=== PATIENT | male | born 1960 | race Caucasian/White ===

== ENCOUNTER 2016-07-20 17:20 | Emergency (ER) | payer MEDICAID, OTHER ==
[~2016-07-20] VITALS: Ht 175.3 cm; Wt 109.0 kg
[~2016-07-20 17:20] MED LIST: ALBUAER3 INH; ALLO100T PO; DIAZ10TA PO; FLOV220A INH; HYDR-3516 PO; METO25 PO; SERT100 PO; TRAZ50TA4 PO; WHEEMIS3; Z.0.WALKERFRONT
[2016-07-20 17:27] VITALS: BP 126/85; PULSE 100; RESP 18; TEMP 99
--- NOTE | 2016-07-20 17:36 | PD ---
HPI Chief Complaint: Fall Time Seen by Provider: 17:34 Travel History International Travel<30 days: No Contact w/Intl Traveler<30days: No Traveled to known affect area: No History of Present Illness HPI 55-year-old male presents to the emergency department for evaluation after a trip and fall that occurred just prior to arrival. Patient states that he tripped over his dog hitting his forehead against the tile floor. He reports positive loss of consciousness. EMS was called and brought him to the emergency department. He complains of headache and neck pain. According to EMS , he is able ambulatory to the stretcher without difficulty. He denies any back pain. No chest pain. No abdominal pain. No vomiting. He has chronic ankle pain which he receives cortisone injections for. He states that he drank 4 beers today and had Valium as well as his pain medication this morning. Patient denies any visual changes. He denies any hip or pelvic pain. He does not take anticoagulants and has no bleeding disorders. PFSH Past Medical History Asthma: Yes Anxiety: Yes Depression: Yes Dementia: Yes Hypertension: Yes Past Surgical History Abdominal Surgery: Yes (UMBILICAL HERNIA REPAIR) Social History Alcohol Use: Yes (2 XS MONTHLY 4 BEERS) Tobacco Use: Yes (CHEWING TOB) Substance Use: Yes (MARIJUANA OCCASIONALY) Allergies-Medications (Allergen,Severity, Reaction): Coded Allergies: Aleve (Verified Allergy, Intermediate, Rash, 07/20/16) Reported Meds & Prescriptions Reported Meds & Active Scripts Active Hydrocodone-Acetaminophen 5-325 mg Tab 1 Tab PO Q6H PRN Proair Hfa 8.5 GM Inh (Albuterol Sulfate) 90 Mcg/Act Aer 2 Puff INH Q4-6H PRN 108 mcg/actuation Reported Trazodone (Trazodone HCl) 100 Mg Tab 100 Mg PO HS Sertraline (Sertraline HCl) 100 Mg Tab 150 Mg PO DAILY Metoprolol Tartrate 25 Mg Tab 25 Mg PO BID Flovent Hfa 12 GM Inh (Fluticasone Propionate) 220 Mcg/Act Inh 1 Puff INH BID Use daily at the same time. Diazepam 5 Mg Tab 5 Mg PO TID PRN Allopurinol 100 Mg Tab 100 Mg PO BID Review of Systems Except as stated in HPI: all other systems reviewed are Neg Physical Exam Narrative GENERAL: Well-nourished, well-developed male patient, Afebrile. SKIN: Focused skin assessment warm/dry. Patient has swelling and hematoma to the left upper eye orbit. HEAD: Normocephalic. EYES: No scleral icterus. No injection or drainage. NECK: Supple, trachea midline. No JVD or lymphadenopathy. CARDIOVASCULAR: Regular rate and rhythm without murmurs, gallops, or rubs. RESPIRATORY: Breath sounds equal bilaterally. No accessory muscle use. Lungs sounds are clear to auscultation. GASTROINTESTINAL: Abdomen soft, non-tender, nondistended. MUSCULOSKELETAL: No cyanosis, or edema. BACK: No obvious deformity. No CVA tenderness. Patient is wearing a c-collar. His tenderness over midline cervical spine. No tenderness over midline thoracic or lumbar spine. Data Data Last Documented VS Vital Signs Date Time Temp Pulse Resp B/P Pulse Ox O2 Delivery O2 Flow Rate FiO2 07/20/16 18:54 97 07/20/16 18:25 89 18 130/71 07/20/16 17:[address] Brain W/O Iv Contrast(Rout) (07/20/16 ) Ct Cerv Spine W/O Contrast (07/20/16 ) Ct Facial Bones W/O Iv Cont (07/20/16 ) MDM Medical Decision Making Medical Screen Exam Complete: Yes Emergency Medical Condition: Yes Medical Record Reviewed: Yes Interpretation(s) Last Impressions Maxillofacial CT 07/20/16 0000 Signed Impressions: Service Date/Time: Wednesday, July 20, 2016 17:58 - CONCLUSION: 1. Left frontal scalp hematoma. 2. Mildly comminuted, minimally displaced fracturing of the nose. 3. Other facial bones, including the orbits, are intact. 4. Chronic-appearing maxillary sinusitis, right worse than left. Momo Stewart MD Head CT 07/20/16 0000 Signed Impressions: Service Date/Time: Wednesday, July 20, 2016 17:58 - CONCLUSION: No bleed or other acute intracranial abnormality demonstrated. Momo Stewart MD Cervical Spine CT 07/20/16 0000 Signed Impressions: Service Date/Time: Wednesday, July 20, 2016 18:00 - CONCLUSION: Intact cervical spine. Mild degenerative changes at C5/C6. Momo Stewart MD Differential Diagnosis Closed head injury versus intracranial abnormality versus cervical strain versus fracture versus facial contusion versus facial fracture Narrative Course 55-year-old male presents to the emergency department for evaluation after a trip and fall. CT of the brain, cervical spine, facial bones are ordered and pending. CT of the brain shows no bleed or other acute intracranial abnormality. CT of the cervical spine shows an intact cervical spine. CT of the facial bones shows a left frontal scalp hematoma, mildly, UA, mainly displaced fracture of the nose, no other facial bone fractures, chronic appearing maxillary sinusitis. Patient has no septal hematoma on exam. He verbalizes agreement. He will follow-up with an ear nose and throat physician. Patient states he would like to go home. The patient was discharged in stable condition with instructions, including return instructions and follow up instructions. Diagnosis Primary Impression: Nasal bone fx-closed Qualified Code: S02.2XXA - Closed fracture of nasal bone, initial encounter Additional Impressions: Facial contusion Qualified Code: S00.83XA - Facial contusion, initial encounter Closed head injury Qualified Code: S09.90XA - Closed head injury, initial encounter Referrals: Ear / Nose / Throat Specialist call for appointment Patient Instructions: General Instructions, Head Injury (ED), Nasal Fracture ( ED) Additional Instructions: Follow-up with ear nose and throat physician regarding nasal bone fracture. Ice for 20 minutes 4-5 times daily. Return to the emergency department for any acute worsening of symptoms. Disposition: 01 DISCHARGE HOME Condition: Stable PedroSymone July 20, 2016 17:36
[2016-07-20 18:25] VITALS: BP 130/71; PULSE 89; RESP 18; O2SAT 96
--- NOTE | 2016-07-20 18:38 | RADRPT ---
EXAM DATE/TIME: 07/20/2016 17:58 [facility] COMPARISON: No previous studies available for comparison. INDICATIONS : Trauma; fall. ETOH RADIATION DOSE: 56.35 CTDIvol (mGy) MEDICAL HISTORY : Non-responsive. SURGICAL HISTORY : Non-responsive. ENCOUNTER: Initial ACUITY: 1 day PAIN SCALE: Non-responsive LOCATION: cranial TECHNIQUE: Multiple contiguous axial images were obtained of the head. Using automated exposure control and adj ustment of the mA and/or kV according to patient size, radiation dose was kept as low as reasonably a chievable to obtain optimal diagnostic quality images. FINDINGS: CEREBRUM: The ventricles are normal for age. No evidence of midline shift, mass lesion, hemorrhage or acute in farction. No extra-axial fluid collections are seen. POSTERIOR FOSSA: The cerebellum and brainstem are intact. The 4th ventricle is midline. The cerebellopontine angle i s unremarkable. EXTRACRANIAL: The visualized portion of the orbits is intact. SKULL: The calvaria is intact. No evidence of skull fracture. CONCLUSION: No bleed or other acute intracranial abnormality demonstrated. Momo Stewart MD on July 20, 2016 at 18:36 Board Certified Radiologist. This report was verified electronically.
--- NOTE | 2016-07-20 18:40 | RADRPT ---
EXAM DATE/TIME: 07/20/2016 17:58 [facility] COMPARISON: No previous studies available for comparison. INDICATIONS : Trauma; fall. RADIATION DOSE: 21.96 CTDIvol (mGy) MEDICAL HISTORY : Non-responsive. SURGICAL HISTORY : Non-responsive. ENCOUNTER: Initial ACUITY: 1 day PAIN SCORE: Non-responsive LOCATION: facial TECHNIQUE: Volumetric scanning of the facial bones was performed. Using automated exposure control and adjustme nt of the mA and/or kV according to patient size, radiation dose was kept as low as reasonably achiev able to obtain optimal diagnostic quality images. FINDINGS: ORBITS: The orbital and infraorbital osseous structures are intact. The retroconal structures have a normal configuration. No radiopaque foreign bodies are seen. NASAL BONE: The mildly comminuted, minimally displaced fracturing seen of the tip of the nasion and both sides of the nasal arch. ZYGOMATIC ARCHES: Symmetric without evidence of fracture. SINUSES: Mucoperiosteal thickening is seen of the maxillary air cells, especially the right. NASAL CAVITY: The nasal septum is intact and midline. The lacrimal ducts are intact. SOFT TISSUES: There is a left supraorbital scalp contusion. INTRACRANIAL: No intracranial air seen. CRIBIFORM PLATE: Grossly intact. CONCLUSION: 1. Left frontal scalp hematoma. 2. Mildly comminuted, minimally displaced fracturing of the nose. 3. Other facial bones, including the orbits, are intact. 4. Chronic-appearing maxillary sinusitis, right worse than left. Momo Stewart MD on July 20, 2016 at 18:37 Board Certified Radiologist. This report was verified electronically.
[2016-07-20] MEDS ORDERED: SERT-129 PO (18:47)
[2016-07-20] MEDS ORDERED: METO25TA3 PO (18:47)
[2016-07-20] MEDS ORDERED: DIAZ5TAB PO (18:47)
[2016-07-20] MEDS ORDERED: TRAZ100T4 PO (18:47)
[2016-07-20] MEDS ORDERED: ALLO100T PO (18:47)
[2016-07-20] MEDS ORDERED: FLUTI220I INH (18:47)
--- NOTE | 2016-07-20 19:15 | RADRPT ---
EXAM DATE/TIME: 07/20/2016 18:00 [facility] COMPARISON: No previous studies available for comparison. INDICATIONS : Trauma; fall. RADIATION DOSE: 28.51 CTDIvol (mGy) MEDICAL HISTORY : Non-responsive. SURGICAL HISTORY : Non-responsive. ENCOUNTER: Initial ACUITY: 1 day PAIN SCALE: Non-responsive LOCATION: neck TECHNIQUE: Volumetric scanning of the cervical spine was performed. Multiplanar reconstructions in the sagittal, coronal and oblique axial planes were performed. Using automated exposure control and adjustment o f the mA and/or kV according to patient size, radiation dose was kept as low as reasonably achievable to obtain optimal diagnostic quality images. FINDINGS: VERTEBRAE: Normal vertebral body height. ALIGNMENT: No evidence of subluxation. C2-C3: The bony spinal canal is normal in size. No evidence of disc bulge or herniation. The neural forami na are bilaterally patent. C3-C4: The bony spinal canal is normal in size. No evidence of disc bulge or herniation. The neural forami na are bilaterally patent. C4-C5: The bony spinal canal is normal in size. No evidence of disc bulge or herniation. The neural forami na are bilaterally patent. C5-C6: Mild disc space narrowing and mild uncovertebral and facet osteoarthritis seen at C5/C6. No significa nt foraminal or spinal stenosis. C6-C7: The bony spinal canal is normal in size. No evidence of disc bulge or herniation. The neural forami na are bilaterally patent. C7-T1: The bony spinal canal is normal in size. No evidence of disc bulge or herniation. The neural forami na are bilaterally patent. CONCLUSION: Intact cervical spine. Mild degenerative changes at C5/C6. Momo Stewart MD on July 20, 2016 at 19:12 Board Certified Radiologist. This report was verified electronically.
[2016-07-27] MEDS ORDERED: HYDR-3516 PO (14:10)
[2016-08-30] MEDS ORDERED: HYDR-3516 PO (15:32)
[2016-09-06] MEDS ORDERED: HYDR-3580 PO (10:58)
[2016-09-06] MEDS ORDERED: POTA-163 PO (11:14)
[2016-09-06] MEDS ORDERED: FURO40TA PO (11:14)
[2016-09-06] MEDS ORDERED: CLAR10CA3 PO (11:14)
== END 2016-07-20 19:58 | disposition home or self-care (01) ==
LOC: NEPC 17:20
DX: S02.2XXA Fracture of nasal bones, initial encounter for closed fracture (principal); S00.03XA Contusion of scalp, initial encounter; J32.0 Chronic maxillary sinusitis; W01.0XXA Fall on same level from slipping, tripping and stumbling without subsequent striking against object, initial encounter
CPT/HCPCS: 70450; 70486; 72125

== ENCOUNTER 2017-09-20 12:39 | Inpatient (IN) ==
--- NOTE | 2017-09-20 14:46 | ED ---
HPI General Chief complaint: Back Pain/Injury Stated complaint: evac/medical Time Seen by Provider: 09/20/17 14:29 Source: patient Mode of arrival: EMS Limitations: other (poor historian) History of Present Illness HPI narrative: 56-year-old male presents to the emergency department via EMS for evaluation of left ankle and left hip pain. Patient states he had surgery on July 25, 2017 by a physician in [facility]. Patient states they took a bone from his left hip and put it in his ankle. Patient is a poor historian. Patient states that on Saturday, he slipped using his crutches and water and fell, causing worsening pain to his left hip and left ankle. Patient also states that he has been out of his pain medication for 3 days. He rates the pain 10/ 10 to the left hip and left ankle without radiation. He also reports bilateral lower extremity swelling over the past 2 weeks. He states that he had an ultrasound done approximately 2 weeks ago by a physician at [facility] which was negative for DVT, but states the symptoms have worsened. He denies any history of CHF. Patient also reports increasing shortness of breath over the past 2 weeks. No fevers. No chest pain. He denies any abdominal pain. No nausea, vomiting, diarrhea. He reports history of asthma and hypertension. He denies any history of UT or CHF. Patient's oxygen saturation upon arrival was 88% on room air. He was placed on 2 L O2 nasal cannula. Moderate severity. Onset (ago): week(s) Location: left and lower extremity Radiation: non-radiation Severity: moderate Severity scale (1-10): 10 Quality: aching Pain Consistency: constant Relieving factors: none Exacerbating factors: movement Associated symptoms: shortness of breath and other (Edema) Treatments prior to arrival: none Related Data Home Medications Medication Instructions Recorded Confirmed albuterol sulfate [ProAir HFA] 2 puff INHALATION Q4H PRN 09/20/17 09/20/17 allopurinol 100 mg PO DAILY 09/20/17 09/20/17 cyclobenzaprine 5 mg PO TID PRN 09/20/17 09/20/17 diazepam [Valium] 5 mg PO TID PRN 09/20/17 09/20/17 gabapentin [Neurontin] 100 mg PO TID 09/20/17 09/20/17 hydrocodone-acetaminophen [[place]] 1 tab PO Q6H PRN 09/20/17 09/20/17 ketoconazole 1 applic TOPICAL BID 09/20/17 09/20/17 loratadine [Claritin] 10 mg PO DAILY 09/20/17 09/20/17 metoprolol tartrate 25 mg PO BID 09/20/17 09/20/17 sertraline [Zoloft] 150 mg PO DAILY 09/20/17 09/20/17 trazodone 100 mg PO HS 09/20/17 09/20/17 Allergies Allergy/AdvReac Type Severity Reaction Status Date / Time naproxen Allergy Intermediate Rash Verified 09/20/17 16:24 Review of Systems ROS Unobtainable All other systems reviewed negative except as stated in [facility] Medical History Medical History Borderline diabetes (Acute) Depressed (Acute) Gout (Acute) Hypertension (Acute) Neuropathy (Acute) Seasonal allergies (Acute) Social History Social History Substance History: Past History Second Hand Smoke Exposure: Yes Smoking Status: Current every day smoker Tobacco Type: Cigarettes How Often Do You Have a Drink Containing Alcohol: Monthly or less Recent Out of Country Travel within the Last 8 Weeks: No Immunization History Tetanus Immunization: Unsure Hx Influenza Vaccine This Season: No Exam Narrative Exam Narrative: GENERAL: Well-nourished, well-developed obese male patient, afebrile SKIN: Focused skin assessment warm/dry. Patient has incision site to the left posterior ankle with slight dehiscence and erythema. Patient has incision site to the left posterior hip that appears to be healing well HEAD: Normocephalic. Atraumatic EYES: No scleral icterus. No injection or drainage. NECK: Supple, trachea midline. No JVD or lymphadenopathy. CARDIOVASCULAR: Regular rate and rhythm without murmurs, gallops, or rubs. RESPIRATORY: Breath sounds equal bilaterally. No accessory muscle use. GASTROINTESTINAL: Abdomen soft, non-tender, nondistended. MUSCULOSKELETAL: No cyanosis. Patient has 3+ pitting edema to the lower extremities BACK: Nontender without obvious deformity. No CVA tenderness. Course Initial Documented Vital Signs Temperature 98.4 F 09/20/17 12:45 Pulse Rate 100 H 09/20/17 12:45 Respiratory Rate 20 09/20/17 12:45 Blood Pressure 119/59 L 09/20/17 12:45 Pulse Oximetry 89 L 09/20/17 12:45 Last Documented Vital Signs Temperature 98.5 F 09/20/17 14:00 Pulse Rate 98 H 09/20/17 14:00 Respiratory Rate 20 09/20/17 14:00 Blood Pressure 119/59 L 09/20/17 12:45 Pulse Oximetry 93 L 09/20/17 14:05 Medical Decision Making MDM Narrative Medical decision making narrative: 56-year-old male presents to the emergency department for lower extremity edema, shortness of breath, ankle and hip pain. EKG, CBC, ESR, CRP, CMP, magnesium, lactic acid, CK, troponin, BNP, PTT, PT/INR , chest x-ray, ultrasound of the bilateral lower extremities are ordered and pending. EKG shows sinus rhythm, heart rate 97, no acute ST changes. CBC shows no acute abnormality. ESR is pending. CMP shows elevated AST of 89, alkaline phosphatase 234. CRP is 7.40. Magnesium is 2.3. Lactic acid is 1.5. BNP is still pending. CK is 97. Troponin is less than 0.02. Coags are unremarkable. Chest x-ray shows cardiomegaly with mild positive fluid balance. US is negative for DVT. X-ray of the left ankle shows no acute fracture or joint dislocation, status post internal fixation of the ankle. X-ray of the left hip with pelvis shows no acute fracture or joint dislocation. Blood cultures 2 were ordered and pending. Patient is given vancomycin 1 g IV for cellulitis to the left ankle. Patient is given Lasix 40 mg IV. Patient sees the residents. He will be admitted for new onset CHF, cellulitis. Dr. Mcneil, resident, accepted admission. Differential Diagnosis Differential Diagnosis: cellulitis vs. osteomyelitis vs. new onset CHF vs. DVT vs. PE vs. ACS vs. electrolyte abnormality vs. chronic pain Medical Records Medical records reviewed: Yes I reviewed the patient's medical records. Lab Data Result diagrams: 09/20/17 14:40 09/20/17 14:40 Lab Results 09/20/17 09/20/17 09/20/17 Range/Units 14:40 14:40 14:40 WBC 6.4 (4.0-11.0) th/mm3 RBC 3.43 L (4.50-5.90) mil/mm3 Hgb 11.4 L (13.0-17.0) gm/dL Hct 35.8 L (39.0-51.0) % MCV 104.3 H (80.0-100.0) fL MCH 33.4 (27.0-34.0) pg MCHC 32.0 (32.0-36.0) % RDW 20.6 H (11.6-17.2) % Plt Count 219 (150-450) th/mm3 MPV 7.4 (7.0-11.0) fL Neut % (Auto) 69.0 (16.0-70.0) % Lymph % (Auto) 14.0 (9.0-44.0) % Frio % (Auto) 14.7 H (0.0-8.0) % Eos % (Auto) 1.9 (0.0-4.0) % Baso % (Auto) 0.4 (0.0-2.0) % Neut # (Auto) 4.4 (1.8-7.7) th/mm3 Lymph # (Auto) 0.9 L (1.0-4.8) th/mm3 Frio # (Auto) 0.9 (0.0-0.9) th/mm3 Eos # (Auto) 0.1 (0.0-0.4) th/mm3 Baso # (Auto) 0.0 (0.0-0.2) th/mm3 WBC Differential . Differential Comment Auto diff final ESR (0-20) mm/hr PT 10.6 (9.8-11.6) sec INR 1.0 Ratio APTT 26.6 (24.3-30.1) sec Sodium 134 L (136-145) meq/L Potassium 4.3 (3.5-5.1) meq/L Chloride 96 L (98-107) meq/L Carbon Dioxide 23.6 (21.0-32.0) meq/L Anion Gap 14 (5-15) meq/L BUN 3 L (7-18) mg/dL Creatinine 0.59 L (0.60-1.30) mg/dL Estimated GFR Greater than 89 (>89) mL/min Random Glucose 91 (74-106) mg/dL Lactic Acid (0.4-2.0) mmol/L Calcium 8.3 L (8.5-10.1) mg/dL Magnesium 2.3 (1.5-2.5) mg/dL Total Bilirubin 0.7 (0.2-1.0) mg/dL AST 89 H (15-37) U/L ALT 50 (12-78) U/L Alkaline Phosphatase 234 H (45-117) U/L Total Creatine Kinase 97 (39-308) U/L Troponin I Less than 0.02 L (0.02-0.05) ng/mL C-Reactive Protein 7.40 H (0.00-0.30) mg/dL B-Natriuretic Peptide (0-100) pg/mL Total Protein 6.6 (6.4-8.2) g/dL Albumin 2.8 L (3.4-5.0) g/dL Urine Color (Yellw/Straw) Urine Clarity (Clear) Urine pH (5.0-8.5) Ur Specific [place] (1.002-1.035) Urine Protein (Neg-Trace) mg/dL Urine Glucose (UA) (Negative) mg/dL Urine Ketones (Negative) mg/dL Urine Occult Blood (Negative) Urine Nitrate (Negative) Urine Bilirubin (Negative) Urine Urobilinogen (Less than 2) mg/dL Ur Leukocyte Esterase (Negative) Urine RBC (0-3) /hpf Micro UA Comment Urine Culture Comments 09/20/17 09/20/17 09/20/17 Range/Units 14:40 14:40 14:45 WBC (4.0-11.0) th/mm3 RBC (4.50-5.90) mil/mm3 Hgb (13.0-17.0) gm/dL Hct (39.0-51.0) % MCV (80.0-100.0) fL MCH (27.0-34.0) pg MCHC (32.0-36.0) % RDW (11.6-17.2) % Plt Count (150-450) th/mm3 MPV (7.0-11.0) fL Neut % (Auto) (16.0-70.0) % Lymph % (Auto) (9.0-44.0) % Frio % (Auto) (0.0-8.0) % Eos % (Auto) (0.0-4.0) % Baso % (Auto) (0.0-2.0) % Neut # (Auto) (1.8-7.7) th/mm3 Lymph # (Auto) (1.0-4.8) th/mm3 Frio # (Auto) (0.0-0.9) th/mm3 Eos # (Auto) (0.0-0.4) th/mm3 Baso # (Auto) (0.0-0.2) th/mm3 WBC Differential Differential Comment ESR 14 (0-20) mm/hr PT (9.8-11.6) sec INR Ratio APTT (24.3-30.1) sec Sodium (136-145) meq/L Potassium (3.5-5.1) meq/L Chloride (98-107) meq/L Carbon Dioxide (21.0-32.0) meq/L Anion Gap (5-15) meq/L BUN (7-18) mg/dL Creatinine (0.60-1.30) mg/dL Estimated GFR (>89) mL/min Random Glucose (74-106) mg/dL Lactic Acid 1.5 (0.4-2.0) mmol/L Calcium (8.5-10.1) mg/dL Magnesium (1.5-2.5) mg/dL Total Bilirubin (0.2-1.0) mg/dL AST (15-37) U/L ALT (12-78) U/L Alkaline Phosphatase (45-117) U/L Total Creatine Kinase (39-308) U/L Troponin I (0.02-0.05) ng/mL C-Reactive Protein (0.00-0.30) mg/dL B-Natriuretic Peptide 203 H (0-100) pg/mL Total Protein (6.4-8.2) g/dL Albumin (3.4-5.0) g/dL Urine Color (Yellw/Straw) Urine Clarity (Clear) Urine pH (5.0-8.5) Ur Specific [place] (1.002-1.035) Urine Protein (Neg-Trace) mg/dL Urine Glucose (UA) (Negative) mg/dL Urine Ketones (Negative) mg/dL Urine Occult Blood (Negative) Urine Nitrate (Negative) Urine Bilirubin (Negative) Urine Urobilinogen (Less than 2) mg/dL Ur Leukocyte Esterase (Negative) Urine RBC (0-3) /hpf Micro UA Comment Urine Culture Comments 09/20/17 Range/Units 14:50 WBC (4.0-11.0) th/mm3 RBC (4.50-5.90) mil/mm3 Hgb (13.0-17.0) gm/dL Hct (39.0-51.0) % MCV (80.0-100.0) fL MCH (27.0-34.0) pg MCHC (32.0-36.0) % RDW (11.6-17.2) % Plt Count (150-450) th/mm3 MPV (7.0-11.0) fL Neut % (Auto) (16.0-70.0) % Lymph % (Auto) (9.0-44.0) % Frio % (Auto) (0.0-8.0) % Eos % (Auto) (0.0-4.0) % Baso % (Auto) (0.0-2.0) % Neut # (Auto) (1.8-7.7) th/mm3 Lymph # (Auto) (1.0-4.8) th/mm3 Frio # (Auto) (0.0-0.9) th/mm3 Eos # (Auto) (0.0-0.4) th/mm3 Baso # (Auto) (0.0-0.2) th/mm3 WBC Differential Differential Comment ESR (0-20) mm/hr PT (9.8-11.6) sec INR Ratio APTT (24.3-30.1) sec Sodium (136-145) meq/L Potassium (3.5-5.1) meq/L Chloride (98-107) meq/L Carbon Dioxide (21.0-32.0) meq/L Anion Gap (5-15) meq/L BUN (7-18) mg/dL Creatinine (0.60-1.30) mg/dL Estimated GFR (>89) mL/min Random Glucose (74-106) mg/dL Lactic Acid (0.4-2.0) mmol/L Calcium (8.5-10.1) mg/dL Magnesium (1.5-2.5) mg/dL Total Bilirubin (0.2-1.0) mg/dL AST (15-37) U/L ALT (12-78) U/L Alkaline Phosphatase (45-117) U/L Total Creatine Kinase (39-308) U/L Troponin I (0.02-0.05) ng/mL C-Reactive Protein (0.00-0.30) mg/dL B-Natriuretic Peptide (0-100) pg/mL Total Protein (6.4-8.2) g/dL Albumin (3.4-5.0) g/dL Urine Color Yellow (Yellw/Straw) Urine Clarity Clear (Clear) Urine pH 6.0 (5.0-8.5) Ur Specific [place] 1.004 (1.002-1.035) Urine Protein Negative (Neg-Trace) mg/dL Urine Glucose (UA) Negative (Negative) mg/dL Urine Ketones Negative (Negative) mg/dL Urine Occult Blood Negative (Negative) Urine Nitrate Negative (Negative) Urine Bilirubin Negative (Negative) Urine Urobilinogen Less than 2 (Less than 2) mg/dL Ur Leukocyte Esterase Negative (Negative) Urine RBC Less than 1 (0-3) /hpf Micro UA Comment Culture not ind Urine Culture Comments Culture not ind Imaging Data Radiologist's impression: ITS Impressions Ankle X-Ray 09/20/17 14:40 CONCLUSION: No acute fracture or joint dislocation. Chest X-Ray 09/20/17 14:40 CONCLUSION: 1. Cardiomegaly with mild positive fluid balance. Hip X-Ray 09/20/17 14:40 CONCLUSION: No acute fracture or joint dislocation. Venous Doppler Study 09/20/17 14:42 CONCLUSION: 1. No evidence of DVT. Discharge Plan Discharge Disposition Patient Disposition: 30 Still Patient Discharge Details Discharge Problem: New onset of congestive heart failure, Cellulitis Physicians Team ED Provider: Romeo Cintron ED Midlevel Provider: Symone Vasquez Primary Care Provider: Young Mahmood Rxs /Orders / Referrals /Forms Prescriptions: No Action allopurinol 100 mg Tablet 100 mg PO DAILY RF: 0 hydrocodone-acetaminophen [[place]] 10-325 mg Tablet 1 tab PO Q6H PRN (Reason: Pain) RF: 0 trazodone 100 mg Tablet 100 mg PO HS RF: 0 gabapentin [Neurontin] 100 mg Capsule 100 mg PO TID RF: 0 albuterol sulfate [ProAir HFA] 90 mcg/actuation Hfa Aerosol Inhaler 2 puff INHALATION Q4H PRN (Reason: Shortness Of Breath) RF: 0 ketoconazole 2 % Cream 1 applic TOPICAL BID RF: 0 sertraline [Zoloft] 50 mg Tablet 150 mg PO DAILY RF: 0 loratadine [Claritin] 10 mg Tablet 10 mg PO DAILY RF: 0 diazepam [Valium] 5 mg Tablet 5 mg PO TID PRN (Reason: Anxiety) RF: 0 cyclobenzaprine 5 mg Tablet 5 mg PO TID PRN (Reason: Muscle Spasm) RF: 0 metoprolol tartrate 25 mg Tablet 25 mg PO BID RF: 0 Status ED Status: With Doctor
[2017-09-20 15:13] LABS: Bilirubin,Urine Negative (Negative); Clarity,Urine Clear (Clear); Color,Urine Yellow (Yellw/Straw); Glucose,Urine (UA) Negative (Negative); Leukocyte Esterase,Urine Negative (Negative); Nitrite,Urine Negative (Negative); Specific Gravity,Urine 1.004 (1.002-1.035)
[2017-09-20 15:14] LABS: Baso % (Auto) 0.4 % (0.0-2.0); Eos # (Auto) 0.1 th/mm3 (0.0-0.4); Eos % (Auto) 1.9 % (0.0-4.0); Hematocrit 35.8 % (39.0-51.0); Hemoglobin 11.4 gm/dL (13.0-17.0); Lymph # (Auto) 0.9 th/mm3 (1.0-4.8); Mean Corpuscular Hemoglobin 33.4 pg (27.0-34.0); Mean Corpuscular Volume 104.3 fL (80.0-100.0); Mean Platelet Volume 7.4 fL (7.0-11.0); Mono # (Auto) 0.9 th/mm3 (0.0-0.9); Mono % (Auto) 14.7 % (0.0-8.0); Neut # (Auto) 4.4 th/mm3 (1.8-7.7); Platelet Count 219 th/mm3 (150-450); Red Blood Count 3.43 mil/mm3 (4.50-5.90); Red Cell Distribution Width 20.6 % (11.6-17.2); White Blood Count 6.4 th/mm3 (4.0-11.0)
[2017-09-20 15:19] LABS: Activated Partial Thrombo Time 26.6 sec (24.3-30.1); Prothrombin Time 10.6 sec (9.8-11.6)
[2017-09-20 15:34] LABS: Alanine Aminotransferase 50 U/L (12-78); Albumin 2.8 g/dL (3.4-5.0); Alkaline Phosphatase 234 U/L (45-117); Anion Gap 14 meq/L (5-15); Aspartate Aminotransferase 89 U/L (15-37); Blood Urea Nitrogen 3 mg/dL (7-18); Calcium 8.3 mg/dL (8.5-10.1); Carbon Dioxide 23.6 meq/L (21.0-32.0); Chloride 96 meq/L (98-107); Glomerular Filtration Rate Greater Than 89 mL/min (>89); Glucose,Random 91 mg/dL (74-106); Magnesium 2.3 mg/dL (1.5-2.5); Potassium 4.3 meq/L (3.5-5.1); Sodium 134 meq/L (136-145); Total Protein 6.6 g/dL (6.4-8.2)
[2017-09-20 15:37] LABS: Creatine Kinase 97 U/L (39-308)
--- NOTE | 2017-09-20 15:53 | XR ---
EXAM DATE: 09/20/2017 3:40 PM EDT AGE/SEX: 56 years / Male INDICATIONS: Shortness of breath. CLINICAL DATA: This is the patient's initial encounter. Patient reports that signs and symptoms have been present for 1 day and indicates a pain score of 8/10. MEDICAL/SURGICAL HISTORY: . Previous left ankle fracture . ORIF of the left ankle with left hi p bone marrow COMPARISON: No prior exams available for comparison. FINDINGS: Mild diffuse interstitial prominence. Cardiac silhouette is enlarged. Central pulmonary vascularity i s slightly indistinct. Healed left clavicle fracture. Bony thorax is otherwise intact. CONCLUSION: 1. Cardiomegaly with mild positive fluid balance. Electronically signed by: Luis Manuel Vidal MD 09/20/2017 3:52 PM EDT
--- NOTE | 2017-09-20 15:55 | XR ---
EXAM DATE: 09/20/2017 3:39 PM EDT AGE/SEX: 56 years / Male INDICATIONS: Left ankle pain with swelling post fall. CLINICAL DATA: This is the patient's initial encounter. Patient reports that signs and symptoms have been present for 1 day and indicates a pain score of 8/10. MEDICAL/SURGICAL HISTORY: . Previous left ankle fracture . ORIF of the left ankle with left hi p bone marrow COMPARISON: POI, XR ANKLE (MIN 3 VIEWS), LEFT, 10/09/2016. . FINDINGS: Patient is status post internal fixation at the ankle. The hardware is grossly intact. There is diffu se soft tissue swelling around the ankle. No acute fracture or joint dislocation is seen. CONCLUSION: No acute fracture or joint dislocation. Electronically signed by: Leo Norris MD 09/20/2017 3:54 PM EDT
--- NOTE | 2017-09-20 15:56 | XR ---
EXAM DATE: 09/20/2017 3:37 PM EDT AGE/SEX: 56 years / Male INDICATIONS: Left hip pain post fall. CLINICAL DATA: This is the patient's initial encounter. Patient reports that signs and symptoms have been present for 1 day and indicates a pain score of 8/10. MEDICAL/SURGICAL HISTORY: . Previous left ankle fracture . ORIF of the left ankle with left h ip bone marrow COMPARISON: No prior exams available for comparison. FINDINGS: Bony structures are intact and in normal alignment. Joints are intact without dislocation or signifi cant arthropathy. Osseous density is normal. Soft tissues are unremarkable. No radiopaque foreign bodies seen. CONCLUSION: No acute fracture or joint dislocation. Electronically signed by: Leo Norris MD 09/20/2017 3:55 PM EDT
--- NOTE | 2017-09-20 16:17 | US ---
EXAM DATE: 09/20/2017 4:09 PM EDT AGE/SEX: 56 years / Male INDICATIONS: Bilateral lower extremity swelling. CLINICAL DATA: This is the patient's initial encounter. Patient reports that signs and symptoms have been present for 2 weeks and indicates a pain score of 10/10. MEDICAL/SURGICAL HISTORY: Hypertension. Gout. Neuropathy. . Orthopedic surgery on the left an kle and left hip. COMPARISON: No prior exams available for comparison. TECHNIQUE: Venous ultrasound of both lower extremities was performed from the inguinal ligament to t he proximal calf. Real-time, color Doppler and spectral tracing, compression and augmentation techni ques were used. FINDINGS: Right Leg: Normal compression of the deep venous system from the inguinal region to the proximal jose enrique f. No echogenic clot is seen. Normal response of the venous system to augmentation and respiration. Left Leg: Normal compression of the deep venous system from the inguinal region to the proximal calf . No echogenic clot is seen. Normal response of the venous system to augmentation and respiration. Other: There is edema in the soft tissues bilaterally. CONCLUSION: 1. No evidence of DVT. Electronically signed by: Leo Norris MD 09/20/2017 4:16 PM EDT
[2017-09-20] MEDS ORDERED: Vancomycin Inj 1 GM/200 ML PIGGYBACK IV.SIG ONE (16:31)
[2017-09-20] MEDS ORDERED: Vancomycin Inj 1,000 MG in Sodium Chlor 0.9% Inj 250 ML IV.SIG ONE (17:00)
--- NOTE | 2017-09-20 17:24 | P.HPFP ---
History of Present Illness Primary Care Physician: Young Mahmood MD, R2 Chief Complaint: Swelling and redness in legs History of Present Illness: 56 yo M with a PMH of HTN, Depression/Anxiety presenting to ED with bilateral leg swelling and redness. First started a couple of weeks ago and has been gradually getting worse. Swelling started in his ankles but now feels it is as high as his upper thighs and abdomen. He has been experiencing worsening SOB over last several weeks as well. Endorses needing more pillows/sitting upright at night to help him breath. Denies any history of DE, CAD, CHF. Of note, he recently had surgery on July 25 on his L hip and L ankle. Pain in his ankle/hip have been improving. He was prescribed Camino 10 after the surgery but he ran out several days ago. Denies fever/chills, pain specific to the joint. He does state there has been some yellowing drainage from the surgical site on his L ankle. - Diagnosis (1) New onset of congestive heart failure (2) Cellulitis (3) Hypertension (4) History of asthma (5) Depression with anxiety (6) Gout (7) Nutrition, metabolism, and development symptoms Inpatient Certification: I certify that the inpatient services were ordered in accordance with Medicare regulations governing the order. This includes certification that hospital inpatient services are reasonable and necessary and in the case of services not specified as inpatient-only under 42 CFR 419.22(n), that they are appropriately provided as inpatient services in accordance to with the 2-midnight benchmark under 43 CFR 412.3(e) Review of Systems Constitutional: Denies chills, Denies fever(s), Denies headache(s), Denies night sweats Eyes: Denies blurry vision, Denies pain Ears, Nose, Mouth, and Throat: Denies pain with swallowing, Denies post nasal drip, Denies sore throat Cardiovascular: Reports generalized swelling, Reports leg swelling, Reports shortness of breath, Reports shortness of breath when lying down, Denies chest pain, Denies chest pain with activity Respiratory: Reports wheezing (more than baseline), Denies cough Gastrointestinal: Reports loose stools, Denies abdominal pain, Denies black, tarry stools, Denies bright, red blood in stools Genitourinary: Denies blood in urine, Denies painful urination Musculoskeletal: Reports muscle weakness, Denies joint pain Neurologic: Denies dizziness, Denies headache(s), Denies loss of vision Hematologic/Lymphatic: Denies easy bleeding, Denies easy bruising PMFSH - History History Provided By: Patient - Medical History Medical History: Medical History (Last Updated 09/20/17 @ 18:53 by Johnson Mcneil MD, R1) Anxiety Asthma Borderline diabetes Depressed Gout Hypertension Left wrist fracture Neuropathy Seasonal allergies - Surgical History Surgical History: Surgical History (Last Updated 09/20/17 @ 17:40 by Johnson Mcneil MD, R1) H/O umbilical hernia repair - Family History Family History: Family History (Last Updated 09/20/17 @ 17:40 by Johnson Mcneil MD, R1) Other Family history of acute myocardial infarction Family history of diabetes mellitus Family history of lung cancer Family history of renal disease - Tobacco History Second Hand Smoke Exposure: Yes Tobacco Use In Past 30 Days: Yes Smoking Status: Current every day smoker (1/2 ppd for 20 years off and on) Tobacco Type: Cigarettes - Alcohol History How Often Do You Have a Drink Containing Alcohol: Monthly or less - Substance Use History Substance History: Past History - Travel History Recent Travel Out of the Country Within the Last 8 Weeks: No - Immunization History Tetanus Immunization: Unsure Hx Influenza Vaccine This Season: No Medications and Allergies Active Medications: Active Medications Vancomycin HCl 1,000 mg/ (Sodium Chloride) 250 mls @ 250 mls/hr IV.SIG ONCE ONE Stop: 09/20/17 17:59 Allergies Allergy/AdvReac Type Severity Reaction Status Date / Time naproxen Allergy Intermediate Rash Verified 09/20/17 16:24 Home Medications Medication Instructions Recorded Confirmed Type albuterol sulfate [ProAir HFA] 2 puff INHALATION Q4H PRN 09/20/17 09/20/17 History allopurinol 100 mg PO DAILY 09/20/17 09/20/17 History diazepam [Valium] 5 mg PO TID PRN 09/20/17 09/20/17 History hydrocodone-acetaminophen [Camino] 1 tab PO Q6H PRN 09/20/17 09/20/17 History ketoconazole 1 applic TOPICAL BID 09/20/17 09/20/17 History loratadine [Claritin] 10 mg PO DAILY 09/20/17 09/20/17 History metoprolol tartrate 25 mg PO BID 09/20/17 09/20/17 History sertraline [Zoloft] 150 mg PO DAILY 09/20/17 09/20/17 History trazodone 100 mg PO HS 09/20/17 09/20/17 History Exam Vital signs: Vital Signs 09/20/17 12:45 09/20/17 14:00 09/20/17 14:05 Temperature 98.4 F 98.5 F Pulse Rate 100 H 98 H Respiratory Rate 20 20 Blood Pressure 119/59 L Pulse Oximetry 89 L 88 L 93 L Intake & Output 09/19/17 09/20/17 09/20/17 18:59 06:59 18:59 Output Total 225 / 225 Balance -225 / -225 Weight 127.006 kg Output: Urine 225 / 225 Other: # Voids 1 Narrative: GENERAL: Obese male sitting upright in bed with nasal cannula in place. Speaking in full sentences and answering questions appropriately. SKIN: Erythema in the bilateral lower extremities appreciated up to the level of the knee. Roughly 6 inch incision site on the posterior aspect of the left ankle with some dehiscence and possible purulent drainage. Large incision site overlying the lateral and posterior left hip is intact and dry with no signs of drainage. EYES: No scleral icterus. No injection or drainage. PERRLA. EOMI. HENT: Normocephalic. Atraumatic. MMM. NECK: No visible JVD or lymphadenopathy. CARDIOVASCULAR: Regular rate and rhythm with no murmurs appreciated RESPIRATORY: Moving air well bilaterally. Faint crackles appreciated in the bibasilar lung lemus. Occasional expiratory wheezes auscultated. GASTROINTESTINAL: Abdomen is nondistended but there is pitting edema overlying the abdomen. Nontender no rebound tenderness MUSCULOSKELETAL: Strength grossly WNL. 2+ pitting edema to the level of the abdomen. BACK: Without obvious deformity. NEURO/PSYCH: Afocal. Awake, alert, and oriented x3. Results - Labs Result diagrams: 09/20/17 14:40 09/20/17 14:40 Abnormal lab results 09/20/17 09/20/17 09/20/17 Range/Units 14:40 14:40 14:40 RBC 3.43 L (4.50-5.90) mil/mm3 Hgb 11.4 L (13.0-17.0) gm/dL Hct 35.8 L (39.0-51.0) % MCV 104.3 H (80.0-100.0) fL RDW 20.6 H (11.6-17.2) % [place] % (Auto) 14.7 H (0.0-8.0) % Lymph # (Auto) 0.9 L (1.0-4.8) th/mm3 Sodium 134 L (136-145) meq/L Chloride 96 L (98-107) meq/L BUN 3 L (7-18) mg/dL Creatinine 0.59 L (0.60-1.30) mg/dL Calcium 8.3 L (8.5-10.1) mg/dL AST 89 H (15-37) U/L Alkaline Phosphatase 234 H (45-117) U/L Troponin I Less than 0.02 L (0.02-0.05) ng/mL C-Reactive Protein 7.40 H (0.00-0.30) mg/dL B-Natriuretic Peptide 203 H (0-100) pg/mL Albumin 2.8 L (3.4-5.0) g/dL Short CBC 09/20/17 Range/Units 14:40 WBC 6.4 (4.0-11.0) th/mm3 Hgb 11.4 L (13.0-17.0) gm/dL Hct 35.8 L (39.0-51.0) % Plt Count 219 (150-450) th/mm3 BMP 09/20/17 14:40 Sodium 134 L Potassium 4.3 Chloride 96 L Carbon Dioxide 23.6 BUN 3 L Creatinine 0.59 L Calcium 8.3 L Cardiac Enzymes 09/20/17 Range/Units 14:40 Total Creatine Kinase 97 (39-308) U/L Troponin I Less than 0.02 L (0.02-0.05) ng/mL Liver Function 09/20/17 Range/Units 14:40 Total Bilirubin 0.7 (0.2-1.0) mg/dL AST 89 H (15-37) U/L ALT 50 (12-78) U/L Alkaline Phosphatase 234 H (45-117) U/L Albumin 2.8 L (3.4-5.0) g/dL Urine 09/20/17 Range/Units 14:50 Urine Color Yellow (Yellw/Straw) Urine Clarity Clear (Clear) Urine pH 6.0 (5.0-8.5) Ur Specific [place] 1.004 (1.002-1.035) Urine Protein Negative (Neg-Trace) mg/dL Urine Glucose (UA) Negative (Negative) mg/dL - Imaging Impressions Ankle X-Ray 09/20/17 14:40 CONCLUSION: No acute fracture or joint dislocation. Chest X-Ray 09/20/17 14:40 CONCLUSION: 1. Cardiomegaly with mild positive fluid balance. Hip X-Ray 09/20/17 14:40 CONCLUSION: No acute fracture or joint dislocation. Venous Doppler Study 09/20/17 14:42 CONCLUSION: 1. No evidence of DVT. Caprini VTE Risk Assessment Caprini VTE Risk Assessment: Moderate/High Risk (score >= 2) Caprini Risk Assessment Model: Point Value = 1 Point Value = 2 Point Value = 3 Point Value = 5 Age 41-60 Minor surgery BMI > 25 kg/m2 Swollen legs Varicose veins or History of unexplained or recurrent spontaneous Oral contraceptives or hormone replacement Sepsis (< 1 month) Serious lung disease, including pneumonia (< 1 month) Abnormal pulmonary function Acute myocardial infarction Congestive heart failure (< 1 month) History of inflammatory bowel disease Medical patient at bed rest Age 61-74 Arthroscopic surgery Major open surgery (> 45 min) Laparoscopic surgery (> 45 min) Malignancy Confined to bed (> 72 hours) Immobilizing plaster cast Central venous access Age >= 75 History of VTE Family history of VTE Factor V Leiden Prothrombin [id number] Lupus anticoagulant Anticardiolipin antibodies Elevated serum homocysteine Heparin-induced thrombocytopenia Other congenital or acquired thrombophilia Stroke (< 1 month) Elective arthroplasty Hip, pelvis, or leg fracture Acute spinal cord injury (< 1 month) Prophylaxis Regimen: Total Risk Factor Score Risk Level Prophylaxis Regimen 0-1 Low Early ambulation 2 Moderate Order ONE of the following: *Sequential Compression Device (SCD) *Heparin 5000 units SQ BID 3-4 Higher Order ONE of the following medications: *Heparin 5000 units SQ TID *Enoxaparin/Lovenox 40 mg SQ daily (WT < 150 kg, CrCl > 30 mL/min) *Enoxaparin/Lovenox 30 mg SQ daily (WT < 150 kg, CrCl > 10-29 mL/min) *Enoxaparin/Lovenox 30 mg SQ BID (WT < 150 kg, CrCl > 30 mL/min) AND/OR *Sequential Compression Device (SCD) 5 or more Highest Order ONE of the following medications: *Heparin 5000 units SQ TID (Preferred with Epidurals) *Enoxaparin/Lovenox 40 mg SQ daily (WT < 150 kg, CrCl > 30 mL/min) *Enoxaparin/Lovenox 30 mg SQ daily (WT < 150 kg, CrCl > 10-29 mL/min) *Enoxaparin/Lovenox 30 mg SQ BID (WT < 150 kg, CrCl > 30 mL/min) AND *Sequential Compression Device (SCD) Assessment and Plan - Assessment (1) New onset of congestive heart failure Code(s): I50.9 - Heart failure, unspecified Status: Acute Plan: Chest x-ray with cardiomegaly and mild positive fluid balance Physical exam with 2+ pitting edema to the level of the abdomen BNP elevated at 203 Initial ACS rule out negative O2 sat 89% on room air on admission, 95% on 2 L nasal cannula Doppler of the bilateral lower extremities negative for DVT Received Lasix 40 mg IV x1 in the ED Consulting cardiology for suspected new onset CHF Echocardiogram pending Trend EKGs, troponins Lasix 40 mg IV twice daily Supplement with 20 mEq potassium twice daily Repeat BNP on 09/21 (2) Cellulitis Code(s): L03.90 - Cellulitis, unspecified Status: Acute Plan: Patient with erythema of the bilateral lower extremities Incision site overlying the posterior left ankle with some dehiscence and possible purulent drainage Patient had surgical repair of the left ankle in July 2017 Received vancomycin x1 in the ED Blood cultures pending X-ray of the hip, ankle are negative ESR 14, low suspicion for osteomyelitis. CRP 7.40 WBC 6.4, afebrile, borderline tachycardia Lactic acid 1.5 on admission Ordering wound culture, Gram stain Ordering vancomycin consult Adding Rocephin 2 g IV daily (3) Hypertension Code(s): I10 - Essential (primary) hypertension Status: Chronic Plan: Patient with a known history of hypertension Normotensive on admission Continue home metoprolol (4) History of asthma Code(s): Z87.09 - Personal history of other diseases of the respiratory system Status: Chronic Plan: Patient with a known history of asthma Per history has been wheezing more often and has occasional wheezes on exam Scheduling duo nebs every 6 hours, albuterol nebs as needed every 4 hours (5) Depression with anxiety Code(s): F41.8 - Other specified anxiety disorders Status: Chronic Plan: Patient with a known history of depression anxiety Continue home Zoloft, trazodone Holding Valium for now (6) Gout Code(s): M10.9 - Gout, unspecified Status: Chronic Plan: Patient with a known history of gout Continuing home allopurinol (7) Nutrition, metabolism, and development symptoms Code(s): R63.8 - Other symptoms and signs concerning food and fluid intake Status: Acute Plan: FEN: - No IV fluids at this time - Monitor replace electrolytes as needed - Heart healthy diet PPX: - Lovenox 40mg daily for DVT ppx - Assessment and Plan Patient is a 56-year-old male with a history of asthma, depression and anxiety, gout, hypertension and recent surgical repair of the left ankle and left hip who presented to the ED with progressive shortness of breath and lower extremity edema. Chest x-ray showing cardiomegaly with mild positive fluid balance. Initial ACS workup is negative. Patient also noted to have likely cellulitis in the bilateral lower extremities. Received vancomycin x1 in the ED. Admitting to inpatient for suspected new onset CHF, cellulitis treatment. (2) Cellulitis Qualifiers: Site of cellulitis: extremity Site of cellulitis of extremity: lower extremity Laterality: unspecified laterality Qualified Code(s): L03.119 - Cellulitis of unspecified part of limb (3) Hypertension Qualifiers: Hypertension type: essential hypertension Qualified Code(s): I10 - Essential (primary) hypertension
[2017-09-20] MEDS ORDERED: Vancomycin Consult Pharmacy 1 EACH OTHER SCH (18:33)
[2017-09-20] MEDS ORDERED: Naloxone Inj 0.4 MG/ML Vial IV.PUSH PRN (18:58)
[2017-09-20] MEDS ORDERED: Acetaminophen 325 MG Tablet PO PRN (18:58)
[2017-09-20] MEDS: Enoxaparin Inj 40 MG/0.4 ML Syringe SQ SCH (19:36)
[2017-09-20] MEDS: Metoprolol Tartrate 25 MG Tablet PO SCH (21:40)
[2017-09-20] MEDS: Vancomycin Inj 2,250 MG in Sodium Chlor 0.9% Inj 500 ML IV.SIG SCH (23:25)
[2017-09-20] MEDS: traZODone 100 MG Tablet PO SCH (23:25)
[2017-09-21 07:27] LABS: Baso % (Auto) 0.2 % (0.0-2.0); Eos # (Auto) 0.1 th/mm3 (0.0-0.4); Hemoglobin 11.6 gm/dL (13.0-17.0); Lymph # (Auto) 0.5 th/mm3 (1.0-4.8); Lymph % (Auto) 6.5 % (9.0-44.0); Mean Corpuscular HGB Conc 32.1 % (32.0-36.0); Mean Corpuscular Hemoglobin 33.6 pg (27.0-34.0); Mean Corpuscular Volume 104.6 fL (80.0-100.0); Mean Platelet Volume 7.4 fL (7.0-11.0); Mono # (Auto) 1.1 th/mm3 (0.0-0.9); Mono % (Auto) 15.2 % (0.0-8.0); Neut # (Auto) 5.6 th/mm3 (1.8-7.7); Neut % (Auto) 77.1 % (16.0-70.0); Platelet Count 222 th/mm3 (150-450); Red Blood Count 3.44 mil/mm3 (4.50-5.90); Red Cell Distribution Width 20.9 % (11.6-17.2); White Blood Count 7.2 th/mm3 (4.0-11.0)
[2017-09-21 07:46] LABS: Albumin 2.7 g/dL (3.4-5.0); Anion Gap 9 meq/L (5-15); Aspartate Aminotransferase 63 U/L (15-37); Blood Urea Nitrogen 5 mg/dL (7-18); Calcium 8.2 mg/dL (8.5-10.1); Carbon Dioxide 29.7 meq/L (21.0-32.0); Chloride 95 meq/L (98-107); Glomerular Filtration Rate Greater Than 89 mL/min (>89); Glucose,Random 150 mg/dL (74-106); Potassium 3.9 meq/L (3.5-5.1); Sodium 134 meq/L (136-145)
[2017-09-21 07:48] LABS: Alanine Aminotransferase 49 U/L (12-78)
[2017-09-21 07:50] LABS: Alkaline Phosphatase 212 U/L (45-117); Total Protein 6.5 g/dL (6.4-8.2)
[2017-09-21] MEDS: Sertraline 50 MG Tablet PO SCH (08:23)
[2017-09-21] MEDS: Allopurinol 100 MG Tablet PO SCH (08:23)
[2017-09-21] MEDS: Metoprolol Tartrate 25 MG Tablet PO SCH ×2 (08:24→23:05)
--- NOTE | 2017-09-21 08:41 | P.HPFP ---
History of Present Illness Primary Care Physician: Young Mahmood MD, R2 Chief Complaint: Swelling and redness in legs History of Present Illness: No acute events overnight, patient continues to feel somewhat short of breath but states that it has improved since admission. He states he has been urinating significantly and his urine is yellow to clear. He did endorse feeling chills overnight, but denies fevers. He denies any chest pain or palpitations. He continues to have pain in his bilateral lower legs because they "feel tight". In summary, this is a 56-year-old male with past medical history of hypertension and recent reconstructive surgery/fusion of his left ankle using a bone graft from his left hip. He presented to the emergency department with bilateral lower extremity swelling as well as increasing shortness of breath began approximately 2 weeks ago. Swelling began in his ankles and progressively worsened until he had swelling up to his lower abdomen. Associated with this, he had worsening shortness of breath and nonproductive cough. He had surgery to reconstruct his left ankle in July/2017 at [facility]. They used a bone graft from his left hip 2 views of the left ankle and he was discharged to home where he was supposed to have home nursing. He was unable to obtain home nursing due to insurance reasons and he states that he has had continued pain in the left ankle and recently has noticed some purulent drainage from the incision site. - Diagnosis (1) New onset of congestive heart failure (2) Cellulitis (3) Abnormal liver enzymes (4) Hypertension (5) History of asthma (6) Depression with anxiety (7) Gout (8) Nutrition, metabolism, and development symptoms Inpatient Certification: I certify that the inpatient services were ordered in accordance with Medicare regulations governing the order. This includes certification that hospital inpatient services are reasonable and necessary and in the case of services not specified as inpatient-only under 42 CFR 419.22(n), that they are appropriately provided as inpatient services in accordance to with the 2-midnight benchmark under 43 CFR 412.3(e) Estimated Total Length of Stay (Days): 3 Plans for Post Hospital Care: Not yet determined Review of Systems All other systems reviewed negative except as stated in HPI Constitutional: Reports body ache(s), Reports chills Cardiovascular: Reports generalized swelling, Reports leg swelling, Reports shortness of breath, Reports shortness of breath when lying down Respiratory: Reports cough, Reports shortness of breath PMFSH - History History Provided By: Patient - Medical History Medical History: Medical History (Last Updated 09/20/17 @ 18:53 by Johnson Mcenil MD, R1) Anxiety Asthma Borderline diabetes Depressed Gout Hypertension Left wrist fracture Neuropathy Seasonal allergies - Surgical History Surgical History: Surgical History (Last Updated 09/20/17 @ 17:40 by Johnson Mcneil MD, R1) H/O umbilical hernia repair - Family History Family History: Family History (Last Updated 09/20/17 @ 17:40 by Johnson Mcneil MD, R1) Other Family history of acute myocardial infarction Family history of diabetes mellitus Family history of lung cancer Family history of renal disease - Tobacco History Second Hand Smoke Exposure: No Tobacco Use In Past 30 Days: Yes Smoking Status: Current every day smoker Tobacco Type: Cigarettes - Alcohol History How Often Do You Have a Drink Containing Alcohol: 2 to 4 times a month - Substance Use History Substance History: Past History - Substance Use Type Marijuana Status: Active Route Used: By Mouth Reason for Use: Calm Down - Travel History Recent Travel Out of the Country Within the Last 8 Weeks: No - Immunization History Tetanus Immunization: <5 Years Hx Influenza Vaccine This Season: Yes Medications and Allergies Active Medications: Active Medications Acetaminophen (Tylenol) 650 mg PO Q6HR PRN PRN Reason: PAIN SCALE 1 TO 2 Hydrocodone Bitart/Acetaminophen (Maurice 10/325) 1 tab PO Q4H PRN PRN Reason: PAIN SCALE 6 TO 10 Last Admin: 09/21/17 05:48 Dose: 1 tab Hydrocodone Bitart/Acetaminophen (Maurice 5/325) 1 tab PO Q4H PRN PRN Reason: PAIN SCALE 3 TO 5 Albuterol (Duoneb Neb ([facility])) 1 ampul NEB Q4HR NEB [facility] Last Admin: 09/21/17 02:31 Dose: 1 ampul Albuterol (Albuterol Neb (Prn)) 2.5 mg NEB Q2HR NEB PRN PRN Reason: SHORTNESS OF BREATH Allopurinol (Zyloprim) 100 mg PO DAILY [facility] Enoxaparin Sodium (Lovenox Inj) 40 mg SQ Q24H [facility] Last Admin: 09/20/17 19:36 Dose: 40 mg Furosemide (Lasix Inj) 40 mg IV.PUSH BID@0900,1800 [facility] Pharmacy Profile Note (Vancomycin Consult Pharmacy) 0 mls @ 0 mls/hr OTHER UNSCH [facility] Ceftriaxone Sodium 2,000 mg/ (Sodium Chloride) 100 mls @ 200 mls/hr IV.SIG Q24H [facility] Last Infusion: 09/21/17 05:18 Dose: Infused Vancomycin HCl 2,250 mg/ (Sodium Chloride) 522.5 mls @ 250 mls/hr IV.SIG Q12H [facility] Last Admin: 09/20/17 23:25 Dose: 250 mls/hr Metoprolol Tartrate (Lopressor) 25 mg PO BID [facility] Last Admin: 09/20/17 21:40 Dose: 25 mg Miscellaneous Information ([facility] Ordered Lab Info) 1 each OTHER ONCE ONE Stop: 09/22/17 09:46 Naloxone HCl (Narcan Inj) 0.4 mg IV.PUSH UNSCH PRN PRN Reason: SEE LABEL COMMENTS Potassium Chloride (K-Dur) 20 meq PO BID [facility] Last Admin: 09/20/17 21:40 Dose: 20 meq Sertraline HCl (Zoloft) 150 mg PO DAILY [facility] Sodium Chloride (Ns Flush) 2 ml IV.FLUSH BID [facility] Last Admin: 09/20/17 20:30 Dose: 2 ml Sodium Chloride (Ns Flush) 2 ml IV.FLUSH UNSCH PRN PRN Reason: FLUSH AFTER USING IV ACCESS Trazodone HCl (Desyrel) 100 mg PO HS [facility] Last Admin: 09/20/17 23:25 Dose: 100 mg Allergies Allergy/AdvReac Type Severity Reaction Status Date / Time naproxen Allergy Intermediate Rash Verified 09/20/17 16:24 Home Medications Medication Instructions Recorded Confirmed Type albuterol sulfate [ProAir HFA] 2 puff INHALATION Q4H PRN 09/20/17 09/20/17 History allopurinol 100 mg PO DAILY 09/20/17 09/20/17 History diazepam [Valium] 5 mg PO TID PRN 09/20/17 09/20/17 History hydrocodone-acetaminophen [Maurice] 1 tab PO Q6H PRN 09/20/17 09/20/17 History ketoconazole 1 applic TOPICAL BID 09/20/17 09/20/17 History loratadine [Claritin] 10 mg PO DAILY 09/20/17 09/20/17 History metoprolol tartrate 25 mg PO BID 09/20/17 09/20/17 History sertraline [Zoloft] 150 mg PO DAILY 09/20/17 09/20/17 History trazodone 100 mg PO HS 09/20/17 09/20/17 History Exam Vital signs: Vital Signs 09/20/17 12:45 09/20/17 14:00 09/20/17 14:05 Temperature 98.4 F 98.5 F Pulse Rate 100 H 98 H Respiratory Rate 20 20 Blood Pressure 119/59 L Pulse Oximetry 89 L 88 L 93 L 09/20/17 17:46 09/20/17 19:33 09/20/17 19:34 Temperature Pulse Rate 90 98 H 98 H Respiratory Rate 16 18 18 Blood Pressure 129/60 136/62 136/62 Pulse Oximetry 95 96 96 09/20/17 20:00 09/20/17 21:40 09/20/17 21:54 Temperature 98 F 98.1 F Pulse Rate 98 H 78 Respiratory Rate 18 17 18 Blood Pressure 138/61 126/56 L Pulse Oximetry 94 L 96 09/21/17 00:00 09/21/17 02:31 09/21/17 04:00 Temperature 97.1 F L 98.1 F Pulse Rate 92 H 87 89 Respiratory Rate 18 18 18 Blood Pressure 111/62 106/51 L Pulse Oximetry 94 L 94 L 96 09/21/17 04:21 09/21/17 05:17 09/21/17 05:48 Temperature Pulse Rate 92 H Respiratory Rate 18 16 Blood Pressure Pulse Oximetry Intake & Output 09/20/17 09/21/17 09/21/17 18:59 06:59 18:59 Intake Total 340 / 340 Output Total 225 / 225 270 / 270 Balance -225 / -225 70 / 70 Weight 127.006 kg 149.3 kg Intake: IV 100 / 100 Rocephin Inj 2,000 MG In NS Inj 100 / 100 100 ML @ 200 mls/hr IV.SIG Q24H [facility] Rx#:[id number] Oral 240 / 240 Output: Urine 225 / 225 270 / 270 Other: # Voids 1 # Bowel Movements 0 Weight On Admission 148.9 kg - Additional findings Additional findings: CONSTITUTIONAL/GEN: Morbidly obese male, somewhat somnolent and sleepy during exam. EYES: conjunctiva normal, PERRLA, EOMI. ENT: Poor dentition and patient has oral tobacco/DIP in this morning. LUNGS: Distant breath sounds, however sounds mostly clear with very faint bibasilar crackles. CARDIOVASCULAR: RR without murmur or gallop. Extremities: Bilateral lower extremities with tense edema up to mid thigh, 2+ and pitting GI/ABD: Obese but soft, mildly tender in left upper quadrant. Diffusely anasarcous SKIN: Bilateral lower extremities erythematous up to mid tibia and mildly warm. Seeping a clear, serous fluid. Left foot with a posterior vertical incision that appears mildly erythematous with superficial dehiscence. Granulation tissue visible with a small amount of purulence overlying it. No expression of purulent fluid with palpation. Left posterior hip covered with a bandage, 3 cm incision site from bone grafting harvest appears to be clean/dry/intact without surrounding erythema or drainage. PSYCH/MENTAL STATUS: Alert and oriented x 3. Results - Labs Result diagrams: 09/21/17 06:55 09/21/17 06:55 Abnormal lab results 09/20/17 09/20/17 09/20/17 Range/Units 14:40 14:40 14:40 RBC 3.43 L (4.50-5.90) mil/mm3 Hgb 11.4 L (13.0-17.0) gm/dL Hct 35.8 L (39.0-51.0) % MCV 104.3 H (80.0-100.0) fL RDW 20.6 H (11.6-17.2) % Neut % (Auto) (16.0-70.0) % Lymph % (Auto) (9.0-44.0) % [place] % (Auto) 14.7 H (0.0-8.0) % Lymph # (Auto) 0.9 L (1.0-4.8) th/mm3 [place] # (Auto) (0.0-0.9) th/mm3 Sodium 134 L (136-145) meq/L Chloride 96 L (98-107) meq/L BUN 3 L (7-18) mg/dL Creatinine 0.59 L (0.60-1.30) mg/dL Random Glucose (74-106) mg/dL Calcium 8.3 L (8.5-10.1) mg/dL AST 89 H (15-37) U/L Alkaline Phosphatase 234 H (45-117) U/L Troponin I Less than 0.02 L (0.02-0.05) ng/mL C-Reactive Protein 7.40 H (0.00-0.30) mg/dL B-Natriuretic Peptide 203 H (0-100) pg/mL Albumin 2.8 L (3.4-5.0) g/dL 09/20/17 09/21/17 09/21/17 Range/Units 19:39 00:34 06:55 RBC 3.44 L (4.50-5.90) mil/mm3 Hgb 11.6 L (13.0-17.0) gm/dL Hct 36.0 L (39.0-51.0) % MCV 104.6 H (80.0-100.0) fL RDW 20.9 H (11.6-17.2) % Neut % (Auto) 77.1 H (16.0-70.0) % Lymph % (Auto) 6.5 L (9.0-44.0) % [place] % (Auto) 15.2 H (0.0-8.0) % Lymph # (Auto) 0.5 L (1.0-4.8) th/mm3 [place] # (Auto) 1.1 H (0.0-0.9) th/mm3 Sodium (136-145) meq/L Chloride (98-107) meq/L BUN (7-18) mg/dL Creatinine (0.60-1.30) mg/dL Random Glucose (74-106) mg/dL Calcium (8.5-10.1) mg/dL AST (15-37) U/L Alkaline Phosphatase (45-117) U/L Troponin I Less than 0.02 L Less than 0.02 L (0.02-0.05) ng/mL C-Reactive Protein (0.00-0.30) mg/dL B-Natriuretic Peptide (0-100) pg/mL Albumin (3.4-5.0) g/dL 09/21/17 09/21/17 Range/Units 06:55 06:55 RBC (4.50-5.90) mil/mm3 Hgb (13.0-17.0) gm/dL Hct (39.0-51.0) % MCV (80.0-100.0) fL RDW (11.6-17.2) % Neut % (Auto) (16.0-70.0) % Lymph % (Auto) (9.0-44.0) % [place] % (Auto) (0.0-8.0) % Lymph # (Auto) (1.0-4.8) th/mm3 [place] # (Auto) (0.0-0.9) th/mm3 Sodium 134 L (136-145) meq/L Chloride 95 L (98-107) meq/L BUN 5 L (7-18) mg/dL Creatinine (0.60-1.30) mg/dL Random Glucose 150 H (74-106) mg/dL Calcium 8.2 L (8.5-10.1) mg/dL AST 63 H (15-37) U/L Alkaline Phosphatase 212 H (45-117) U/L Troponin I (0.02-0.05) ng/mL C-Reactive Protein (0.00-0.30) mg/dL B-Natriuretic Peptide 191 H (0-100) pg/mL Albumin 2.7 L (3.4-5.0) g/dL Short CBC 09/20/17 09/21/17 Range/Units 14:40 06:55 WBC 6.4 7.2 (4.0-11.0) th/mm3 Hgb 11.4 L 11.6 L (13.0-17.0) gm/dL Hct 35.8 L 36.0 L (39.0-51.0) % Plt Count 219 222 (150-450) th/mm3 BMP 09/20/17 09/21/17 14:40 06:55 Sodium 134 L 134 L Potassium 4.3 3.9 Chloride 96 L 95 L Carbon Dioxide 23.6 29.7 BUN 3 L 5 L Creatinine 0.59 L 0.80 Calcium 8.3 L 8.2 L Cardiac Enzymes 09/20/17 09/20/17 09/21/17 Range/Units 14:40 19:39 00:34 Total Creatine Kinase 97 (39-308) U/L Troponin I Less than 0.02 L Less than 0.02 L Less than 0.02 L (0.02-0.05) ng/mL Liver Function 09/20/17 09/21/17 Range/Units 14:40 06:55 Total Bilirubin 0.7 0.6 (0.2-1.0) mg/dL AST 89 H 63 H (15-37) U/L ALT 50 49 (12-78) U/L Alkaline Phosphatase 234 H 212 H (45-117) U/L Albumin 2.8 L 2.7 L (3.4-5.0) g/dL Urine 09/20/17 Range/Units 14:50 Urine Color Yellow (Yellw/Straw) Urine Clarity Clear (Clear) Urine pH 6.0 (5.0-8.5) Ur Specific [place] 1.004 (1.002-1.035) Urine Protein Negative (Neg-Trace) mg/dL Urine Glucose (UA) Negative (Negative) mg/dL - Imaging Impressions Ankle X-Ray 09/20/17 14:40 CONCLUSION: No acute fracture or joint dislocation. Chest X-Ray 09/20/17 14:40 CONCLUSION: 1. Cardiomegaly with mild positive fluid balance. Hip X-Ray 09/20/17 14:40 CONCLUSION: No acute fracture or joint dislocation. Venous Doppler Study 09/20/17 14:42 CONCLUSION: 1. No evidence of DVT. Caprini VTE Risk Assessment Caprini VTE Risk Assessment: Moderate/High Risk (score >= 2) Caprini Risk Assessment Model: Point Value = 1 Point Value = 2 Point Value = 3 Point Value = 5 Age 41-60 Minor surgery BMI > 25 kg/m2 Swollen legs Varicose veins or History of unexplained or recurrent spontaneous Oral contraceptives or hormone replacement Sepsis (< 1 month) Serious lung disease, including pneumonia (< 1 month) Abnormal pulmonary function Acute myocardial infarction Congestive heart failure (< 1 month) History of inflammatory bowel disease Medical patient at bed rest Age 61-74 Arthroscopic surgery Major open surgery (> 45 min) Laparoscopic surgery (> 45 min) Malignancy Confined to bed (> 72 hours) Immobilizing plaster cast Central venous access Age >= 75 History of VTE Family history of VTE Factor V Leiden Prothrombin [id number] Lupus anticoagulant Anticardiolipin antibodies Elevated serum homocysteine Heparin-induced thrombocytopenia Other congenital or acquired thrombophilia Stroke (< 1 month) Elective arthroplasty Hip, pelvis, or leg fracture Acute spinal cord injury (< 1 month) Prophylaxis Regimen: Total Risk Factor Score Risk Level Prophylaxis Regimen 0-1 Low Early ambulation 2 Moderate Order ONE of the following: *Sequential Compression Device (SCD) *Heparin 5000 units SQ BID 3-4 Higher Order ONE of the following medications: *Heparin 5000 units SQ TID *Enoxaparin/Lovenox 40 mg SQ daily (WT < 150 kg, CrCl > 30 mL/min) *Enoxaparin/Lovenox 30 mg SQ daily (WT < 150 kg, CrCl > 10-29 mL/min) *Enoxaparin/Lovenox 30 mg SQ BID (WT < 150 kg, CrCl > 30 mL/min) AND/OR *Sequential Compression Device (SCD) 5 or more Highest Order ONE of the following medications: *Heparin 5000 units SQ TID (Preferred with Epidurals) *Enoxaparin/Lovenox 40 mg SQ daily (WT < 150 kg, CrCl > 30 mL/min) *Enoxaparin/Lovenox 30 mg SQ daily (WT < 150 kg, CrCl > 10-29 mL/min) *Enoxaparin/Lovenox 30 mg SQ BID (WT < 150 kg, CrCl > 30 mL/min) AND *Sequential Compression Device (SCD) Assessment and Plan - Assessment (1) New onset of congestive heart failure Code(s): I50.9 - Heart failure, unspecified Status: Acute Plan: Patient appears grossly fluid overloaded with elevated BNP of 203 Patient has history of obstructive sleep apnea and significant alcohol history 2D echocardiogram pending Cardiology consult pending -Monitor daily weights -Fluid restriction to 1.5 L and low-salt diet -Troponins negative 3 -Monitor on telemetry -Supplemental oxygen as needed -Patient is normotensive Diuresis: Furosemide 40 mg IV twice daily -Received 40 mg IV 1 in the emergency department Bilateral lower extremity Dopplers negative for DVT Chest x-ray with cardiomegaly and indicative of a positive fluid balance (2) Cellulitis Code(s): L03.90 - Cellulitis, unspecified Status: Acute Plan: Bilateral lower extremity edema with erythema overlying surgical site Antibiotics: Vancomycin ordered with pharmacy consult to help with dosing Rocephin 2 g IV daily Blood cultures 2 pending Wound culture ordered and pending Wound care consult placed PT/OT consult ordered ESR 14, low suspicion for osteomyelitis Lactic acid 1.5 on admission Patient afebrile without leukocytosis (3) Abnormal liver enzymes Code(s): R74.8 - Abnormal levels of other serum enzymes Status: Acute Plan: Elevated AST and alkaline phosphatase on arrival Patient has a history of heavy alcohol use -Previously drank up to 12 beers daily for several years, reduced approximately 1 year ago -Currently endorses 4 beers per occasion, 3-4 occasions per week Obtain liver ultrasound and hepatitis panel (4) Hypertension Code(s): I10 - Essential (primary) hypertension Status: Chronic Plan: Patient with a known history of hypertension Normotensive on admission Continue home metoprolol Consider adding LINDY inhibitor given new onset congestive heart failure pending echo results (5) History of asthma Code(s): Z87.09 - Personal history of other diseases of the respiratory system Status: Chronic Plan: Patient with a known history of asthma Per history has been wheezing more often and has occasional wheezes on exam Scheduling duo nebs every 6 hours, albuterol nebs as needed every 4 hours (6) Depression with anxiety Code(s): F41.8 - Other specified anxiety disorders Status: Chronic Plan: Patient with a known history of depression anxiety Continue home Zoloft, trazodone Holding Valium for now (7) Gout Code(s): M10.9 - Gout, unspecified Status: Chronic Plan: Patient with a known history of gout Continuing home allopurinol (8) Nutrition, metabolism, and development symptoms Code(s): R63.8 - Other symptoms and signs concerning food and fluid intake Status: Acute Plan: FEN: - No IV fluids at this time - Monitor replace electrolytes as needed - Low-salt, heart healthy diet and fluid restriction to 1.5 L PPX: - Lovenox 40mg daily for DVT ppx - Assessment and Plan Patient is a 56-year-old male with a history of asthma, depression and anxiety, gout, hypertension and recent surgical repair of the left ankle and left hip who presented to the ED with progressive shortness of breath and lower extremity edema. Chest x-ray showing cardiomegaly with mild positive fluid balance. Initial ACS workup is negative. Patient also noted to have likely cellulitis in the bilateral lower extremities. Received vancomycin x1 in the ED. Admitting to inpatient for suspected new onset CHF, cellulitis treatment. H&P: Quality - VTE Deep Vein Thrombosis/Pulmonary Embolism Present on Admission: No (2) Cellulitis Qualifiers: Site of cellulitis: extremity Site of cellulitis of extremity: lower extremity Laterality: unspecified laterality Qualified Code(s): L03.119 - Cellulitis of unspecified part of limb (4) Hypertension Qualifiers: Hypertension type: essential hypertension Qualified Code(s): I10 - Essential (primary) hypertension
[2017-09-21] MEDS: Vancomycin Inj 2,250 MG in Sodium Chlor 0.9% Inj 500 ML IV.SIG SCH ×2 (10:03→23:06)
--- NOTE | 2017-09-21 10:22 | ECG ---
Date Performed: 09/21/2017 Time Performed: 00:29:40 PTAGE: 56 years EKG: Sinus rhythm . Possible anterior infarct - age undetermined Low QRS voltages in precordial leads Nonspecific anter ior T wave abnormality Abnormal ECG NO PREVIOUS TRACING DOCTOR: Can Copeland Interpretating Date/Time 09/21/2017 10:20:41
--- NOTE | 2017-09-21 10:31 | ECG ---
Date Performed: 09/20/2017 Time Performed: 19:25:08 PTAGE: 56 years EKG: SINUS TACHYCARDIA ABNORMAL RHYTHM ECG PREVIOUS TRACING : 09/20/2017 16.21 No significant change from previous tracing noted. DOCTOR: Can Copeland Interpretating Date/Time 09/21/2017 10:29:21
--- NOTE | 2017-09-21 10:35 | ECG ---
Date Performed: 09/20/2017 Time Performed: 16:21:51 PTAGE: 56 years EKG: Sinus rhythm NORMAL ECG NO PREVIOUS TRACING DOCTOR: Can Copeland Interpretating Date/Time 09/21/2017 10:34:18
--- NOTE | 2017-09-21 12:11 | P.CONCA ---
History of Present Illness Service: cardiology Primary Care Provider: Young Mahmood MD, R2 Chief Complaint: Swelling and redness in legs History of Present Illness: Is a 56-year-old male with history of hypertension, depression who presents emergency department bilateral lower extremity swelling and redness. Patient states that over the course of the past few weeks he has noticed progressive edema. He has also had some work progressive shortness of breath. Denies any prior history of known heart disease, coronary disease, congestive heart failure. He recently had surgery back on July 25 for his left hip and left ankle and feels like he has been clinically improving since then. Chest x-ray showed cardiomegaly increased interstitial edema. Patient was noted to have bilateral lower extremity edema. Patient was initiated on intravenous diuretics and cardiology was consulted for further recommendation. Review of Systems Constitutional: Denies anorexia, Denies body ache(s), Denies chills, Denies daytime sleepiness, Denies excessive sweating, Denies fatigue, Denies fever(s), Denies headache(s), Denies increased appetite, Denies lack of energy, Denies malaise, Denies night sweats, Denies weakness, Denies weight gain, Denies weight loss, Denies other Eyes: Denies blind spots, Denies blurry vision, Denies bulging eyes, Denies change in vision, Denies double vision, Denies discharge, Denies dry eyes, Denies floaters, Denies irritation, Denies itchy eyes, Denies loss of vision, Denies pain, Denies requires corrective lenses, Denies sensitivity to light, Denies other Ears, Nose, Mouth, and Throat: Denies abnormal hearing, Denies bleeding gums, Denies bad breath, Denies change in voice, Denies dental pain, Denies difficulty swallowing, Denies dizziness, Denies dry mouth, Denies ear discharge , Denies ear pain, Denies facial pain, Denies headache(s), Denies hearing loss, Denies hoarseness, Denies lip swelling, Denies nosebleed, Denies mouth lesions, Denies mouth pain, Denies nasal congestion, Denies nasal discharge, Denies nasal obstruction, Denies nasal trauma, Denies neck lump, Denies neck pain, Denies nose pain, Denies pain with swallowing, Denies poor balance, Denies post nasal drip, Denies ringing in the ears, Denies sinus pain, Denies sinus pressure , Denies sore throat, Denies throat swelling, Denies tongue swelling, Denies other Cardiovascular: Reports leg swelling, Denies chest pain, Denies chest pain at rest, Denies chest pain with activity, Denies excessive sweating, Denies fainting, Denies fast heart rate, Denies foot swelling, Denies generalized swelling, Denies irregular heart rhythm, Denies leg pain with activity, Denies leg sores, Denies lightheadedness, Denies radiating jaw, neck or arm pain, Denies rapid, pounding, or irregular heartbeat, Denies shortness of breath, Denies shortness of breath with activity, Denies shortness of breath when lying down, Denies shortness of breath causing sudden awakening, Denies slow heart rate, Denies other Respiratory: Reports shortness of breath, Denies change in phlegm color, Denies chest congestion, Denies cough, Denies coughing up blood, Denies excessive phlegm production, Denies pain on inspiration, Denies pain with cough, Denies shortness of breath with activity, Denies snoring, Denies stridor, Denies wheezing, Denies other Gastrointestinal: Denies abdominal pain, Denies belching, Denies black, tarry stools, Denies bloating, Denies bright, red blood in stools, Denies change in bowel habits, Denies constant urge to pass stool, Denies change in stools, Denies coffee ground vomit, Denies constipation, Denies cramping, Denies difficulty swallowing, Denies excessive passing of gas, Denies feeling full early, Denies heartburn, Denies incontinent of stools, Denies loose stools, Denies nausea, Denies pain with swallowing, Denies vomiting, Denies vomiting blood, Denies other Genitourinary: Denies blood in semen, Denies blood in urine, Denies decreased urination, Denies difficulty urinating, Denies difficulty with ejaculations, Denies erectile dysfunction, Denies genital lesions, Denies genital pain, Denies painful urination, Denies side pain, Denies frequent nighttime urination , Denies painful ejaculations, Denies penile discharge, Denies scrotal swelling , Denies testicle lump, Denies testicle pain, Denies urinary frequency, Denies urinary hesitancy, Denies urinary incontinence, Denies urinary urgency, Denies other Musculoskeletal: Denies abnormal walking, Denies back pain, Denies body aches, Denies decreased muscle mass, Denies deformity, Denies joint pain, Denies joint swelling, Denies limited joint movement, Denies loss of height, Denies muscle cramps, Denies muscle weakness, Denies neck pain, Denies numbness, Denies radiating pain into limb, Denies stiffness, Denies tingling, Denies other Skin/Breast: Denies acne, Denies bleeding lesions, Denies boil, Denies breast swelling, Denies breast skin changes, Denies breast pain, Denies breast lump, Denies change in breast shape, Denies change in hair, Denies change in skin color, Denies changing lesions, Denies dry skin, Denies excessive hair growth, Denies hair loss, Denies itching, Denies lesions, Denies nail changes, Denies new lesions, Denies nipple discharge, Denies non-healing lesions, Denies redness , Denies sensitivity to light, Denies rash, Denies skin pain, Denies skin ulcer , Denies sores, Denies stretch wilson, Denies unusual bruising, Denies wounds, Denies yellowing of the skin, Denies other PMFSH - History History Provided By: Patient - Medical History Medical History: Medical History (Last Reviewed 09/21/17 @ 12:07 by Himanshu Rider MD) Anxiety Asthma Borderline diabetes Depressed Gout Hypertension Left wrist fracture Neuropathy Seasonal allergies - Surgical History Surgical History: Surgical History (Last Reviewed 09/21/17 @ 12:07 by Himanshu Rider MD) H/O umbilical hernia repair - Family History Family History: Family History (Last Reviewed 09/21/17 @ 12:07 by Himanshu Rider MD) Other Family history of acute myocardial infarction Family history of diabetes mellitus Family history of lung cancer Family history of renal disease - Tobacco History Second Hand Smoke Exposure: No Tobacco Use In Past 30 Days: Yes Smoking Status: Current every day smoker Tobacco Type: Cigarettes - Alcohol History How Often Do You Have a Drink Containing Alcohol: 2 to 4 times a month - Substance Use History Substance History: Past History - Substance Use Type Marijuana Status: Active Route Used: By Mouth Reason for Use: Calm Down - Travel History Recent Travel Out of the Country Within the Last 8 Weeks: No - Immunization History Tetanus Immunization: <5 Years Hx Influenza Vaccine This Season: Yes Medications and Allergies Active Medications: Active Medications Acetaminophen (Tylenol) 650 mg PO Q6HR PRN PRN Reason: PAIN SCALE 1 TO 2 Hydrocodone Bitart/Acetaminophen ([place] 10/325) 1 tab PO Q4H PRN PRN Reason: PAIN SCALE 6 TO 10 Last Admin: 09/21/17 10:02 Dose: 1 tab Hydrocodone Bitart/Acetaminophen ([place] 5/325) 1 tab PO Q4H PRN PRN Reason: PAIN SCALE 3 TO 5 Albuterol (Duoneb Neb (Andrew)) 1 ampul NEB Q4HR NEB REPLACED BY [facility] Last Admin: 09/21/17 11:50 Dose: 1 ampul Albuterol (Albuterol Neb (Prn)) 2.5 mg NEB Q2HR NEB PRN PRN Reason: SHORTNESS OF BREATH Allopurinol (Zyloprim) 100 mg PO DAILY REPLACED BY [facility] Last Admin: 09/21/17 08:23 Dose: 100 mg Enoxaparin Sodium (Lovenox Inj) 40 mg SQ Q24H REPLACED BY [facility] Last Admin: 09/20/17 19:36 Dose: 40 mg Furosemide (Lasix Inj) 40 mg IV.PUSH BID@0900,1800 REPLACED BY [facility] Last Admin: 09/21/17 08:23 Dose: 40 mg Pharmacy Profile Note (Vancomycin Consult Pharmacy) 0 mls @ 0 mls/hr OTHER UNSCH REPLACED BY [facility] Ceftriaxone Sodium 2,000 mg/ (Sodium Chloride) 100 mls @ 200 mls/hr IV.SIG Q24H REPLACED BY [facility] Last Infusion: 09/21/17 05:18 Dose: Infused Vancomycin HCl 2,250 mg/ (Sodium Chloride) 522.5 mls @ 250 mls/hr IV.SIG Q12H REPLACED BY [facility] Last Admin: 09/21/17 10:03 Dose: 250 mls/hr Metoprolol Tartrate (Lopressor) 25 mg PO BID REPLACED BY [facility] Last Admin: 09/21/17 08:24 Dose: 25 mg Miscellaneous Information ([facility] Ordered Lab Info) 1 each OTHER ONCE ONE Stop: 09/22/17 09:46 Naloxone HCl (Narcan Inj) 0.4 mg IV.PUSH UNSCH PRN PRN Reason: SEE LABEL COMMENTS Potassium Chloride (K-Dur) 20 meq PO BID REPLACED BY [facility] Last Admin: 09/21/17 08:23 Dose: 20 meq Sertraline HCl (Zoloft) 150 mg PO DAILY REPLACED BY [facility] Last Admin: 09/21/17 08:23 Dose: 150 mg Sodium Chloride (Ns Flush) 2 ml IV.FLUSH BID REPLACED BY [facility] Last Admin: 09/21/17 08:24 Dose: 2 ml Sodium Chloride (Ns Flush) 2 ml IV.FLUSH UNSCH PRN PRN Reason: FLUSH AFTER USING IV ACCESS Trazodone HCl (Desyrel) 100 mg PO [facility] Last Admin: 09/20/17 23:25 Dose: 100 mg Allergies Allergy/AdvReac Type Severity Reaction Status Date / Time naproxen Allergy Intermediate Rash Verified 09/20/17 16:24 Home Medications Medication Instructions Recorded Confirmed Type albuterol sulfate [ProAir HFA] 2 puff INHALATION Q4H PRN 09/20/17 09/20/17 History allopurinol 100 mg PO DAILY 09/20/17 09/20/17 History diazepam [Valium] 5 mg PO TID PRN 09/20/17 09/20/17 History hydrocodone-acetaminophen [[place]] 1 tab PO Q6H PRN 09/20/17 09/20/17 History ketoconazole 1 applic TOPICAL BID 09/20/17 09/20/17 History loratadine [Claritin] 10 mg PO DAILY 09/20/17 09/20/17 History metoprolol tartrate 25 mg PO BID 09/20/17 09/20/17 History sertraline [Zoloft] 150 mg PO DAILY 09/20/17 09/20/17 History trazodone 100 mg PO HS 09/20/17 09/20/17 History Exam Vital signs: Vital Signs 09/20/17 12:45 09/20/17 14:00 09/20/17 14:05 Temperature 98.4 F 98.5 F Pulse Rate 100 H 98 H Respiratory Rate 20 20 Blood Pressure 119/59 L Pulse Oximetry 89 L 88 L 93 L 09/20/17 17:46 09/20/17 19:33 09/20/17 19:34 Temperature Pulse Rate 90 98 H 98 H Respiratory Rate 16 18 18 Blood Pressure 129/60 136/62 136/62 Pulse Oximetry 95 96 96 09/20/17 20:00 09/20/17 21:40 09/20/17 21:54 Temperature 98 F 98.1 F Pulse Rate 98 H 78 Respiratory Rate 18 17 18 Blood Pressure 138/61 126/56 L Pulse Oximetry 94 L 96 09/21/17 00:00 09/21/17 02:31 09/21/17 04:00 Temperature 97.1 F L 98.1 F Pulse Rate 92 H 87 89 Respiratory Rate 18 18 18 Blood Pressure 111/62 106/51 L Pulse Oximetry 94 L 94 L 96 09/21/17 04:21 09/21/17 05:17 09/21/17 05:48 Temperature Pulse Rate 92 H Respiratory Rate 18 16 Blood Pressure Pulse Oximetry 09/21/17 08:00 09/21/17 09:02 09/21/17 11:54 Temperature 97.3 F L Pulse Rate 86 89 88 Respiratory Rate 18 16 20 Blood Pressure 124/59 L Pulse Oximetry 96 94 L Intake & Output 09/20/17 09/21/17 09/21/17 18:59 06:59 18:59 Intake Total 862.5 / 862.5 Output Total 225 / 225 270 / 270 Balance -225 / -225 592.5 / 592.5 Weight 127.006 kg 149.3 kg Intake: IV 622.5 / 622.5 Vancomycin Inj 2,250 MG In NS 522.5 / 522.5 Inj 500 ML @ 250 mls/hr IV.SIG Q12H [facility] Rx#:[id number] Rocephin Inj 2,000 MG In NS Inj 100 / 100 100 ML @ 200 mls/hr IV.SIG Q24H [facility] Rx#:[id number] Oral 240 / 240 Output: Urine 225 / 225 270 / 270 Other: # Voids 1 # Bowel Movements 0 Weight On Admission 148.9 kg - Constitutional no acute distress - Routine HEENT Exam Head: Present: normocephalic Eye: Present: EOMI, PERRL ENT: Present: mucous membranes moist - Routine Neck Exam Present: JVD - Routine Respiratory Exam Present: CTA bilaterally - Routine Cardiovascular Exam Present: RRR, S1, S2 - Routine Abdominal Exam Present: soft, normoactive bowel sounds - Routine Extremities Exam Present: edema. Absent: cyanosis Results 09/21/17 06:55 09/21/17 06:55 Cardiac Enzymes 09/20/17 09/20/17 09/20/17 Range/Units 14:40 14:40 19:39 AST 89 H (15-37) U/L Troponin I Less than 0.02 L Less than 0.02 L (0.02-0.05) ng/mL B-Natriuretic Peptide 203 H (0-100) pg/mL 18 09/21/17 09/21/17 Range/Units 00:34 06:55 06:55 AST 63 H (15-37) U/L Troponin I Less than 0.02 L (0.02-0.05) ng/mL B-Natriuretic Peptide 191 H (0-100) pg/mL Coagulation 09/20/17 09/20/17 09/21/17 Range/Units 14:40 14:40 06:55 PT 10.6 (9.8-11.6) sec APTT 26.6 (24.3-30.1) sec B-Natriuretic Peptide 203 H 191 H (0-100) pg/mL CBC 09/20/17 09/21/17 Range/Units 14:40 06:55 WBC 6.4 7.2 (4.0-11.0) th/mm3 RBC 3.43 L 3.44 L (4.50-5.90) mil/mm3 Hgb 11.4 L 11.6 L (13.0-17.0) gm/dL Hct 35.8 L 36.0 L (39.0-51.0) % Plt Count 219 222 (150-450) th/mm3 Neut # (Auto) 4.4 5.6 (1.8-7.7) th/mm3 Lymph # (Auto) 0.9 L 0.5 L (1.0-4.8) th/mm3 [place] # (Auto) 0.9 1.1 H (0.0-0.9) th/mm3 Eos # (Auto) 0.1 0.1 (0.0-0.4) th/mm3 Baso # (Auto) 0.0 0.0 (0.0-0.2) th/mm3 Comprehensive Metabolic Panel 09/20/17 09/21/17 Range/Units 14:40 06:55 Sodium 134 L 134 L (136-145) meq/L Potassium 4.3 3.9 (3.5-5.1) meq/L Chloride 96 L 95 L (98-107) meq/L Carbon Dioxide 23.6 29.7 (21.0-32.0) meq/L BUN 3 L 5 L (7-18) mg/dL Creatinine 0.59 L 0.80 (0.60-1.30) mg/dL Calcium 8.3 L 8.2 L (8.5-10.1) mg/dL AST 89 H 63 H (15-37) U/L ALT 50 49 (12-78) U/L Alkaline Phosphatase 234 H 212 H (45-117) U/L Total Protein 6.6 6.5 (6.4-8.2) g/dL Albumin 2.8 L 2.7 L (3.4-5.0) g/dL Intake and Output 09/20/17 09/21/17 09/21/17 22:59 06:59 14:59 Intake Total 862.5 / 862.5 Output Total 345 / 345 150 / 150 Balance -345 / -345 712.5 / 712.5 Intake: IV 622.5 / 622.5 Vancomycin Inj 2,250 MG In NS 522.5 / 522.5 Inj 500 ML @ 250 mls/hr IV.SIG Q12H [facility] Rx#:[id number] Rocephin Inj 2,000 MG In NS Inj 100 / 100 100 ML @ 200 mls/hr IV.SIG Q24H [facility] Rx#:[id number] Oral 240 / 240 Output: Urine 345 / 345 150 / 150 Other: # Voids 1 # Bowel Movements 0 Weight 148.9 kg 149.3 kg Weight On Admission 148.9 kg EKG interpretations - EKG EKG results cardiology: sinus rhythm - Blocks, axis, hypertrophy, ST abn Repolarization changes or abnormalities: nonspecific abnormality, ST segment, and/or T wave Assessment and Plan - Assessment (1) New onset of congestive heart failure Code(s): I50.9 - Heart failure, unspecified Status: Acute Plan: Patient has no prior history of congestive heart failure. B type natruretic peptide was mildly elevated. Bilateral lower extremity edema was present. Patient does have shortness of breath with bibasilar crackles. Chest x-ray showed cardiomegaly with increased interstitial edema. Patient is on intravenous diuretic therapy with good urine output. 2D echocardiogram is pending. Will await for the echocardiogram results to further determine any workup necessary. If cardiomyopathy is present, he will need an ischemic workup. If ejection fraction is preserved and this is likely secondary to diastolic dysfunction or venous insufficiency, diuretic therapy along with guideline directed medical therapy would be clinically indicated.
[2017-09-21 13:55] LABS: Hemoglobin A1c 5.2 % (4.3-6.0)
--- NOTE | 2017-09-21 22:54 | US ---
EXAM DATE: 09/21/2017 10:41 PM EDT AGE/SEX: 56 years / Male INDICATIONS: Abnormal lab work. CLINICAL DATA: This is the patient's initial encounter. Patient reports that signs and symptoms have been present for 2 days and indicates a pain score of 1/10. MEDICAL/SURGICAL HISTORY: Diabetes. Hypertension. Umbilical hernia repair. COMPARISON: No prior exams available for comparison. MEASUREMENTS: Liver:__ 23.4 cm. Common Bile Duct:__ 5mm. Right Kidney:__ cm. FINDINGS: Liver: Increased echotexture without focal lesion or ductal dilation. Portal Vein: Hepatopedal flow seen in portal vein. Common Duct: No intraluminal mass or stone visualized. Gallbladder: Contracted with mildly thickened wall. Pancreas: Increased echogenicity Right Kidney: Normal echotexture and cortical thickness. No mass or hydronephrosis. Other: None. CONCLUSION: 1. Enlarged fatty liver measuring 23.4 cm in length. Contracted gallbladder. No biliary ductal dilat ation. Electronically signed by: Dmitriy Hollis MD 09/21/2017 10:53 PM EDT
[2017-09-21] MEDS: Enoxaparin Inj 40 MG/0.4 ML Syringe SQ SCH (23:05)
[2017-09-21] MEDS: traZODone 100 MG Tablet PO SCH (23:05)
[2017-09-21 23:21] LABS: Hepatitis A IgM Antibody Nonreactive (Nonreactive); Hepatitits B Surface Antigen Nonreactive (Nonreactive)
--- NOTE | 2017-09-22 07:49 | P.PNCA ---
<Susie Bergman A - Last Filed: 09/22/17 07:46> Subjective Interval history: slept well overnight. no chest pain or sob. echo pending Physical Exam Vital signs: Vital Signs 09/21/17 08:00 09/21/17 09:02 09/21/17 11:54 Temperature 97.3 F L Pulse Rate 86 89 88 Respiratory Rate 18 16 20 Blood Pressure 124/59 L Pulse Oximetry 96 94 L 09/21/17 12:00 09/21/17 15:26 09/21/17 15:27 Temperature 97.5 F L Pulse Rate 88 90 Respiratory Rate 18 18 Blood Pressure 105/59 L Pulse Oximetry 96 98 09/21/17 16:00 09/21/17 19:16 09/21/17 20:00 Temperature 97.6 F 97.6 F Pulse Rate 89 89 101 H Respiratory Rate 18 20 18 Blood Pressure 124/61 134/69 Pulse Oximetry 98 94 L 09/21/17 23:51 09/22/17 00:00 09/22/17 00:03 Temperature Pulse Rate 92 H 92 H Respiratory Rate 20 20 Blood Pressure Pulse Oximetry 97 09/22/17 00:54 09/22/17 02:45 09/22/17 04:00 Temperature 97.4 F L 98.3 F Pulse Rate 92 H 89 82 Respiratory Rate 20 20 20 Blood Pressure 115/65 109/56 L Pulse Oximetry 97 96 Intake & Output 09/21/17 09/22/17 09/22/17 18:59 06:59 18:59 Intake Total 1482.5 / 1482.5 1102.5 / 1102.5 Output Total 600 / 600 100 / 100 Balance 882.5 / 882.5 1002.5 / 1002.5 Weight 150.1 kg Intake: IV 522.5 / 522.5 622.5 / 622.5 Vancomycin Inj 2,250 MG In NS 522.5 / 522.5 522.5 / 522.5 Inj 500 ML @ 250 mls/hr IV.SIG Q12H [facility] Rx#:[id number] Rocephin Inj 2,000 MG In NS Inj 100 / 100 100 ML @ 200 mls/hr IV.SIG Q24H [facility] Rx#:[id number] Oral 960 / 960 480 / 480 Output: Urine 600 / 600 100 / 100 Narrative: GENERAL: obese male SKIN: Warm and dry. HEAD: Normocephalic. EYES: No scleral icterus. No injection or drainage. NECK: Supple, trachea midline. No JVD or lymphadenopathy. CARDIOVASCULAR: Regular rate and rhythm without murmurs, gallops, or rubs. RESPIRATORY: Breath sounds equal bilaterally. No accessory muscle use. GASTROINTESTINAL: Abdomen soft, non-tender, nondistended. MUSCULOSKELETAL: Bilateral 2+ lower extremity edema with mild erythema and warmth Assessment and Plan - Assessment (1) New onset of congestive heart failure Code(s): I50.9 - Heart failure, unspecified Status: Acute Plan: Patient has no prior history of congestive heart failure. B type natruretic peptide was mildly elevated. Bilateral lower extremity edema was present. Patient does have shortness of breath with bibasilar crackles. Chest x-ray showed cardiomegaly with increased interstitial edema. Patient is on intravenous diuretic therapy with good urine output. 2D echocardiogram is pending. Will await for the echocardiogram results to further determine any workup necessary. If cardiomyopathy is present, he will need an ischemic workup. If ejection fraction is preserved and this is likely secondary to diastolic dysfunction or venous insufficiency, diuretic therapy along with guideline directed medical therapy would be clinically indicated. <Tereso,Himanshu - Last Filed: 09/22/17 09:52> Physical Exam Vital signs: Vital Signs 09/21/17 11:54 09/21/17 12:00 09/21/17 15:26 Temperature 97.5 F L Pulse Rate 88 88 Respiratory Rate 20 18 Blood Pressure 105/59 L Pulse Oximetry 96 98 09/21/17 15:27 09/21/17 16:00 09/21/17 19:16 Temperature 97.6 F Pulse Rate 90 89 89 Respiratory Rate 18 18 20 Blood Pressure 124/61 Pulse Oximetry 98 09/21/17 20:00 09/21/17 23:51 09/22/17 00:00 Temperature 97.6 F Pulse Rate 101 H 92 H 92 H Respiratory Rate 18 20 Blood Pressure 134/69 Pulse Oximetry 94 L 97 09/22/17 00:03 09/22/17 00:54 09/22/17 02:45 Temperature 97.4 F L Pulse Rate 92 H 89 Respiratory Rate 20 20 20 Blood Pressure 115/65 Pulse Oximetry 97 09/22/17 04:00 09/22/17 08:00 09/22/17 08:17 Temperature 98.3 F 97.6 F Pulse Rate 83 78 Respiratory Rate 20 18 Blood Pressure 109/56 L 118/66 Pulse Oximetry 96 96 95 09/22/17 09:18 Temperature Pulse Rate 83 Respiratory Rate 22 Blood Pressure Pulse Oximetry Intake & Output 09/21/17 09/22/17 09/22/17 18:59 06:59 18:59 Intake Total 1482.5 / 1482.5 1102.5 / 1102.5 Output Total 600 / 600 100 / 100 Balance 882.5 / 882.5 1002.5 / 1002.5 Weight 150.1 kg Intake: IV 522.5 / 522.5 622.5 / 622.5 Vancomycin Inj 2,250 MG In NS 522.5 / 522.5 522.5 / 522.5 Inj 500 ML @ 250 mls/hr IV.SIG Q12H [facility] Rx#:[id number] Rocephin Inj 2,000 MG In NS Inj 100 / 100 100 ML @ 200 mls/hr IV.SIG Q24H [facility] Rx#:[id number] Oral 960 / 960 480 / 480 Output: Urine 600 / 600 100 / 100 Assessment and Plan - Assessment (1) New onset of congestive heart failure Code(s): I50.9 - Heart failure, unspecified Status: Acute - Attending Attestation I/O still positive add zaroxyln 2.5 mg po bid monitor K and Cr await echo suspect more venous insufficiency component leg elevation limit salt await 2d echo
--- NOTE | 2017-09-22 08:39 | P.PNFP ---
Subjective Interval history: Patient was seen and examined this morning. Breathing is much improved. He feels his legs and abdomen are still swollen. He has ambulated about the room without difficulty. He notes his back and bilateral ankles are hurting and requests [place]. He is eating and drinking without difficulty. Ultrasound and hepatitis panel results reviewed with patient, notable for fatty liver and no evidence of viral hepatitis. <Meaghan Galloway Latanya - 09/22/17 11:45> Results - Labs Result diagrams: 09/21/17 06:55 09/21/17 06:55 <Leo Slade - 09/22/17 22:55> Abnormal lab results 09/22/17 Range/Units 11:00 Vancomycin Trough 43.9 H (5.0-10.0) mcg/mL <Leo Slade - 09/22/17 22:55> - Imaging Impressions Liver Ultrasound 09/21/17 00:00 CONCLUSION: 1. Enlarged fatty liver measuring 23.4 cm in length. Contracted gallbladder. No biliary ductal dilatation. <Leo Slade - 09/22/17 22:55> Impressions Liver Ultrasound 09/21/17 00:00 CONCLUSION: 1. Enlarged fatty liver measuring 23.4 cm in length. Contracted gallbladder. No biliary ductal dilatation. <Meaghan Galloway Latanya - 09/22/17 11:45> Physical Exam Vital signs: Vital Signs 09/21/17 23:51 09/22/17 00:00 09/22/17 00:03 Temperature Pulse Rate 92 H 92 H Respiratory Rate 20 20 Blood Pressure Pulse Oximetry 97 09/22/17 00:54 09/22/17 02:45 09/22/17 04:00 Temperature 97.4 F L 98.3 F Pulse Rate 92 H 89 83 Respiratory Rate 20 20 20 Blood Pressure 115/65 109/56 L Pulse Oximetry 97 96 09/22/17 08:00 09/22/17 08:17 09/22/17 09:18 Temperature 97.6 F Pulse Rate 78 83 Respiratory Rate 18 22 Blood Pressure 118/66 Pulse Oximetry 96 95 09/22/17 12:00 09/22/17 15:57 09/22/17 16:00 Temperature 97.7 F 98.1 F Pulse Rate 80 76 77 Respiratory Rate 18 20 18 Blood Pressure 142/60 H 110/62 Pulse Oximetry 95 96 09/22/17 20:00 09/22/17 20:47 Temperature 98.8 F Pulse Rate 75 68 Respiratory Rate 19 16 Blood Pressure 108/55 L Pulse Oximetry 94 L 97 Intake & Output 09/22/17 09/22/17 09/23/17 06:59 18:59 06:59 Intake Total 1102.5 / 1102.5 840 / 840 Output Total 100 / 100 400 / 400 Balance 1002.5 / 1002.5 440 / 440 Weight 150.1 kg Intake: IV 622.5 / 622.5 Vancomycin Inj 2,250 MG In NS 522.5 / 522.5 Inj 500 ML @ 250 mls/hr IV.SIG Q12H [facility] Rx#:[id number] Rocephin Inj 2,000 MG In NS Inj 100 / 100 100 ML @ 200 mls/hr IV.SIG Q24H [facility] Rx#:[id number] Oral 480 / 480 840 / 840 Output: Urine 100 / 100 400 / 400 <BerlinLeo - 09/22/17 22:55> Vital Signs 09/21/17 09:02 09/21/17 11:54 09/21/17 12:00 Temperature 97.5 F L Pulse Rate 89 88 88 Respiratory Rate 16 20 18 Blood Pressure 105/59 L Pulse Oximetry 94 L 96 09/21/17 15:26 09/21/17 15:27 09/21/17 16:00 Temperature 97.6 F Pulse Rate 90 89 Respiratory Rate 18 18 Blood Pressure 124/61 Pulse Oximetry 98 98 09/21/17 19:16 09/21/17 20:00 09/21/17 23:51 Temperature 97.6 F Pulse Rate 89 101 H 92 H Respiratory Rate 20 18 20 Blood Pressure 134/69 Pulse Oximetry 94 L 97 09/22/17 00:00 09/22/17 00:03 09/22/17 00:54 Temperature 97.4 F L Pulse Rate 92 H 92 H Respiratory Rate 20 20 Blood Pressure 115/65 Pulse Oximetry 97 09/22/17 02:45 09/22/17 04:00 09/22/17 08:17 Temperature 98.3 F Pulse Rate 89 83 Respiratory Rate 20 20 Blood Pressure 109/56 L Pulse Oximetry 96 95 Intake & Output 09/21/17 09/22/17 09/22/17 18:59 06:59 18:59 Intake Total 1482.5 / 1482.5 1102.5 / 1102.5 Output Total 600 / 600 100 / 100 Balance 882.5 / 882.5 1002.5 / 1002.5 Weight 150.1 kg Intake: IV 522.5 / 522.5 622.5 / 622.5 Vancomycin Inj 2,250 MG In NS 522.5 / 522.5 522.5 / 522.5 Inj 500 ML @ 250 mls/hr IV.SIG Q12H [facility] Rx#:[id number] Rocephin Inj 2,000 MG In NS Inj 100 / 100 100 ML @ 200 mls/hr IV.SIG Q24H [facility] Rx#:[id number] Oral 960 / 960 480 / 480 Output: Urine 600 / 600 100 / 100 <Meaghan Galloway L - 09/22/17 08:39> Narrative: CONSTITUTIONAL/GEN: Morbidly obese male, somewhat somnolent and sleepy during exam but easily aroused EYES: conjunctiva normal, PERRL, EOMI. ENT: Poor dentition. No tobacco noted at patient bedside or in the mouth today. LUNGS: Distant breath sounds, however sounds mostly clear with very faint bibasilar crackles. CARDIOVASCULAR: RR without murmur or gallop. Extremities: Bilateral lower extremities with tense edema up to mid thigh, 2+ and pitting GI/ABD: Obese but soft, mildly tender in left upper quadrant. Anasarca persists , stable from yesterday's exam SKIN: Bilateral lower extremities erythematous up to mid tibia and mildly warm. Seeping a clear, serous fluid. Left foot with a posterior vertical incision that appears mildly erythematous with superficial dehiscence. Granulation tissue visible with a small amount of purulence overlying it. No expression of purulent fluid with palpation. Left posterior hip covered with a bandage, 3 cm incision site from bone grafting harvest appears to be clean/dry/intact without surrounding erythema or drainage. PSYCH/MENTAL STATUS: Alert and oriented x 3. <Meaghan Galloway L - 09/22/17 11:45> Assessment and Plan - Assessment (1) New onset of congestive heart failure Code(s): I50.9 - Heart failure, unspecified Status: Acute (2) Cellulitis Code(s): L03.90 - Cellulitis, unspecified Status: Acute (3) Abnormal liver enzymes Code(s): R74.8 - Abnormal levels of other serum enzymes Status: Acute (4) Hypertension Code(s): I10 - Essential (primary) hypertension Status: Chronic (5) History of asthma Code(s): Z87.09 - Personal history of other diseases of the respiratory system Status: Chronic (6) Depression with anxiety Code(s): F41.8 - Other specified anxiety disorders Status: Chronic (7) Gout Code(s): M10.9 - Gout, unspecified Status: Chronic (8) Nutrition, metabolism, and development symptoms Code(s): R63.8 - Other symptoms and signs concerning food and fluid intake Status: Acute <Leo Slade - 09/22/17 22:55> (1) New onset of congestive heart failure Code(s): I50.9 - Heart failure, unspecified Status: Acute Plan: Patient appears grossly fluid overloaded with elevated BNP of 203 on admission. Patient has history of obstructive sleep apnea and significant alcohol history 2D echocardiogram pending Cardiology consulted, appreciate recommendations, they are awaiting echo result before further recommendation -Monitor daily weights -Fluid restriction to 1.5 L and low-salt diet, add protein shakes -Troponins negative 3 -Discontinue telemetry today, unremarkable -Supplemental oxygen as needed -Patient is normotensive Diuresis: Furosemide 40 mg IV twice daily 24 hours, will transition to p.o. 40 mg PO twice daily with potassium 20 mEq daily -Received 40 mg IV 1 in the emergency department Bilateral lower extremity Dopplers negative for DVT Chest x-ray with cardiomegaly and indicative of a positive fluid balance (2) Cellulitis Code(s): L03.90 - Cellulitis, unspecified Status: Acute Plan: Bilateral lower extremity edema with erythema overlying surgical site Antibiotics: Vancomycin ordered with pharmacy consult to help with dosing Rocephin 2 g IV daily Follow cultures, transition to p.o. antibiotics if negative Blood cultures 2 no growth 2 days Wound culture ordered and pending Wound care consult placed PT/OT consult ordered - PT currently recommending home with no therapy ESR 14, low suspicion for osteomyelitis Lactic acid 1.5 on admission Patient afebrile without leukocytosis (3) Abnormal liver enzymes Code(s): R74.8 - Abnormal levels of other serum enzymes Status: Acute Plan: Elevated AST and alkaline phosphatase on arrival, stable Patient has a history of heavy alcohol use -Previously drank up to 12 beers daily for several years, reduced approximately 1 year ago -Currently endorses 4 beers per occasion, 3-4 occasions per week Liver ultrasound showing markedly large fatty liver. Hepatitis panel negative, discussed with patient (4) Hypertension Code(s): I10 - Essential (primary) hypertension Status: Chronic Plan: Patient with a known history of hypertension Normotensive on admission Continue home metoprolol Consider adding LINDY inhibitor given new onset congestive heart failure pending echo results (5) History of asthma Code(s): Z87.09 - Personal history of other diseases of the respiratory system Status: Chronic Plan: Patient with a known history of asthma Per history has been wheezing more often and has occasional wheezes on exam Scheduling duo nebs every 6 hours, albuterol nebs as needed every 4 hours (6) Depression with anxiety Code(s): F41.8 - Other specified anxiety disorders Status: Chronic Plan: Patient with a known history of depression anxiety Continue home Zoloft, trazodone Holding Valium for now (7) Gout Code(s): M10.9 - Gout, unspecified Status: Chronic Plan: Patient with a known history of gout Continuing home allopurinol (8) Nutrition, metabolism, and development symptoms Code(s): R63.8 - Other symptoms and signs concerning food and fluid intake Status: Acute Plan: FEN: - No IV fluids at this time - Monitor replace electrolytes as needed - Low-salt, heart healthy diet and fluid restriction to 1.5 L, and protein shakes PPX: - Lovenox 40mg daily for DVT ppx <Meaghan Galloway - 09/22/17 11:36> - Assessment and Plan Patient is a 56-year-old male with a history of asthma, depression and anxiety, gout, hypertension and recent surgical repair of the left ankle and left hip who presented to the ED with progressive shortness of breath and lower extremity edema. Chest x-ray showing cardiomegaly with mild positive fluid balance. Initial ACS workup is negative. Patient also noted to have likely cellulitis in the bilateral lower extremities. Received vancomycin x1 in the ED. Admitting to inpatient for suspected new onset CHF, fluid overload management, cellulitis treatment. <Meaghan Galloway - 09/22/17 11:45> Discussed Condition With: Dr. Slade <Meaghan Galloway - 09/22/17 11:45> Discharge Planning: Anticipate discharge in 2-3 days to home pending fluid management, cellulitis treatment and outpatient antibiotic plan <Meaghan Galloway - 09/22/17 11:45> - Attending Attestation Pt. examined and case discussed with resident physicians. I have read the above note and agree with the assessment and plan as discussed with me. I was involved in all medical decision making for this patient. Leo Slade MD <Leo Slade - 09/22/17 22:55> <Meaghan Galloway L - Last Filed: 09/22/17 11:36> (2) Cellulitis Qualifiers: Site of cellulitis: extremity Site of cellulitis of extremity: lower extremity Laterality: unspecified laterality Qualified Code(s): L03.119 - Cellulitis of unspecified part of limb (4) Hypertension Qualifiers: Hypertension type: essential hypertension Qualified Code(s): I10 - Essential (primary) hypertension <Leo Slade - Last Filed: 09/22/17 22:55> (2) Cellulitis Qualifiers: Site of cellulitis: extremity Site of cellulitis of extremity: lower extremity Laterality: unspecified laterality Qualified Code(s): L03.119 - Cellulitis of unspecified part of limb (4) Hypertension Qualifiers: Hypertension type: essential hypertension Qualified Code(s): I10 - Essential (primary) hypertension <Meaghan Galloway - Last Filed: 09/22/17 11:36> (2) Cellulitis Qualifiers: Site of cellulitis: extremity Site of cellulitis of extremity: lower extremity Laterality: unspecified laterality Qualified Code(s): L03.119 - Cellulitis of unspecified part of limb (4) Hypertension Qualifiers: Hypertension type: essential hypertension Qualified Code(s): I10 - Essential (primary) hypertension <Leo Slade - Last Filed: 09/22/17 22:55> (2) Cellulitis Qualifiers: Site of cellulitis: extremity Site of cellulitis of extremity: lower extremity Laterality: unspecified laterality Qualified Code(s): L03.119 - Cellulitis of unspecified part of limb (4) Hypertension Qualifiers: Hypertension type: essential hypertension Qualified Code(s): I10 - Essential (primary) hypertension
[2017-09-22] MEDS: Sertraline 50 MG Tablet PO SCH (09:36)
[2017-09-22] MEDS: Metoprolol Tartrate 25 MG Tablet PO SCH ×2 (09:36→21:42)
[2017-09-22] MEDS: Allopurinol 100 MG Tablet PO SCH (09:37)
[2017-09-22] MEDS ORDERED: Pharmacy Ordered Lab Info OTHER ONE (09:45)
[2017-09-22] MEDS: Furosemide 40 MG Tablet PO SCH (18:30)
[2017-09-22] MEDS: Enoxaparin Inj 40 MG/0.4 ML Syringe SQ SCH (21:39)
[2017-09-22] MEDS: traZODone 100 MG Tablet PO SCH (21:41)
--- NOTE | 2017-09-23 07:42 | P.PNCA ---
<PachecoSusie Maciel - Last Filed: 09/23/17 07:37> Subjective Interval history: reports poor urine output. weight log reflects 2 kg weight gain since admission. no chest pain, breathing improved. echo still pending. Physical Exam Vital signs: Vital Signs 09/22/17 08:00 09/22/17 08:17 09/22/17 09:18 Temperature 97.6 F Pulse Rate 78 83 Respiratory Rate 18 22 Blood Pressure 118/66 Pulse Oximetry 96 95 09/22/17 12:00 09/22/17 15:57 09/22/17 16:00 Temperature 97.7 F 98.1 F Pulse Rate 80 76 77 Respiratory Rate 18 20 18 Blood Pressure 142/60 H 110/62 Pulse Oximetry 95 96 09/22/17 20:00 09/22/17 20:47 09/22/17 21:35 Temperature 98.8 F Pulse Rate 75 68 73 Respiratory Rate 19 16 Blood Pressure 108/55 L Pulse Oximetry 94 L 97 09/23/17 00:00 09/23/17 00:48 09/23/17 03:53 Temperature 97.3 F L Pulse Rate 67 69 70 Respiratory Rate 19 18 18 Blood Pressure 113/65 Pulse Oximetry 91 L 09/23/17 04:00 09/23/17 07:20 Temperature 98.5 F Pulse Rate 70 71 Respiratory Rate 18 16 Blood Pressure 106/55 L Pulse Oximetry 97 94 L Intake & Output 09/22/17 09/23/17 09/23/17 18:59 06:59 18:59 Intake Total 840 / 840 100 / 100 Output Total 400 / 400 Balance 440 / 440 100 / 100 Intake: IV 100 / 100 Rocephin Inj 2,000 MG In NS Inj 100 / 100 100 ML @ 200 mls/hr IV.SIG Q24H [facility] Rx#:[id number] Oral 840 / 840 Output: Urine 400 / 400 Narrative: CONSTITUTIONAL/GEN: Morbidly obese male, somewhat somnolent and sleepy during exam but easily aroused LUNGS: Distant breath sounds, however sounds mostly clear with very faint bibasilar crackles. CARDIOVASCULAR: RRR without murmur or gallop. Extremities: Bilateral lower extremities with tense edema up to mid thigh, 2+ and pitting GI/ABD: Obese but soft, mildly tender in left upper quadrant. Anasarca persists , stable from yesterday's exam PSYCH/MENTAL STATUS: Alert and oriented x 3. Assessment and Plan - Assessment (1) New onset of congestive heart failure Code(s): I50.9 - Heart failure, unspecified Status: Acute Plan: CHF-no prior history of CHF. Echo ordered to assess LVEF. If cardiomyopathy is present, he will need an ischemic workup. If ejection fraction is preserved and this is likely secondary to diastolic dysfunction or venous insufficiency, diuretic therapy along with guideline directed medical therapy would be clinically indicated. no chest pain. cont metolazone 2.5mg BID and furosemide 40mg BID. Monitor I's/O's. Creatinine and K+ remain stable. LE cellulitis- currently on antibiotic <TeresoHimanshu - Last Filed: 09/23/17 13:08> Physical Exam Vital signs: Vital Signs 09/22/17 15:57 09/22/17 16:00 09/22/17 20:00 Temperature 98.1 F 98.8 F Pulse Rate 76 77 75 Respiratory Rate 20 18 19 Blood Pressure 110/62 108/55 L Pulse Oximetry 96 94 L 09/22/17 20:47 09/22/17 21:35 09/23/17 00:00 Temperature 97.3 F L Pulse Rate 68 73 67 Respiratory Rate 16 19 Blood Pressure 113/65 Pulse Oximetry 97 91 L 09/23/17 00:48 09/23/17 03:53 09/23/17 04:00 Temperature 98.5 F Pulse Rate 69 70 70 Respiratory Rate 18 18 18 Blood Pressure 106/55 L Pulse Oximetry 97 09/23/17 07:20 09/23/17 08:00 09/23/17 11:04 Temperature Pulse Rate 71 58 L 70 Respiratory Rate 16 16 Blood Pressure Pulse Oximetry 94 L Intake & Output 09/22/17 09/23/17 09/23/17 18:59 06:59 18:59 Intake Total 840 / 840 100 / 100 250 / 250 Output Total 400 / 400 Balance 440 / 440 100 / 100 250 / 250 Intake: IV 100 / 100 250 / 250 Rocephin Inj 2,000 MG In NS Inj 100 / 100 100 ML @ 200 mls/hr IV.SIG Q24H [facility] Rx#:[id number] Oral 840 / 840 Output: Urine 400 / 400 Assessment and Plan - Assessment (1) New onset of congestive heart failure Code(s): I50.9 - Heart failure, unspecified Status: Acute - Attending Attestation Possible CHF vs venous insufficiency. BNP mildly elevated. +BLE edema Now ARF due to prerenal azotemia induced by diuretic therapy. Lasix/Zaroxolyn held. awaiting 2d echo gentle hydration. avoid salt
--- NOTE | 2017-09-23 08:25 | P.PNFP ---
Subjective Interval history: Patient was seen and examined this morning. He reports that his breathing is back to baseline but he still remains on 3 L nasal cannula O2 rate. He is ambulatory about the room. He states that he is not urinating much. He reports that he continues to have a low back and ankle pain. Wound care nursing consult pending. Echo pending. MRSA growing in wound culture, patient notified of this. <Meaghan Galloway - 09/23/17 08:25> Results - Labs Result diagrams: 09/24/17 06:00 09/24/17 06:00 <TomasUte M - 09/24/17 16:15> Abnormal lab results 09/23/17 09/24/17 09/24/17 Range/Units 16:25 06:00 06:00 RBC 3.36 L (4.50-5.90) mil/mm3 Hgb 11.3 L (13.0-17.0) gm/dL Hct 36.0 L (39.0-51.0) % MCV 107.1 H (80.0-100.0) fL MCHC 31.4 L (32.0-36.0) % RDW 20.3 H (11.6-17.2) % [place] % (Auto) 23.5 H (0.0-8.0) % Lymph # (Auto) 0.8 L (1.0-4.8) th/mm3 [place] # (Auto) 1.5 H (0.0-0.9) th/mm3 Sodium 133 L 134 L (136-145) meq/L Potassium 5.4 H (3.5-5.1) meq/L Chloride 96 L 97 L (98-107) meq/L Creatinine 3.06 H 3.52 H (0.60-1.30) mg/dL Estimated GFR 21 L 18 L (>89) mL/min Random Glucose 121 H (74-106) mg/dL Calcium 8.4 L 8.1 L (8.5-10.1) mg/dL AST 41 H (15-37) U/L Alkaline Phosphatase 176 H (45-117) U/L Albumin 2.9 L (3.4-5.0) g/dL TSH (0.358-3.740) uIU/mL 09/24/17 Range/Units 06:00 RBC (4.50-5.90) mil/mm3 Hgb (13.0-17.0) gm/dL Hct (39.0-51.0) % MCV (80.0-100.0) fL MCHC (32.0-36.0) % RDW (11.6-17.2) % [place] % (Auto) (0.0-8.0) % Lymph # (Auto) (1.0-4.8) th/mm3 [place] # (Auto) (0.0-0.9) th/mm3 Sodium (136-145) meq/L Potassium (3.5-5.1) meq/L Chloride (98-107) meq/L Creatinine (0.60-1.30) mg/dL Estimated GFR (>89) mL/min Random Glucose (74-106) mg/dL Calcium (8.5-10.1) mg/dL AST (15-37) U/L Alkaline Phosphatase (45-117) U/L Albumin (3.4-5.0) g/dL TSH 7.830 H (0.358-3.740) uIU/mL Short CBC 09/24/17 Range/Units 06:00 WBC 6.3 (4.0-11.0) th/mm3 Hgb 11.3 L (13.0-17.0) gm/dL Hct 36.0 L (39.0-51.0) % Plt Count 225 (150-450) th/mm3 BMP 09/23/17 09/24/17 16:25 06:00 Sodium 133 L 134 L Potassium 5.1 5.4 H Chloride 96 L 97 L Carbon Dioxide 27.4 29.8 BUN 14 17 Creatinine 3.06 H 3.52 H Calcium 8.4 L 8.1 L Liver Function 09/24/17 Range/Units 06:00 Total Bilirubin 0.3 (0.2-1.0) mg/dL AST 41 H (15-37) U/L ALT 44 (12-78) U/L Alkaline Phosphatase 176 H (45-117) U/L Albumin 2.9 L (3.4-5.0) g/dL <Ute Marin - 09/24/17 16:15> Abnormal lab results 09/22/17 Range/Units 11:00 Vancomycin Trough 43.9 H (5.0-10.0) mcg/mL <Meaghan Galloway L - 09/23/17 08:25> - Imaging Impressions Abdomen/Bladder Ultrasound 09/23/17 00:00 CONCLUSION: Unremarkable ultrasound examination of the kidneys. <Ute Marin - 09/24/17 16:15> Physical Exam Vital signs: Vital Signs 09/23/17 20:00 09/23/17 20:42 09/23/17 21:38 Temperature 97.4 F L Pulse Rate 71 73 Respiratory Rate 20 Blood Pressure 120/60 Pulse Oximetry 95 95 09/24/17 00:00 09/24/17 01:16 09/24/17 04:00 Temperature 97.6 F 98.0 F Pulse Rate 62 71 63 Respiratory Rate 20 20 Blood Pressure 108/55 L 104/52 L Pulse Oximetry 96 96 09/24/17 08:00 09/24/17 09:00 09/24/17 12:00 Temperature 98.1 F 97.5 F L Pulse Rate 67 68 64 Respiratory Rate 19 18 Blood Pressure 107/57 L 134/65 Pulse Oximetry 96 96 Intake & Output 09/23/17 09/24/17 09/24/17 18:59 06:59 18:59 Intake Total 1441 / 1441 120 / 120 250 / 250 Balance 1441 / 1441 120 / 120 250 / 250 Weight 150.1 kg 151.5 kg Intake: IV 500 / 500 250 / 250 NS Inj 250 ML @ Wide Open IV. 250 / 250 250 / 250 SIG BOLUS ONE Rx#:[id number] Oral 941 / 941 120 / 120 Other: # Voids 1 3 Date of Last Bowel Movement 09/23/17 # Bowel Movements 0 0 <Ute Marin M - 09/24/17 16:15> Vital Signs 09/22/17 09:18 09/22/17 12:00 09/22/17 15:57 Temperature 97.7 F Pulse Rate 83 80 76 Respiratory Rate 22 18 20 Blood Pressure 142/60 H Pulse Oximetry 95 09/22/17 16:00 09/22/17 20:00 09/22/17 20:47 Temperature 98.1 F 98.8 F Pulse Rate 77 75 68 Respiratory Rate 18 19 16 Blood Pressure 110/62 108/55 L Pulse Oximetry 96 94 L 97 09/22/17 21:35 09/23/17 00:00 09/23/17 00:48 Temperature 97.3 F L Pulse Rate 73 67 69 Respiratory Rate 19 18 Blood Pressure 113/65 Pulse Oximetry 91 L 09/23/17 03:53 09/23/17 04:00 09/23/17 07:20 Temperature 98.5 F Pulse Rate 70 70 71 Respiratory Rate 18 18 16 Blood Pressure 106/55 L Pulse Oximetry 97 94 L Intake & Output 09/22/17 09/23/17 09/23/17 18:59 06:59 18:59 Intake Total 840 / 840 100 / 100 Output Total 400 / 400 Balance 440 / 440 100 / 100 Intake: IV 100 / 100 Rocephin Inj 2,000 MG In NS Inj 100 / 100 100 ML @ 200 mls/hr IV.SIG Q24H ELBA Rx#:[id number] Oral 840 / 840 Output: Urine 400 / 400 <Meaghan Galloway - 09/23/17 08:25> Narrative: CONSTITUTIONAL/GEN: Morbidly obese male, less sleepy today. EYES: conjunctiva normal, PERRL, EOMI. ENT: Poor dentition. No tobacco noted at patient bedside or in the mouth today. LUNGS: Distant breath sounds, however sounds mostly clear with very faint bibasilar crackles. CARDIOVASCULAR: RR without murmur or gallop. Extremities: Bilateral lower extremities with tense edema up to mid thigh, 2+ and pitting, possibly reduced from last exam but minimal reduction GI/ABD: Obese but soft, mildly tender in left upper quadrant. Anasarca persists , stable from yesterday's exam. Mild bruising at site of Lovenox injections on the left lower abdomen SKIN: Bilateral lower extremities erythematous up to mid tibia and mildly warm. No longer seeping clear serous fluid. Left foot with a posterior vertical incision that appears mildly erythematous with superficial dehiscence. No significant purulence across granulation tissue of the wound. Left posterior hip covered with a bandage, 3 cm incision site from bone grafting harvest appears to be clean/dry/intact without surrounding erythema or drainage. PSYCH/MENTAL STATUS: Alert and oriented x 3. <Meaghan Galloway - 09/23/17 08:25> Assessment and Plan - Assessment (1) ESTELLA (acute kidney injury) Code(s): N17.9 - Acute kidney failure, unspecified Status: Acute (2) New onset of congestive heart failure Code(s): I50.9 - Heart failure, unspecified Status: Acute (3) Cellulitis Code(s): L03.90 - Cellulitis, unspecified Status: Acute (4) Abnormal liver enzymes Code(s): R74.8 - Abnormal levels of other serum enzymes Status: Acute (5) Hypertension Code(s): I10 - Essential (primary) hypertension Status: Chronic (6) History of asthma Code(s): Z87.09 - Personal history of other diseases of the respiratory system Status: Chronic (7) Depression with anxiety Code(s): F41.8 - Other specified anxiety disorders Status: Chronic (8) Gout Code(s): M10.9 - Gout, unspecified Status: Chronic (9) Nutrition, metabolism, and development symptoms Code(s): R63.8 - Other symptoms and signs concerning food and fluid intake Status: Acute <Ute Marin - 09/24/17 16:15> (1) ESTELLA (acute kidney injury) Code(s): N17.9 - Acute kidney failure, unspecified Status: Acute Plan: New finding on 09/23 labs. Creatinine 0.89 on admission, 2.78 today. Suspect related to diuresis and poor urine output is of concern. Will give to 250 cc normal saline at 50 cc/hour and reassess a BMP this afternoon. Will assess medication list and adjust for any nephrotoxic agents, will alert pharmacy regarding renal dosing of medications especiallly Vancomycin (2) New onset of congestive heart failure Code(s): I50.9 - Heart failure, unspecified Status: Acute Plan: Patient appears grossly fluid overloaded with elevated BNP of 203 on admission. BNP is stable 191. UOP not impressive, however breathing has improved to baseline. Patient has history of obstructive sleep apnea and significant alcohol history; needs CPAP evaluation as outpatient 2D echocardiogram pending, recommendations regarding mgmt will be based on these results Cardiology consulted, appreciate recommendations, they are awaiting echo result before further recommendation. Metolazone initiated -Monitor daily weights, stable at this time -Fluid restriction to 1.5 L and low-salt diet, add protein shakes -Troponins negative 3 -Discontinue telemetry today, unremarkable -Supplemental oxygen as needed -Patient is normotensive Diuresis: Furosemide 40 mg IV twice daily 24 hours, transitioned to 40 mg PO twice daily with potassium 20 mEq daily on 09/22 -Received 40 mg IV 1 in the emergency department Bilateral lower extremity Dopplers negative for DVT Chest x-ray with cardiomegaly and indicative of a positive fluid balance (3) Cellulitis Code(s): L03.90 - Cellulitis, unspecified Status: Acute Plan: Bilateral lower extremity edema with erythema overlying surgical site Antibiotics: Vancomycin ordered with pharmacy consult to help with dosing Rocephin 2 g IV daily Follow cultures, transition to p.o. antibiotics if negative Blood cultures 2 no growth 3 days Wound culture ordered and notable for MRSA, susceptibilities pending. Likely can transition to PO regimen pending sensitivities Wound care consult placed PT/OT consult ordered - PT currently recommending home with no therapy ESR 14, low suspicion for osteomyelitis Lactic acid 1.5 on admission Patient afebrile without leukocytosis (4) Abnormal liver enzymes Code(s): R74.8 - Abnormal levels of other serum enzymes Status: Acute Plan: Elevated AST and alkaline phosphatase on arrival, stable Patient has a history of heavy alcohol use -Previously drank up to 12 beers daily for several years, reduced approximately 1 year ago -Currently endorses 4 beers per occasion, 3-4 occasions per week -No CIWA needs Liver ultrasound showing markedly large fatty liver. Hepatitis panel negative, discussed with patient (5) Hypertension Code(s): I10 - Essential (primary) hypertension Status: Chronic Plan: Patient with a known history of hypertension Normotensive so far this hospitalization Continue home metoprolol Consider adding LINDY inhibitor given new onset congestive heart failure pending echo results (6) History of asthma Code(s): Z87.09 - Personal history of other diseases of the respiratory system Status: Chronic Plan: Patient with a known history of asthma Per history has been wheezing more often and has occasional wheezes on exam Scheduling duo nebs every 6 hours as needed, albuterol nebs as needed every 4 hours (7) Depression with anxiety Code(s): F41.8 - Other specified anxiety disorders Status: Chronic Plan: Patient with a known history of depression anxiety Continue home Zoloft, trazodone Holding Valium for now (8) Gout Code(s): M10.9 - Gout, unspecified Status: Chronic Plan: Patient with a known history of gout Continuing home allopurinol (9) Nutrition, metabolism, and development symptoms Code(s): R63.8 - Other symptoms and signs concerning food and fluid intake Status: Acute Plan: FEN: - No IV fluids at this time - Monitor replace electrolytes as needed - Low-salt, heart healthy diet and fluid restriction to 1.5 L, and protein shakes PPX: - Lovenox 40mg daily for DVT ppx <Meaghan Galloway - 09/23/17 10:37> - Assessment and Plan Patient is a 56-year-old male with a history of asthma, depression and anxiety, gout, hypertension and recent surgical repair of the left ankle and left hip who presented to the ED with progressive shortness of breath and lower extremity edema. Chest x-ray showing cardiomegaly with mild positive fluid balance. Initial ACS workup is negative. Patient also noted to have likely cellulitis in the bilateral lower extremities. Received vancomycin x1 in the ED. Admitted to inpatient for suspected new onset CHF, fluid overload management, cellulitis treatment. <Meaghan Galloway - 09/23/17 08:37> Discharge Planning: Anticipate discharge in 1-2 days to home pending fluid management, cellulitis treatment and outpatient antibiotic plan <Meaghan Galloway - 09/23/17 08:37> - Attending Attestation The exam, history, and the medical decision-making described in the above note were completed with the assistance of the resident physician. I reviewed and agree with the findings presented. I attest that I had a [id number] encounter with the patient on the same day, and personally performed and documented my assessment and findings in the medical record. fortunately his wound does not look infected right now. because of his renal failure, will stop vancomycin. his wound cultures are likely not reliable as he did not have surgery and a culture of the skin does not prove infection <Ute Marin - 09/24/17 16:15> <Meaghan Galloway L - Last Filed: 09/23/17 10:37> (3) Cellulitis Qualifiers: Site of cellulitis: extremity Site of cellulitis of extremity: lower extremity Laterality: unspecified laterality Qualified Code(s): L03.119 - Cellulitis of unspecified part of limb (5) Hypertension Qualifiers: Hypertension type: essential hypertension Qualified Code(s): I10 - Essential (primary) hypertension <Ute Marin M - Last Filed: 09/24/17 16:15> (3) Cellulitis Qualifiers: Site of cellulitis: extremity Site of cellulitis of extremity: lower extremity Laterality: unspecified laterality Qualified Code(s): L03.119 - Cellulitis of unspecified part of limb (5) Hypertension Qualifiers: Hypertension type: essential hypertension Qualified Code(s): I10 - Essential (primary) hypertension <Meaghan Galloway L - Last Filed: 09/23/17 10:37> (3) Cellulitis Qualifiers: Site of cellulitis: extremity Site of cellulitis of extremity: lower extremity Laterality: unspecified laterality Qualified Code(s): L03.119 - Cellulitis of unspecified part of limb (5) Hypertension Qualifiers: Hypertension type: essential hypertension Qualified Code(s): I10 - Essential (primary) hypertension <Ute Marin M - Last Filed: 09/24/17 16:15> (3) Cellulitis Qualifiers: Site of cellulitis: extremity Site of cellulitis of extremity: lower extremity Laterality: unspecified laterality Qualified Code(s): L03.119 - Cellulitis of unspecified part of limb (5) Hypertension Qualifiers: Hypertension type: essential hypertension Qualified Code(s): I10 - Essential (primary) hypertension
[2017-09-23] MEDS: Vancomycin Inj 2,250 MG in Sodium Chlor 0.9% Inj 500 ML IV.SIG SCH (09:22)
[2017-09-23 09:31] LABS: Hemoglobin 10.7 gm/dL (13.0-17.0); Mean Corpuscular Hemoglobin 33.1 pg (27.0-34.0); Mean Platelet Volume 7.5 fL (7.0-11.0); Platelet Count 209 th/mm3 (150-450); Red Blood Count 3.24 mil/mm3 (4.50-5.90); Red Cell Distribution Width 20.2 % (11.6-17.2); White Blood Count 6.2 th/mm3 (4.0-11.0)
[2017-09-23 09:33] LABS: Mean Corpuscular HGB Conc 30.6 % (32.0-36.0)
[2017-09-23 09:50] LABS: Alanine Aminotransferase 46 U/L (12-78); Albumin 2.8 g/dL (3.4-5.0); Alkaline Phosphatase 179 U/L (45-117); Anion Gap 8 meq/L (5-15); Aspartate Aminotransferase 53 U/L (15-37); Blood Urea Nitrogen 12 mg/dL (7-18); Calcium 8.6 mg/dL (8.5-10.1); Carbon Dioxide 28.8 meq/L (21.0-32.0); Chloride 96 meq/L (98-107); Glomerular Filtration Rate 24 mL/min (>89); Glucose,Random 114 mg/dL (74-106); Potassium 4.8 meq/L (3.5-5.1); Sodium 133 meq/L (136-145); Total Protein 6.8 g/dL (6.4-8.2)
[2017-09-23] MEDS ORDERED: Sodium Chlor 0.9% Inj 250 ML IV.SIG SCH (09:55)
[2017-09-23] MEDS: Allopurinol 100 MG Tablet PO SCH (10:05)
[2017-09-23] MEDS: Metoprolol Tartrate 25 MG Tablet PO SCH ×2 (10:05→22:18)
[2017-09-23] MEDS: Furosemide 40 MG Tablet PO SCH (10:05)
[2017-09-23] MEDS: Sertraline 50 MG Tablet PO SCH (10:06)
[2017-09-23 10:23] LABS: Eosinophils 1 % (0-4); Lymphocytes 13 % (9-44); Monocytes 22 % (0-8); Myelocytes 1 % (0-0)
[2017-09-23 10:24] LABS: Platelet Estimate Normal (Normal); Platelet Morphology Clumped (Normal); Tear Drop Cells 1+
--- NOTE | 2017-09-23 13:26 | ECHRPT ---
Indication: HEART FAILURE CONCLUSIONS Normal left ventricular size. Wall thickness is normal. The left ventricular systolic function is normal with an estimated ejection fraction in the range of 55-60%. There is flattening of the ventricular septum which indicates that the pulmonary pressures are highe r. Abnormal septal motion.The right ventricle is mildly dilated. The right ventricular systoilc function is mildly decreased. The right ventricle was not well visualized. The left atrial size is mildly dilated. The right atrial size is moderately dilated. The interatrial septum not well visualized. There is trace tricuspid valve regurgitation. The estimated pulmonary arterial pressure is 40.4 mmHg. The inferior vena cava was not well visualized. A prominent epicardial fat pad is present Trace posterior pericardial effusion. BP: / HR: Rhythm: Sinus MEASUREMENTS (Male / Female) Normal Values Technical Quality:Fair 2D ECHO LV Diastolic Diameter PLAX 5.7 cm 4.2 - 5.9 / 3.9 - 5.3 cm LV Systolic Diameter PLAX 4.3 cm IVS Diastolic Thickness 0.9 cm 0.6 - 1.0 / 0.6 - 0.9 cm LVPW Diastolic Thickness 0.9 cm 0.6 - 1.0 / 0.6 - 0.9 cm LV Relative Wall Thickness 0.3 RV Internal Dim ED PLAX 3.4 cm LVOT Diameter 2.0 cm Aortic Root Diameter 3.1 cm LA Systolic Diameter LX 4.4 cm 3.0 - 4.0 / 2.7 - 3.8 cm M-MODE AV Cusp Separation MM 2.2 cm DOPPLER AV Peak Velocity 132.0 cm/s AV Peak Gradient 7.0 mmHg AV Mean Gradient 4.0 mmHg AV Velocity Time Integral 23.1 cm LVOT Peak Velocity 87.2 cm/s LVOT Peak Gradient 3.0 mmHg LVOT Velocity Time Integral 16.9 cm AV Area Cont Eq vti 2.3 cm AV Area Cont Eq pk 2.1 cm Mitral E Point Velocity 89.8 cm/s Mitral A Point Velocity 69.6 cm/s Mitral E to A Ratio 1.3 TR Peak Velocity 252.0 cm/s TR Peak Gradient 25.4 mmHg Right Atrial Pressure 15.0 mmHg Pulmonary Artery Systolic Pressu 40.4 mmHg Right Ventricular Systolic Press 40.4 mmHg PV Peak Velocity 52.6 cm/s PV Peak Gradient 1.1 mmHg FINDINGS LEFT VENTRICLE Normal left ventricular size. Wall thickness is normal. The left ventricular systolic function is normal with an estimated ejection fraction in the range of 55-60%. There is flattening of the ventricular septum which indicates that the pulmonary pressures are highe r. Abnormal septal motion. RIGHT VENTRICLE The right ventricle is mildly dilated. The right ventricular systoilc function is mildly decreased. The right ventricle was not well visualized. LEFT ATRIUM The left atrial size is mildly dilated. RIGHT ATRIUM The right atrial size is moderately dilated. ATRIAL SEPTUM The interatrial septum not well visualized. AORTA The aortic root and proximal ascending aorta are normal in size on limited imaging. MITRAL VALVE Structurally normal mitral valve. No mitral valve stenosis or regurgitation. AORTIC VALVE No aortic valve stenosis or regurgitation. TRICUSPID VALVE There is trace tricuspid valve regurgitation. The estimated pulmonary arterial pressure is 40.4 mmHg. PULMONARY VALVE No pulmonary valve regurgitation or stenosis. VESSELS The inferior vena cava was not well visualized. PERICARDIUM A prominent epicardial fat pad is present Trace posterior pericardial effusion. Himanshu Rider MD, FACC (Electronically Signed) Final Date:23 September 2017 13:25
--- NOTE | 2017-09-23 16:14 | US ---
EXAM DATE: 09/23/2017 4:11 PM EDT AGE/SEX: 56 years / Male INDICATIONS: Increased lab values. CLINICAL DATA: This is the patient's initial encounter. Patient reports that signs and symptoms have been present for 1 day and indicates a pain score of 10/10. MEDICAL/SURGICAL HISTORY: Hypertension. Gout. Asthma. Diabetes. Neuropathy. Depression. Anxiety . . Umbilical hernia repair. Ankle surgery. COMPARISON: [facility] – [place], [place] [facility], 09/21/2017. . MEASUREMENTS: Right Kidney:__12.3 x 6.1 x 5.9 cm Left Kidney:__11.9 x 4.0 x 6.1 cm FINDINGS: Right Kidney: Normal echotexture and cortical thickness. No mass or hydronephrosis. Left Kidney: Normal echotexture and cortical thickness. No mass or hydronephrosis. Bladder: Decompressed. Not well evaluated. Other: None. CONCLUSION: Unremarkable ultrasound examination of the kidneys. Electronically signed by: Gregory Flores MD 09/23/2017 4:13 PM EDT
--- NOTE | 2017-09-23 16:23 | P.PNWCN ---
Wound Care Nurse Consult Description: Wound consult ordered by for wound management. Communicated with: Charlee QUINONEZ, Recommendation: 1. Cleanse left posterior full thickness wound with normal saline only pat dry. 2. Apply Santyl 2mm thick to wound base and cover with saline moistened gauze secure with dry dressing. 3. Change dressing daily or as needed for dislodgement/exudate.Sign and date all dressings. 4. Follow up with out patient wound center. Additional information: Patient was seen today by program writer and [facility] assistant director of nursing. Patient alert and oriented x4 sitting up in recliner with lower extremities elevated.Dressing removed from left lower extremity without difficulty.Foundation Relations Manager was able to visualize dehisced full thickness surgical line on posterior ankle / Achilles area.2 areas of dehisced full thickness wounds noted with both wound bases being 100% yellow slough.Scant serosanguineous exudate noted without odor.Wound edges are well defined circular in shape.Periwound blanchable with minimal erythema noted.Moistened gauze applied to wound bases and covered with dry dressing.Dressing signed and dated .Santyl ordered. Wound/Pressure Injury - Patient Status Premedicated for Pain Prior to Dressing Change: No - Wound Left Posterior Heel Wound Assessment: Ongoing Wound Type: Traumatic Wound Is This a Chronic Wound: No Requested from Provider a Wound Care Consult: No (Jey QUINONEZ,[facility] seen 09/23) Wound Bed Appearance: Necrotic, Yellow Surrounding Tissue Appearance: [place] Surrounding Tissue Temperature: Warm Drainage Description: Serosanguinous Drainage Amount: Scant Drainage Odor: Slight Odor Dressing Status: Dry & Intact Cleansing Solution: Saline Topical: Enzymatic Debridement Ointment Primary Dressing: Gauze Pad Cover Dressing: Adhesive Dressing Wound Dressing Change Date: 09/23/17 Posterior Back Wound Assessment: Ongoing Wound Type: Laceration Is This a Chronic Wound: No Dressing Status: Dry & Intact Cover Dressing: Gauze Pads Tape Type: Foam Incision - Patient Status Premedicated for Pain Prior to Dressing Change: No - Incision Left Posterior Heel Incision Type: Incision Lower Posterior Back Incision Type: Incision
[2017-09-23 17:47] LABS: Calcium 8.4 mg/dL (8.5-10.1); Carbon Dioxide 27.4 meq/L (21.0-32.0); Potassium 5.1 meq/L (3.5-5.1)
[2017-09-23] MEDS: traZODone 100 MG Tablet PO SCH (22:18)
[2017-09-23] MEDS: Enoxaparin Inj 40 MG/0.4 ML Syringe SQ SCH (22:19)
[2017-09-23] MEDS: Collagenase Oint 30 GM Tube TOPICAL SCH (22:19)
[2017-09-24 06:57] LABS: Baso % (Auto) 0.5 % (0.0-2.0); Eos # (Auto) 0.2 th/mm3 (0.0-0.4); Eos % (Auto) 2.9 % (0.0-4.0); Hemoglobin 11.3 gm/dL (13.0-17.0); Lymph # (Auto) 0.8 th/mm3 (1.0-4.8); Lymph % (Auto) 12.2 % (9.0-44.0); Mean Corpuscular HGB Conc 31.4 % (32.0-36.0); Mean Corpuscular Hemoglobin 33.7 pg (27.0-34.0); Mean Corpuscular Volume 107.1 fL (80.0-100.0); Mean Platelet Volume 8.1 fL (7.0-11.0); Mono # (Auto) 1.5 th/mm3 (0.0-0.9); Mono % (Auto) 23.5 % (0.0-8.0); Neut # (Auto) 3.8 th/mm3 (1.8-7.7); Neut % (Auto) 60.9 % (16.0-70.0); Platelet Count 225 th/mm3 (150-450); Red Blood Count 3.36 mil/mm3 (4.50-5.90); Red Cell Distribution Width 20.3 % (11.6-17.2); White Blood Count 6.3 th/mm3 (4.0-11.0)
[2017-09-24 06:58] LABS: Prothrombin Time 10.4 sec (9.8-11.6)
[2017-09-24 07:13] LABS: Alanine Aminotransferase 44 U/L (12-78); Albumin 2.9 g/dL (3.4-5.0); Anion Gap 7 meq/L (5-15); Aspartate Aminotransferase 41 U/L (15-37); Blood Urea Nitrogen 17 mg/dL (7-18); Calcium 8.1 mg/dL (8.5-10.1); Carbon Dioxide 29.8 meq/L (21.0-32.0); Chloride 97 meq/L (98-107); Glomerular Filtration Rate 18 mL/min (>89); Glucose,Random 91 mg/dL (74-106); Potassium 5.4 meq/L (3.5-5.1); Sodium 134 meq/L (136-145)
[2017-09-24 07:25] LABS: Alkaline Phosphatase 176 U/L (45-117); Immunoglobulin A 380 mg/dL (93-514); Immunoglobulin G 1180 mg/dL (660-1640); Immunoglobulin M 145 mg/dL (40-247); Kappa Lambda Ratio 1.63 (1.57-3.93); Lambda Light Chain 202 mg/dL (90-210); Total Protein 6.5 g/dL (6.4-8.2)
[2017-09-24] MEDS ORDERED: Sodium Chlor 0.9% Inj 250 ML IV.SIG ONE (07:27)
--- NOTE | 2017-09-24 08:20 | P.PNCA ---
Subjective Interval history: rested comfortably overnight. remains on 2L O2. LE cellulitis resolving, edema shows slight improvement. no chest pain Physical Exam Vital signs: Vital Signs 09/23/17 11:04 09/23/17 12:00 09/23/17 16:00 Temperature 97.1 F L 97.3 F L Pulse Rate 70 73 71 Respiratory Rate 16 20 20 Blood Pressure 106/54 L 106/57 L Pulse Oximetry 96 97 09/23/17 20:00 09/23/17 20:42 09/23/17 21:38 Temperature 97.4 F L Pulse Rate 71 73 Respiratory Rate 20 Blood Pressure 120/60 Pulse Oximetry 95 95 09/24/17 00:00 09/24/17 01:16 09/24/17 04:00 Temperature 97.6 F 98.0 F Pulse Rate 62 71 63 Respiratory Rate 20 20 Blood Pressure 108/55 L 104/52 L Pulse Oximetry 96 96 Intake & Output 09/23/17 09/24/17 09/24/17 18:59 06:59 18:59 Intake Total 1441 / 1441 120 / 120 Balance 1441 / 1441 120 / 120 Weight 150.1 kg 151.5 kg Intake: IV 500 / 500 NS Inj 250 ML @ 50 mls/hr IV. 250 / 250 SIG ONCE ELBA Rx#:[id number] Oral 941 / 941 120 / 120 Other: # Voids 1 3 Date of Last Bowel Movement 09/23/17 # Bowel Movements 0 0 Narrative: CONSTITUTIONAL/GEN: Morbidly obese male LUNGS: Distant breath sounds, however sounds mostly clear with very faint bibasilar crackles. CARDIOVASCULAR: RR without murmur or gallop. Extremities: Bilateral lower extremities with tense edema up to mid thigh, 2+ and pitting, possibly reduced from last exam but minimal reduction SKIN: Bilateral lower extremities erythematous up to mid tibia and mildly warm. No longer seeping clear serous fluid. PSYCH/MENTAL STATUS: Alert and oriented x 3. Assessment and Plan - Assessment (1) New onset of congestive heart failure Code(s): I50.9 - Heart failure, unspecified Status: Acute Plan: CHF-no prior history of CHF. Echo shows preserved ejection fraction EF 55-60% with moderate dilation of right atrium and PAP 40mmHg; symptoms likely secondary to venous insufficiency. no chest pain. furosemide and zaroxolyn on hold due to prerenal azotemia. continue to monitor creatinine/K+ and I's/O's LE cellulitis- improving, currently on antibiotic
--- NOTE | 2017-09-24 09:04 | P.PNFP ---
Subjective Interval history: Patient was seen and examined this morning. He refused Gonzalez yesterday. He states he makes a little bit of urine. He notes some shortness of breath overnight. No chest pain. LE pain is stable. Normal bowel movements reported. <Meaghan Galloway Latanya - 09/24/17 09:03> Results - Labs Result diagrams: 09/24/17 06:00 09/24/17 06:00 <Ute Marin - 09/24/17 16:20> Abnormal lab results 09/23/17 09/24/17 09/24/17 Range/Units 16:25 06:00 06:00 RBC 3.36 L (4.50-5.90) mil/mm3 Hgb 11.3 L (13.0-17.0) gm/dL Hct 36.0 L (39.0-51.0) % MCV 107.1 H (80.0-100.0) fL MCHC 31.4 L (32.0-36.0) % RDW 20.3 H (11.6-17.2) % [place] % (Auto) 23.5 H (0.0-8.0) % Lymph # (Auto) 0.8 L (1.0-4.8) th/mm3 [place] # (Auto) 1.5 H (0.0-0.9) th/mm3 Sodium 133 L 134 L (136-145) meq/L Potassium 5.4 H (3.5-5.1) meq/L Chloride 96 L 97 L (98-107) meq/L Creatinine 3.06 H 3.52 H (0.60-1.30) mg/dL Estimated GFR 21 L 18 L (>89) mL/min Random Glucose 121 H (74-106) mg/dL Calcium 8.4 L 8.1 L (8.5-10.1) mg/dL AST 41 H (15-37) U/L Alkaline Phosphatase 176 H (45-117) U/L Albumin 2.9 L (3.4-5.0) g/dL TSH (0.358-3.740) uIU/mL 09/24/17 Range/Units 06:00 RBC (4.50-5.90) mil/mm3 Hgb (13.0-17.0) gm/dL Hct (39.0-51.0) % MCV (80.0-100.0) fL MCHC (32.0-36.0) % RDW (11.6-17.2) % [place] % (Auto) (0.0-8.0) % Lymph # (Auto) (1.0-4.8) th/mm3 [place] # (Auto) (0.0-0.9) th/mm3 Sodium (136-145) meq/L Potassium (3.5-5.1) meq/L Chloride (98-107) meq/L Creatinine (0.60-1.30) mg/dL Estimated GFR (>89) mL/min Random Glucose (74-106) mg/dL Calcium (8.5-10.1) mg/dL AST (15-37) U/L Alkaline Phosphatase (45-117) U/L Albumin (3.4-5.0) g/dL TSH 7.830 H (0.358-3.740) uIU/mL Short CBC 09/24/17 Range/Units 06:00 WBC 6.3 (4.0-11.0) th/mm3 Hgb 11.3 L (13.0-17.0) gm/dL Hct 36.0 L (39.0-51.0) % Plt Count 225 (150-450) th/mm3 BMP 09/23/17 09/24/17 16:25 06:00 Sodium 133 L 134 L Potassium 5.1 5.4 H Chloride 96 L 97 L Carbon Dioxide 27.4 29.8 BUN 14 17 Creatinine 3.06 H 3.52 H Calcium 8.4 L 8.1 L Liver Function 09/24/17 Range/Units 06:00 Total Bilirubin 0.3 (0.2-1.0) mg/dL AST 41 H (15-37) U/L ALT 44 (12-78) U/L Alkaline Phosphatase 176 H (45-117) U/L Albumin 2.9 L (3.4-5.0) g/dL <Ute Marin - 09/24/17 16:20> Abnormal lab results 09/23/17 09/23/17 09/23/17 Range/Units 09:05 09:05 16:25 RBC 3.24 L (4.50-5.90) mil/mm3 Hgb 10.7 L (13.0-17.0) gm/dL Hct 35.0 L (39.0-51.0) % MCV 108.0 H (80.0-100.0) fL MCHC 30.6 L (32.0-36.0) % RDW 20.2 H (11.6-17.2) % [place] % (Auto) (0.0-8.0) % Lymph # (Auto) (1.0-4.8) th/mm3 [place] # (Auto) (0.0-0.9) th/mm3 Monocytes % (Manual) 22 H (0-8) % Myelocytes % (Man) 1 H (0-0) % Platelet Morphology Clumped H (Normal) Tear Drop Cells 1+ H (None) Sodium 133 L 133 L (136-145) meq/L Potassium (3.5-5.1) meq/L Chloride 96 L 96 L (98-107) meq/L Creatinine 2.74 H 3.06 H (0.60-1.30) mg/dL Estimated GFR 24 L 21 L (>89) mL/min Random Glucose 114 H 121 H (74-106) mg/dL Calcium 8.4 L (8.5-10.1) mg/dL AST 53 H (15-37) U/L Alkaline Phosphatase 179 H (45-117) U/L Albumin 2.8 L (3.4-5.0) g/dL 09/24/17 09/24/17 Range/Units 06:00 06:00 RBC 3.36 L (4.50-5.90) mil/mm3 Hgb 11.3 L (13.0-17.0) gm/dL Hct 36.0 L (39.0-51.0) % MCV 107.1 H (80.0-100.0) fL MCHC 31.4 L (32.0-36.0) % RDW 20.3 H (11.6-17.2) % [place] % (Auto) 23.5 H (0.0-8.0) % Lymph # (Auto) 0.8 L (1.0-4.8) th/mm3 [place] # (Auto) 1.5 H (0.0-0.9) th/mm3 Monocytes % (Manual) (0-8) % Myelocytes % (Man) (0-0) % Platelet Morphology (Normal) Tear Drop Cells (None) Sodium 134 L (136-145) meq/L Potassium 5.4 H (3.5-5.1) meq/L Chloride 97 L (98-107) meq/L Creatinine 3.52 H (0.60-1.30) mg/dL Estimated GFR 18 L (>89) mL/min Random Glucose (74-106) mg/dL Calcium 8.1 L (8.5-10.1) mg/dL AST 41 H (15-37) U/L Alkaline Phosphatase 176 H (45-117) U/L Albumin 2.9 L (3.4-5.0) g/dL Short CBC 09/23/17 09/24/17 Range/Units 09:05 06:00 WBC 6.2 6.3 (4.0-11.0) th/mm3 Hgb 10.7 L 11.3 L (13.0-17.0) gm/dL Hct 35.0 L 36.0 L (39.0-51.0) % Plt Count 209 225 (150-450) th/mm3 BMP 09/23/17 09/23/17 09/24/17 09:05 16:25 06:00 Sodium 133 L 133 L 134 L Potassium 4.8 5.1 5.4 H Chloride 96 L 96 L 97 L Carbon Dioxide 28.8 27.4 29.8 BUN 12 14 17 Creatinine 2.74 H 3.06 H 3.52 H Calcium 8.6 8.4 L 8.1 L Liver Function 09/23/17 09/24/17 Range/Units 09:05 06:00 Total Bilirubin 0.4 0.3 (0.2-1.0) mg/dL AST 53 H 41 H (15-37) U/L ALT 46 44 (12-78) U/L Alkaline Phosphatase 179 H 176 H (45-117) U/L Albumin 2.8 L 2.9 L (3.4-5.0) g/dL <Meaghan Galloway - 09/24/17 09:03> - Imaging Impressions Abdomen/Bladder Ultrasound 09/23/17 00:00 CONCLUSION: Unremarkable ultrasound examination of the kidneys. <Meaghan Galloway - 09/24/17 09:03> Physical Exam Vital signs: Vital Signs 09/23/17 20:00 09/23/17 20:42 09/23/17 21:38 Temperature 97.4 F L Pulse Rate 71 73 Respiratory Rate 20 Blood Pressure 120/60 Pulse Oximetry 95 95 09/24/17 00:00 09/24/17 01:16 09/24/17 04:00 Temperature 97.6 F 98.0 F Pulse Rate 62 71 63 Respiratory Rate 20 20 Blood Pressure 108/55 L 104/52 L Pulse Oximetry 96 96 09/24/17 08:00 09/24/17 09:00 09/24/17 12:00 Temperature 98.1 F 97.5 F L Pulse Rate 67 68 64 Respiratory Rate 19 18 Blood Pressure 107/57 L 134/65 Pulse Oximetry 96 96 Intake & Output 09/23/17 09/24/17 09/24/17 18:59 06:59 18:59 Intake Total 1441 / 1441 120 / 120 250 / 250 Balance 1441 / 1441 120 / 120 250 / 250 Weight 150.1 kg 151.5 kg Intake: IV 500 / 500 250 / 250 NS Inj 250 ML @ Wide Open IV. 250 / 250 250 / 250 SIG BOLUS ONE Rx#:[id number] Oral 941 / 941 120 / 120 Other: # Voids 1 3 Date of Last Bowel Movement 09/23/17 # Bowel Movements 0 0 <Ute Marin M - 09/24/17 16:20> Vital Signs 09/23/17 11:04 09/23/17 12:00 09/23/17 16:00 Temperature 97.1 F L 97.3 F L Pulse Rate 70 73 71 Respiratory Rate 16 20 20 Blood Pressure 106/54 L 106/57 L Pulse Oximetry 96 97 09/23/17 20:00 09/23/17 20:42 09/23/17 21:38 Temperature 97.4 F L Pulse Rate 71 73 Respiratory Rate 20 Blood Pressure 120/60 Pulse Oximetry 95 95 09/24/17 00:00 09/24/17 01:16 09/24/17 04:00 Temperature 97.6 F 98.0 F Pulse Rate 62 71 63 Respiratory Rate 20 20 Blood Pressure 108/55 L 104/52 L Pulse Oximetry 96 96 Intake & Output 09/23/17 09/24/17 09/24/17 18:59 06:59 18:59 Intake Total 1441 / 1441 120 / 120 Balance 1441 / 1441 120 / 120 Weight 150.1 kg 151.5 kg Intake: IV 500 / 500 NS Inj 250 ML @ 50 mls/hr IV. 250 / 250 SIG ONCE ELBA Rx#:[id number] Oral 941 / 941 120 / 120 Other: # Voids 1 3 Date of Last Bowel Movement 09/23/17 # Bowel Movements 0 0 <Meaghan Galloway L - 09/24/17 09:03> Narrative: CONSTITUTIONAL/GEN: Morbidly obese male, less sleepy today. EYES: conjunctiva normal, PERRL, EOMI. ENT: Poor dentition. No tobacco noted at patient bedside or in the mouth today. LUNGS: Distant breath sounds, clear today CARDIOVASCULAR: RR without murmur or gallop. Extremities: Bilateral lower extremities with tense edema up to mid thigh, 2+ and pitting, possibly reduced from last exam but minimal reduction GI/ABD: Obese but soft, mildly tender in left upper quadrant. Anasarca persists , stable from yesterday's exam. Mild bruising at site of Lovenox injections on the left lower abdomen SKIN: Bilateral lower extremities erythematous but this has improved. Clean dressing noted on LLE. Tense skin with pitting edema stable from last exam, not seeping fluid. PSYCH/MENTAL STATUS: Alert and oriented x 3. <Meaghan Galloway L - 09/24/17 09:03> Assessment and Plan - Assessment (1) ESTELLA (acute kidney injury) Code(s): N17.9 - Acute kidney failure, unspecified Status: Acute (2) New onset of congestive heart failure Code(s): I50.9 - Heart failure, unspecified Status: Acute (3) Cellulitis Code(s): L03.90 - Cellulitis, unspecified Status: Acute (4) Abnormal liver enzymes Code(s): R74.8 - Abnormal levels of other serum enzymes Status: Acute (5) Hypertension Code(s): I10 - Essential (primary) hypertension Status: Chronic (6) History of asthma Code(s): Z87.09 - Personal history of other diseases of the respiratory system Status: Chronic (7) Depression with anxiety Code(s): F41.8 - Other specified anxiety disorders Status: Chronic (8) Gout Code(s): M10.9 - Gout, unspecified Status: Chronic (9) Nutrition, metabolism, and development symptoms Code(s): R63.8 - Other symptoms and signs concerning food and fluid intake Status: Acute <Ute Marin - 09/24/17 16:20> (1) ESTELLA (acute kidney injury) Code(s): N17.9 - Acute kidney failure, unspecified Status: Acute Plan: Plan: s/p 250cc NS bolus yesterday, ESTELLA continues this morning. Will given 250cc bolus this morning and increase PO fluid allowance. Recheck BMP at 11am. Nephrology consulted. Impression/Course: New finding on 09/23 labs. Creatinine 0.89 on admission, 2.78 today. Suspect related to diuresis and poor urine output is of concern. Will give to 250 cc normal saline at 50 cc/hour and reassess a BMP this afternoon. Will assess medication list and adjust for any nephrotoxic agents, will alert pharmacy regarding renal dosing of medications especially Vancomycin (2) New onset of congestive heart failure Code(s): I50.9 - Heart failure, unspecified Status: Acute Plan: Plan: monitor I/Os carefully, currently with ESTELLA warranting gentle fluids Impression/Course: Patient appears grossly fluid overloaded with elevated BNP of 203 on admission. BNP is stable 191. UOP not impressive, however breathing has improved to baseline. Patient has history of obstructive sleep apnea and significant alcohol history; needs CPAP evaluation as outpatient 2D echocardiogram showing EF 55-60% Cardiology consulted, appreciate recommendations, they are awaiting echo result before further recommendation. Metolazone initiated this hospitalization but d/ c'd 09/23 given ESTELLA -Monitor daily weights, stable at this time -Fluid restriction to 1.5 L and low-salt diet, add protein shakes -Troponins negative 3 -Discontinue telemetry today, unremarkable -Supplemental oxygen as needed -Patient is normotensive Diuresis: Furosemide 40 mg IV twice daily 24 hours, transitioned to 40 mg PO twice daily with potassium 20 mEq daily on 09/22 -Received 40 mg IV 1 in the emergency department -Furosemide held 09/23 given ESTELLA Bilateral lower extremity Dopplers negative for DVT Chest x-ray with cardiomegaly and indicative of a positive fluid balance (3) Cellulitis Code(s): L03.90 - Cellulitis, unspecified Status: Acute Plan: Plan: Vancomycin renally dose, wound culture showing MRSA, will adjust antibiotics based on susceptibilities Impression/Course: Patient presented with bilateral lower extremity edema with erythema overlying surgical site on LLE Suspect pressure ulcer Wound care nurse consulted: dehisced surgical site noted with slough amenable to Santyl, which was ordered 09/23 (appreciate recs) Antibiotics: Vancomycin ordered with pharmacy consult to help with dosing Rocephin 2 g IV daily (09/21 - 09/23) Follow cultures, transition to p.o. antibiotics as appropriate Blood cultures 2 no growth 3 days Wound culture ordered and notable for MRSA, susceptibilities pending. Likely can transition to PO regimen pending sensitivities PT/OT consult ordered - PT currently recommending home with no therapy ESR 14, low suspicion for osteomyelitis Lactic acid 1.5 on admission Patient afebrile without leukocytosis (4) Abnormal liver enzymes Code(s): R74.8 - Abnormal levels of other serum enzymes Status: Acute Plan: Elevated AST and alkaline phosphatase on arrival, stable Patient has a history of heavy alcohol use -Previously drank up to 12 beers daily for several years, reduced approximately 1 year ago -Currently endorses 4 beers per occasion, 3-4 occasions per week -No CIWA needs Liver ultrasound showing markedly large fatty liver. Hepatitis panel negative, discussed with patient (5) Hypertension Code(s): I10 - Essential (primary) hypertension Status: Chronic Plan: Patient with a known history of hypertension Normotensive so far this hospitalization Continue home metoprolol Metalozone initiated in hospital but d/c'd given ESTELLA ACEI considered but echo showing no evidence of heart failure however some evidence of elevated pulmonary pressures (c/w history of SARA) (6) History of asthma Code(s): Z87.09 - Personal history of other diseases of the respiratory system Status: Chronic Plan: Patient with a known history of asthma Per history has been wheezing more often and has occasional wheezes on exam Scheduling duo nebs every 6 hours as needed, albuterol nebs as needed every 4 hours (7) Depression with anxiety Code(s): F41.8 - Other specified anxiety disorders Status: Chronic Plan: Patient with a known history of depression anxiety Continue home Zoloft, trazodone Holding Valium for now (8) Gout Code(s): M10.9 - Gout, unspecified Status: Chronic Plan: Patient with a known history of gout Continuing home allopurinol (9) Nutrition, metabolism, and development symptoms Code(s): R63.8 - Other symptoms and signs concerning food and fluid intake Status: Acute Plan: FEN: - Gentle IVF and PO hydration given ESTELLA - Monitor replace electrolytes as needed - Low-salt, heart healthy diet and fluid restriction to 1.5 L, and protein shakes PPX: - Lovenox 40mg daily for DVT ppx <Meaghan Galloway - 09/24/17 08:50> - Assessment and Plan Patient is a 56-year-old male with a history of asthma, depression and anxiety, gout, hypertension and recent surgical repair of the left ankle and left hip who presented to the ED with progressive shortness of breath and lower extremity edema. Chest x-ray showing cardiomegaly with mild positive fluid balance. Initial ACS workup is negative. Patient also noted to have likely cellulitis in the bilateral lower extremities. Received vancomycin x1 in the ED. Admitted to inpatient for suspected new onset CHF, fluid overload management, cellulitis treatment. New ESTELLA 09/23 to follow and managed. <Meaghan Galloway - 09/24/17 09:03> Discharge Planning: Anticipate discharge in 2-3 days to home pending fluid management, cellulitis treatment, ESTELLA resolution, and outpatient antibiotic plan <Meaghan Galloway - 09/24/17 09:03> - Attending Attestation The exam, history, and the medical decision-making described in the above note were completed with the assistance of the resident physician. I reviewed and agree with the findings presented. I attest that I had a [id number] encounter with the patient on the same day, and personally performed and documented my assessment and findings in the medical record. appreciate help of Nephrology. agree that his condition is a little puzzling as he is fluid overloaded. he does not seem to be having an inflammatory response or medicine reaction. he refused his gonzalez catheter but is urinating more today. Nephrology is continuing to diurese him. agree with checking a thyroid. ordered CPAP yesterday as that can give edema but he did not have it yesterday so have reordered to be given every night. with his body habitus can consider obesity hypoventilation <Ute Marin - 09/24/17 16:20> <Meaghan Galloway L - Last Filed: 09/24/17 08:50> (3) Cellulitis Qualifiers: Site of cellulitis: extremity Site of cellulitis of extremity: lower extremity Laterality: unspecified laterality Qualified Code(s): L03.119 - Cellulitis of unspecified part of limb (5) Hypertension Qualifiers: Hypertension type: essential hypertension Qualified Code(s): I10 - Essential (primary) hypertension <Ute Marin M - Last Filed: 09/24/17 16:20> (3) Cellulitis Qualifiers: Site of cellulitis: extremity Site of cellulitis of extremity: lower extremity Laterality: unspecified laterality Qualified Code(s): L03.119 - Cellulitis of unspecified part of limb (5) Hypertension Qualifiers: Hypertension type: essential hypertension Qualified Code(s): I10 - Essential (primary) hypertension <Meaghan Galloway L - Last Filed: 09/24/17 08:50> (3) Cellulitis Qualifiers: Site of cellulitis: extremity Site of cellulitis of extremity: lower extremity Laterality: unspecified laterality Qualified Code(s): L03.119 - Cellulitis of unspecified part of limb (5) Hypertension Qualifiers: Hypertension type: essential hypertension Qualified Code(s): I10 - Essential (primary) hypertension <Ute Marin - Last Filed: 09/24/17 16:20> (3) Cellulitis Qualifiers: Site of cellulitis: extremity Site of cellulitis of extremity: lower extremity Laterality: unspecified laterality Qualified Code(s): L03.119 - Cellulitis of unspecified part of limb (5) Hypertension Qualifiers: Hypertension type: essential hypertension Qualified Code(s): I10 - Essential (primary) hypertension
[2017-09-24] MEDS: Metoprolol Tartrate 25 MG Tablet PO SCH ×2 (09:26→21:32)
[2017-09-24] MEDS: Allopurinol 100 MG Tablet PO SCH (09:26)
[2017-09-24] MEDS: Sertraline 50 MG Tablet PO SCH (09:26)
[2017-09-24] MEDS: Collagenase Oint 30 GM Tube TOPICAL SCH (09:27)
[2017-09-24] MEDS ORDERED: Sodium Chlor 0.9% Inj 500 ML IV.SIG ONE (12:00)
--- NOTE | 2017-09-24 12:12 | P.CONNP ---
History of Present Illness Consult date: 09/24/17 Reason for Consult: Acute renal insufficiency. Primary Care Provider: Young Mahmood MD, R2 Chief Complaint: Swelling and redness in legs History of Present Illness: This patient is a 56-year-old male with a history of hypertension, gout as well as asthma and I suspect sleep apnea. Patient denies any previous knowledge of renal insufficiency. On presentation to the hospital he was complaining of increasing edema and shortness of breath. Chest x-ray apparently did show some signs of interstitial edema. Echocardiogram showed slightly reduced EF of 55-60%. Creatinine on presentation 0.8 on the seventh of this month subsequently deteriorating progressively 3.52. Patient was on vancomycin as well as furosemide both of which have since apparently been discontinued. Patient denies using NSAIDs at home. No history of alecia diabetes mellitus, collagen vascular disease or viral hepatitis. Potassium level also elevated at 5.5 today. [facility] - History History Provided By: Patient - Medical History Medical History: Medical History (Last Updated 09/24/17 @ 12:05 by Liz Perry MD) Anxiety Asthma Borderline diabetes Depressed Gout Hypertension Left wrist fracture Neuropathy Seasonal allergies Sleep apnea - Surgical History Surgical History: Surgical History (Last Reviewed 09/21/17 @ 12:07 by Himanshu Rider MD) H/O umbilical hernia repair - Family History Family History: Family History (Last Reviewed 09/21/17 @ 12:07 by Himanshu Rider MD) Other Family history of acute myocardial infarction Family history of diabetes mellitus Family history of lung cancer Family history of renal disease - Tobacco History Second Hand Smoke Exposure: No Tobacco Use In Past 30 Days: Yes Smoking Status: Current every day smoker Tobacco Type: Cigarettes - Alcohol History How Often Do You Have a Drink Containing Alcohol: 2 to 4 times a month - Substance Use History Substance History: Past History - Substance Use Type Marijuana Status: Active Route Used: By Mouth Reason for Use: Calm Down - Travel History Recent Travel Out of the Country Within the Last 8 Weeks: No - Immunization History Tetanus Immunization: <5 Years Hx Influenza Vaccine This Season: Yes Medications and Allergies Active Medications: Active Medications Acetaminophen (Tylenol) 650 mg PO Q6HR PRN PRN Reason: PAIN SCALE 1 TO 2 Hydrocodone Bitart/Acetaminophen (Palmetto 10/325) 1 tab PO Q4H PRN PRN Reason: PAIN SCALE 6 TO 10 Last Admin: 09/24/17 09:36 Dose: 1 tab Hydrocodone Bitart/Acetaminophen (Palmetto 5/325) 1 tab PO Q4H PRN PRN Reason: PAIN SCALE 3 TO 5 Albuterol (Albuterol Neb (Prn)) 2.5 mg NEB Q2HR NEB PRN PRN Reason: SHORTNESS OF BREATH Albuterol (Duoneb Neb (Prn)) 1 ampul NEB Q4HR NEB PRN PRN Reason: SHORTNESS OF BREATH/WHEEZING Last Admin: 09/23/17 11:03 Dose: 1 ampul Allopurinol (Zyloprim) 100 mg PO DAILY [facility] Last Admin: 09/24/17 09:26 Dose: 100 mg Chlorothiazide Sodium (Diuril Inj) 500 mg IV.PUSH ONCE ONE Stop: 09/24/17 18:01 Collagenase (Santyl Oint) 1 applicatio TOPICAL DAILY [facility] Last Admin: 09/24/17 09:27 Dose: 1 applicatio Enoxaparin Sodium (Lovenox Inj) 40 mg SQ Q24H [facility] Last Admin: 09/23/17 22:19 Dose: 40 mg Furosemide (Lasix Inj) 60 mg IV.PUSH BID@0900,1800 [facility] Sodium Chloride (Ns Inj) 1,000 mls @ 125 mls/hr IV.CONT .Q8H [facility] Metoprolol Tartrate (Lopressor) 25 mg PO BID [facility] Last Admin: 09/24/17 09:26 Dose: 25 mg Naloxone HCl (Narcan Inj) 0.4 mg IV.PUSH UNSCH PRN PRN Reason: SEE LABEL COMMENTS Potassium Chloride (K-Dur) 20 meq PO BID [facility] Last Admin: 09/24/17 09:26 Dose: 20 meq Sertraline HCl (Zoloft) 150 mg PO DAILY [facility] Last Admin: 09/24/17 09:26 Dose: 150 mg Sodium Chloride (Ns Flush) 2 ml IV.FLUSH BID [facility] Last Admin: 09/24/17 09:26 Dose: 2 ml Sodium Chloride (Ns Flush) 2 ml IV.FLUSH UNSCH PRN PRN Reason: FLUSH AFTER USING IV ACCESS Trazodone HCl (Desyrel) 100 mg PO HS [facility] Last Admin: 09/23/17 22:18 Dose: 100 mg Allergies Allergy/AdvReac Type Severity Reaction Status Date / Time naproxen Allergy Intermediate Rash Verified 09/20/17 16:24 Home Medications Medication Instructions Recorded Confirmed Type albuterol sulfate [ProAir HFA] 2 puff INHALATION Q4H PRN 09/20/17 09/20/17 History allopurinol 100 mg PO DAILY 09/20/17 09/20/17 History diazepam [Valium] 5 mg PO TID PRN 09/20/17 09/20/17 History hydrocodone-acetaminophen [Palmetto] 1 tab PO Q6H PRN 09/20/17 09/20/17 History ketoconazole 1 applic TOPICAL BID 09/20/17 09/20/17 History loratadine [Claritin] 10 mg PO DAILY 09/20/17 09/20/17 History metoprolol tartrate 25 mg PO BID 09/20/17 09/20/17 History sertraline [Zoloft] 150 mg PO DAILY 09/20/17 09/20/17 History trazodone 100 mg PO HS 09/20/17 09/20/17 History Exam Vital signs: Vital Signs 09/23/17 16:00 09/23/17 20:00 09/23/17 20:42 Temperature 97.3 F L Pulse Rate 71 71 Respiratory Rate 20 Blood Pressure 106/57 L Pulse Oximetry 97 95 09/23/17 21:38 09/24/17 00:00 09/24/17 01:16 Temperature 97.4 F L 97.6 F Pulse Rate 73 62 71 Respiratory Rate 20 20 Blood Pressure 120/60 108/55 L Pulse Oximetry 95 96 09/24/17 04:00 09/24/17 08:00 09/24/17 09:00 Temperature 98.0 F 98.1 F Pulse Rate 63 67 68 Respiratory Rate 20 19 Blood Pressure 104/52 L 107/57 L Pulse Oximetry 96 96 Intake & Output 09/23/17 09/24/17 09/24/17 18:59 06:59 18:59 Intake Total 1441 / 1441 120 / 120 250 / 250 Balance 1441 / 1441 120 / 120 250 / 250 Weight 150.1 kg 151.5 kg Intake: IV 500 / 500 250 / 250 NS Inj 250 ML @ Wide Open IV. 250 / 250 250 / 250 SIG BOLUS ONE Rx#:[id number] Oral 941 / 941 120 / 120 Other: # Voids 1 3 Date of Last Bowel Movement 09/23/17 # Bowel Movements 0 0 - Constitutional mild distress - Routine HEENT Exam Head: Present: normocephalic ENT: Present: mucous membranes moist - Routine Neck Exam Comments: Obese. - Routine Respiratory Exam Present: CTA bilaterally, diminished air movement (In the bases.) - Routine Cardiovascular Exam Present: RRR - Routine Abdominal Exam Present: soft (Patient has 1-2+ pitting edema of the lateral abdominal wall extending lateral medially.) - Routine Extremities Exam Present: edema (2-3+ edema extending from the feet all the way into the thighs as well as the hips and the lateral abdominal wall.) Results - Lab Results 09/24/17 06:00 09/24/17 06:00 Most recent lab results Calcium 8.1 mg/dL (8.5-10.1) L 09/24/17 06:00 Magnesium 2.3 mg/dL (1.5-2.5) 09/20/17 14:40 - Image Kidney/bladder ultrasound: image reviewed (No evidence of hydronephrosis.) Assessment and Plan - Assessment (1) Acute renal insufficiency Code(s): N28.9 - Disorder of kidney and ureter, unspecified Status: Acute Plan: Etiology presently unclear. May be related to vancomycin nephrotoxicity which has since been discontinued. I do not believe the patient was excessively diuresed as he still has marked fluid retention extending all the way up into his torso. Patient was advised of the severity of his renal dysfunction and the possibility that we may have to consider renal replacement therapy if his azotemia continues to worsen. Serological screening still pending however urinalysis is relatively bland so an active glomerulonephritis is not a primary consideration presently. Medications should be adjusted for the patient's estimated GFR if clinically indicated. Avoid agents with significant potential for nephrotoxicity possible including NSAIDs for analgesia, iodine contrast agents. Gadolinium is contraindicated if the GFR is below 30. (2) Edema Code(s): R60.9 - Edema, unspecified Status: Acute Plan: The patient's edema is not confined to his lower extremities so I do not believe that this is primarily related to venous insufficiency. Diuresis is still required despite severity of azotemia to improve his volume status. I have ordered furosemide 60 mg IV every 12 with 1 dose of Diuril today. Continue to monitor volume status as well as renal indices. (3) Congestive heart failure (CHF) Code(s): I50.9 - Heart failure, unspecified Status: Acute (2) Edema Qualifiers: Edema type: generalized Qualified Code(s): R60.1 - Generalized edema (3) Congestive heart failure (CHF) Qualifiers: Heart failure type: combined systolic and diastolic
[2017-09-24] MEDS: Sod Chloride 0.9% Inj 1,000 ML IV.CONT SCH ×2 (16:46→21:35)
[2017-09-24] MEDS ORDERED: Chlorothiazide Inj 500 MG Vial IV.PUSH ONE (18:00)
[2017-09-24 18:24] LABS: Albumin 2.6 g/dL (3.4-5.0); Calcium 8.5 mg/dL (8.5-10.1); Carbon Dioxide 25.4 meq/L (21.0-32.0); Potassium 5.6 meq/L (3.5-5.1)
[2017-09-24 18:25] LABS: % Iron Saturation 9.9 % (20-50); Phosphorus 5.9 mg/dL (2.5-4.9)
[2017-09-24] MEDS: traZODone 100 MG Tablet PO SCH (21:31)
[2017-09-24] MEDS: Enoxaparin Inj 40 MG/0.4 ML Syringe SQ SCH (21:32)
[2017-09-25 06:05] LABS: Calcium 8.5 mg/dL (8.5-10.1); Carbon Dioxide 23.1 meq/L (21.0-32.0); Potassium 5.4 meq/L (3.5-5.1)
--- NOTE | 2017-09-25 07:48 | P.PNCA ---
<Susie Bergman A - Last Filed: 09/25/17 07:45> Subjective Interval history: resting comfortably. no chest pain, breathing improved. small urine output overnight. Physical Exam Vital signs: Vital Signs 09/24/17 08:00 09/24/17 09:00 09/24/17 12:00 Temperature 98.1 F 97.5 F L Pulse Rate 67 68 64 Respiratory Rate 19 18 Blood Pressure 107/57 L 134/65 Pulse Oximetry 96 96 09/24/17 16:00 09/24/17 20:00 09/25/17 00:00 Temperature 97.4 F L 98.1 F 98.0 F Pulse Rate 64 66 61 Respiratory Rate 18 20 20 Blood Pressure 130/60 110/58 L 115/69 Pulse Oximetry 97 96 97 09/25/17 04:00 Temperature 98.0 F Pulse Rate 61 Respiratory Rate 19 Blood Pressure 114/62 Pulse Oximetry 97 Intake & Output 09/24/17 09/25/17 09/25/17 18:59 06:59 18:59 Intake Total 1170 / 1170 1222 / 1222 Output Total 1000 / 1000 Balance 170 / 170 1222 / 1222 Weight 153.4 kg Intake: IV 750 / 750 1000 / 1000 NS Inj 1,000 ML @ 125 mls/hr IV 1000 / 1000 .CONT .Q8H [facility] Rx#:[id number] NS Inj 250 ML @ Wide Open IV. 250 / 250 SIG BOLUS ONE Rx#:[id number] NS Inj 500 ML @ Wide Open IV. 500 / 500 SIG BOLUS ONE Rx#:[id number] Oral 420 / 420 222 / 222 Output: Urine 1000 / 1000 Other: # Voids 3 # Bowel Movements 1 0 Narrative: CONSTITUTIONAL/GEN: Morbidly obese male, less sleepy today. EYES: conjunctiva normal, PERRL, EOMI. LUNGS: Distant breath sounds, clear today CARDIOVASCULAR: RR without murmur or gallop. Extremities: Bilateral lower extremities with tense edema up to mid thigh, 2+ and pitting, possibly reduced from last exam but minimal reduction GI/ABD: Obese but soft, mildly tender in left upper quadrant. Anasarca persists , stable from yesterday's exam. SKIN: Bilateral lower extremities erythematous but this has improved. Tense skin with pitting edema stable from last exam, not seeping fluid. PSYCH/MENTAL STATUS: Alert and oriented x 3. Assessment and Plan - Assessment (1) New onset of congestive heart failure Code(s): I50.9 - Heart failure, unspecified Status: Acute Plan: CHF-no prior history of CHF. Echo shows preserved ejection fraction EF 55-60% with moderate dilation of right atrium and PAP 40mmHg; symptoms likely secondary to venous insufficiency. no chest pain. +pitting LE edema furosemide 60mg BID resumed last night check CXR ESTELLA- creatinine increasing despite diuretics being held, nephrology following LE cellulitis- improving <MinorHimanshu - Last Filed: 09/25/17 15:42> Physical Exam Vital signs: Vital Signs 09/24/17 16:00 09/24/17 20:00 09/25/17 00:00 Temperature 97.4 F L 98.1 F 98.0 F Pulse Rate 64 66 61 Respiratory Rate 18 20 20 Blood Pressure 130/60 110/58 L 115/69 Pulse Oximetry 97 96 97 09/25/17 04:00 09/25/17 08:00 09/25/17 11:49 Temperature 98.0 F 98.5 F Pulse Rate 61 60 63 Respiratory Rate 19 20 Blood Pressure 114/62 129/67 111/68 Pulse Oximetry 97 97 09/25/17 12:00 Temperature Pulse Rate Respiratory Rate Blood Pressure Pulse Oximetry 96 Intake & Output 09/24/17 09/25/17 09/25/17 18:59 06:59 18:59 Intake Total 1170 / 1170 1222 / 1222 Output Total 1000 / 1000 Balance 170 / 170 1222 / 1222 Weight 153.4 kg Intake: IV 750 / 750 1000 / 1000 NS Inj 1,000 ML @ 125 mls/hr IV 1000 / 1000 .CONT .Q8H [facility] Rx#:[id number] NS Inj 250 ML @ Wide Open IV. 250 / 250 SIG BOLUS ONE Rx#:[id number] NS Inj 500 ML @ Wide Open IV. 500 / 500 SIG BOLUS ONE Rx#:[id number] Oral 420 / 420 222 / 222 Output: Urine 1000 / 1000 Other: # Voids 3 # Bowel Movements 1 0 Assessment and Plan - Assessment (1) New onset of congestive heart failure Code(s): I50.9 - Heart failure, unspecified Status: Ruled-out - Attending Attestation EF preserved ARF appears intrinsic. no improvement after holding diuretic renal following BLE edema more venous insufficiency will sign off call with further questions
[2017-09-25] MEDS: Allopurinol 100 MG Tablet PO SCH (08:54)
[2017-09-25] MEDS: Sertraline 50 MG Tablet PO SCH (09:00)
--- NOTE | 2017-09-25 11:20 | P.PNFP ---
Subjective Interval history: Patient was seen and examined this morning. He states that he still has some shortness of breath. He notes that his fluid may be reduced in the legs but only minimally. He continues to ambulate with some difficulty pain. He has not had any syncopal episodes or dizziness. He denies chest pain , nausea, vomiting. Urine output is noted to be per his report and improved from yesterday. <NileshMeaghan Latanya - 09/25/17 11:19> Results - Labs Result diagrams: 09/24/17 06:00 09/25/17 05:15 <Ute Marin - 09/25/17 14:17> Abnormal lab results 09/24/17 09/24/17 09/25/17 Range/Units 17:49 17:49 05:15 Sodium 132 L 133 L (136-145) meq/L Potassium 5.6 H 5.4 H (3.5-5.1) meq/L Chloride 97 L (98-107) meq/L BUN 21 H 25 H (7-18) mg/dL Creatinine 4.00 H 4.32 H (0.60-1.30) mg/dL Estimated GFR 16 L 14 L (>89) mL/min Random Glucose 113 H (74-106) mg/dL Phosphorus 5.9 H (2.5-4.9) mg/dL Iron 33 L (65-175) mcg/dL % Saturation 9.9 L (20-50) % Albumin 2.6 L (3.4-5.0) g/dL Vitamin D 25-Hydroxy 9.1 L (30-100) ng/mL PTH Intact 103.5 H (12.4-76.8) pg/mL BMP 09/24/17 09/25/17 17:49 05:15 Sodium 132 L 133 L Potassium 5.6 H 5.4 H Chloride 97 L 99 Carbon Dioxide 25.4 23.1 BUN 21 H 25 H Creatinine 4.00 H 4.32 H Calcium 8.5 8.5 Liver Function 09/24/17 Range/Units 17:49 Albumin 2.6 L (3.4-5.0) g/dL <Ute Marin - 09/25/17 14:17> Abnormal lab results 09/24/17 09/24/17 09/24/17 Range/Units 06:00 17:49 17:49 Sodium 132 L (136-145) meq/L Potassium 5.6 H (3.5-5.1) meq/L Chloride 97 L (98-107) meq/L BUN 21 H (7-18) mg/dL Creatinine 4.00 H (0.60-1.30) mg/dL Estimated GFR 16 L (>89) mL/min Random Glucose 113 H (74-106) mg/dL Phosphorus 5.9 H (2.5-4.9) mg/dL Iron 33 L (65-175) mcg/dL % Saturation 9.9 L (20-50) % Albumin 2.6 L (3.4-5.0) g/dL Vitamin D 25-Hydroxy 9.1 L (30-100) ng/mL TSH 7.830 H (0.358-3.740) uIU/mL PTH Intact 103.5 H (12.4-76.8) pg/mL 09/25/17 Range/Units 05:15 Sodium 133 L (136-145) meq/L Potassium 5.4 H (3.5-5.1) meq/L Chloride (98-107) meq/L BUN 25 H (7-18) mg/dL Creatinine 4.32 H (0.60-1.30) mg/dL Estimated GFR 14 L (>89) mL/min Random Glucose (74-106) mg/dL Phosphorus (2.5-4.9) mg/dL Iron (65-175) mcg/dL % Saturation (20-50) % Albumin (3.4-5.0) g/dL Vitamin D 25-Hydroxy (30-100) ng/mL TSH (0.358-3.740) uIU/mL PTH Intact (12.4-76.8) pg/mL BMP 09/24/17 09/25/17 17:49 05:15 Sodium 132 L 133 L Potassium 5.6 H 5.4 H Chloride 97 L 99 Carbon Dioxide 25.4 23.1 BUN 21 H 25 H Creatinine 4.00 H 4.32 H Calcium 8.5 8.5 Liver Function 09/24/17 Range/Units 17:49 Albumin 2.6 L (3.4-5.0) g/dL <Meaghan Galloway L - 09/25/17 11:19> - Imaging Impressions Chest X-Ray 09/25/17 00:00 CONCLUSION: Cardiomegaly. No acute pulmonary disease. <Ute Marin M - 09/25/17 14:17> Physical Exam Vital signs: Vital Signs 09/24/17 16:00 09/24/17 20:00 09/25/17 00:00 Temperature 97.4 F L 98.1 F 98.0 F Pulse Rate 64 66 61 Respiratory Rate 18 20 20 Blood Pressure 130/60 110/58 L 115/69 Pulse Oximetry 97 96 97 09/25/17 04:00 09/25/17 08:00 09/25/17 11:49 Temperature 98.0 F 98.5 F Pulse Rate 61 60 63 Respiratory Rate 19 20 Blood Pressure 114/62 129/67 111/68 Pulse Oximetry 97 97 Intake & Output 09/24/17 09/25/17 09/25/17 18:59 06:59 18:59 Intake Total 1170 / 1170 1222 / 1222 Output Total 1000 / 1000 Balance 170 / 170 1222 / 1222 Weight 153.4 kg Intake: IV 750 / 750 1000 / 1000 NS Inj 1,000 ML @ 125 mls/hr IV 1000 / 1000 .CONT .Q8H ELBA Rx#:[id number] NS Inj 250 ML @ Wide Open IV. 250 / 250 SIG BOLUS ONE Rx#:[id number] NS Inj 500 ML @ Wide Open IV. 500 / 500 SIG BOLUS ONE Rx#:[id number] Oral 420 / 420 222 / 222 Output: Urine 1000 / 1000 Other: # Voids 3 # Bowel Movements 1 0 <Ute Marin M - 09/25/17 14:17> Vital Signs 09/24/17 12:00 09/24/17 16:00 09/24/17 20:00 Temperature 97.5 F L 97.4 F L 98.1 F Pulse Rate 64 64 66 Respiratory Rate 18 18 20 Blood Pressure 134/65 130/60 110/58 L Pulse Oximetry 96 97 96 09/25/17 00:00 09/25/17 04:00 09/25/17 08:00 Temperature 98.0 F 98.0 F 98.5 F Pulse Rate 61 61 60 Respiratory Rate 20 19 20 Blood Pressure 115/69 114/62 129/67 Pulse Oximetry 97 97 97 Intake & Output 07/01/0209/25/17 09/25/17 18:59 06:59 18:59 Intake Total 1170 / 1170 1222 / 1222 Output Total 1000 / 1000 Balance 170 / 170 1222 / 1222 Weight 153.4 kg Intake: IV 750 / 750 1000 / 1000 NS Inj 1,000 ML @ 125 mls/hr IV 1000 / 1000 .CONT .Q8H ELBA Rx#:[id number] NS Inj 250 ML @ Wide Open IV. 250 / 250 SIG BOLUS ONE Rx#:[id number] NS Inj 500 ML @ Wide Open IV. 500 / 500 SIG BOLUS ONE Rx#:[id number] Oral 420 / 420 222 / 222 Output: Urine 1000 / 1000 Other: # Voids 3 # Bowel Movements 1 0 <NileshMeaghan L - 09/25/17 11:19> Narrative: CONSTITUTIONAL/GEN: Morbidly obese male in no acute distress. Wearing nasal cannula. EYES: conjunctiva normal, PERRL, EOMI. ENT: Poor dentition. No tobacco noted at patient bedside or in the mouth today. LUNGS: Distant breath sounds, clear today CARDIOVASCULAR: RR without murmur or gallop. Heart sounds are distant due to body habitus. Extremities: Bilateral lower extremities with tense edema up to mid thigh, 2+ and pitting, possibly reduced from last exam but at best this is minimal. GI/ABD: Obese but soft, mildly tender in left upper quadrant. Anasarca persists , stable from yesterday's exam. Mild bruising at site of Lovenox injections on the left lower abdomen SKIN: Bilateral lower extremities erythematous but this has improved. Clean dressing noted on LLE. Tense skin with pitting edema stable from last exam, not seeping fluid. The left posterior hip with well-healing surgical scar. PSYCH/MENTAL STATUS: Alert and oriented x 3. <NileshMeaghan L - 09/25/17 11:19> Assessment and Plan - Assessment (1) ESTELLA (acute kidney injury) Code(s): N17.9 - Acute kidney failure, unspecified Status: Acute (2) New onset of congestive heart failure Code(s): I50.9 - Heart failure, unspecified Status: Ruled-out (3) Cellulitis Code(s): L03.90 - Cellulitis, unspecified Status: Acute (4) Abnormal liver enzymes Code(s): R74.8 - Abnormal levels of other serum enzymes Status: Acute (5) Hypertension Code(s): I10 - Essential (primary) hypertension Status: Chronic (6) History of asthma Code(s): Z87.09 - Personal history of other diseases of the respiratory system Status: Chronic (7) Depression with anxiety Code(s): F41.8 - Other specified anxiety disorders Status: Chronic (8) Gout Code(s): M10.9 - Gout, unspecified Status: Chronic (9) Nutrition, metabolism, and development symptoms Code(s): R63.8 - Other symptoms and signs concerning food and fluid intake Status: Acute <Ute Marin - 09/25/17 14:17> (1) ESTELLA (acute kidney injury) Code(s): N17.9 - Acute kidney failure, unspecified Status: Acute Plan: ESTELLA continues to worsen. PO fluid allowance to 2 L daily. Nephrology consulted. Serial BMPs. Following workup, appreciate nephrology recommendations. Lasix 60 mg IV twice daily initiated per nephrology on 09/24 given severe fluid overload Impression/Course: New finding on 09/23 labs. Creatinine 0.89 on admission, 2.78 today. Suspect related to diuresis and poor urine output is of concern. Will give to 250 cc normal saline at 50 cc/hour and reassess a BMP this afternoon. Will assess medication list and adjust for any nephrotoxic agents, will alert pharmacy regarding renal dosing of medications especially Vancomycin. Status post 750 cc bolus with 125cc/h normal saline 24 hours on 09/24. (2) New onset of congestive heart failure Code(s): I50.9 - Heart failure, unspecified Status: Ruled-out Plan: Patient does not appear to have CHF however does have increased pulmonary pressure consistent with SARA/obesity hypoventilation syndrome. Of note the echo did not easily visualized IVC (blockage in IVC could contribute to edema). Patient is poor candidate for contrast studies at this time, will continue to monitor workup fluid overload Impression/Course: Patient grossly fluid overloaded with elevated BNP of 203 on admission. BNP is stable 191. UOP not impressive, however breathing has improved to baseline. Patient has history of obstructive sleep apnea and significant alcohol history; needs CPAP evaluation as outpatient Suspect fluid overload related to obesity hypoventilation syndrome versus IVC dysfunction versus venous/lymphatic insufficiency though the latter does not explain anasarca. Liver ultrasound showing fatty liver but otherwise unremarkable 2D echocardiogram showing EF 55-60%, elevated pulmonary pressure Cardiology consulted, appreciate recommendations, they are awaiting echo result before further recommendation. Metolazone initiated this hospitalization but d/ c'd 09/23 given ESTELLA -Monitor daily weights, stable at this time -Fluid restriction to 1.5 L and low-salt diet, add protein shakes -Troponins negative 3 -Discontinue telemetry today, unremarkable -Supplemental oxygen as needed -Patient is normotensive Diuresis: Furosemide 40 mg IV twice daily 24 hours, transitioned to 40 mg PO twice daily with potassium 20 mEq daily on 09/22 -Received 40 mg IV 1 in the emergency department -Furosemide held 09/23 given ESTELLA -Furosemide IV 60 mg twice daily reinitiated 09/24 Bilateral lower extremity Dopplers negative for DVT Chest x-ray with cardiomegaly and indicative of a positive fluid balance (3) Cellulitis Code(s): L03.90 - Cellulitis, unspecified Status: Acute Plan: Patient with bilateral edema of the lower extremity, no longer suspicious for cellulitis, suspect related to fluid overload. He does have left ankle wound which wound care has been consulted and recommending Santyl dressings. Will continue to monitor lower extremities, wound culture showing MRSA and Pseudomonas however wound culture was superficial and may have been reflective of skin ori. Vital signs have been within normal limits without fever this hospitalization and white count within normal limits. Vancomycin 09/21 through 09/24, discontinued given ESTELLA and lower suspicion for cellulitis Impression/Course: Patient presented with bilateral lower extremity edema with erythema overlying surgical site on LLE Suspect pressure ulcer Wound care nurse consulted: dehisced surgical site noted with slough amenable to Santyl, which was ordered 09/23 (appreciate recs) Antibiotics: Vancomycin ordered with pharmacy consult to help with dosing (09/21-09/24) Rocephin 2 g IV daily (09/21 - 09/23) Blood cultures 2 no growth 3 days Wound culture ordered and notable for MRSA and Pseudomonas, suspect skins floor , will monitor clinically while off antibiotics and adjust as needed PT/OT consult ordered - PT currently recommending home with no therapy ESR 14, low suspicion for osteomyelitis Lactic acid 1.5 on admission Patient afebrile without leukocytosis (4) Abnormal liver enzymes Code(s): R74.8 - Abnormal levels of other serum enzymes Status: Acute Plan: Elevated AST and alkaline phosphatase on arrival, stable Patient has a history of heavy alcohol use -Previously drank up to 12 beers daily for several years, reduced approximately 1 year ago -Currently endorses 4 beers per occasion, 3-4 occasions per week -No CIWA needs Liver ultrasound showing markedly large fatty liver. Hepatitis panel negative, discussed with patient (5) Hypertension Code(s): I10 - Essential (primary) hypertension Status: Chronic Plan: Patient with a known history of hypertension Normotensive so far this hospitalization Continue home metoprolol, hold for heart rate less than 60 Metalozone initiated in hospital but d/c'd given ESTELLA ACEI considered but echo showing no evidence of heart failure however some evidence of elevated pulmonary pressures (c/w history of SARA) (6) History of asthma Code(s): Z87.09 - Personal history of other diseases of the respiratory system Status: Chronic Plan: Patient with a known history of asthma Per history has been wheezing more often and has occasional wheezes on exam Scheduling duo nebs every 6 hours as needed, albuterol nebs as needed every 4 hours (7) Depression with anxiety Code(s): F41.8 - Other specified anxiety disorders Status: Chronic Plan: Patient with a known history of depression anxiety Continue home Zoloft, trazodone Holding Valium for now (8) Gout Code(s): M10.9 - Gout, unspecified Status: Chronic Plan: Patient with a known history of gout Continuing home allopurinol (9) Nutrition, metabolism, and development symptoms Code(s): R63.8 - Other symptoms and signs concerning food and fluid intake Status: Acute Plan: FEN: - Gentle PO hydration given ESTELLA - Monitor replace electrolytes as needed - Low-salt, heart healthy diet and fluid restriction to 2 L, PPX: - Lovenox renal dosing <Meaghan Galloway - 09/25/17 11:03> - Assessment and Plan Patient is a 56-year-old male with a history of asthma, depression and anxiety, gout, hypertension and recent surgical repair of the left ankle and left hip who presented to the ED with progressive shortness of breath and lower extremity edema. Chest x-ray showing cardiomegaly with mild positive fluid balance. Initial ACS workup is negative. Patient also noted to have likely cellulitis in the bilateral lower extremities. Received vancomycin x1 in the ED. Admitted to inpatient for suspected new onset CHF, fluid overload management, cellulitis treatment. New ESTELLA 09/23 to follow and managed. <Meaghan Galloway - 09/25/17 11:19> Discharge Planning: Unclear discharge at this time. Pending fluid management, cellulitis treatment, ESTELLA resolution, and outpatient antibiotic plan <Meaghan Galloway - 09/25/17 11:19> - Attending Attestation The exam, history, and the medical decision-making described in the above note were completed with the assistance of the resident physician. I reviewed and agree with the findings presented. I attest that I had a [id number] encounter with the patient on the same day, and personally performed and documented my assessment and findings in the medical record. Unsure if he may have had a PE in the not too distant past as he has pulmonary hypertension and decreased ejection fraction possibly from his right ventricle the right side of his heart appears somewhat enlarged. He also has swelling only in the lower part of his body not in the hands face or anywhere else so I am unsure if this could be related to the IVC. Discussed with Dr. Carbajal of radiology doing a VQ scan where the IVC could be evaluated as well as the lungs. It is unclear exactly why he has this acute renal failure. He does not have eosinophils in his urine he does not have massive protein in his urine he also does not have obstruction. The initial concern I had about him being dehydrated he should have improved with his renal function on giving him IV fluids however he is not improving in fact he is worsening. Appreciate help of his consultants thank you very much <Ute Marin - 09/25/17 14:17> <Meaghan Galloway - Last Filed: 09/25/17 11:03> (3) Cellulitis Qualifiers: Site of cellulitis: extremity Site of cellulitis of extremity: lower extremity Laterality: unspecified laterality Qualified Code(s): L03.119 - Cellulitis of unspecified part of limb (5) Hypertension Qualifiers: Hypertension type: essential hypertension Qualified Code(s): I10 - Essential (primary) hypertension <Ute Marin M - Last Filed: 09/25/17 14:17> (3) Cellulitis Qualifiers: Site of cellulitis: extremity Site of cellulitis of extremity: lower extremity Laterality: unspecified laterality Qualified Code(s): L03.119 - Cellulitis of unspecified part of limb (5) Hypertension Qualifiers: Hypertension type: essential hypertension Qualified Code(s): I10 - Essential (primary) hypertension <Meaghan Galloway L - Last Filed: 09/25/17 11:03> (3) Cellulitis Qualifiers: Site of cellulitis: extremity Site of cellulitis of extremity: lower extremity Laterality: unspecified laterality Qualified Code(s): L03.119 - Cellulitis of unspecified part of limb (5) Hypertension Qualifiers: Hypertension type: essential hypertension Qualified Code(s): I10 - Essential (primary) hypertension <Ute Marin M - Last Filed: 09/25/17 14:17> (3) Cellulitis Qualifiers: Site of cellulitis: extremity Site of cellulitis of extremity: lower extremity Laterality: unspecified laterality Qualified Code(s): L03.119 - Cellulitis of unspecified part of limb (5) Hypertension Qualifiers: Hypertension type: essential hypertension Qualified Code(s): I10 - Essential (primary) hypertension
[2017-09-25] MEDS: Collagenase Oint 30 GM Tube TOPICAL SCH (11:46)
[2017-09-25] MEDS: Enoxaparin Inj 30 MG/0.3 ML Syringe SQ SCH (11:53)
--- NOTE | 2017-09-25 11:56 | XR ---
EXAM DATE: 09/25/2017 10:40 AM EDT AGE/SEX: 56 years / Male INDICATIONS: Shortness of breath. CLINICAL DATA: This is the patient's subsequent encounter. Patient reports that signs and symptoms h ave been present for 4 - 6 days and indicates a pain score of 0/10. MEDICAL/SURGICAL HISTORY: Hypertension. Asthma. Diabetes None. [place] [facility] [place]. . FINDINGS: The cardiac silhouette is enlarged in transverse diameter. The lungs are free of acute parenchymal op acity. No effusions are identified. CONCLUSION: Cardiomegaly. No acute pulmonary disease. Electronically signed by: Gregory Flores MD 09/25/2017 11:54 AM EDT
[2017-09-25 15:03] LABS: Calcium 8.3 mg/dL (8.5-10.1); Carbon Dioxide 26.5 meq/L (21.0-32.0); Potassium 5.4 meq/L (3.5-5.1)
--- NOTE | 2017-09-25 16:55 | NM ---
RADIONUCLIDE INFERIOR VENACAVOGRAM: Dose: 8.8 mCi MAA injected through the right common femoral approach FINDINGS: Inferior vena cava is widely patent with free flow of radionuclide through the inferior tiarra a cava. CONCLUSION: Widely patent inferior vena cava Electronically signed by: Pee Carbajal MD 09/25/2017 4:53 PM EDT
--- NOTE | 2017-09-25 16:56 | NM ---
EXAM DATE: 09/25/2017 4:52 PM EDT AGE/SEX: 56 years / Male INDICATIONS: Dyspnea. CLINICAL DATA: This is the patient's initial encounter. Patient reports that signs and symptoms have been present for 1 day and indicates a pain score of 0/10. MEDICAL/SURGICAL HISTORY: Congestive heart failure. Chronic renal insufficiency. Hypertension . Umbilical hernia repair. COMPARISON: No prior exams available for comparison. DOSE: 1.4 mCi Tc99m DTPA aerosol 8.8 mCi Tc99m MAA IV TECHNIQUE: Following five minutes of tidal breathing of DTPA aerosol, planar images of the lungs wer e performed in eight projections. The patient was then injected with MAA, and eight-view perfusion s can was performed. FINDINGS: There is a homogeneous pattern of aerosol delivery to the periphery of both lungs. No focal ventilat ory defects are seen. The perfusion lung scan demonstrates a homogenous pattern of uptake in both lungs. No segmental or s ubsegmental defects are seen. CONCLUSION: 1. Low probability ventilation perfusion lung scan. Electronically signed by: Pee Carbajal MD 09/25/2017 4:55 PM EDT
[2017-09-25 17:37] LABS: Folate 10.7 ng/mL (3.1-17.5)
[2017-09-25] MEDS: Metoprolol Tartrate 25 MG Tablet PO SCH ×2 (18:30→23:33)
--- NOTE | 2017-09-25 20:05 | P.PNNP ---
Subjective Interval history: This patient is a 56-year-old male with a history of hypertension, gout as well as asthma and I suspect sleep apnea. Patient denies any previous knowledge of renal insufficiency. On presentation to the hospital he was complaining of increasing edema and shortness of breath. Chest x-ray apparently did show some signs of interstitial edema. Echocardiogram showed slightly reduced EF of 55-60%. Creatinine on presentation 0.8 on the seventh of this month subsequently deteriorating progressively 3.52. Patient was on vancomycin as well as furosemide both of which have since apparently been discontinued. Patient denies using NSAIDs at home. No history of alecia diabetes mellitus, collagen vascular disease or viral hepatitis. Patient indicating that his urinary output has improved. Physical Exam Vital signs: Vital Signs 09/25/17 00:00 09/25/17 04:00 09/25/17 08:00 Temperature 98.0 F 98.0 F 98.5 F Pulse Rate 61 61 60 Respiratory Rate 20 19 20 Blood Pressure 115/69 114/62 129/67 Pulse Oximetry 97 97 97 09/25/17 11:49 09/25/17 12:00 09/25/17 18:00 Temperature 98.2 F Pulse Rate 63 64 Respiratory Rate 20 Blood Pressure 111/68 103/59 L Pulse Oximetry 96 96 09/25/17 18:28 Temperature Pulse Rate 68 Respiratory Rate Blood Pressure 139/65 Pulse Oximetry Intake & Output 09/25/17 09/25/17 09/26/17 06:59 18:59 06:59 Intake Total 1222 / 1222 1380 / 1380 Output Total 800 / 800 Balance 1222 / 1222 580 / 580 Weight 153.4 kg Intake: IV 1000 / 1000 1000 / 1000 NS Inj 1,000 ML @ 125 mls/hr IV 1000 / 1000 1000 / 1000 .CONT .Q8H ELBA Rx#:[id number] Oral 222 / 222 380 / 380 Output: Urine 800 / 800 Other: # Voids 3 # Bowel Movements 0 1 - Constitutional no acute distress - Routine HEENT Exam Head: Present: normocephalic ENT: Present: mucous membranes moist - Routine Respiratory Exam Present: CTA bilaterally, diminished air movement (In the bases.) - Routine Cardiovascular Exam Present: RRR - Routine Extremities Exam Present: edema (3+ pitting edema legs with 2+ pitting edema extending into the thighs as well as and dependent torso.) - Routine Neurological Exam Present: alert - Detailed Neurological Exam: Coma Scale Motor Response: Obey commands Assessment and Plan - Assessment (1) Acute renal insufficiency Code(s): N28.9 - Disorder of kidney and ureter, unspecified Status: Acute Plan: Suspect acute renal insufficiency possibly superimposed on intrinsic renal disease secondary to vancomycin nephrotoxicity. At this point in time would recommend avoiding further administration of vancomycin. If further antibiotic therapy required suggest consultation with infectious disease. Serological screening still pending however urinalysis is relatively bland so an active glomerulonephritis is not a primary consideration presently. Medications should be adjusted for the patient's estimated GFR if clinically indicated. Avoid agents with significant potential for nephrotoxicity possible including NSAIDs for analgesia, iodine contrast agents. Gadolinium is contraindicated if the GFR is below 30. (2) Edema Code(s): R60.9 - Edema, unspecified Status: Acute Qualifiers: Edema type: generalized Qualified Code(s): R60.1 - Generalized edema Plan: Patient still with marked fluid retention. Urine output has improved with furosemide. Continue same. Continue to monitor renal indices also. Diuresis is necessary at this point in time given severity of fluid retention. (3) Congestive heart failure (CHF) Code(s): I50.9 - Heart failure, unspecified Status: Acute Qualifiers: Heart failure type: combined systolic and diastolic
[2017-09-25] MEDS ORDERED: Chlorothiazide Inj 500 MG Vial IV.PUSH ONE (20:06)
[2017-09-25] MEDS: traZODone 100 MG Tablet PO SCH (23:33)
[2017-09-26] MEDS: Enoxaparin Inj 30 MG/0.3 ML Syringe SQ SCH (08:54)
[2017-09-26] MEDS: Metoprolol Tartrate 25 MG Tablet PO SCH ×2 (08:55→20:49)
[2017-09-26] MEDS: Allopurinol 100 MG Tablet PO SCH (08:55)
[2017-09-26] MEDS: Sertraline 50 MG Tablet PO SCH (08:55)
[2017-09-26] MEDS: Collagenase Oint 30 GM Tube TOPICAL SCH (08:59)
--- NOTE | 2017-09-26 09:45 | P.PNFP ---
Subjective Interval history: Patient was seen and examined this morning. He reports he had trouble sleeping due to awkwardness of the CPAP machine overnight but feels better this morning regarding his breathing. He feels his swelling is a little better and reports good UOP. IVC NM scan showing patient IVC, renal US unremarkable, VQ scan negative, discussed with patient. <Meaghan Galloway Latanya - 09/26/17 09:45> Results - Labs Result diagrams: 09/26/17 10:19 09/28/17 06:38 <Ute Marin - 09/28/17 09:17> Abnormal lab results 09/27/17 09/28/17 Range/Units 08:10 06:38 Sodium 133 L 135 L (136-145) meq/L Potassium 5.6 H (3.5-5.1) meq/L Chloride 97 L (98-107) meq/L BUN 35 H 29 H (7-18) mg/dL Creatinine 4.93 H 4.15 H (0.60-1.30) mg/dL Estimated GFR 12 L 15 L (>89) mL/min Random Glucose 115 H (74-106) mg/dL Calcium 8.0 L 8.1 L (8.5-10.1) mg/dL Phosphorus 7.4 H 7.1 H (2.5-4.9) mg/dL AST 42 H (15-37) U/L Alkaline Phosphatase 165 H (45-117) U/L Albumin 2.7 L (3.4-5.0) g/dL BMP 09/27/17 09/28/17 08:10 06:38 Sodium 133 L 135 L Potassium 5.6 H 4.9 Chloride 97 L 98 Carbon Dioxide 25.4 25.4 BUN 35 H 29 H Creatinine 4.93 H 4.15 H Calcium 8.0 L 8.1 L Liver Function 09/27/17 Range/Units 08:10 Total Bilirubin 0.3 (0.2-1.0) mg/dL AST 42 H (15-37) U/L ALT 35 (12-78) U/L Alkaline Phosphatase 165 H (45-117) U/L Albumin 2.7 L (3.4-5.0) g/dL <Ute Marin - 09/28/17 09:17> Abnormal lab results 09/24/17 09/25/17 Range/Units 06:00 14:05 Sodium 133 L (136-145) meq/L Potassium 5.4 H (3.5-5.1) meq/L BUN 27 H (7-18) mg/dL Creatinine 4.27 H (0.60-1.30) mg/dL Estimated GFR 15 L (>89) mL/min Random Glucose 115 H (74-106) mg/dL Calcium 8.3 L (8.5-10.1) mg/dL Albumin (PEP) 3.35 L (3.50-5.00) gm/dL Albumin/Globulin Ratio 1.06 L (1.39-2.23) Gamma Globulins 1.42 H (0.50-1.39) gm/dL BMP 09/25/17 14:05 Sodium 133 L Potassium 5.4 H Chloride 99 Carbon Dioxide 26.5 BUN 27 H Creatinine 4.27 H Calcium 8.3 L <Meaghan Galloway - 09/26/17 09:45> - Imaging Impressions Catheter Placement 09/27/17 10:34 CONCLUSION: 1. Uncomplicated line placement as above. <Ute Marin - 09/28/17 09:17> Impressions Chest X-Ray 09/25/17 00:00 CONCLUSION: Cardiomegaly. No acute pulmonary disease. Pulmonary Perfusion Imaging 09/25/17 00:00 CONCLUSION: 1. Low probability ventilation perfusion lung scan. Venogram Nuclear Medicine 09/25/17 15:10 CONCLUSION: Widely patent inferior vena cava <Meaghan Galloway - 09/26/17 09:45> Physical Exam Vital signs: Vital Signs 09/27/17 09:52 09/27/17 12:00 09/27/17 12:09 Temperature 97.3 F L Pulse Rate 61 59 L Respiratory Rate 18 Blood Pressure 98/52 L Pulse Oximetry 94 L 96 09/27/17 17:46 09/27/17 20:00 09/27/17 21:39 Temperature 97.7 F Pulse Rate 70 63 Respiratory Rate 20 Blood Pressure 94/53 L Pulse Oximetry 94 L 99 09/28/17 00:00 09/28/17 04:00 09/28/17 04:45 Temperature 97.8 F 97.9 F Pulse Rate 58 L 75 66 Respiratory Rate 18 18 Blood Pressure 103/55 L 104/57 L Pulse Oximetry 96 97 Intake & Output 09/27/17 09/28/17 09/28/17 18:59 06:59 18:59 Intake Total 460 / 460 720 / 720 Output Total 100 / 100 Balance 360 / 360 720 / 720 Weight 152.9 kg Intake: IV 100 / 100 Flexbumin 25% Inj 100 ML @ 60 100 / 100 mls/hr IV.SIG WITH DIALYSIS PRN Rx#:[id number] Oral 360 / 360 720 / 720 Output: Urine 100 / 100 Other: # Voids 0 # Bowel Movements 0 0 <Ute Marin M - 09/28/17 09:17> Vital Signs 09/25/17 11:49 09/25/17 11:50 09/25/17 12:00 Temperature Pulse Rate 63 61 Respiratory Rate Blood Pressure 111/68 Pulse Oximetry 96 09/25/17 15:44 09/25/17 18:00 09/25/17 18:28 Temperature 98.2 F Pulse Rate 63 64 68 Respiratory Rate 20 Blood Pressure 103/59 L 139/65 Pulse Oximetry 96 09/25/17 20:00 09/25/17 23:50 09/26/17 00:00 Temperature 97.4 F L 98.2 F Pulse Rate 73 74 73 Respiratory Rate 20 20 20 Blood Pressure 101/54 L 116/55 L 110/58 L Pulse Oximetry 98 94 L 100 09/26/17 00:15 09/26/17 01:01 09/26/17 04:00 Temperature 97.2 F L Pulse Rate 71 64 Respiratory Rate 20 24 Blood Pressure 120/59 L 118/59 L Pulse Oximetry 95 95 94 L 09/26/17 04:31 09/26/17 04:43 Temperature Pulse Rate 59 L Respiratory Rate Blood Pressure Pulse Oximetry 97 Intake & Output 09/25/17 09/26/17 09/26/17 18:59 06:59 18:59 Intake Total 1380 / 1380 360 / 360 Output Total 800 / 800 100 / 100 Balance 580 / 580 260 / 260 Weight 156.6 kg Intake: IV 1000 / 1000 NS Inj 1,000 ML @ 125 mls/hr IV 1000 / 1000 .CONT .Q8H [facility] Rx#:[id number] Oral 380 / 380 360 / 360 Output: Urine 800 / 800 100 / 100 Other: # Voids 1 Date of Last Bowel Movement 09/25/17 # Bowel Movements 1 1 <Meaghan Galloway - 09/26/17 09:45> Narrative: CONSTITUTIONAL/GEN: Morbidly obese male in no acute distress. Wearing nasal cannula with CPAP machine at bedside. EYES: conjunctiva normal, PERRL, EOMI. ENT: Poor dentition. MMM with no oral or tonsillar lesions noted. LUNGS: Distant breath sounds but clear to auscultation. CARDIOVASCULAR: RR without murmur or gallop. Heart sounds are distant due to body habitus. Extremities: Bilateral lower extremities with tense edema up to mid thigh, 2+ and pitting, not significantly changed from yesterday's exam. GI/ABD: Obese with fluid overload in abdomen, unchanged. Mild bruising at site of Lovenox injections on the left lower abdomen SKIN: Bilateral lower extremities with minimal erythema. Dressing on LLE is loose and wound is clean with red nondraining base. Tense skin with 3+ pitting edema stable from last exam, not seeping fluid. The left posterior hip with well-healing surgical scar. PSYCH/MENTAL STATUS: Alert and oriented x 3. <Meaghan Galloway L - 09/26/17 09:45> Assessment and Plan - Assessment (1) ESTELLA (acute kidney injury) Code(s): N17.9 - Acute kidney failure, unspecified Status: Acute (2) Edema Code(s): R60.9 - Edema, unspecified Status: Acute (3) Hyperkalemia Code(s): E87.5 - Hyperkalemia Status: Resolved (4) Hyperphosphatemia Code(s): E83.39 - Other disorders of phosphorus metabolism Status: Acute (5) Abnormal liver enzymes Code(s): R74.8 - Abnormal levels of other serum enzymes Status: Acute (6) Hypertension Code(s): I10 - Essential (primary) hypertension Status: Chronic (7) History of asthma Code(s): Z87.09 - Personal history of other diseases of the respiratory system Status: Chronic (8) Depression with anxiety Code(s): F41.8 - Other specified anxiety disorders Status: Chronic (9) Gout Code(s): M10.9 - Gout, unspecified Status: Chronic (10) Cellulitis Code(s): L03.90 - Cellulitis, unspecified Status: Resolved (11) New onset of congestive heart failure Code(s): I50.9 - Heart failure, unspecified Status: Ruled-out (12) Nutrition, metabolism, and development symptoms Code(s): R63.8 - Other symptoms and signs concerning food and fluid intake Status: Acute <Ute Marin - 09/28/17 09:17> (1) ESTELLA (acute kidney injury) Code(s): N17.9 - Acute kidney failure, unspecified Status: Acute Plan: Monitor creatinine. Nephrology consulted, with workup so far negative. Appreciate recommendations PO fluid allowance to 2 L daily. Serial BMPs. Lasix 60 mg IV twice daily initiated per nephrology on 09/24 given severe fluid overload, UOP noted to be 0.24 cc/kg.hr, not adequate. Of note patient did receive lung and IVC NM scan on 09/26/17 to assess for clot burden, with negative results for VQ and NM IVC scan. Impression/Course: New finding of ESTELLA on 09/23 labs. Creatinine 0.89 on admission, 2.78 today. Etiology unclear. He did receive Lasix IV given fluid overload at time of admission. Vancomycin was given and discontinued after ESTELLA, kidney US negative, labs so far not revealing. Status-post initially gentle diuresis (750 cc bolus with 125cc/h normal saline 24 hours) discontinued on 09/24. Transitioned back to Lasix IV 09/24 as noted. Avoid nephrotoxic agents. Pharmacy was alerted regarding renal dosing of medications especially Vancomycin. (2) Cellulitis Code(s): L03.90 - Cellulitis, unspecified Status: Resolved Plan: Patient with bilateral edema of the lower extremity, no longer suspicious for cellulitis, suspect related to fluid overload. He does have left ankle wound which wound care has been consulted and recommending daily Santyl dressings. Will continue to monitor lower extremities, wound culture showing MRSA and Pseudomonas however wound culture was superficial and may have been reflective of skin ori. Vital signs have been within normal limits without fever this hospitalization and white count within normal limits. Vancomycin 09/21 through 09/24, discontinued given ESTELLA and lower suspicion for cellulitis Impression/Course: Patient presented with bilateral lower extremity edema with erythema overlying surgical site on LLE Suspect pressure ulcer Wound care nurse consulted: dehisced surgical site noted with slough amenable to Santyl, which was ordered 09/23 (appreciate recs) Antibiotics: Vancomycin ordered with pharmacy consult to help with dosing (09/21-09/24) Rocephin 2 g IV daily (09/21 - 09/23) Blood cultures 2 no growth 3 days Wound culture ordered and notable for MRSA and Pseudomonas, suspect skins floor , will monitor clinically while off antibiotics and adjust as needed PT/OT consult ordered - PT currently recommending home with no therapy ESR 14, low suspicion for osteomyelitis Lactic acid 1.5 on admission Patient afebrile without leukocytosis (3) Abnormal liver enzymes Code(s): R74.8 - Abnormal levels of other serum enzymes Status: Acute Plan: Elevated AST and alkaline phosphatase on arrival, stable Patient has a history of heavy alcohol use -Previously drank up to 12 beers daily for several years, reduced approximately 1 year ago -Currently endorses 4 beers per occasion, 3-4 occasions per week -No CIWA needs Liver ultrasound showing markedly large fatty liver. Hepatitis panel negative, discussed with patient (4) Hypertension Code(s): I10 - Essential (primary) hypertension Status: Chronic Plan: Patient with a known history of hypertension Normotensive so far this hospitalization Continue home metoprolol, hold for heart rate less than 60 Metalozone initiated in hospital but d/c'd given ESTELLA ACEI considered but echo showing no evidence of heart failure however some evidence of elevated pulmonary pressures (c/w history of SARA) (5) History of asthma Code(s): Z87.09 - Personal history of other diseases of the respiratory system Status: Chronic Plan: Patient with a known history of asthma Per history has been wheezing more often and has occasional wheezes on exam Scheduling duo nebs every 6 hours as needed, albuterol nebs as needed every 4 hours (6) Depression with anxiety Code(s): F41.8 - Other specified anxiety disorders Status: Chronic Plan: Patient with a known history of depression anxiety Continue home Zoloft, trazodone Holding Valium for now (7) Gout Code(s): M10.9 - Gout, unspecified Status: Chronic Plan: Patient with a known history of gout Continuing home allopurinol (8) Nutrition, metabolism, and development symptoms Code(s): R63.8 - Other symptoms and signs concerning food and fluid intake Status: Acute Plan: FEN: - Gentle PO hydration given ESTELLA - Caution IVF given fluid overload - Monitor replace electrolytes as needed - Low-salt, heart healthy diet and fluid restriction to 2 L PPX: - Lovenox renal dosing (9) New onset of congestive heart failure Code(s): I50.9 - Heart failure, unspecified Status: Ruled-out Plan: Patient does not appear to have CHF however does have increased pulmonary pressure consistent with SARA/obesity hypoventilation syndrome. Of note the echo did not easily visualized IVC (blockage in IVC could contribute to edema). Patient is poor candidate for contrast studies at this time, will continue to monitor workup fluid overload Impression/Course: Patient grossly fluid overloaded with elevated BNP of 203 on admission. BNP is stable 191. UOP not impressive, however breathing has improved to baseline. Patient has history of obstructive sleep apnea and significant alcohol history; needs CPAP evaluation as outpatient Suspect fluid overload related to obesity hypoventilation syndrome versus IVC dysfunction versus venous/lymphatic insufficiency though the latter does not explain anasarca. Liver ultrasound showing fatty liver but otherwise unremarkable 2D echocardiogram showing EF 55-60%, elevated pulmonary pressure Cardiology consulted, appreciate recommendations, they are awaiting echo result before further recommendation. Metolazone initiated this hospitalization but d/ c'd 09/23 given ESTELLA -Monitor daily weights, stable at this time -Fluid restriction to 1.5 L and low-salt diet, add protein shakes -Troponins negative 3 -Discontinue telemetry today, unremarkable -Supplemental oxygen as needed -Patient is normotensive Diuresis: Furosemide 40 mg IV twice daily 24 hours, transitioned to 40 mg PO twice daily with potassium 20 mEq daily on 09/22 -Received 40 mg IV 1 in the emergency department -Furosemide held 09/23 given ESTELLA -Furosemide IV 60 mg twice daily reinitiated 09/24 Bilateral lower extremity Dopplers negative for DVT Chest x-ray with cardiomegaly and indicative of a positive fluid balance <Meaghan Galloway - 09/26/17 12:10> - Assessment and Plan Patient is a 56-year-old male with a history of asthma, depression and anxiety, gout, hypertension and recent surgical repair of the left ankle and left hip who presented to the ED with progressive shortness of breath and lower extremity edema. Chest x-ray showing cardiomegaly with mild positive fluid balance. Initial ACS workup is negative. Patient also noted to have likely cellulitis in the bilateral lower extremities. Received vancomycin x1 in the ED. Admitted to inpatient for suspected new onset CHF, fluid overload management, cellulitis treatment. New ESTELLA 09/23 to follow and managed. <NileshMeaghan L - 09/26/17 12:11> Discharge Planning: Unclear discharge at this time. Pending fluid management, cellulitis treatment, ESTELLA resolution, and outpatient antibiotic plan <Meaghan Galloway Latanya - 09/26/17 12:11> - Attending Attestation The exam, history, and the medical decision-making described in the above note were completed with the assistance of the resident physician. I reviewed and agree with the findings presented. I attest that I had a [id number] encounter with the patient on the same day, and personally performed and documented my assessment and findings in the medical record. appreciate help of Nephrology. unfortunately his kidneys are not improving <Ute Marin - 09/28/17 09:17> <NileshJovia L - Last Filed: 09/26/17 12:10> (2) Cellulitis Qualifiers: Site of cellulitis: extremity Site of cellulitis of extremity: lower extremity Laterality: unspecified laterality Qualified Code(s): L03.119 - Cellulitis of unspecified part of limb (4) Hypertension Qualifiers: Hypertension type: essential hypertension Qualified Code(s): I10 - Essential (primary) hypertension <Ute Marin - Last Filed: 09/28/17 09:17> (2) Edema Qualifiers: Edema type: generalized Qualified Code(s): R60.1 - Generalized edema (6) Hypertension Qualifiers: Hypertension type: essential hypertension Qualified Code(s): I10 - Essential (primary) hypertension (10) Cellulitis Qualifiers: Site of cellulitis: extremity Site of cellulitis of extremity: lower extremity Laterality: unspecified laterality Qualified Code(s): L03.119 - Cellulitis of unspecified part of limb <Meaghan Galloway L - Last Filed: 09/26/17 12:10> (2) Cellulitis Qualifiers: Site of cellulitis: extremity Site of cellulitis of extremity: lower extremity Laterality: unspecified laterality Qualified Code(s): L03.119 - Cellulitis of unspecified part of limb (4) Hypertension Qualifiers: Hypertension type: essential hypertension Qualified Code(s): I10 - Essential (primary) hypertension <Ute Marin M - Last Filed: 09/28/17 09:17> (2) Edema Qualifiers: Edema type: generalized Qualified Code(s): R60.1 - Generalized edema (6) Hypertension Qualifiers: Hypertension type: essential hypertension Qualified Code(s): I10 - Essential (primary) hypertension (10) Cellulitis Qualifiers: Site of cellulitis: extremity Site of cellulitis of extremity: lower extremity Laterality: unspecified laterality Qualified Code(s): L03.119 - Cellulitis of unspecified part of limb
[2017-09-26 11:30] LABS: Baso % (Auto) 0.6 % (0.0-2.0); Eos # (Auto) 0.1 th/mm3 (0.0-0.4); Eos % (Auto) 2.1 % (0.0-4.0); Hematocrit 35.5 % (39.0-51.0); Hemoglobin 11.1 gm/dL (13.0-17.0); Lymph # (Auto) 0.7 th/mm3 (1.0-4.8); Lymph % (Auto) 13.3 % (9.0-44.0); Mean Corpuscular HGB Conc 31.3 % (32.0-36.0); Mean Corpuscular Hemoglobin 33.5 pg (27.0-34.0); Mean Corpuscular Volume 106.9 fL (80.0-100.0); Mean Platelet Volume 8.2 fL (7.0-11.0); Mono % (Auto) 19.8 % (0.0-8.0); Neut # (Auto) 3.3 th/mm3 (1.8-7.7); Neut % (Auto) 64.2 % (16.0-70.0); Platelet Count 271 th/mm3 (150-450); Red Blood Count 3.32 mil/mm3 (4.50-5.90); Red Cell Distribution Width 19.8 % (11.6-17.2); White Blood Count 5.1 th/mm3 (4.0-11.0)
[2017-09-26 11:48] LABS: Albumin 2.7 g/dL (3.4-5.0); Anion Gap 10 meq/L (5-15); Aspartate Aminotransferase 42 U/L (15-37); Blood Urea Nitrogen 30 mg/dL (7-18); Calcium 8.2 mg/dL (8.5-10.1); Carbon Dioxide 23.8 meq/L (21.0-32.0); Chloride 99 meq/L (98-107); Glomerular Filtration Rate 14 mL/min (>89); Glucose,Random 102 mg/dL (74-106); Potassium 5.7 meq/L (3.5-5.1); Sodium 133 meq/L (136-145)
[2017-09-26 11:51] LABS: Alanine Aminotransferase 38 U/L (12-78); Alkaline Phosphatase 164 U/L (45-117); Phosphorus 6.9 mg/dL (2.5-4.9); Total Protein 6.5 g/dL (6.4-8.2)
[2017-09-26 13:09] LABS: Bacteria,Urine Rare /hpf; Bilirubin,Urine Negative (Negative); Clarity,Urine Hazy (Clear); Color,Urine Yellow (Yellw/Straw); Glucose,Urine (UA) Negative (Negative); Hyaline Casts,Urine 4 /lpf (0-3); Leukocyte Esterase,Urine Negative (Negative); Mucus,Urine Few /lpf (Occasional); Nitrite,Urine Negative (Negative); Specific Gravity,Urine 1.012 (1.002-1.035); Squamous Epithelial Cell,Urine 1 /hpf (0-5)
[2017-09-26 13:12] LABS: Protein/Creatinine Ratio,Urine 0.49 (0.00-0.14)
--- NOTE | 2017-09-26 15:12 | IR ---
EXAM DATE: 09/25/2017 6:14 PM EDT AGE/SEX: 56 years / Male INDICATIONS: Patient presents with swelling and redness in legs in need of femoral access of central venous catheter placement for nuclear medicine study. CLINICAL DATA: This is the patient's initial encounter. Patient reports that signs and symptoms have been present for 4 - 6 days and indicates a pain score of 0/10. MEDICAL/SURGICAL HISTORY: . Anxiety Asthma Gout HTN Left wrist fracture Neuropathy . Umbilical hernia repair COMPARISON: No prior exams available for comparison. FLUORO TIME (min): 1.5 IMAGE SERIES: 1 ACCESS SITE: Right femoral vein DEVICE(S): 7 Uzbek triple lumen 16cm Central line . . PROCEDURE : 1. Ultrasound guided venipuncture. 2. Fluoroscopic guidance. 3. Central line placement. The risks, benefits and alternatives to the procedure were explained and verbal and written consent w as obtained. The site was prepped in sterile fashion. Full sterile technique was used, including ca p, mask, sterile gloves and gown and a large sterile sheet. Hand hygiene and 2% chlorhexidine prep w as utilized per protocol for cutaneous antisepsis with appropriate dry time for site. Sterile gel an d sterile probe cover were utilized for ultrasound guidance. The skin and subcutaneous tissues were infiltrated with local anesthetic solution. A suitable site a jose antonio the vein was selected with ultrasound and fluoroscopic guidance. A small incision was made. Th e vein was accessed under direct ultrasound visualization using the micropuncture technique. The ange ropuncture set was exchanged for a 0.035 wire. The tract was dilated. The catheter was advanced int o position under direct fluoroscopic visualization, and was advanced with the tip at the junction of the superior vena cava and rt atrium. The catheter was fixed in place with suture and a sterile dres sing was applied. The patient tolerated the procedure well and there were no complications. CONCLUSION: 1. Uncomplicated line placement as above. Electronically signed by: Gregory Flores MD 09/26/2017 3:11 PM EDT
--- NOTE | 2017-09-26 15:13 | P.DCO ---
- Physical Therapy Order: Evaluate and treat - Home Health Nursing Order: Wound care and dressing changes - Certification I have seen patient Donaldo Hernandez on 09/26/17. My clinical findings support the need for the requested home health care services because: Limited mobility due to disease progression, Patient has SOB, Deconditioned with increased weakness, High risk of falls I certify that my clinical findings support that this patient is homebound because: Unsteady gait/balance, Poor cardiac reserve
[2017-09-26] MEDS ORDERED: Sodium Polystyrene Sulfonate/Sorbitol Liq 15 GM/60 ML UDC PO STA (17:14)
--- NOTE | 2017-09-26 18:28 | P.PNNP ---
Subjective Interval history: Patient had no verbal complaints today. Still with significant edema however. Physical Exam Vital signs: Vital Signs 09/25/17 18:28 09/25/17 20:00 09/25/17 23:50 Temperature 97.4 F L Pulse Rate 68 73 74 Respiratory Rate 20 20 Blood Pressure 139/65 101/54 L 116/55 L Pulse Oximetry 98 94 L 09/26/17 00:00 09/26/17 00:15 09/26/17 01:01 Temperature 98.2 F Pulse Rate 73 71 Respiratory Rate 20 20 Blood Pressure 110/58 L 120/59 L Pulse Oximetry 100 95 95 09/26/17 04:00 09/26/17 04:31 09/26/17 04:43 Temperature 97.2 F L Pulse Rate 64 59 L Respiratory Rate 24 Blood Pressure 118/59 L Pulse Oximetry 94 L 97 09/26/17 07:51 09/26/17 08:00 09/26/17 11:45 Temperature 97.6 F Pulse Rate 61 67 60 Respiratory Rate 17 Blood Pressure 113/59 L Pulse Oximetry 96 09/26/17 12:00 09/26/17 15:34 Temperature 97.4 F L Pulse Rate 58 L 64 Respiratory Rate 16 Blood Pressure 91/52 L Pulse Oximetry 98 Intake & Output 09/25/17 09/26/17 09/26/17 18:59 06:59 18:59 Intake Total 1380 / 1380 360 / 360 Output Total 800 / 800 100 / 100 Balance 580 / 580 260 / 260 Weight 156.6 kg Intake: IV 1000 / 1000 NS Inj 1,000 ML @ 125 mls/hr IV 1000 / 1000 .CONT .Q8H [facility] Rx#:[id number] Oral 380 / 380 360 / 360 Output: Urine 800 / 800 100 / 100 Other: # Voids 1 Date of Last Bowel Movement 09/25/17 09/25/17 # Bowel Movements 1 1 Narrative: . - Constitutional no acute distress, obese - Routine HEENT Exam ENT: Present: mucous membranes moist - Routine Respiratory Exam Present: CTA bilaterally, diminished air movement (In the bases.) - Routine Cardiovascular Exam Present: RRR - Routine Abdominal Exam Present: soft - Routine Extremities Exam Present: edema (3+ pitting edema feet and legs. 2+ pitting edema extending from the knees all the way into the dependent torso. 1+ pitting edema hands and arms.) Assessment and Plan - Assessment (1) Acute renal insufficiency Code(s): N28.9 - Disorder of kidney and ureter, unspecified Status: Acute Plan: Suspect acute renal insufficiency possibly superimposed on intrinsic renal disease secondary to vancomycin nephrotoxicity. At this point in time would recommend avoiding further administration of vancomycin. If further antibiotic therapy required suggest consultation with infectious disease. Patient's renal disease continued to deteriorate with only marginal response to her headaches and still with significant generalized fluid retention. At this point in time if no improvement in renal indices/urine output tomorrow we will likely proceed with dialytic support. I discussed with the patient indications for dialysis as well as the procedure and risks associated with same and he is agreeable to proceed if required. Serological screening still pending however urinalysis is relatively bland so an active glomerulonephritis is not a primary consideration presently. Medications should be adjusted for the patient's estimated GFR if clinically indicated. Avoid agents with significant potential for nephrotoxicity possible including NSAIDs for analgesia, iodine contrast agents. Gadolinium is contraindicated if the GFR is below 30. (2) Edema Code(s): R60.9 - Edema, unspecified Status: Acute Qualifiers: Edema type: generalized Qualified Code(s): R60.1 - Generalized edema Plan: Patient still with marked fluid retention. Furosemide increased. Possible dialysis tomorrow. Continue to monitor renal indices also. Diuresis is necessary at this point in time given severity of fluid retention. (3) Congestive heart failure (CHF) Code(s): I50.9 - Heart failure, unspecified Status: Acute Qualifiers: Heart failure type: combined systolic and diastolic (4) Hyperkalemia Code(s): E87.5 - Hyperkalemia Status: Acute Plan: Potassium chloride DC'd. 1 dose of Kayexalate today. Additional dose of Diuril with furosemide also today. (5) Hyperphosphatemia Code(s): E83.39 - Other disorders of phosphorus metabolism Status: Acute Plan: Secondary to renal failure. PhosLo ordered with meals.
[2017-09-26] MEDS ORDERED: Chlorothiazide Inj 500 MG Vial IV.PUSH ONE (19:00)
[2017-09-26] MEDS: traZODone 100 MG Tablet PO SCH (20:49)
--- NOTE | 2017-09-27 09:11 | P.PNFP ---
Subjective Interval history: Patient seen and examined this morning. He denies chest pain, shortness of breath. Pain is stable. He has significant edema but he feels it has improved. He reports a loose stool last night and he reports possibly improved urine output subjectively. He did not use CPAP overnight and states he slept well. <NileshMeaghan Latanya - 09/27/17 09:10> Results - Labs Result diagrams: 09/26/17 10:19 09/28/17 06:38 <Ute Marin - 09/28/17 13:05> Abnormal lab results 09/28/17 09/28/17 Range/Units 06:38 09:33 Sodium 135 L (136-145) meq/L BUN 29 H (7-18) mg/dL Creatinine 4.15 H (0.60-1.30) mg/dL Estimated GFR 15 L (>89) mL/min Random Glucose 115 H (74-106) mg/dL Calcium 8.1 L (8.5-10.1) mg/dL Phosphorus 7.1 H (2.5-4.9) mg/dL Cholesterol 89 L (120-200) mg/dL BMP 09/28/17 06:38 Sodium 135 L Potassium 4.9 Chloride 98 Carbon Dioxide 25.4 BUN 29 H Creatinine 4.15 H Calcium 8.1 L <Ute Marin - 09/28/17 13:05> Abnormal lab results 09/26/17 09/26/17 09/26/17 Range/Units 10:19 10:19 12:30 RBC 3.32 L (4.50-5.90) mil/mm3 Hgb 11.1 L (13.0-17.0) gm/dL Hct 35.5 L (39.0-51.0) % MCV 106.9 H (80.0-100.0) fL MCHC 31.3 L (32.0-36.0) % RDW 19.8 H (11.6-17.2) % Millard % (Auto) 19.8 H (0.0-8.0) % Lymph # (Auto) 0.7 L (1.0-4.8) th/mm3 Millard # (Auto) 1.0 H (0.0-0.9) th/mm3 Sodium 133 L (136-145) meq/L Potassium 5.7 H (3.5-5.1) meq/L BUN 30 H (7-18) mg/dL Creatinine 4.55 H (0.60-1.30) mg/dL Estimated GFR 14 L (>89) mL/min Calcium 8.2 L (8.5-10.1) mg/dL Phosphorus 6.9 H D (2.5-4.9) mg/dL AST 42 H (15-37) U/L Alkaline Phosphatase 164 H (45-117) U/L Albumin 2.7 L (3.4-5.0) g/dL Urine Clarity (Clear) Urine Protein (Neg-Trace) mg/dL Urine Bacteria (None) /hpf Urine Mucus (Occasional) /lpf U Random Total Protein 76.6 H (0-11.8) mg/dL Protein/Creatinin Ratio 0.49 H (0.00-0.14) /03/04 Range/Units 12:30 RBC (4.50-5.90) mil/mm3 Hgb (13.0-17.0) gm/dL Hct (39.0-51.0) % MCV (80.0-100.0) fL MCHC (32.0-36.0) % RDW (11.6-17.2) % Millard % (Auto) (0.0-8.0) % Lymph # (Auto) (1.0-4.8) th/mm3 Millard # (Auto) (0.0-0.9) th/mm3 Sodium (136-145) meq/L Potassium (3.5-5.1) meq/L BUN (7-18) mg/dL Creatinine (0.60-1.30) mg/dL Estimated GFR (>89) mL/min Calcium (8.5-10.1) mg/dL Phosphorus (2.5-4.9) mg/dL AST (15-37) U/L Alkaline Phosphatase (45-117) U/L Albumin (3.4-5.0) g/dL Urine Clarity Hazy H (Clear) Urine Protein 30 H (Neg-Trace) mg/dL Urine Bacteria Rare H (None) /hpf Urine Mucus Few H (Occasional) /lpf U Random Total Protein (0-11.8) mg/dL Protein/Creatinin Ratio (0.00-0.14) Short CBC 09/26/17 Range/Units 10:19 WBC 5.1 (4.0-11.0) th/mm3 Hgb 11.1 L (13.0-17.0) gm/dL Hct 35.5 L (39.0-51.0) % Plt Count 271 (150-450) th/mm3 BMP 09/26/17 10:19 Sodium 133 L Potassium 5.7 H Chloride 99 Carbon Dioxide 23.8 BUN 30 H Creatinine 4.55 H Calcium 8.2 L Liver Function 09/26/17 Range/Units 10:19 Total Bilirubin 0.4 (0.2-1.0) mg/dL AST 42 H (15-37) U/L ALT 38 (12-78) U/L Alkaline Phosphatase 164 H (45-117) U/L Albumin 2.7 L (3.4-5.0) g/dL Urine 09/26/17 Range/Units 12:30 Urine Color Yellow (Yellw/Straw) Urine Clarity Hazy H (Clear) Urine pH 5.0 (5.0-8.5) Ur Specific [place] 1.012 (1.002-1.035) Urine Protein 30 H (Neg-Trace) mg/dL Urine Glucose (UA) Negative (Negative) mg/dL <Meaghan Galloway - 09/27/17 09:10> - Imaging Impressions Catheter Placement 09/27/17 10:34 CONCLUSION: 1. Uncomplicated line placement as above. <Ute Marin M - 09/28/17 13:05> Impressions Central Venous Line 09/25/17 00:00 CONCLUSION: 1. Uncomplicated line placement as above. <Meaghan Galloway - 09/27/17 09:10> Physical Exam Vital signs: Vital Signs 09/27/17 17:46 09/27/17 20:00 09/27/17 21:39 Temperature 97.7 F Pulse Rate 70 63 Respiratory Rate 20 Blood Pressure 94/53 L Pulse Oximetry 94 L 99 09/28/17 00:00 09/28/17 04:00 09/28/17 04:45 Temperature 97.8 F 97.9 F Pulse Rate 58 L 75 66 Respiratory Rate 18 18 Blood Pressure 103/55 L 104/57 L Pulse Oximetry 96 97 09/28/17 08:00 09/28/17 10:45 Temperature 97.7 F Pulse Rate 65 Respiratory Rate 18 Blood Pressure 95/53 L Pulse Oximetry 95 95 Intake & Output 09/27/17 09/28/17 09/28/17 18:59 06:59 18:59 Intake Total 460 / 460 720 / 720 Output Total 100 / 100 Balance 360 / 360 720 / 720 Weight 152.9 kg Intake: IV 100 / 100 Flexbumin 25% Inj 100 ML @ 60 100 / 100 mls/hr IV.SIG WITH DIALYSIS PRN Rx#:[id number] Oral 360 / 360 720 / 720 Output: Urine 100 / 100 Other: # Voids 0 Date of Last Bowel Movement 09/26/17 # Bowel Movements 0 0 <Ute Marin M - 09/28/17 13:05> Vital Signs 09/26/17 11:45 09/26/17 12:00 09/26/17 15:34 Temperature 97.4 F L Pulse Rate 60 58 L 64 Respiratory Rate 16 Blood Pressure 91/52 L Pulse Oximetry 98 09/26/17 16:00 09/26/17 20:00 09/26/17 21:17 Temperature 98.0 F 97.2 F L Pulse Rate 102 H 69 Respiratory Rate 22 20 Blood Pressure 93/46 L 107/53 L Pulse Oximetry 95 95 95 09/27/17 00:00 09/27/17 04:00 09/27/17 08:00 Temperature 97.4 F L 97.5 F L 97.4 F L Pulse Rate 67 68 70 Respiratory Rate 20 19 Blood Pressure 94/56 L 109/59 L 115/61 Pulse Oximetry 98 97 97 Intake & Output 09/26/17 09/27/17 09/27/17 18:59 06:59 18:59 Intake Total 480 / 480 461 / 461 Output Total 150 / 150 300 / 300 Balance 330 / 330 161 / 161 Weight 155.4 kg Intake: Oral 480 / 480 461 / 461 Output: Urine 150 / 150 300 / 300 Other: Date of Last Bowel Movement 09/26/17 # Bowel Movements 2 <Meaghan Galloway - 09/27/17 09:10> Narrative: CONSTITUTIONAL/GEN: Morbidly obese male in no acute distress. Wearing nasal cannula. He does appear sleepy, and doses off during interview. EYES: conjunctiva normal, PERRL, EOMI. ENT: Poor dentition. MMM. LUNGS: Distant breath sounds but clear to auscultation. No crackles noted. CARDIOVASCULAR: RRR without murmur or gallop. Heart sounds are distant due to body habitus. Extremities: Bilateral lower extremities with tense 3+ edema up to mid thigh, pitting, possibly mild increase from yesterday's exam in abdomen. GI/ABD: Obese with fluid overload in abdomen, unchanged. Mild bruising at site of Lovenox injections on the left lower abdomen SKIN: Bilateral lower extremities with minimal erythema. Dressing on LLE is again loose and wound is clean with red nondraining base. Tense skin with 3+ pitting edema stable from last exam, not seeping fluid. The left posterior hip with well-healing surgical scar. PSYCH/MENTAL STATUS: Alert and oriented x 3. <Meaghan Galloway - 09/27/17 09:10> Assessment and Plan - Assessment (1) ESTELLA (acute kidney injury) Code(s): N17.9 - Acute kidney failure, unspecified Status: Acute (2) Edema Code(s): R60.9 - Edema, unspecified Status: Acute (3) Hyperkalemia Code(s): E87.5 - Hyperkalemia Status: Resolved (4) Hyperphosphatemia Code(s): E83.39 - Other disorders of phosphorus metabolism Status: Acute (5) Abnormal liver enzymes Code(s): R74.8 - Abnormal levels of other serum enzymes Status: Acute (6) Hypertension Code(s): I10 - Essential (primary) hypertension Status: Chronic (7) History of asthma Code(s): Z87.09 - Personal history of other diseases of the respiratory system Status: Chronic (8) Depression with anxiety Code(s): F41.8 - Other specified anxiety disorders Status: Chronic (9) Gout Code(s): M10.9 - Gout, unspecified Status: Chronic (10) Cellulitis Code(s): L03.90 - Cellulitis, unspecified Status: Resolved (11) New onset of congestive heart failure Code(s): I50.9 - Heart failure, unspecified Status: Ruled-out (12) Nutrition, metabolism, and development symptoms Code(s): R63.8 - Other symptoms and signs concerning food and fluid intake Status: Acute <Ute Marin - 09/28/17 13:05> (1) ESTELLA (acute kidney injury) Code(s): N17.9 - Acute kidney failure, unspecified Status: Acute Plan: Monitor creatinine. Nephrology consulted, with workup so far negative. Appreciate recommendations. At this point suspecting ESTELLA with possible intrinsic renal disease related to Vancomycin Serology pending, so far workup bland per urine studies PO fluid allowance to 2 L daily. Serial BMPs. Lasix 60 mg IV twice daily initiated per nephrology on 09/24 given severe fluid overload, UOP noted to be 0.24 cc/kg.hr, not adequate. Of note patient did receive lung and IVC NM scan on 09/26/17 to assess for clot burden, with negative results for VQ and NM IVC scan. Impression/Course: New finding of ESTELLA on 09/23 labs. Creatinine 0.89 on admission, 2.78 today. Etiology unclear. He did receive Lasix IV given fluid overload at time of admission. Vancomycin was given and discontinued after ESTELLA, kidney US negative, labs so far not revealing. Status-post initially gentle diuresis (750 cc bolus with 125cc/h normal saline 24 hours) discontinued on 09/24. Transitioned back to Lasix IV 09/24 as noted. Avoid nephrotoxic agents. Pharmacy noted regarding renal dosing of meds. Avoid Vancomycin administration in the future. Avoid nephrotoxic agents. (2) Edema Code(s): R60.9 - Edema, unspecified Status: Acute Plan: Fluid retention notable with UOP on record markedly inadequate at less than 0.2cc/kg/hr Nephrology consulted and titrating up Lasix Possible dialysis discussed with patient CMP pending this AM (3) Hyperkalemia Code(s): E87.5 - Hyperkalemia Status: Acute Plan: Potassium chloride DC'd. Patient is s/p Kayexalate yesterday and had a loose bowel movement yesterday. Awaiting labs this morning. Additional dose of Diuril with furosemide yesterday 09/26 for diuresis. (4) Hyperphosphatemia Code(s): E83.39 - Other disorders of phosphorus metabolism Status: Acute Plan: PhosLo ordered with meals per nephrology (5) Abnormal liver enzymes Code(s): R74.8 - Abnormal levels of other serum enzymes Status: Acute Plan: Elevated AST and alkaline phosphatase on arrival, stable, continue to monitor. Hepatic disease not appearing to be related to fluid overload. Impression/Course: Patient has a history of heavy alcohol use -Previously drank up to 12 beers daily for several years, reduced approximately 1 year ago -Currently endorses 4 beers per occasion, 3-4 occasions per week -No CIWA needs Liver ultrasound showing markedly large fatty liver. Hepatitis panel negative, discussed with patient (6) Hypertension Code(s): I10 - Essential (primary) hypertension Status: Chronic Plan: Patient with a known history of hypertension Normotensive so far this hospitalization Continue home metoprolol, hold for heart rate less than 60 Metalozone initiated in hospital but d/c'd given ESTELLA ACEI considered but echo showing no evidence of heart failure however some evidence of elevated pulmonary pressures (c/w history of SARA) (7) History of asthma Code(s): Z87.09 - Personal history of other diseases of the respiratory system Status: Chronic Plan: Patient with a known history of asthma Per history has been wheezing more often and has occasional wheezes on exam Scheduling duo nebs every 6 hours as needed, albuterol nebs as needed every 4 hours (8) Depression with anxiety Code(s): F41.8 - Other specified anxiety disorders Status: Chronic Plan: Patient with a known history of depression anxiety Continue home Zoloft, trazodone Holding Valium (9) Gout Code(s): M10.9 - Gout, unspecified Status: Chronic Plan: Patient with a known history of gout Continuing home allopurinol (10) Cellulitis Code(s): L03.90 - Cellulitis, unspecified Status: Resolved Plan: Patient with bilateral edema of the lower extremity, no longer suspicious for cellulitis, suspect related to fluid overload. He does have left ankle wound which wound care has been consulted and recommending daily Santyl dressings. Will continue to monitor lower extremities, wound culture showing MRSA and Pseudomonas however wound culture was superficial and may have been reflective of skin ori. Vital signs have been within normal limits without fever this hospitalization and white count within normal limits. Vancomycin 09/21 through 09/24, discontinued given ESTELLA and lower suspicion for cellulitis Impression/Course: Patient presented with bilateral lower extremity edema with erythema overlying surgical site on LLE Suspect pressure ulcer Wound care nurse consulted: dehisced surgical site noted with slough amenable to Santyl, which was ordered 09/23 (appreciate recs) Antibiotics: Vancomycin ordered with pharmacy consult to help with dosing (09/21-09/24) Rocephin 2 g IV daily (09/21 - 09/23) Blood cultures 2 no growth 3 days Wound culture ordered and notable for MRSA and Pseudomonas, suspect skins floor , will monitor clinically while off antibiotics and adjust as needed PT/OT consult ordered - PT currently recommending home with no therapy ESR 14, low suspicion for osteomyelitis Lactic acid 1.5 on admission Patient afebrile without leukocytosis (11) New onset of congestive heart failure Code(s): I50.9 - Heart failure, unspecified Status: Ruled-out Plan: Patient does not appear to have CHF however does have increased pulmonary pressure consistent with SARA/obesity hypoventilation syndrome. Of note the echo did not easily visualized IVC (blockage in IVC could contribute to edema). Patient is poor candidate for contrast studies at this time, will continue to monitor workup fluid overload Impression/Course: Patient grossly fluid overloaded with elevated BNP of 203 on admission. BNP is stable 191. UOP not impressive, however breathing has improved to baseline. Patient has history of obstructive sleep apnea and significant alcohol history; needs CPAP evaluation as outpatient Suspect fluid overload related to obesity hypoventilation syndrome versus IVC dysfunction versus venous/lymphatic insufficiency though the latter does not explain anasarca. Liver ultrasound showing fatty liver but otherwise unremarkable 2D echocardiogram showing EF 55-60%, elevated pulmonary pressure Cardiology consulted, appreciate recommendations, they are awaiting echo result before further recommendation. Metolazone initiated this hospitalization but d/ c'd 09/23 given ESTELLA -Monitor daily weights, stable at this time -Fluid restriction to 1.5 L and low-salt diet, add protein shakes -Troponins negative 3 -Discontinue telemetry today, unremarkable -Supplemental oxygen as needed -Patient is normotensive Diuresis: Furosemide 40 mg IV twice daily 24 hours, transitioned to 40 mg PO twice daily with potassium 20 mEq daily on 09/22 -Received 40 mg IV 1 in the emergency department -Furosemide held 09/23 given ESTELLA -Furosemide IV 60 mg twice daily reinitiated 09/24 Bilateral lower extremity Dopplers negative for DVT Chest x-ray with cardiomegaly and indicative of a positive fluid balance (12) Nutrition, metabolism, and development symptoms Code(s): R63.8 - Other symptoms and signs concerning food and fluid intake Status: Acute Plan: FEN: - Gentle PO hydration given ESTELLA - Caution if considering IVF given fluid overload, not indicated at this time - Monitor replace or correct electrolytes as needed - Low-salt, heart healthy diet and fluid restriction to 2 L PPX: - Lovenox renal dosing <Meaghan Galloway - 09/27/17 08:43> - Assessment and Plan The exam, history, and the medical decision-making described in the above note were completed with the assistance of the resident physician. I reviewed and agree with the findings presented. I attest that I had a [id number] encounter with the patient on the same day, and personally performed and documented my assessment and findings in the medical record. sadly, his renal fxn is not improving. he refuses to use his CPAP. I have explained to him that it can help his breathing. I believe it can at least potentially help his pulmonary HTN as well <Ute Marin Belén - 09/28/17 13:05> Patient is a 56-year-old male with a history of asthma, depression and anxiety, gout, hypertension and recent surgical repair of the left ankle and left hip who presented to the ED with progressive shortness of breath and lower extremity edema. Chest x-ray showing cardiomegaly with mild positive fluid balance. Initial ACS workup is negative. Patient also noted to have likely cellulitis in the bilateral lower extremities. Received vancomycin x1 in the ED. Admitted to inpatient for suspected new onset CHF, fluid overload management, cellulitis treatment. New onset ESTELLA 09/23 to workup and manage, nephrology consulted. <NileshMeaghan L - 09/27/17 09:10> Discharge Planning: Unclear discharge at this time. Pending fluid management, kidney failure management, and discharge planning. Rehab recommended per PT at this time. <NileshMeaghan L - 09/27/17 09:10> <NileshMeaghan L - Last Filed: 09/27/17 08:43> (2) Edema Qualifiers: Edema type: generalized Qualified Code(s): R60.1 - Generalized edema (6) Hypertension Qualifiers: Hypertension type: essential hypertension Qualified Code(s): I10 - Essential (primary) hypertension (10) Cellulitis Qualifiers: Site of cellulitis: extremity Site of cellulitis of extremity: lower extremity Laterality: unspecified laterality Qualified Code(s): L03.119 - Cellulitis of unspecified part of limb <Ute Marin - Last Filed: 09/28/17 13:05> (2) Edema Qualifiers: Edema type: generalized Qualified Code(s): R60.1 - Generalized edema (6) Hypertension Qualifiers: Hypertension type: essential hypertension Qualified Code(s): I10 - Essential (primary) hypertension (10) Cellulitis Qualifiers: Site of cellulitis: extremity Site of cellulitis of extremity: lower extremity Laterality: unspecified laterality Qualified Code(s): L03.119 - Cellulitis of unspecified part of limb <Meaghan Galloway L - Last Filed: 09/27/17 08:43> (2) Edema Qualifiers: Edema type: generalized Qualified Code(s): R60.1 - Generalized edema (6) Hypertension Qualifiers: Hypertension type: essential hypertension Qualified Code(s): I10 - Essential (primary) hypertension (10) Cellulitis Qualifiers: Site of cellulitis: extremity Site of cellulitis of extremity: lower extremity Laterality: unspecified laterality Qualified Code(s): L03.119 - Cellulitis of unspecified part of limb <Ute Marin - Last Filed: 09/28/17 13:05> (2) Edema Qualifiers: Edema type: generalized Qualified Code(s): R60.1 - Generalized edema (6) Hypertension Qualifiers: Hypertension type: essential hypertension Qualified Code(s): I10 - Essential (primary) hypertension (10) Cellulitis Qualifiers: Site of cellulitis: extremity Site of cellulitis of extremity: lower extremity Laterality: unspecified laterality Qualified Code(s): L03.119 - Cellulitis of unspecified part of limb
[2017-09-27] MEDS: Sertraline 50 MG Tablet PO SCH (09:20)
[2017-09-27] MEDS: Allopurinol 100 MG Tablet PO SCH (09:21)
[2017-09-27] MEDS: Metoprolol Tartrate 25 MG Tablet PO SCH ×2 (09:21→20:01)
[2017-09-27] MEDS: Calcium Acetate 667 MG Capsule PO SCH ×3 (09:21→20:01)
[2017-09-27] MEDS: Collagenase Oint 30 GM Tube TOPICAL SCH (09:22)
[2017-09-27] MEDS: Enoxaparin Inj 30 MG/0.3 ML Syringe SQ SCH (09:22)
[2017-09-27 10:00] LABS: Alanine Aminotransferase 35 U/L (12-78); Albumin 2.7 g/dL (3.4-5.0); Anion Gap 11 meq/L (5-15); Aspartate Aminotransferase 42 U/L (15-37); Blood Urea Nitrogen 35 mg/dL (7-18); Carbon Dioxide 25.4 meq/L (21.0-32.0); Chloride 97 meq/L (98-107); Glomerular Filtration Rate 12 mL/min (>89); Glucose,Random 85 mg/dL (74-106); Magnesium 2.3 mg/dL (1.5-2.5); Phosphorus 7.4 mg/dL (2.5-4.9); Potassium 5.6 meq/L (3.5-5.1); Sodium 133 meq/L (136-145)
[2017-09-27 10:03] LABS: Alkaline Phosphatase 165 U/L (45-117); Total Protein 6.6 g/dL (6.4-8.2)
[2017-09-27] MEDS ORDERED: Gelatin 12 MM/7 MM Topical Foam TOPICAL PRN (10:36)
[2017-09-27] MEDS ORDERED: Sod Chloride 0.9% Inj 1,000 ML IV.CONT PRN (10:36)
[2017-09-27] MEDS ORDERED: Sod Chloride 0.9% Inj 1,000 ML OTHER PRN ×2 (10:36)
[2017-09-27] MEDS ORDERED: Acetaminophen 325 MG Tablet PO PRN (10:36)
[2017-09-27] MEDS ORDERED: Heparin 10,000 UNITS/10 ML Vial (for IV use) IV.FLUSH PRN (10:36)
[2017-09-27] MEDS ORDERED: *Heparin 10,000 UNITS/10 ML Vial Periprocedural ONLY ONE (13:40)
[2017-09-27] MEDS ORDERED: Heparin Central Flush 100 UNIT/ML 5 ML Vial IV.FLUSH PRN (14:12)
--- NOTE | 2017-09-27 14:16 | P.RAD ---
Post Procedure Progress Note - Pre Procedure Diagnosis (1) Renal failure - Post Procedure Diagnosis (1) ESTELLA (acute kidney injury) (2) Renal failure - Procedure Information Procedure Date: 09/27/17 Supervising Radiologist: James Garcia Jr, MD Estimated blood loss (mL): 0 Anesthesia: Local - Plan of Activity Patient to Unit: Nursing Unit Patient Condition: Good See PACS Report for procedural detail/treatment. [facility] Radiology Procedures right Internal Jugular Hemodialysis Catheter Non-Tunneled Placement Device: dual lumen Spanish: 14 - Additional Detail Findings: Placed RIJ Vascath. Functions well. OK to use.
--- NOTE | 2017-09-27 14:41 | IR ---
EXAM DATE: 09/27/2017 2:33 PM EDT AGE/SEX: 56 years / Male INDICATIONS: Patient with acute renal failure in need of non tunneled dialysis catheter placement. CLINICAL DATA: This is the patient's initial encounter. Patient reports that signs and symptoms have been present for 1 week and indicates a pain score of 0/10. MEDICAL/SURGICAL HISTORY: Hypertension. Asthma. Congestive heart failure. Hernia repair COMPARISON: No prior exams available for comparison. FLUORO TIME (min): 0.6 IMAGE SERIES: 1 ACCESS SITE: Right internal jugular vein DEVICE(S): 14 [place] double lumen Schon catheter X15CM . . PROCEDURE : 1. Ultrasound guided venipuncture. 2. Fluoroscopic guidance. 3. Central line placement. The risks, benefits and alternatives to the procedure were explained and verbal and written consent w as obtained. The site was prepped in sterile fashion. Full sterile technique was used, including ca p, mask, sterile gloves and gown and a large sterile sheet. Hand hygiene and 2% chlorhexidine prep w as utilized per protocol for cutaneous antisepsis with appropriate dry time for site. Sterile gel an d sterile probe cover were utilized for ultrasound guidance. The skin and subcutaneous tissues were infiltrated with local anesthetic solution. A suitable site a jose antonio the vein was selected with ultrasound and fluoroscopic guidance. A small incision was made. Th e vein was accessed under direct ultrasound visualization using the micropuncture technique. The ange ropuncture set was exchanged for a 0.035 wire. The tract was dilated. The catheter was advanced int o position under direct fluoroscopic visualization, and was advanced with the tip at the junction of the superior vena cava and rt atrium. The catheter was fixed in place with suture and a sterile dres sing was applied. The patient tolerated the procedure well and there were no complications. CONCLUSION: 1. Uncomplicated line placement as above. Electronically signed by: James Garcia MD 09/27/2017 2:40 PM EDT
[2017-09-27] MEDS: Albumin Human 25% Inj 100 ML IV.SIG PRN (15:53)
--- NOTE | 2017-09-27 17:53 | P.PNNP ---
Subjective Interval history: This patient is a 56-year-old male with a history of hypertension, gout as well as asthma and I suspect sleep apnea. Patient denies any previous knowledge of renal insufficiency. On presentation to the hospital he was complaining of increasing edema and shortness of breath. Chest x-ray apparently did show some signs of interstitial edema. Echocardiogram showed slightly reduced EF of 55-60%. Creatinine on presentation 0.8 on the seventh of this month subsequently deteriorating progressively 3.52. Patient was on vancomycin as well as furosemide both of which have since apparently been discontinued. Patient denies using NSAIDs at home. No history of alecia diabetes mellitus, collagen vascular disease or viral hepatitis. Despite IV diuretics patient still remains markedly fluid overloaded with generalized edema of all extremities and his renal indices continue to deteriorate. Physical Exam Vital signs: Vital Signs 09/26/17 20:00 09/26/17 21:17 09/27/17 00:00 Temperature 97.2 F L 97.4 F L Pulse Rate 69 67 Respiratory Rate 20 20 Blood Pressure 107/53 L 94/56 L Pulse Oximetry 95 95 98 09/27/17 04:00 09/27/17 08:00 09/27/17 08:16 Temperature 97.5 F L 97.5 F L Pulse Rate 68 67 66 Respiratory Rate 19 18 Blood Pressure 109/59 L 100/65 Pulse Oximetry 97 93 L 09/27/17 09:52 09/27/17 12:00 09/27/17 12:09 Temperature 97.3 F L Pulse Rate 61 59 L Respiratory Rate 18 Blood Pressure 98/52 L Pulse Oximetry 94 L 96 09/27/17 17:46 Temperature Pulse Rate Respiratory Rate Blood Pressure Pulse Oximetry 94 L Intake & Output 09/26/17 09/27/17 09/27/17 18:59 06:59 18:59 Intake Total 480 / 480 461 / 461 100 / 100 Output Total 150 / 150 300 / 300 Balance 330 / 330 161 / 161 100 / 100 Weight 155.4 kg Intake: IV 100 / 100 Flexbumin 25% Inj 100 ML @ 60 100 / 100 mls/hr IV.SIG WITH DIALYSIS PRN Rx#:[id number] Oral 480 / 480 461 / 461 Output: Urine 150 / 150 300 / 300 Other: Date of Last Bowel Movement 09/26/17 # Bowel Movements 2 Narrative: CONSTITUTIONAL/GEN: Morbidly obese male in no acute distress. Patient presently alert respond to questions appropriately. EYES: conjunctiva normal, PERRL, EOMI. ENT: Poor dentition. MMM. LUNGS: Distant breath sounds but clear to auscultation. No crackles noted. CARDIOVASCULAR: RRR without murmur or gallop. Heart sounds are distant due to body habitus. Extremities: Bilateral lower extremities with tense 3+ edema up to mid thigh, pitting, possiblyincrease from yesterday's exam in abdomen. GI/ABD: Obese with fluid overload in abdomen, unchanged. SKIN: Bilateral lower extremities with minimal erythema. Dressing on LLE is again loose and wound is clean with red nondraining base. Tense skin with 3+ pitting edema stable from last exam, not seeping fluid. The left posterior hip with well-healing surgical scar. PSYCH/MENTAL STATUS: Alert and oriented x 3. Assessment and Plan - Assessment (1) Acute renal insufficiency Code(s): N28.9 - Disorder of kidney and ureter, unspecified Status: Acute Plan: In view of marked fluid retention with poor response to parenteral diuretics and progressive azotemia as discussed with the patient recommended that we initiate dialysis to improve his volume status and azotemia. Patient agreeable Vas-Cath placed and the patient was seen during his first dialysis session today. Will proceed with dialysis again tomorrow to further ultrafiltrate as well as improve his azotemia. A third treatment may be required on Saturday. If no improvement in renal function next week consideration may be given to proceeding with a kidney biopsy for definitive diagnosis of his acute kidney disease. Suspect acute renal insufficiency possibly superimposed on intrinsic renal disease secondary to vancomycin nephrotoxicity. Serological screening still pending however urinalysis is relatively bland so an active glomerulonephritis is not a primary consideration presently. Medications should be adjusted for the patient's estimated GFR if clinically indicated. Avoid agents with significant potential for nephrotoxicity possible including NSAIDs for analgesia, iodine contrast agents. Gadolinium is contraindicated if the GFR is below 30. (2) Edema Code(s): R60.9 - Edema, unspecified Status: Acute Qualifiers: Edema type: generalized Qualified Code(s): R60.1 - Generalized edema Plan: Volume status should improve now that dialysis has been initiated. (3) Congestive heart failure (CHF) Code(s): I50.9 - Heart failure, unspecified Status: Acute Qualifiers: Heart failure type: combined systolic and diastolic (4) Hyperkalemia Code(s): E87.5 - Hyperkalemia Status: Acute Plan: Potassium chloride DC'd. 1 dose of Kayexalate today. Additional dose of Diuril with furosemide also today. (5) Hyperphosphatemia Code(s): E83.39 - Other disorders of phosphorus metabolism Status: Acute Plan: Secondary to renal failure. PhosLo ordered with meals.
[2017-09-27] MEDS: Heparin 10,000 UNITS/10 ML Vial (for IV use) OTHER PRN (18:30)
[2017-09-27] MEDS: traZODone 100 MG Tablet PO SCH (20:01)
[2017-09-28 07:36] LABS: Calcium 8.1 mg/dL (8.5-10.1); Carbon Dioxide 25.4 meq/L (21.0-32.0); Magnesium 2.4 mg/dL (1.5-2.5); Phosphorus 7.1 mg/dL (2.5-4.9); Potassium 4.9 meq/L (3.5-5.1)
--- NOTE | 2017-09-28 08:28 | P.PNFP ---
Subjective Interval history: Patient was seen and examined this morning. He states he did not sleep well last night but this is usual for him. He feels less groggy this morning and notes he feels a little less heavy. He asks to take a shower but wants to do it this evening. He is eating and drinking without difficulty and is continuing 2L fluid restriction. The patient denies fevers, chills, nausea, vomiting, headaches, chest pain, abdominal pain. He reports chronic lower back , hip, and bilateral ankle pain which she has had since his ankle surgery in July. <Meaghan Galloway L - 09/28/17 08:28> Results - Labs Result diagrams: 09/26/17 10:19 09/28/17 06:38 <Ute Marin - 09/28/17 13:18> Abnormal lab results 09/28/17 09/28/17 Range/Units 06:38 09:33 Sodium 135 L (136-145) meq/L BUN 29 H (7-18) mg/dL Creatinine 4.15 H (0.60-1.30) mg/dL Estimated GFR 15 L (>89) mL/min Random Glucose 115 H (74-106) mg/dL Calcium 8.1 L (8.5-10.1) mg/dL Phosphorus 7.1 H (2.5-4.9) mg/dL Cholesterol 89 L (120-200) mg/dL BMP 09/28/17 06:38 Sodium 135 L Potassium 4.9 Chloride 98 Carbon Dioxide 25.4 BUN 29 H Creatinine 4.15 H Calcium 8.1 L <Ute Marin - 09/28/17 13:18> Abnormal lab results 09/27/17 09/28/17 Range/Units 08:10 06:38 Sodium 133 L 135 L (136-145) meq/L Potassium 5.6 H (3.5-5.1) meq/L Chloride 97 L (98-107) meq/L BUN 35 H 29 H (7-18) mg/dL Creatinine 4.93 H 4.15 H (0.60-1.30) mg/dL Estimated GFR 12 L 15 L (>89) mL/min Random Glucose 115 H (74-106) mg/dL Calcium 8.0 L 8.1 L (8.5-10.1) mg/dL Phosphorus 7.4 H 7.1 H (2.5-4.9) mg/dL AST 42 H (15-37) U/L Alkaline Phosphatase 165 H (45-117) U/L Albumin 2.7 L (3.4-5.0) g/dL BMP 09/27/17 09/28/17 08:10 06:38 Sodium 133 L 135 L Potassium 5.6 H 4.9 Chloride 97 L 98 Carbon Dioxide 25.4 25.4 BUN 35 H 29 H Creatinine 4.93 H 4.15 H Calcium 8.0 L 8.1 L Liver Function 09/27/17 Range/Units 08:10 Total Bilirubin 0.3 (0.2-1.0) mg/dL AST 42 H (15-37) U/L ALT 35 (12-78) U/L Alkaline Phosphatase 165 H (45-117) U/L Albumin 2.7 L (3.4-5.0) g/dL <Meaghan Galloway - 09/28/17 08:28> - Imaging Impressions Catheter Placement 09/27/17 10:34 CONCLUSION: 1. Uncomplicated line placement as above. <Ute Marin - 09/28/17 13:18> Impressions Catheter Placement 09/27/17 10:34 CONCLUSION: 1. Uncomplicated line placement as above. <Meaghan Galloway - 09/28/17 08:28> Physical Exam Vital signs: Vital Signs 09/27/17 17:46 09/27/17 20:00 09/27/17 21:39 Temperature 97.7 F Pulse Rate 70 63 Respiratory Rate 20 Blood Pressure 94/53 L Pulse Oximetry 94 L 99 09/28/17 00:00 09/28/17 04:00 09/28/17 04:45 Temperature 97.8 F 97.9 F Pulse Rate 58 L 75 66 Respiratory Rate 18 18 Blood Pressure 103/55 L 104/57 L Pulse Oximetry 96 97 09/28/17 08:00 09/28/17 10:45 Temperature 97.7 F Pulse Rate 65 Respiratory Rate 18 Blood Pressure 95/53 L Pulse Oximetry 95 95 Intake & Output 09/27/17 09/28/17 09/28/17 18:59 06:59 18:59 Intake Total 460 / 460 720 / 720 Output Total 100 / 100 Balance 360 / 360 720 / 720 Weight 152.9 kg Intake: IV 100 / 100 Flexbumin 25% Inj 100 ML @ 60 100 / 100 mls/hr IV.SIG WITH DIALYSIS PRN Rx#:[id number] Oral 360 / 360 720 / 720 Output: Urine 100 / 100 Other: # Voids 0 Date of Last Bowel Movement 09/26/17 # Bowel Movements 0 0 <Ute Marin M - 09/28/17 13:18> Vital Signs 09/27/17 09:52 09/27/17 12:00 09/27/17 12:09 Temperature 97.3 F L Pulse Rate 61 59 L Respiratory Rate 18 Blood Pressure 98/52 L Pulse Oximetry 94 L 96 09/27/17 17:46 09/27/17 20:00 09/27/17 21:39 Temperature 97.7 F Pulse Rate 70 63 Respiratory Rate 20 Blood Pressure 94/53 L Pulse Oximetry 94 L 99 09/28/17 00:00 09/28/17 04:00 09/28/17 04:45 Temperature 97.8 F 97.9 F Pulse Rate 58 L 75 66 Respiratory Rate 18 18 Blood Pressure 103/55 L 104/57 L Pulse Oximetry 96 97 Intake & Output 09/27/17 09/28/17 09/28/17 18:59 06:59 18:59 Intake Total 460 / 460 720 / 720 Output Total 100 / 100 Balance 360 / 360 720 / 720 Weight 152.9 kg Intake: IV 100 / 100 Flexbumin 25% Inj 100 ML @ 60 100 / 100 mls/hr IV.SIG WITH DIALYSIS PRN Rx#:[id number] Oral 360 / 360 720 / 720 Output: Urine 100 / 100 Other: # Voids 0 # Bowel Movements 0 0 <NileshMeaghan L - 09/28/17 08:28> Narrative: CONSTITUTIONAL/GEN: Morbidly obese male in no acute distress. Wearing nasal cannula. He does not dose off during exam but still appears very tired. EYES: conjunctiva normal, PERRL, EOMI. ENT: Poor dentition. MMM. LUNGS: Distant breath sounds but clear to auscultation. No crackles noted. CARDIOVASCULAR: RRR without murmur or gallop. Heart sounds are distant due to body habitus. Extremities: Bilateral lower extremities with tense 3+ edema up to mid thigh, pitting, possibly mild increase from yesterday's exam in abdomen. Upper extremities with noted 1+ edema to elbow. GI/ABD: Obese with fluid overload in abdomen, unchanged. Mild bruising at site of Lovenox injections on the left lower abdomen SKIN: Vascath in place right chest. Peripheral IV in place right forearm. Bilateral lower extremities with minimal erythema. Dressing on LLE is again loose and wound is clean with red nondraining base. Tense skin with 3+ pitting edema stable from last exam, not seeping fluid. The left posterior hip with well-healing surgical scar. PSYCH/MENTAL STATUS: Alert and oriented x 3. <NileshMeaghan Latanya - 09/28/17 08:28> Assessment and Plan - Assessment (1) ESTELLA (acute kidney injury) Code(s): N17.9 - Acute kidney failure, unspecified Status: Acute (2) Edema Code(s): R60.9 - Edema, unspecified Status: Acute (3) Hyperkalemia Code(s): E87.5 - Hyperkalemia Status: Resolved (4) Hyperphosphatemia Code(s): E83.39 - Other disorders of phosphorus metabolism Status: Acute (5) Abnormal liver enzymes Code(s): R74.8 - Abnormal levels of other serum enzymes Status: Acute (6) Hypertension Code(s): I10 - Essential (primary) hypertension Status: Chronic (7) History of asthma Code(s): Z87.09 - Personal history of other diseases of the respiratory system Status: Chronic (8) Depression with anxiety Code(s): F41.8 - Other specified anxiety disorders Status: Chronic (9) Gout Code(s): M10.9 - Gout, unspecified Status: Chronic (10) Cellulitis Code(s): L03.90 - Cellulitis, unspecified Status: Resolved (11) New onset of congestive heart failure Code(s): I50.9 - Heart failure, unspecified Status: Ruled-out (12) Nutrition, metabolism, and development symptoms Code(s): R63.8 - Other symptoms and signs concerning food and fluid intake Status: Acute <Ute Marin - 09/28/17 13:18> (1) ESTELLA (acute kidney injury) Code(s): N17.9 - Acute kidney failure, unspecified Status: Acute Plan: Vascath placed and dialysis initiated 09/28. Nephrology anticipating possibly daily dialysis over the weekend. Fluid status appears stable on exam. Monitor labs. Creatinine slight improvement at 4.15 today At this point suspecting ESTELLA with possible intrinsic renal disease related to Vancomycin Serology and urine studies so far unremakable PO fluid allowance to 2 L daily. Serial BMPs. Lasix IV initiated per nephrology on 09/24 given severe fluid overload, UOP noted to be 0.24 cc/kg.hr, not adequate. Of note patient did receive lung and IVC NM scan on 09/26/17 to assess for clot burden, with negative results for VQ and NM IVC scan. Impression/Course: New finding of ESTELLA on 09/23 labs. Creatinine 0.89 on admission, 2.78 today. Etiology unclear. He did receive Lasix IV given fluid overload at time of admission. Vancomycin was given and discontinued after ESTELLA, kidney US negative, labs so far not revealing. Status-post initially gentle diuresis (750 cc bolus with 125cc/h normal saline 24 hours) discontinued on 09/24. Transitioned back to Lasix IV 09/24 as noted. Avoid nephrotoxic agents. Pharmacy noted regarding renal dosing of meds. Avoid Vancomycin administration in the future. Avoid nephrotoxic agents. (2) Edema Code(s): R60.9 - Edema, unspecified Status: Acute Plan: Fluid retention notable with UOP on record markedly inadequate at less than 0.2cc/kg/hr Nephrology consulted, management as noted (3) Hyperkalemia Code(s): E87.5 - Hyperkalemia Status: Resolved Plan: Patient with renal failure as likely contributor. K 4.9 this morning Potassium chloride DC'd. Patient is s/p Kayexalate yesterday and had a loose bowel movement yesterday. Awaiting labs this morning. Additional dose of Diuril with furosemide 09/26 for diuresis. (4) Hyperphosphatemia Code(s): E83.39 - Other disorders of phosphorus metabolism Status: Acute Plan: Secondary to renal failure. Stable but still elevated. PhosLo ordered with meals per nephrology. (5) Abnormal liver enzymes Code(s): R74.8 - Abnormal levels of other serum enzymes Status: Acute Plan: Elevated AST and alkaline phosphatase on arrival, stable, continue to monitor. Hepatic disease not appearing to be related to fluid overload. Impression/Course: Patient has a history of heavy alcohol use -Previously drank up to 12 beers daily for several years, reduced approximately 1 year ago -Currently endorses 4 beers per occasion, 3-4 occasions per week -No CIWA needs Liver ultrasound showing markedly large fatty liver. Hepatitis panel negative, discussed with patient (6) Hypertension Code(s): I10 - Essential (primary) hypertension Status: Chronic Plan: Patient with a known history of hypertension Normo- to hypotensive so far this hospitalization Continue home metoprolol, hold for heart rate less than 60 Metalozone initiated in hospital initially given suspicion for CHF but d/c'd given ESTELLA and no CHF ACEI considered but echo showing no evidence of heart failure however evidence of elevated pulmonary pressures (c/w history of SARA) (7) History of asthma Code(s): Z87.09 - Personal history of other diseases of the respiratory system Status: Chronic Plan: Patient with a known history of asthma Scheduling duo nebs every 4hr PRN, albuterol every 2hr PRN SOB/wheezing (8) Depression with anxiety Code(s): F41.8 - Other specified anxiety disorders Status: Chronic Plan: Patient with a known history of depression anxiety. Continue home Zoloft, trazodone. Holding Valium. (9) Gout Code(s): M10.9 - Gout, unspecified Status: Chronic Plan: Patient with a known history of gout. Continuing home allopurinol. (10) Cellulitis Code(s): L03.90 - Cellulitis, unspecified Status: Resolved Plan: Continue daily Santyl dressings per Wound care recommendations. Patient to follow up with outpt wound care upon discharge. Impression/Course: Patient presented with bilateral lower extremity edema with erythema overlying surgical site on LLE. Did not have systemic signs of infection and no longer suspicious for cellulitis, suspect related to fluid overload and/or venous insufficiency. He does have left ankle wound which wound care has been consulted and recommending daily Santyl dressings since 09/23. Will continue to monitor lower extremities, wound culture showing MRSA and Pseudomonas however wound culture was superficial and may have been reflective of skin ori. ital signs have been within normal limits without fever this hospitalization and white count within normal limits. Suspect some element of pressure ulcer given limited mobility since his ankle surgery in July 2017 (internal fixation with rods and screws throughout ankle). X-ray performed 09/20 showing intact hardware and soft tissue edema Antibiotics: Vancomycin 09/21 through 09/24, discontinued given ESTELLA and lower suspicion for cellulitis Vancomycin ordered with pharmacy consult to help with dosing (09/21-09/24) Rocephin 2 g IV daily (09/21 - 09/23) Blood cultures 2 no growth 3 days Wound culture: MRSA, Pseudomonas PT/OT consult ordered - PT currently recommending home with home health PT ESR 14, low suspicion for osteomyelitis Lactic acid 1.5 on admission Patient afebrile without leukocytosis (11) New onset of congestive heart failure Code(s): I50.9 - Heart failure, unspecified Status: Ruled-out Plan: Patient does not appear to have CHF however does have increased pulmonary pressure consistent with SARA/obesity hypoventilation syndrome. Of note the echo did not easily visualized IVC (blockage in IVC could contribute to edema). Patient is poor candidate for contrast studies at this time, will continue to monitor/workup fluid overload which is suspected to be unrelated to heart. Will add lipid profile and a1c to labs to assess for additional risk factors Impression/Course: Patient grossly fluid overloaded with elevated BNP of 203 on admission. BNP is stable 191. UOP not impressive, however breathing has improved to baseline. Patient has history of obstructive sleep apnea and significant alcohol history; needs CPAP evaluation as outpatient Suspect fluid overload related to obesity hypoventilation syndrome versus IVC dysfunction versus venous/lymphatic insufficiency though the latter does not explain anasarca. Liver ultrasound showing fatty liver but otherwise unremarkable 2D echocardiogram showing EF 55-60%, elevated pulmonary pressure Cardiology consulted, appreciate recommendations, they are awaiting echo result before further recommendation. Metolazone initiated this hospitalization but d/ c'd 09/23 given ESTELLA -Monitor daily weights, stable at this time -Fluid restriction to 1.5 L and low-salt diet, add protein shakes -Troponins negative 3 -Discontinue telemetry today, unremarkable -Supplemental oxygen as needed -Patient is normo- to hypotensive this hospitalization Diuresis: Furosemide 40 mg IV twice daily 24 hours, transitioned to 40 mg PO twice daily with potassium 20 mEq daily on 09/22 -Received 40 mg IV 1 in the emergency department -Furosemide held 09/23 given ESTELLA -Furosemide IV 60 mg twice daily reinitiated 09/24 -Dialysis initiated 09/27 for continued fluid overload Bilateral lower extremity Dopplers negative for DVT Chest x-ray with cardiomegaly and indicative of a positive fluid balance (12) Nutrition, metabolism, and development symptoms Code(s): R63.8 - Other symptoms and signs concerning food and fluid intake Status: Acute Plan: FEN: - Gentle PO hydration given ESTELLA - Caution if considering IVF given fluid overload, IVF not indicated at this time - Correct electrolytes as needed - Low-salt, heart healthy diet and fluid restriction to 2 L PPX: - Lovenox renal dosing <NileshMeaghan L - 09/28/17 08:33> - Assessment and Plan The exam, history, and the medical decision-making described in the above note were completed with the assistance of the resident physician. I reviewed and agree with the findings presented. I attest that I had a [id number] encounter with the patient on the same day, and personally performed and documented my assessment and findings in the medical record. suspect his elevated pulmonary artery pressure is due to his sleep apnea. hopefully he starts to agree to use this <Ute Marin - 09/28/17 13:18> Patient is a 56-year-old male with a history of asthma, depression and anxiety, gout, hypertension and recent surgical repair of the left ankle and left hip who presented to the ED with progressive shortness of breath and lower extremity edema. Chest x-ray showing cardiomegaly with mild positive fluid balance. Initial ACS workup is negative. Patient also noted to have likely cellulitis in the bilateral lower extremities. Received vancomycin x1 in the ED. Admitted to inpatient for suspected new onset CHF, fluid overload management, cellulitis treatment. New onset ESTELLA 09/23 to workup and manage, nephrology consulted. <Meaghan Galloway - 09/28/17 08:47> Discharge Planning: Unclear discharge at this time. Pending fluid management, kidney failure management, and discharge planning. Home health PT recommended per PT evaluation. <Meaghan Galloway - 09/28/17 08:47> <Meaghan Galloway L - Last Filed: 09/28/17 08:33> (2) Edema Qualifiers: Edema type: generalized Qualified Code(s): R60.1 - Generalized edema (6) Hypertension Qualifiers: Hypertension type: essential hypertension Qualified Code(s): I10 - Essential (primary) hypertension (10) Cellulitis Qualifiers: Site of cellulitis: extremity Site of cellulitis of extremity: lower extremity Laterality: unspecified laterality Qualified Code(s): L03.119 - Cellulitis of unspecified part of limb <Ute Marin M - Last Filed: 09/28/17 13:18> (2) Edema Qualifiers: Edema type: generalized Qualified Code(s): R60.1 - Generalized edema (6) Hypertension Qualifiers: Hypertension type: essential hypertension Qualified Code(s): I10 - Essential (primary) hypertension (10) Cellulitis Qualifiers: Site of cellulitis: extremity Site of cellulitis of extremity: lower extremity Laterality: unspecified laterality Qualified Code(s): L03.119 - Cellulitis of unspecified part of limb <Meaghan Galloway L - Last Filed: 09/28/17 08:33> (2) Edema Qualifiers: Edema type: generalized Qualified Code(s): R60.1 - Generalized edema (6) Hypertension Qualifiers: Hypertension type: essential hypertension Qualified Code(s): I10 - Essential (primary) hypertension (10) Cellulitis Qualifiers: Site of cellulitis: extremity Site of cellulitis of extremity: lower extremity Laterality: unspecified laterality Qualified Code(s): L03.119 - Cellulitis of unspecified part of limb <Ute Marin - Last Filed: 09/28/17 13:18> (2) Edema Qualifiers: Edema type: generalized Qualified Code(s): R60.1 - Generalized edema (6) Hypertension Qualifiers: Hypertension type: essential hypertension Qualified Code(s): I10 - Essential (primary) hypertension (10) Cellulitis Qualifiers: Site of cellulitis: extremity Site of cellulitis of extremity: lower extremity Laterality: unspecified laterality Qualified Code(s): L03.119 - Cellulitis of unspecified part of limb
[2017-09-28] MEDS: Metoprolol Tartrate 25 MG Tablet PO SCH ×2 (08:50→21:36)
[2017-09-28] MEDS: Calcium Acetate 667 MG Capsule PO SCH ×3 (08:50→18:53)
[2017-09-28] MEDS: Enoxaparin Inj 30 MG/0.3 ML Syringe SQ SCH (08:50)
[2017-09-28] MEDS: Allopurinol 100 MG Tablet PO SCH (08:51)
[2017-09-28] MEDS: Sertraline 50 MG Tablet PO SCH (08:51)
[2017-09-28] MEDS: Collagenase Oint 30 GM Tube TOPICAL SCH (08:53)
[2017-09-28 10:38] LABS: Chol/HDL Ratio 2.07 Ratio; HDL Cholesterol 42.8 mg/dL (40.0-60.0)
[2017-09-28 11:56] LABS: Hemoglobin A1c 4.7 % (4.3-6.0)
[2017-09-28] MEDS: Albumin Human 25% Inj 100 ML IV.SIG PRN ×2 (15:08→15:21)
[2017-09-28] MEDS: Heparin 10,000 UNITS/10 ML Vial (for IV use) OTHER PRN (15:08)
--- NOTE | 2017-09-28 15:27 | P.PNNP ---
Subjective Interval history: Pt seen during 2nd HD today. Tolerating well except low BP UF at 3L. <Verna Cisneros R - Last Filed: 09/28/17 15:18> Physical Exam Vital signs: Vital Signs 09/27/17 17:46 09/27/17 20:00 09/27/17 21:39 Temperature 97.7 F Pulse Rate 70 63 Respiratory Rate 20 Blood Pressure 94/53 L Pulse Oximetry 94 L 99 09/28/17 00:00 09/28/17 04:00 09/28/17 04:45 Temperature 97.8 F 97.9 F Pulse Rate 58 L 75 66 Respiratory Rate 18 18 Blood Pressure 103/55 L 104/57 L Pulse Oximetry 96 97 09/28/17 08:00 09/28/17 10:45 09/28/17 12:00 Temperature 97.7 F 97.2 F L Pulse Rate 65 66 Respiratory Rate 18 18 Blood Pressure 95/53 L 111/46 L Pulse Oximetry 95 95 96 Intake & Output 09/27/17 09/28/17 09/28/17 18:59 06:59 18:59 Intake Total 460 / 460 720 / 720 Output Total 100 / 100 Balance 360 / 360 720 / 720 Weight 152.9 kg Intake: IV 100 / 100 Flexbumin 25% Inj 100 ML @ 60 100 / 100 mls/hr IV.SIG WITH DIALYSIS PRN Rx#:[id number] Oral 360 / 360 720 / 720 Output: Urine 100 / 100 Other: # Voids 0 Date of Last Bowel Movement 09/26/17 # Bowel Movements 0 0 - Constitutional no acute distress - Routine Respiratory Exam Present: decreased breath sounds, distant breath sounds - Routine Cardiovascular Exam Present: RRR, S1, S2 - Routine Extremities Exam Present: edema (generalized edema 2-3+) - Routine Neurological Exam Present: alert <Verna Cisneros R - Last Filed: 09/28/17 15:18> Vital signs: Vital Signs 10/05/17 18:41 10/05/17 20:00 10/06/17 00:00 Temperature 97.4 F L 97.9 F Pulse Rate 75 77 Respiratory Rate 18 17 17 Blood Pressure 110/59 L 89/50 L Pulse Oximetry 92 L 96 10/06/17 04:00 10/06/17 07:43 10/06/17 08:00 Temperature 97.9 F 98.1 F Pulse Rate 67 72 Respiratory Rate 18 16 20 Blood Pressure 109/55 L 112/57 L Pulse Oximetry 97 96 10/06/17 10:10 10/06/17 12:00 Temperature 97.5 F L Pulse Rate 72 Respiratory Rate 20 Blood Pressure 110/59 L Pulse Oximetry 92 L 97 Intake & Output 10/05/17 10/06/17 10/06/17 18:59 06:59 18:59 Intake Total 800 / 800 221 / 221 600 / 600 Output Total 4100 / 4100 200 / 200 Balance -3300 / -3300 600 / 600 Weight 151.1 kg Intake: Oral 221 / 221 600 / 600 Intake (Blood Product) Amt 800 / 800 Rbc As-3 Leukoreduced Unit 400 / 400 [id number] Rbc As-3 Leukoreduced Unit 400 / 400 [id number] Output: Urine 600 / 600 200 / 200 Hemodialysis Amount 3500 / 3500 Other: Date of Last Bowel Movement 10/04/17 <Liz Perry - Last Filed: 10/06/17 16:55> Assessment and Plan - Assessment (1) Acute renal insufficiency Code(s): N28.9 - Disorder of kidney and ureter, unspecified Status: Acute Plan: Suspect acute renal insufficiency possibly superimposed on intrinsic renal disease secondary to vancomycin nephrotoxicity. Seen during 2nd HD today. Will rest tomorrow and plan for next HD on Saturday for additional fluid removal. Will increase his Lasix dose to 80mg BID. If no improvement in renal function next week consideration may be given to proceeding with a kidney biopsy for definitive diagnosis of his acute kidney disease. Medications should be adjusted for the patient's estimated GFR if clinically indicated. Avoid agents with significant potential for nephrotoxicity possible including NSAIDs for analgesia, iodine contrast agents. Gadolinium is contraindicated if the GFR is below 30. (2) Edema Code(s): R60.9 - Edema, unspecified Status: Acute Qualifiers: Edema type: generalized Qualified Code(s): R60.1 - Generalized edema Plan: Still significant. Will improve with HD. Plan for additional dialysis on Saturday. (3) Congestive heart failure (CHF) Code(s): I50.9 - Heart failure, unspecified Status: Acute Qualifiers: Heart failure type: combined systolic and diastolic (4) Hyperphosphatemia Code(s): E83.39 - Other disorders of phosphorus metabolism Status: Acute Plan: Secondary to renal failure. PhosLo ordered with meals. (5) Hyperkalemia Code(s): E87.5 - Hyperkalemia Status: Resolved Plan: Resolved with HD. <Verna Cisneros - Last Filed: 09/28/17 15:18> - Assessment (1) Acute renal insufficiency Code(s): N28.9 - Disorder of kidney and ureter, unspecified Status: Acute (2) Edema Code(s): R60.9 - Edema, unspecified Status: Acute Qualifiers: Edema type: generalized Qualified Code(s): R60.1 - Generalized edema (3) Congestive heart failure (CHF) Code(s): I50.9 - Heart failure, unspecified Status: Acute Qualifiers: Heart failure type: combined systolic and diastolic (4) Hyperphosphatemia Code(s): E83.39 - Other disorders of phosphorus metabolism Status: Resolved - Attending Attestation The exam, history, and the medical decision-making described in the above note were completed with the assistance of the MICHOACANO. I reviewed and agree with the findings presented. <Liz Perry - Last Filed: 10/06/17 16:55>
[2017-09-28] MEDS: traZODone 100 MG Tablet PO SCH (21:36)
[2017-09-29 07:06] LABS: Baso % (Auto) 0.4 % (0.0-2.0); Eos # (Auto) 0.1 th/mm3 (0.0-0.4); Eos % (Auto) 1.7 % (0.0-4.0); Hematocrit 35.8 % (39.0-51.0); Hemoglobin 11.3 gm/dL (13.0-17.0); Lymph # (Auto) 0.9 th/mm3 (1.0-4.8); Lymph % (Auto) 17.1 % (9.0-44.0); Mean Corpuscular HGB Conc 31.6 % (32.0-36.0); Mean Corpuscular Hemoglobin 33.4 pg (27.0-34.0); Mean Corpuscular Volume 105.8 fL (80.0-100.0); Mean Platelet Volume 8.5 fL (7.0-11.0); Mono # (Auto) 1.3 th/mm3 (0.0-0.9); Mono % (Auto) 25.3 % (0.0-8.0); Neut # (Auto) 2.8 th/mm3 (1.8-7.7); Neut % (Auto) 55.5 % (16.0-70.0); Platelet Count 283 th/mm3 (150-450); Red Blood Count 3.39 mil/mm3 (4.50-5.90); Red Cell Distribution Width 20.3 % (11.6-17.2)
[2017-09-29 07:27] LABS: Albumin 3.4 g/dL (3.4-5.0); Carbon Dioxide 26.2 meq/L (21.0-32.0); Potassium 4.7 meq/L (3.5-5.1)
[2017-09-29] MEDS: Sertraline 50 MG Tablet PO SCH (08:35)
[2017-09-29] MEDS: Enoxaparin Inj 30 MG/0.3 ML Syringe SQ SCH (08:36)
[2017-09-29] MEDS: Calcium Acetate 667 MG Capsule PO SCH ×3 (08:36→18:45)
[2017-09-29] MEDS: Allopurinol 100 MG Tablet PO SCH (08:36)
[2017-09-29] MEDS: Metoprolol Tartrate 25 MG Tablet PO SCH ×2 (08:41→22:13)
[2017-09-29] MEDS: Collagenase Oint 30 GM Tube TOPICAL SCH (08:43)
--- NOTE | 2017-09-29 09:32 | P.PNFP ---
Subjective Interval history: Patient was seen and examined this morning. He was difficult to wake up but was immediately alert and oriented when he did wake up. He states he slept well last night. Denies any respiratory distress. The patient denies fevers, chills, nausea, vomiting, headaches, chest pain, abdominal pain. He continues to endorse pain at the biopsy site behind the hip and his postsurgical left ankle. <NileshMeaghan L - 09/29/17 09:31> Results - Labs Result diagrams: 09/30/17 09:33 10/01/17 07:42 <Ute Marin - 10/01/17 12:32> Abnormal lab results 10/01/17 Range/Units 07:42 BUN 21 H (7-18) mg/dL Creatinine 2.94 H (0.60-1.30) mg/dL Estimated GFR 22 L (>89) mL/min Calcium 7.9 L (8.5-10.1) mg/dL BMP 10/01/17 07:42 Sodium 137 Potassium 4.1 Chloride 99 Carbon Dioxide 30.4 BUN 21 H Creatinine 2.94 H Calcium 7.9 L <Ute Marin - 10/01/17 12:32> Abnormal lab results 09/28/17 09/29/17 09/29/17 Range/Units 09:33 05:57 05:57 RBC 3.39 L (4.50-5.90) mil/mm3 Hgb 11.3 L (13.0-17.0) gm/dL Hct 35.8 L (39.0-51.0) % MCV 105.8 H (80.0-100.0) fL MCHC 31.6 L (32.0-36.0) % RDW 20.3 H (11.6-17.2) % [place] % (Auto) 25.3 H (0.0-8.0) % Lymph # (Auto) 0.9 L (1.0-4.8) th/mm3 [place] # (Auto) 1.3 H (0.0-0.9) th/mm3 BUN 21 H (7-18) mg/dL Creatinine 3.37 H (0.60-1.30) mg/dL Estimated GFR 19 L (>89) mL/min Calcium 8.0 L (8.5-10.1) mg/dL Phosphorus 6.0 H D (2.5-4.9) mg/dL Cholesterol 89 L (120-200) mg/dL Short CBC 09/29/17 Range/Units 05:57 WBC 5.0 (4.0-11.0) th/mm3 Hgb 11.3 L (13.0-17.0) gm/dL Hct 35.8 L (39.0-51.0) % Plt Count 283 (150-450) th/mm3 BMP 09/29/17 05:57 Sodium 137 Potassium 4.7 Chloride 99 Carbon Dioxide 26.2 BUN 21 H Creatinine 3.37 H Calcium 8.0 L Liver Function 09/29/17 Range/Units 05:57 Albumin 3.4 D (3.4-5.0) g/dL <Meaghan Galloway - 09/29/17 09:31> Physical Exam Vital signs: Vital Signs 09/30/17 15:51 09/30/17 16:00 09/30/17 20:00 Temperature 97.5 F L 97.9 F Pulse Rate 65 74 77 Respiratory Rate 18 16 Blood Pressure 94/70 L 107/53 L Pulse Oximetry 92 L 99 10/01/17 00:00 10/01/17 04:00 10/01/17 08:00 Temperature 97.7 F 97.9 F Pulse Rate 70 71 73 Respiratory Rate 18 22 Blood Pressure 112/56 L 104/55 L Pulse Oximetry 98 94 L Intake & Output 09/30/17 10/01/17 10/01/17 18:59 06:59 18:59 Intake Total 720 / 720 Output Total 4300 / 4300 Balance -3580 / -3580 Intake: Oral 720 / 720 Output: Urine 300 / 300 Hemodialysis Amount 4000 / 4000 Other: # Bowel Movements 1 <Ute Marin M - 10/01/17 12:32> Vital Signs 09/28/17 10:45 09/28/17 12:00 09/28/17 16:00 Temperature 97.2 F L 97.9 F Pulse Rate 66 70 Respiratory Rate 18 18 Blood Pressure 111/46 L 129/59 L Pulse Oximetry 95 96 97 09/28/17 20:00 09/29/17 00:00 09/29/17 03:45 Temperature 97.5 F L 97.7 F Pulse Rate 74 62 66 Respiratory Rate 20 20 Blood Pressure 121/84 113/60 Pulse Oximetry 95 98 09/29/17 04:00 Temperature 97.1 F L Pulse Rate 68 Respiratory Rate 20 Blood Pressure 119/55 L Pulse Oximetry 95 Intake & Output 09/28/17 09/29/17 09/29/17 18:59 06:59 18:59 Intake Total 440 / 440 Output Total 2500 / 2500 Balance -2059 / Weight 152.2 kg Intake: IV 200 / 200 Flexbumin 25% Inj 100 ML @ 60 200 / 200 mls/hr IV.SIG WITH DIALYSIS PRN Rx#:[id number] Oral 240 / 240 Output: Stool 0 / 0 Hemodialysis Amount 2500 / 2500 Other: # Voids 2 Date of Last Bowel Movement 09/26/17 <Meaghan Galloway - 09/29/17 09:31> Narrative: CONSTITUTIONAL/GEN: Morbidly obese male in no acute distress. Wearing nasal cannula. He does not dose off during exam was very difficult to arouse this morning. EYES: conjunctiva normal, PERRL, EOMI. ENT: Poor dentition. MMM. LUNGS: Distant breath sounds but clear to auscultation. No crackles noted. CARDIOVASCULAR: RRR without murmur or gallop. Heart sounds are distant due to body habitus. Extremities: Bilateral lower extremities with tense 3+ edema up to mid thigh, pitting, possibly mild increase from yesterday's exam in abdomen. Upper extremities with noted 1+ edema to elbow. GI/ABD: Obese with fluid overload in abdomen, unchanged. Mild bruising at site of Lovenox injections on the left lower abdomen SKIN: Vascath in place right chest, with some noted mild bruising in the surrounding skin. Peripheral IV in place right forearm. Bilateral lower extremities with minimal erythema. Dressing on LLE is again loose and wound is clean with red nondraining base. Tense skin with 3+ pitting edema stable from last exam, not seeping fluid. The left posterior hip with well-healing surgical scar. PSYCH/MENTAL STATUS: Alert and oriented x 3. <Meaghan Galloway - 09/29/17 09:31> Assessment and Plan - Assessment (1) ESTELLA (acute kidney injury) Code(s): N17.9 - Acute kidney failure, unspecified Status: Acute (2) Edema Code(s): R60.9 - Edema, unspecified Status: Acute (3) Hyperkalemia Code(s): E87.5 - Hyperkalemia Status: Resolved (4) Hyperphosphatemia Code(s): E83.39 - Other disorders of phosphorus metabolism Status: Acute (5) Abnormal liver enzymes Code(s): R74.8 - Abnormal levels of other serum enzymes Status: Acute (6) Hypertension Code(s): I10 - Essential (primary) hypertension Status: Chronic (7) History of asthma Code(s): Z87.09 - Personal history of other diseases of the respiratory system Status: Chronic (8) Depression with anxiety Code(s): F41.8 - Other specified anxiety disorders Status: Chronic (9) Gout Code(s): M10.9 - Gout, unspecified Status: Chronic (10) Cellulitis Code(s): L03.90 - Cellulitis, unspecified Status: Resolved (11) New onset of congestive heart failure Code(s): I50.9 - Heart failure, unspecified Status: Ruled-out (12) Sleep apnea Code(s): G47.30 - Sleep apnea, unspecified Status: Acute (13) Nutrition, metabolism, and development symptoms Code(s): R63.8 - Other symptoms and signs concerning food and fluid intake Status: Acute <Ute Marin - 10/01/17 12:32> (1) ESTELLA (acute kidney injury) Code(s): N17.9 - Acute kidney failure, unspecified Status: Acute Plan: Vascath placed and dialysis initiated 09/27. Status post dialysis on 09/28 with anticipated dialysis on 09/30 as well. Nephrology managing, appreciate assistance. Fluid status appears stable on exam. Monitor labs. Creatinine 3.37 today, improved Lasix noted to be ordered at 80 mg IV twice daily at this point with potassium stable at 4.7 today At this point suspecting ESTELLA with possible intrinsic renal disease related to Vancomycin Serology and urine studies so far unremakable PO fluid allowance to 2 L daily. Serial BMPs. Lasix IV initiated per nephrology on 09/24 given severe fluid overload, UOP noted to be 0.24 cc/kg.hr, not adequate. Of note patient did receive lung and IVC NM scan on 09/26/17 to assess for clot burden, with negative results for VQ and NM IVC scan. Impression/Course: New finding of ESTELLA on 09/23 labs. Creatinine 0.89 on admission, 2.78 today. Etiology unclear. He did receive Lasix IV given fluid overload at time of admission. Vancomycin was given and discontinued after ESTELLA, kidney US negative, labs so far not revealing. Status-post initially gentle diuresis (750 cc bolus with 125cc/h normal saline 24 hours) discontinued on 09/24. Transitioned back to Lasix IV 09/24 as noted. Avoid nephrotoxic agents. Pharmacy noted regarding renal dosing of meds. Avoid Vancomycin administration in the future. Avoid nephrotoxic agents. (2) Edema Code(s): R60.9 - Edema, unspecified Status: Acute Plan: Fluid retention notable with UOP on record markedly inadequate, unclear if documentation is full Nephrology consulted, management as noted (3) Hyperkalemia Code(s): E87.5 - Hyperkalemia Status: Resolved Plan: Patient with renal failure as likely contributor. K 4.7 this morning Course: Secondary to renal failure potassium chloride DC'd. Patient is s/p Kayexalate 09/26, had a loose bowel movement. Additional dose of Diuril with furosemide 09/26 for diuresis. (4) Hyperphosphatemia Code(s): E83.39 - Other disorders of phosphorus metabolism Status: Acute Plan: Secondary to renal failure. Stable but still elevated. PhosLo ordered with meals per nephrology. (5) Abnormal liver enzymes Code(s): R74.8 - Abnormal levels of other serum enzymes Status: Acute Plan: Elevated AST and alkaline phosphatase on arrival, stable, continue to monitor periodically. Hepatic disease not appearing to be related to fluid overload. Impression/Course: Patient has a history of heavy alcohol use -Previously drank up to 12 beers daily for several years, reduced approximately 1 year ago -Currently endorses 4 beers per occasion, 3-4 occasions per week -No CIWA needs Liver ultrasound showing markedly large fatty liver. Hepatitis panel negative, discussed with patient (6) Hypertension Code(s): I10 - Essential (primary) hypertension Status: Chronic Plan: Patient with a known history of hypertension Normo- to hypotensive so far this hospitalization Continue home metoprolol which is 25 mg twice daily, hold for heart rate less than 60, BP less than 110/60 Metalozone initiated in hospital initially given suspicion for CHF but d/c'd given ESTELLA and no CHF ACEI considered but echo showing no evidence of heart failure however evidence of elevated pulmonary pressures (c/w history of SARA) (7) History of asthma Code(s): Z87.09 - Personal history of other diseases of the respiratory system Status: Chronic Plan: Patient with a known history of asthma Scheduling duo nebs every 4hr PRN, albuterol every 2hr PRN SOB/wheezing (8) Depression with anxiety Code(s): F41.8 - Other specified anxiety disorders Status: Chronic Plan: Patient with a known history of depression anxiety. Continue home Zoloft, trazodone. Holding Valium. (9) Gout Code(s): M10.9 - Gout, unspecified Status: Chronic Plan: Patient with a known history of gout. Continuing home allopurinol. (10) Cellulitis Code(s): L03.90 - Cellulitis, unspecified Status: Resolved Plan: Continue daily Santyl dressings per Wound care recommendations. Okay to take a bath given no active infection however, keeping Vas-Cath and peripheral access clean and dry Patient to follow up with outpt wound care upon discharge. Impression/Course: Patient presented with bilateral lower extremity edema with erythema overlying surgical site on LLE. Did not have systemic signs of infection and no longer suspicious for cellulitis, suspect related to fluid overload and/or venous insufficiency. He does have left ankle wound which wound care has been consulted and recommending daily Santyl dressings since 09/23. Will continue to monitor lower extremities, wound culture showing MRSA and Pseudomonas however wound culture was superficial and may have been reflective of skin ori. ital signs have been within normal limits without fever this hospitalization and white count within normal limits. Suspect some element of pressure ulcer given limited mobility since his ankle surgery in July 2017 (internal fixation with rods and screws throughout ankle). X-ray performed 09/20 showing intact hardware and soft tissue edema Antibiotics: Vancomycin 09/21 through 09/24, discontinued given ESTELLA and lower suspicion for cellulitis Vancomycin ordered with pharmacy consult to help with dosing (09/21-09/24) Rocephin 2 g IV daily (09/21 - 09/23) Blood cultures 2 no growth 3 days Wound culture: MRSA, Pseudomonas PT/OT consult ordered - PT currently recommending home with home health PT ESR 14, low suspicion for osteomyelitis Lactic acid 1.5 on admission Patient afebrile without leukocytosis (11) New onset of congestive heart failure Code(s): I50.9 - Heart failure, unspecified Status: Ruled-out Plan: Patient does not appear to have CHF however does have increased pulmonary pressure consistent with SARA/obesity hypoventilation syndrome. Of note the echo did not easily visualized IVC (blockage in IVC could contribute to edema). Patient is poor candidate for contrast studies at this time, will continue to monitor/workup fluid overload which is suspected to be unrelated to heart. Lipid profile is perfect, A1c is 4.7 Impression/Course: Patient grossly fluid overloaded with elevated BNP of 203 on admission. BNP is stable 191. UOP not impressive, however breathing has improved to baseline. Patient has history of obstructive sleep apnea and significant alcohol history; needs CPAP evaluation as outpatient Suspect fluid overload related to obesity hypoventilation syndrome versus IVC dysfunction versus venous/lymphatic insufficiency though the latter does not explain anasarca. Liver ultrasound showing fatty liver but otherwise unremarkable 2D echocardiogram showing EF 55-60%, elevated pulmonary pressure Cardiology consulted, appreciate recommendations, they are awaiting echo result before further recommendation. Metolazone initiated this hospitalization but d/ c'd 09/23 given ESTELLA -Monitor daily weights, stable at this time -Fluid restriction to 1.5 L and low-salt diet, add protein shakes -Troponins negative 3 -Discontinue telemetry today, unremarkable -Supplemental oxygen as needed -Patient is normo- to hypotensive this hospitalization Diuresis: Furosemide 40 mg IV twice daily 24 hours, transitioned to 40 mg PO twice daily with potassium 20 mEq daily on 09/22 -Received 40 mg IV 1 in the emergency department -Furosemide held 09/23 given ESTELLA -Furosemide IV 60 mg twice daily reinitiated 09/24 -Dialysis initiated 09/27 for continued fluid overload Bilateral lower extremity Dopplers negative for DVT Chest x-ray with cardiomegaly and indicative of a positive fluid balance (12) Sleep apnea Code(s): G47.30 - Sleep apnea, unspecified Status: Acute Plan: Of note, we suspect patient has sleep apnea given history reported and elevated pulmonary arterial pressure on echocardiogram. CPAP was ordered for patient to trial but he has refused thus far. Patient will require further discussion and workup of this as an outpatient. (13) Nutrition, metabolism, and development symptoms Code(s): R63.8 - Other symptoms and signs concerning food and fluid intake Status: Acute Plan: FEN: - Gentle PO hydration given ESTELLA - Caution if considering IVF given fluid overload, IVF not indicated at this time - Correct electrolytes as needed - Low-salt, heart healthy diet and fluid restriction to 2 L PPX: - Lovenox renal dosing <Meaghan Galloway - 09/29/17 09:20> - Assessment and Plan Patient is a 56-year-old male with a history of asthma, depression and anxiety, gout, hypertension and recent surgical repair of the left ankle and left hip who presented to the ED with progressive shortness of breath and lower extremity edema. Chest x-ray showing cardiomegaly with mild positive fluid balance. Initial ACS workup is negative. Patient also noted to have likely cellulitis in the bilateral lower extremities. Received vancomycin x1 in the ED. Admitted to inpatient for suspected new onset CHF, fluid overload management, cellulitis treatment. New onset ESTELLA 09/23 to workup and manage, nephrology consulted. <Meaghan Galloway - 09/29/17 09:31> Discharge Planning: Unclear discharge at this time. Pending fluid management, kidney failure management, and discharge planning. Home health PT recommended per PT evaluation. <Meaghan Galloway - 09/29/17 09:31> - Attending Attestation The exam, history, and the medical decision-making described in the above note were completed with the assistance of the resident physician. I reviewed and agree with the findings presented. I attest that I had a [id number] encounter with the patient on the same day, and personally performed and documented my assessment and findings in the medical record. <Ute Marin - 10/01/17 12:32> <Meaghan Galloway - Last Filed: 09/29/17 09:20> (2) Edema Qualifiers: Edema type: generalized Qualified Code(s): R60.1 - Generalized edema (6) Hypertension Qualifiers: Hypertension type: essential hypertension Qualified Code(s): I10 - Essential (primary) hypertension (10) Cellulitis Qualifiers: Site of cellulitis: extremity Site of cellulitis of extremity: lower extremity Laterality: unspecified laterality Qualified Code(s): L03.119 - Cellulitis of unspecified part of limb <Ute Marin M - Last Filed: 10/01/17 12:32> (2) Edema Qualifiers: Edema type: generalized Qualified Code(s): R60.1 - Generalized edema (6) Hypertension Qualifiers: Hypertension type: essential hypertension Qualified Code(s): I10 - Essential (primary) hypertension (10) Cellulitis Qualifiers: Site of cellulitis: extremity Site of cellulitis of extremity: lower extremity Laterality: unspecified laterality Qualified Code(s): L03.119 - Cellulitis of unspecified part of limb <Meaghan Galloway L - Last Filed: 09/29/17 09:20> (2) Edema Qualifiers: Edema type: generalized Qualified Code(s): R60.1 - Generalized edema (6) Hypertension Qualifiers: Hypertension type: essential hypertension Qualified Code(s): I10 - Essential (primary) hypertension (10) Cellulitis Qualifiers: Site of cellulitis: extremity Site of cellulitis of extremity: lower extremity Laterality: unspecified laterality Qualified Code(s): L03.119 - Cellulitis of unspecified part of limb <Ute Marin - Last Filed: 10/01/17 12:32> (2) Edema Qualifiers: Edema type: generalized Qualified Code(s): R60.1 - Generalized edema (6) Hypertension Qualifiers: Hypertension type: essential hypertension Qualified Code(s): I10 - Essential (primary) hypertension (10) Cellulitis Qualifiers: Site of cellulitis: extremity Site of cellulitis of extremity: lower extremity Laterality: unspecified laterality Qualified Code(s): L03.119 - Cellulitis of unspecified part of limb
--- NOTE | 2017-09-29 12:34 | P.PNNP ---
Subjective Interval history: Pt mentally appears to be improving. More alert. HD yesterday without significant issues. <Cisneros,Verna R - Last Filed: 09/29/17 12:29> Physical Exam Vital signs: Vital Signs 09/28/17 16:00 09/28/17 20:00 09/29/17 00:00 Temperature 97.9 F 97.5 F L 97.7 F Pulse Rate 70 74 62 Respiratory Rate 18 20 20 Blood Pressure 129/59 L 121/84 113/60 Pulse Oximetry 97 95 98 09/29/17 03:45 09/29/17 04:00 09/29/17 08:00 Temperature 97.1 F L Pulse Rate 66 68 62 Respiratory Rate 20 20 Blood Pressure 119/55 L Pulse Oximetry 95 95 09/29/17 12:28 Temperature Pulse Rate Respiratory Rate Blood Pressure Pulse Oximetry 95 Intake & Output 09/28/17 09/29/17 09/29/17 18:59 06:59 18:59 Intake Total 440 / 440 Output Total 2500 / 2500 Balance -2059 / -2059 Weight 152.2 kg Intake: IV 200 / 200 Flexbumin 25% Inj 100 ML @ 60 200 / 200 mls/hr IV.SIG WITH DIALYSIS PRN Rx#:[id number] Oral 240 / 240 Output: Stool 0 / 0 Hemodialysis Amount 2500 / 2500 Other: # Voids 2 Date of Last Bowel Movement 09/26/17 09/26/17 - Constitutional no acute distress - Routine HEENT Exam Head: Present: normocephalic - Routine Neck Exam Present: supple - Routine Respiratory Exam Present: decreased breath sounds, distant breath sounds - Routine Cardiovascular Exam Present: RRR, S1, S2 - Routine Abdominal Exam Present: soft - Routine Extremities Exam Present: edema (generalized anasarca) - Routine Neurological Exam Present: alert - Routine Psychiatric Exam Present: normal thought process - Detailed Psychiatric Exam Mood and affect: Present: flat <Verna Cisneros R - Last Filed: 09/29/17 12:29> Vital signs: Vital Signs 09/29/17 16:00 09/29/17 19:41 09/29/17 20:00 Temperature 97.9 F 98.5 F Pulse Rate 71 72 78 Respiratory Rate 18 20 Blood Pressure 101/50 L 103/52 L Pulse Oximetry 96 95 09/29/17 23:40 09/30/17 00:00 09/30/17 03:58 Temperature 97.5 F L Pulse Rate 78 80 75 Respiratory Rate 20 Blood Pressure 119/56 L Pulse Oximetry 95 09/30/17 04:00 09/30/17 08:00 09/30/17 10:05 Temperature 97.4 F L 97.3 F L Pulse Rate 72 65 Respiratory Rate 18 18 Blood Pressure 115/58 L 112/61 Pulse Oximetry 95 90 L 97 Intake & Output 09/29/17 09/30/17 09/30/17 18:59 06:59 18:59 Intake Total 360 / 360 240 / 240 Output Total 150 / 150 625 / 625 Balance 210 / 210 -385 / -385 Weight 154 kg Intake: Oral 360 / 360 240 / 240 Output: Urine 150 / 150 625 / 625 Stool 0 / 0 Other: Date of Last Bowel Movement 09/26/17 # Bowel Movements 0 <Liz Perry - Last Filed: 09/30/17 13:21> Assessment and Plan - Assessment (1) Acute renal insufficiency Code(s): N28.9 - Disorder of kidney and ureter, unspecified Status: Acute Plan: Suspect acute renal insufficiency possibly superimposed on intrinsic renal disease secondary to vancomycin nephrotoxicity. HD tomorrow for additional fluid removal. If no improvement in renal function next week consideration may be given to proceeding with a kidney biopsy for definitive diagnosis of his acute kidney disease. Medications should be adjusted for the patient's estimated GFR if clinically indicated. Avoid agents with significant potential for nephrotoxicity possible including NSAIDs for analgesia, iodine contrast agents. Gadolinium is contraindicated if the GFR is below 30. (2) Edema Code(s): R60.9 - Edema, unspecified Status: Acute Qualifiers: Edema type: generalized Qualified Code(s): R60.1 - Generalized edema Plan: Likely related to renal failure. HD tomorrow for ultrafiltration. (3) Congestive heart failure (CHF) Code(s): I50.9 - Heart failure, unspecified Status: Acute Qualifiers: Heart failure type: combined systolic and diastolic (4) Hyperkalemia Code(s): E87.5 - Hyperkalemia Status: Resolved Plan: Resolved with HD. (5) Hyperphosphatemia Code(s): E83.39 - Other disorders of phosphorus metabolism Status: Acute Plan: Secondary to renal failure. PhosLo ordered with meals. <Verna Cisneros - Last Filed: 09/29/17 12:29> - Assessment (1) Acute renal insufficiency Code(s): N28.9 - Disorder of kidney and ureter, unspecified Status: Acute (2) Edema Code(s): R60.9 - Edema, unspecified Status: Acute Qualifiers: Edema type: generalized Qualified Code(s): R60.1 - Generalized edema (3) Congestive heart failure (CHF) Code(s): I50.9 - Heart failure, unspecified Status: Acute Qualifiers: Heart failure type: combined systolic and diastolic (4) Hyperkalemia Code(s): E87.5 - Hyperkalemia Status: Resolved (5) Hyperphosphatemia Code(s): E83.39 - Other disorders of phosphorus metabolism Status: Acute - Attending Attestation The exam, history, and the medical decision-making described in the above note were completed with the assistance of the MICHOACANO. I reviewed and agree with the findings presented. <Liz Perry - Last Filed: 09/30/17 13:21>
[2017-09-29] MEDS ORDERED: Heparin 10,000 UNITS/10 ML Vial (for IV use) OTHER PRN (12:35)
[2017-09-29] MEDS ORDERED: Acetaminophen 325 MG Tablet PO PRN (12:35)
[2017-09-29] MEDS ORDERED: Sod Chloride 0.9% Inj 1,000 ML IV.CONT PRN (12:35)
[2017-09-29] MEDS ORDERED: Gelatin 12 MM/7 MM Topical Foam TOPICAL PRN (12:35)
[2017-09-29] MEDS ORDERED: Heparin 10,000 UNITS/10 ML Vial (for IV use) IV.FLUSH PRN (12:35)
[2017-09-29] MEDS ORDERED: Sod Chloride 0.9% Inj 1,000 ML OTHER PRN ×2 (12:35)
[2017-09-29] MEDS ORDERED: Albumin Human 25% Inj 100 ML IV.SIG PRN (12:35)
[2017-09-29] MEDS: traZODone 100 MG Tablet PO SCH (22:22)
--- NOTE | 2017-09-30 08:43 | P.PNFP ---
Subjective Interval history: Patient seen and examined this morning. He states he had a bowel movement overnight with reportedly increased urine output. He denies fevers, chills, nausea, vomiting, chest pain, shortness of breath, and abdominal pain. Back and ankle pain reportedly stable. <NileshMeaghan L - 09/30/17 08:43> Results - Labs Result diagrams: 09/30/17 09:33 10/01/17 07:42 <Ute Marin - 10/01/17 12:33> Abnormal lab results 10/01/17 Range/Units 07:42 BUN 21 H (7-18) mg/dL Creatinine 2.94 H (0.60-1.30) mg/dL Estimated GFR 22 L (>89) mL/min Calcium 7.9 L (8.5-10.1) mg/dL BMP 10/01/17 07:42 Sodium 137 Potassium 4.1 Chloride 99 Carbon Dioxide 30.4 BUN 21 H Creatinine 2.94 H Calcium 7.9 L <Ute Marin - 10/01/17 12:33> Physical Exam Vital signs: Vital Signs 09/30/17 15:51 09/30/17 16:00 09/30/17 20:00 Temperature 97.5 F L 97.9 F Pulse Rate 65 74 77 Respiratory Rate 18 16 Blood Pressure 94/70 L 107/53 L Pulse Oximetry 92 L 99 10/01/17 00:00 10/01/17 04:00 10/01/17 08:00 Temperature 97.7 F 97.9 F Pulse Rate 70 71 73 Respiratory Rate 18 22 Blood Pressure 112/56 L 104/55 L Pulse Oximetry 98 94 L Intake & Output 09/30/17 10/01/17 10/01/17 18:59 06:59 18:59 Intake Total 720 / 720 Output Total 4300 / 4300 Balance -3580 / -3580 Intake: Oral 720 / 720 Output: Urine 300 / 300 Hemodialysis Amount 4000 / 4000 Other: # Bowel Movements 1 <Ute Marin - 10/01/17 12:33> Vital Signs 09/29/17 12:00 09/29/17 12:28 09/29/17 16:00 Temperature 97.6 F 97.9 F Pulse Rate 67 71 Respiratory Rate 18 18 Blood Pressure 104/53 L 101/50 L Pulse Oximetry 99 95 96 07/15/18 19:41 09/29/17 20:00 09/29/17 23:40 Temperature 98.5 F Pulse Rate 72 78 78 Respiratory Rate 20 Blood Pressure 103/52 L Pulse Oximetry 95 09/30/17 00:00 09/30/17 03:58 09/30/17 04:00 Temperature 97.5 F L 97.4 F L Pulse Rate 80 75 72 Respiratory Rate 20 18 Blood Pressure 119/56 L 115/58 L Pulse Oximetry 95 95 Intake & Output 09/29/17 09/30/17 09/30/17 18:59 06:59 18:59 Intake Total 360 / 360 240 / 240 Output Total 150 / 150 625 / 625 Balance 210 / 210 -385 / -385 Weight 154 kg Intake: Oral 360 / 360 240 / 240 Output: Urine 150 / 150 625 / 625 Stool 0 / 0 Other: Date of Last Bowel Movement 09/26/17 # Bowel Movements 0 <Meaghan Galloway - 09/30/17 08:43> Narrative: CONSTITUTIONAL/GEN: Morbidly obese male in no acute distress. On room air, alert and awake on exam. EYES: conjunctiva normal, PERRL, EOMI. ENT: Poor dentition. MMM. LUNGS: Distant breath sounds but clear to auscultation. No crackles noted. CARDIOVASCULAR: RRR without murmur or gallop. Heart sounds are distant due to body habitus. Extremities: Bilateral lower extremities with tense 3+ edema up to mid thigh, pitting, possibly mild increase from yesterday's exam in abdomen. Upper extremities with noted 1+ edema to elbow. GI/ABD: Obese with fluid overload in abdomen, unchanged. Mild bruising at site of Lovenox injections on the left lower abdomen SKIN: Vascath in place right chest, with some noted mild bruising in the surrounding skin. Peripheral IV in place right forearm. Bilateral lower extremities with minimal erythema. Dressing on LLE is again loose and wound is clean with red nondraining base. Tense skin with 3+ pitting edema stable from last exam, not seeping fluid. The left posterior hip with well-healing surgical scar. PSYCH/MENTAL STATUS: Alert and oriented x 3. <Meaghan Galloway - 09/30/17 08:43> Assessment and Plan - Assessment (1) ESTELLA (acute kidney injury) Code(s): N17.9 - Acute kidney failure, unspecified Status: Acute (2) Edema Code(s): R60.9 - Edema, unspecified Status: Acute (3) Hyperkalemia Code(s): E87.5 - Hyperkalemia Status: Resolved (4) Hyperphosphatemia Code(s): E83.39 - Other disorders of phosphorus metabolism Status: Acute (5) Abnormal liver enzymes Code(s): R74.8 - Abnormal levels of other serum enzymes Status: Acute (6) Hypertension Code(s): I10 - Essential (primary) hypertension Status: Chronic (7) History of asthma Code(s): Z87.09 - Personal history of other diseases of the respiratory system Status: Chronic (8) Depression with anxiety Code(s): F41.8 - Other specified anxiety disorders Status: Chronic (9) Gout Code(s): M10.9 - Gout, unspecified Status: Chronic (10) Cellulitis Code(s): L03.90 - Cellulitis, unspecified Status: Resolved (11) New onset of congestive heart failure Code(s): I50.9 - Heart failure, unspecified Status: Ruled-out (12) Sleep apnea Code(s): G47.30 - Sleep apnea, unspecified Status: Acute (13) Nutrition, metabolism, and development symptoms Code(s): R63.8 - Other symptoms and signs concerning food and fluid intake Status: Acute <Ute Marin - 10/01/17 12:33> (1) ESTELLA (acute kidney injury) Code(s): N17.9 - Acute kidney failure, unspecified Status: Acute Plan: Creatinine 3.37 most recently, dialysis planned for 09/30 (third session) Impression/Course: New finding of ESTELLA on 09/23 labs. Creatinine 0.89 on admission, 2.78 today. Etiology unclear. He did receive Lasix IV given fluid overload at time of admission. Vancomycin was given and discontinued after ESTELLA, kidney US negative, labs so far not revealing. Status-post initially gentle diuresis (750 cc bolus with 125cc/h normal saline 24 hours) discontinued on 09/24. Transitioned back to Lasix IV 09/24 as noted. Avoid nephrotoxic agents. Pharmacy noted regarding renal dosing of meds. Avoid Vancomycin administration in the future. Avoid nephrotoxic agents. Vascath placed and dialysis initiated 09/27. Status post dialysis on 09/28 with anticipated dialysis on 09/30 as well. Nephrology managing, appreciate assistance. Fluid status appears stable on exam. Monitor labs. Lasix noted to be ordered at 80 mg IV twice daily at this point with potassium stable at 4.7 today At this point suspecting ESTELLA with possible intrinsic renal disease related to Vancomycin Serology and urine studies so far unremakable PO fluid allowance to 2 L daily. Serial BMPs. Lasix IV initiated per nephrology on 09/24 given severe fluid overload, UOP noted to be not adequate per report (2) Edema Code(s): R60.9 - Edema, unspecified Status: Acute Plan: Fluid retention notable with UOP on record markedly inadequate, unclear if documentation is full Nephrology consulted, management as noted Does have net negative fluid balance per records Of note patient did receive lung and IVC NM scan on 09/26/17 to assess for clot burden, with negative results for VQ and NM IVC scan. (3) Hyperkalemia Code(s): E87.5 - Hyperkalemia Status: Resolved Plan: Patient with renal failure as likely contributor. K 4.7 most recently Course: Secondary to renal failure potassium chloride DC'd. Patient is s/p Kayexalate 09/26, had a loose bowel movement. Additional dose of Diuril with furosemide 09/26 for diuresis. (4) Hyperphosphatemia Code(s): E83.39 - Other disorders of phosphorus metabolism Status: Acute Plan: Secondary to renal failure. Stable but still elevated. PhosLo ordered with meals per nephrology. (5) Abnormal liver enzymes Code(s): R74.8 - Abnormal levels of other serum enzymes Status: Acute Plan: Elevated AST and alkaline phosphatase on arrival, stable, continue to monitor periodically. Hepatic disease not appearing to be related to fluid overload. Impression/Course: Patient has a history of heavy alcohol use -Previously drank up to 12 beers daily for several years, reduced approximately 1 year ago -Currently endorses 4 beers per occasion, 3-4 occasions per week -No CIWA needs Liver ultrasound showing markedly large fatty liver. Hepatitis panel negative, discussed with patient (6) Hypertension Code(s): I10 - Essential (primary) hypertension Status: Chronic Plan: Patient with a known history of hypertension Normo- to hypotensive so far this hospitalization Continue home metoprolol which is 25 mg twice daily, hold for heart rate less than 60, BP less than 110/60 Metalozone initiated in hospital initially given suspicion for CHF but d/c'd given ESTELLA and no CHF ACEI considered but echo showing no evidence of heart failure however evidence of elevated pulmonary pressures (c/w history of SARA) (7) History of asthma Code(s): Z87.09 - Personal history of other diseases of the respiratory system Status: Chronic Plan: Patient with a known history of asthma Scheduling duo nebs every 4hr PRN, albuterol every 2hr PRN SOB/wheezing (8) Depression with anxiety Code(s): F41.8 - Other specified anxiety disorders Status: Chronic Plan: Patient with a known history of depression anxiety. Continue home Zoloft, trazodone. Holding Valium. (9) Gout Code(s): M10.9 - Gout, unspecified Status: Chronic Plan: Patient with a known history of gout. Continuing home allopurinol. (10) Cellulitis Code(s): L03.90 - Cellulitis, unspecified Status: Resolved Plan: Continue daily Santyl dressings per Wound care recommendations. Okay to take a bath given no active infection however, keeping Vas-Cath and peripheral access clean and dry Patient to follow up with outpt wound care upon discharge. Impression/Course: Patient presented with bilateral lower extremity edema with erythema overlying surgical site on LLE. Did not have systemic signs of infection and no longer suspicious for cellulitis, suspect related to fluid overload and/or venous insufficiency. He does have left ankle wound which wound care has been consulted and recommending daily Santyl dressings since 09/23. Will continue to monitor lower extremities, wound culture showing MRSA and Pseudomonas however wound culture was superficial and may have been reflective of skin ori. ital signs have been within normal limits without fever this hospitalization and white count within normal limits. Suspect some element of pressure ulcer given limited mobility since his ankle surgery in July 2017 (internal fixation with rods and screws throughout ankle). X-ray performed 09/20 showing intact hardware and soft tissue edema Antibiotics: Vancomycin 09/21 through 09/24, discontinued given ESTELLA and lower suspicion for cellulitis Vancomycin ordered with pharmacy consult to help with dosing (09/21-09/24) Rocephin 2 g IV daily (09/21 - 09/23) Blood cultures 2 no growth 3 days Wound culture: MRSA, Pseudomonas PT/OT consult ordered - PT currently recommending home with home health PT ESR 14, low suspicion for osteomyelitis Lactic acid 1.5 on admission Patient afebrile without leukocytosis (11) New onset of congestive heart failure Code(s): I50.9 - Heart failure, unspecified Status: Ruled-out Plan: Patient does not appear to have CHF however does have increased pulmonary pressure consistent with SARA/obesity hypoventilation syndrome. Of note the echo did not easily visualized IVC (blockage in IVC could contribute to edema). Patient is poor candidate for contrast studies at this time, will continue to monitor/workup fluid overload which is suspected to be unrelated to heart. Lipid profile is perfect, A1c is 4.7 Impression/Course: Patient grossly fluid overloaded with elevated BNP of 203 on admission. BNP is stable 191. UOP not impressive, however breathing has improved to baseline. Patient has history of obstructive sleep apnea and significant alcohol history; needs CPAP evaluation as outpatient Suspect fluid overload related to obesity hypoventilation syndrome versus IVC dysfunction versus venous/lymphatic insufficiency though the latter does not explain anasarca. Liver ultrasound showing fatty liver but otherwise unremarkable 2D echocardiogram showing EF 55-60%, elevated pulmonary pressure Cardiology consulted, appreciate recommendations, they are awaiting echo result before further recommendation. Metolazone initiated this hospitalization but d/ c'd 09/23 given ESTELLA -Monitor daily weights, stable at this time -Fluid restriction to 1.5 L and low-salt diet, add protein shakes -Troponins negative 3 -Discontinue telemetry today, unremarkable -Supplemental oxygen as needed -Patient is normo- to hypotensive this hospitalization Diuresis: Furosemide 40 mg IV twice daily 24 hours, transitioned to 40 mg PO twice daily with potassium 20 mEq daily on 09/22 -Received 40 mg IV 1 in the emergency department -Furosemide held 09/23 given ESTELLA -Furosemide IV 60 mg twice daily reinitiated 09/24 -Dialysis initiated 09/27 for continued fluid overload Bilateral lower extremity Dopplers negative for DVT Chest x-ray with cardiomegaly and indicative of a positive fluid balance (12) Sleep apnea Code(s): G47.30 - Sleep apnea, unspecified Status: Acute Plan: Of note, we suspect patient has sleep apnea given history reported and elevated pulmonary arterial pressure on echocardiogram. CPAP was ordered for patient to trial but he has refused thus far. Patient will require further discussion and workup of this as an outpatient. (13) Nutrition, metabolism, and development symptoms Code(s): R63.8 - Other symptoms and signs concerning food and fluid intake Status: Acute Plan: FEN: - Gentle PO hydration given ESTELLA - Caution if considering IVF given fluid overload, IVF not indicated at this time - Correct electrolytes as needed - Low-salt, heart healthy diet and fluid restriction to 2 L PPX: - Lovenox renal dosing <Meaghan Galloway Latanya - 09/30/17 08:36> - Assessment and Plan Patient is a 56-year-old male with a history of asthma, depression and anxiety, gout, hypertension and recent surgical repair of the left ankle and left hip who presented to the ED with progressive shortness of breath and lower extremity edema. Chest x-ray showing cardiomegaly with mild positive fluid balance. Initial ACS workup is negative. Patient also noted to have likely cellulitis in the bilateral lower extremities. Received vancomycin x1 in the ED. Admitted to inpatient for suspected new onset CHF, fluid overload management, cellulitis treatment. New onset ESTELLA 09/23 to workup and manage, nephrology consulted. <Jovi Gallowaydinora Pelaez - 09/30/17 08:43> Discharge Planning: Unclear discharge at this time. Pending fluid management, kidney failure management, and discharge planning. Home health PT recommended per PT evaluation. <Jovi Gallowaydinora Pelaez - 09/30/17 08:43> - Attending Attestation The exam, history, and the medical decision-making described in the above note were completed with the assistance of the resident physician. I reviewed and agree with the findings presented. I attest that I had a [id number] encounter with the patient on the same day, and personally performed and documented my assessment and findings in the medical record. <Ute Marin - 10/01/17 12:33> <Meaghan Galloway L - Last Filed: 09/30/17 08:36> (2) Edema Qualifiers: Edema type: generalized Qualified Code(s): R60.1 - Generalized edema (6) Hypertension Qualifiers: Hypertension type: essential hypertension Qualified Code(s): I10 - Essential (primary) hypertension (10) Cellulitis Qualifiers: Site of cellulitis: extremity Site of cellulitis of extremity: lower extremity Laterality: unspecified laterality Qualified Code(s): L03.119 - Cellulitis of unspecified part of limb <Ute Marin M - Last Filed: 10/01/17 12:33> (2) Edema Qualifiers: Edema type: generalized Qualified Code(s): R60.1 - Generalized edema (6) Hypertension Qualifiers: Hypertension type: essential hypertension Qualified Code(s): I10 - Essential (primary) hypertension (10) Cellulitis Qualifiers: Site of cellulitis: extremity Site of cellulitis of extremity: lower extremity Laterality: unspecified laterality Qualified Code(s): L03.119 - Cellulitis of unspecified part of limb <Meaghan Galloway L - Last Filed: 09/30/17 08:36> (2) Edema Qualifiers: Edema type: generalized Qualified Code(s): R60.1 - Generalized edema (6) Hypertension Qualifiers: Hypertension type: essential hypertension Qualified Code(s): I10 - Essential (primary) hypertension (10) Cellulitis Qualifiers: Site of cellulitis: extremity Site of cellulitis of extremity: lower extremity Laterality: unspecified laterality Qualified Code(s): L03.119 - Cellulitis of unspecified part of limb <Ute Marin - Last Filed: 10/01/17 12:33> (2) Edema Qualifiers: Edema type: generalized Qualified Code(s): R60.1 - Generalized edema (6) Hypertension Qualifiers: Hypertension type: essential hypertension Qualified Code(s): I10 - Essential (primary) hypertension (10) Cellulitis Qualifiers: Site of cellulitis: extremity Site of cellulitis of extremity: lower extremity Laterality: unspecified laterality Qualified Code(s): L03.119 - Cellulitis of unspecified part of limb
[2017-09-30] MEDS: Sertraline 50 MG Tablet PO SCH (09:54)
[2017-09-30] MEDS: Allopurinol 100 MG Tablet PO SCH (09:55)
[2017-09-30] MEDS: Metoprolol Tartrate 25 MG Tablet PO SCH ×2 (09:55→21:14)
[2017-09-30] MEDS: Enoxaparin Inj 30 MG/0.3 ML Syringe SQ SCH (09:55)
[2017-09-30] MEDS: Calcium Acetate 667 MG Capsule PO SCH ×3 (09:55→18:42)
[2017-09-30] MEDS: Collagenase Oint 30 GM Tube TOPICAL SCH (09:57)
[2017-09-30 10:52] LABS: Baso % (Auto) 0.3 % (0.0-2.0); Eos # (Auto) 0.1 th/mm3 (0.0-0.4); Eos % (Auto) 1.6 % (0.0-4.0); Hematocrit 32.5 % (39.0-51.0); Hemoglobin 10.4 gm/dL (13.0-17.0); Lymph # (Auto) 0.7 th/mm3 (1.0-4.8); Lymph % (Auto) 14.3 % (9.0-44.0); Mean Corpuscular Hemoglobin 33.5 pg (27.0-34.0); Mean Corpuscular Volume 104.9 fL (80.0-100.0); Mean Platelet Volume 8.4 fL (7.0-11.0); Mono # (Auto) 1.1 th/mm3 (0.0-0.9); Mono % (Auto) 22.7 % (0.0-8.0); Neut % (Auto) 61.1 % (16.0-70.0); Platelet Count 308 th/mm3 (150-450); Red Cell Distribution Width 19.4 % (11.6-17.2); White Blood Count 4.9 th/mm3 (4.0-11.0)
[2017-09-30 11:11] LABS: Albumin 3.1 g/dL (3.4-5.0); Calcium 8.3 mg/dL (8.5-10.1); Carbon Dioxide 27.8 meq/L (21.0-32.0); Phosphorus 5.7 mg/dL (2.5-4.9); Potassium 4.7 meq/L (3.5-5.1)
--- NOTE | 2017-09-30 13:24 | P.PNNP ---
Subjective Interval history: Patient lying in bed. Indicating to me that he does feel somewhat improved since dialysis was initiated Physical Exam Vital signs: Vital Signs 09/29/17 16:00 09/29/17 19:41 09/29/17 20:00 Temperature 97.9 F 98.5 F Pulse Rate 71 72 78 Respiratory Rate 18 20 Blood Pressure 101/50 L 103/52 L Pulse Oximetry 96 95 09/29/17 23:40 09/30/17 00:00 09/30/17 03:58 Temperature 97.5 F L Pulse Rate 78 80 75 Respiratory Rate 20 Blood Pressure 119/56 L Pulse Oximetry 95 09/30/17 04:00 09/30/17 08:00 09/30/17 10:05 Temperature 97.4 F L 97.3 F L Pulse Rate 72 65 Respiratory Rate 18 18 Blood Pressure 115/58 L 112/61 Pulse Oximetry 95 90 L 97 Intake & Output 09/29/17 09/30/17 09/30/17 18:59 06:59 18:59 Intake Total 360 / 360 240 / 240 Output Total 150 / 150 625 / 625 Balance 210 / 210 -385 / -385 Weight 154 kg Intake: Oral 360 / 360 240 / 240 Output: Urine 150 / 150 625 / 625 Stool 0 / 0 Other: Date of Last Bowel Movement 09/26/17 # Bowel Movements 0 Narrative: GENERAL: Patient lying in bed not in respiratory distress. SKIN: Warm and dry. HEAD: Normocephalic. EYES: No scleral icterus. No injection or drainage. NECK: Supple, trachea midline. No JVD or lymphadenopathy. CARDIOVASCULAR: Regular rate and rhythm without murmurs, gallops, or rubs. RESPIRATORY: Breath sounds equal bilaterally. No accessory muscle use. GASTROINTESTINAL: Abdomen soft, non-tender, nondistended. MUSCULOSKELETAL: No cyanosis, edema has improved but still with 3+ pitting edema involving feet and legs as well as thighs. 1+ pitting edema of the hands and forearms. 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 Hemodialysis today and tomorrow for additional fluid removal. If no signs of improvement in renal function consideration be given to a kidney biopsy possibly towards the end of this week by goal presently to improve his volume status. Still with significant fluid retention despite IV furosemide and dialysis. Reiterated the importance of being compliant with his fluid restriction today. Medications should be adjusted for the patient's estimated GFR if clinically indicated. Avoid agents with significant potential for nephrotoxicity possible including NSAIDs for analgesia, iodine contrast agents. Gadolinium is contraindicated if the GFR is below 30. (2) Edema Code(s): R60.9 - Edema, unspecified Status: Acute Qualifiers: Edema type: generalized Qualified Code(s): R60.1 - Generalized edema Plan: Likely related to renal failure. HD tomorrow for ultrafiltration. (3) Congestive heart failure (CHF) Code(s): I50.9 - Heart failure, unspecified Status: Acute Qualifiers: Heart failure type: combined systolic and diastolic (4) Hyperkalemia Code(s): E87.5 - Hyperkalemia Status: Resolved Plan: Resolved with HD. (5) Hyperphosphatemia Code(s): E83.39 - Other disorders of phosphorus metabolism Status: Acute Plan: Secondary to renal failure. PhosLo ordered with meals.
[2017-09-30] MEDS: traZODone 100 MG Tablet PO SCH (21:14)
[2017-10-01 08:45] LABS: Calcium 7.9 mg/dL (8.5-10.1); Carbon Dioxide 30.4 meq/L (21.0-32.0); Potassium 4.1 meq/L (3.5-5.1)
--- NOTE | 2017-10-01 09:29 | P.PNFP ---
Subjective Interval history: Patient was seen and examined this morning he states is a little tired but overall feeling better today. He has had significant diuresis via urine output and did have dialysis yesterday per his report. The patient denies fevers, chills, nausea, vomiting, headaches, chest pain, abdominal pain. He does not complain about pain this morning. <NileshMeaghan L - 10/01/17 09:28> Results - Labs Result diagrams: 09/30/17 09:33 10/01/17 07:42 <Ute Marin - 10/01/17 12:34> Abnormal lab results 10/01/17 Range/Units 07:42 BUN 21 H (7-18) mg/dL Creatinine 2.94 H (0.60-1.30) mg/dL Estimated GFR 22 L (>89) mL/min Calcium 7.9 L (8.5-10.1) mg/dL BMP 10/01/17 07:42 Sodium 137 Potassium 4.1 Chloride 99 Carbon Dioxide 30.4 BUN 21 H Creatinine 2.94 H Calcium 7.9 L <Ute Marin - 10/01/17 12:34> Abnormal lab results 09/30/17 09/30/17 10/01/17 Range/Units 09:33 09:33 07:42 RBC 3.10 L (4.50-5.90) mil/mm3 Hgb 10.4 L (13.0-17.0) gm/dL Hct 32.5 L (39.0-51.0) % MCV 104.9 H (80.0-100.0) fL RDW 19.4 H (11.6-17.2) % [place] % (Auto) 22.7 H (0.0-8.0) % Lymph # (Auto) 0.7 L (1.0-4.8) th/mm3 [place] # (Auto) 1.1 H (0.0-0.9) th/mm3 BUN 30 H 21 H (7-18) mg/dL Creatinine 3.80 H 2.94 H (0.60-1.30) mg/dL Estimated GFR 17 L 22 L (>89) mL/min Calcium 8.3 L 7.9 L (8.5-10.1) mg/dL Phosphorus 5.7 H (2.5-4.9) mg/dL Albumin 3.1 L (3.4-5.0) g/dL Short CBC 09/30/17 Range/Units 09:33 WBC 4.9 (4.0-11.0) th/mm3 Hgb 10.4 L (13.0-17.0) gm/dL Hct 32.5 L (39.0-51.0) % Plt Count 308 (150-450) th/mm3 BMP 09/30/17 10/01/17 09:33 07:42 Sodium 136 137 Potassium 4.7 4.1 Chloride 98 99 Carbon Dioxide 27.8 30.4 BUN 30 H 21 H Creatinine 3.80 H 2.94 H Calcium 8.3 L 7.9 L Liver Function 09/30/17 Range/Units 09:33 Albumin 3.1 L (3.4-5.0) g/dL <NileshMeaghan L - 10/01/17 09:28> Physical Exam Vital signs: Vital Signs 09/30/17 15:51 09/30/17 16:00 09/30/17 20:00 Temperature 97.5 F L 97.9 F Pulse Rate 65 74 77 Respiratory Rate 18 16 Blood Pressure 94/70 L 107/53 L Pulse Oximetry 92 L 99 10/01/17 00:00 10/01/17 04:00 10/01/17 08:00 Temperature 97.7 F 97.9 F Pulse Rate 70 71 73 Respiratory Rate 18 22 Blood Pressure 112/56 L 104/55 L Pulse Oximetry 98 94 L Intake & Output 09/30/17 10/01/17 10/01/17 18:59 06:59 18:59 Intake Total 720 / 720 Output Total 4300 / 4300 Balance -3580 / -3580 Intake: Oral 720 / 720 Output: Urine 300 / 300 Hemodialysis Amount 4000 / 4000 Other: # Bowel Movements 1 <Ute Marin - 10/01/17 12:34> Vital Signs 09/30/17 10:05 09/30/17 12:00 09/30/17 12:28 Temperature 97.7 F Pulse Rate 65 63 Respiratory Rate 18 Blood Pressure 104/52 L Pulse Oximetry 97 97 09/30/17 15:51 09/30/17 16:00 09/30/17 20:00 Temperature 97.5 F L 97.9 F Pulse Rate 65 74 77 Respiratory Rate 18 16 Blood Pressure 94/70 L 107/53 L Pulse Oximetry 92 L 99 10/01/17 00:00 10/01/17 04:00 Temperature 97.7 F Pulse Rate 70 71 Respiratory Rate 18 Blood Pressure 112/56 L Pulse Oximetry 98 Intake & Output 09/30/17 10/01/17 10/01/17 18:59 06:59 18:59 Intake Total 720 / 720 Output Total 4300 / 4300 Balance -3580 / -3580 Intake: Oral 720 / 720 Output: Urine 300 / 300 Hemodialysis Amount 4000 / 4000 Other: # Bowel Movements 1 <Meaghan Galloway - 10/01/17 09:28> Narrative: GENERAL: Patient is sleeping comfortably in no apparent distress. Easily aroused. SKIN: Warm and mildly diaphoretic. He is under 4 different blankets HEAD: Normocephalic. EYES: No scleral icterus. No injection or drainage. NECK: Supple, trachea midline. Full range of motion of neck. CARDIOVASCULAR: Regular rate and rhythm without murmurs, cardiac sounds distant. RESPIRATORY: Breath sounds equal bilaterally. No accessory muscle use. Clear to auscultation GASTROINTESTINAL: Abdomen soft, obese but much less fluid overload than previous exams. MUSCULOSKELETAL: No cyanosis. Left lower extremity with clean and dry dry wound dressing. Edema is 3+ pitting in bilateral lower extremities up to thighs and hands with 1+ pitting edema, none noted in the forearms. <Meaghan Galloway - 10/01/17 09:28> Assessment and Plan - Assessment (1) ESTELLA (acute kidney injury) Code(s): N17.9 - Acute kidney failure, unspecified Status: Acute (2) Edema Code(s): R60.9 - Edema, unspecified Status: Acute (3) Hyperkalemia Code(s): E87.5 - Hyperkalemia Status: Resolved (4) Hyperphosphatemia Code(s): E83.39 - Other disorders of phosphorus metabolism Status: Acute (5) Abnormal liver enzymes Code(s): R74.8 - Abnormal levels of other serum enzymes Status: Acute (6) Hypertension Code(s): I10 - Essential (primary) hypertension Status: Chronic (7) History of asthma Code(s): Z87.09 - Personal history of other diseases of the respiratory system Status: Chronic (8) Depression with anxiety Code(s): F41.8 - Other specified anxiety disorders Status: Chronic (9) Gout Code(s): M10.9 - Gout, unspecified Status: Chronic (10) Cellulitis Code(s): L03.90 - Cellulitis, unspecified Status: Resolved (11) New onset of congestive heart failure Code(s): I50.9 - Heart failure, unspecified Status: Ruled-out (12) Sleep apnea Code(s): G47.30 - Sleep apnea, unspecified Status: Acute (13) Nutrition, metabolism, and development symptoms Code(s): R63.8 - Other symptoms and signs concerning food and fluid intake Status: Acute <Ute Marin - 10/01/17 12:34> (1) ESTELLA (acute kidney injury) Code(s): N17.9 - Acute kidney failure, unspecified Status: Acute Plan: Creatinine continues to improve 2.94 today. Continue to monitor. Dialysis planned to continue for fluid management. On Lasix 80 mg IV twice daily, nephrology managing Impression/Course: New finding of ESTELLA on 09/23 labs. Creatinine 0.89 on admission, 2.78 today. Etiology unclear. He did receive Lasix IV given fluid overload at time of admission. Vancomycin was given and discontinued after ESTELLA, kidney US negative, labs so far not revealing. Status-post initially gentle diuresis (750 cc bolus with 125cc/h normal saline 24 hours) discontinued on 09/24. Transitioned back to Lasix IV 09/24 as noted. Avoid nephrotoxic agents. Pharmacy noted regarding renal dosing of meds. Avoid Vancomycin administration in the future. Avoid nephrotoxic agents. Vascath placed and dialysis initiated 09/27. Status post dialysis on 09/28 with anticipated dialysis on 09/30 as well. Nephrology managing, appreciate assistance. Fluid status appears stable on exam. Monitor labs. Lasix noted to be ordered at 80 mg IV twice daily at this point with potassium stable at 4.7 today At this point suspecting ESTELLA with possible intrinsic renal disease related to Vancomycin Serology and urine studies so far unremakable PO fluid allowance to 2 L daily. Serial BMPs. Lasix IV re-initiated per nephrology on 09/24 given severe fluid overload, UOP noted to be not adequate per report (2) Edema Code(s): R60.9 - Edema, unspecified Status: Acute Plan: 4L out with dialysis on 09/30 Fluid retention notable with UOP on record inadequate, however, patient receiving dialysis Nephrology consulted, management as noted Does have net negative fluid balance per records due to dialysis Of note patient did receive lung and IVC NM scan on 09/26/17 to assess for clot burden, with negative results for VQ and NM IVC scan. (3) Hyperkalemia Code(s): E87.5 - Hyperkalemia Status: Resolved Plan: Patient with renal failure as likely contributor, to monitor. Within normal limits since 09/28 Course: Secondary to renal failure potassium chloride DC'd. Patient is s/p Kayexalate 09/26, had a loose bowel movement. Additional dose of Diuril with furosemide 09/26 for diuresis. (4) Hyperphosphatemia Code(s): E83.39 - Other disorders of phosphorus metabolism Status: Acute Plan: Secondary to renal failure. Improving. PhosLo ordered with meals per nephrology. (5) Abnormal liver enzymes Code(s): R74.8 - Abnormal levels of other serum enzymes Status: Acute Plan: Mild. Elevated AST and alkaline phosphatase on arrival, stable, continue to monitor periodically. Hepatic disease not appearing to be related to fluid overload. Impression/Course: Patient has a history of heavy alcohol use -Previously drank up to 12 beers daily for several years, reduced approximately 1 year ago -Currently endorses 4 beers per occasion, 3-4 occasions per week -No CIWA needs Liver ultrasound showing markedly large fatty liver. Hepatitis panel negative, discussed with patient (6) Hypertension Code(s): I10 - Essential (primary) hypertension Status: Chronic Plan: Patient with a known history of hypertension Normo- to hypotensive so far this hospitalization Continue home metoprolol which is 25 mg twice daily, hold for heart rate less than 60, BP less than 110/60 Metalozone initiated in hospital initially given suspicion for CHF but d/c'd given ESTELLA and no CHF ACEI considered but echo showing no evidence of heart failure however evidence of elevated pulmonary pressures (c/w history of SARA) (7) History of asthma Code(s): Z87.09 - Personal history of other diseases of the respiratory system Status: Chronic Plan: Patient with a known history of asthma Scheduling duo nebs every 4hr PRN, albuterol every 2hr PRN SOB/wheezing (8) Depression with anxiety Code(s): F41.8 - Other specified anxiety disorders Status: Chronic Plan: Patient with a known history of depression anxiety. Continue home Zoloft, trazodone. Holding Valium. (9) Gout Code(s): M10.9 - Gout, unspecified Status: Chronic Plan: Patient with a known history of gout. Continuing home allopurinol. (10) Cellulitis Code(s): L03.90 - Cellulitis, unspecified Status: Resolved Plan: Continue daily Santyl dressings per Wound care recommendations. Okay to take a bath given no active infection however, keeping Vas-Cath and peripheral access clean and dry Patient to follow up with outpt wound care upon discharge. Impression/Course: Patient presented with bilateral lower extremity edema with erythema overlying surgical site on LLE. Did not have systemic signs of infection and no longer suspicious for cellulitis, suspect related to fluid overload and/or venous insufficiency. He does have left ankle wound which wound care has been consulted and recommending daily Santyl dressings since 09/23. Will continue to monitor lower extremities, wound culture showing MRSA and Pseudomonas however wound culture was superficial and may have been reflective of skin ori. ital signs have been within normal limits without fever this hospitalization and white count within normal limits. Suspect some element of pressure ulcer given limited mobility since his ankle surgery in July 2017 (internal fixation with rods and screws throughout ankle). X-ray performed 09/20 showing intact hardware and soft tissue edema Antibiotics: Vancomycin 09/21 through 09/24, discontinued given ESTELLA and lower suspicion for cellulitis Vancomycin ordered with pharmacy consult to help with dosing (09/21-09/24) Rocephin 2 g IV daily (09/21 - 09/23) Blood cultures 2 no growth 3 days Wound culture: MRSA, Pseudomonas PT/OT consult ordered - PT currently recommending home with home health PT ESR 14, low suspicion for osteomyelitis Lactic acid 1.5 on admission Patient afebrile without leukocytosis (11) New onset of congestive heart failure Code(s): I50.9 - Heart failure, unspecified Status: Ruled-out Plan: Patient does not appear to have CHF however does have increased pulmonary pressure consistent with SARA/obesity hypoventilation syndrome. Of note the echo did not easily visualized IVC (blockage in IVC could contribute to edema). Patient is poor candidate for contrast studies at this time, will continue to monitor/workup fluid overload which is suspected to be unrelated to heart. Lipid profile is perfect, A1c is 4.7 Impression/Course: Patient grossly fluid overloaded with elevated BNP of 203 on admission. BNP is stable 191. UOP not impressive, however breathing has improved to baseline. Patient has history of obstructive sleep apnea and significant alcohol history; needs CPAP evaluation as outpatient Suspect fluid overload related to obesity hypoventilation syndrome versus IVC dysfunction versus venous/lymphatic insufficiency though the latter does not explain anasarca. Liver ultrasound showing fatty liver but otherwise unremarkable 2D echocardiogram showing EF 55-60%, elevated pulmonary pressure Cardiology consulted, appreciate recommendations, they are awaiting echo result before further recommendation. Metolazone initiated this hospitalization but d/ c'd 09/23 given ESTELLA -Monitor daily weights, stable at this time -Fluid restriction to 1.5 L and low-salt diet, add protein shakes -Troponins negative 3 -Discontinue telemetry today, unremarkable -Supplemental oxygen as needed -Patient is normo- to hypotensive this hospitalization Diuresis: Furosemide 40 mg IV twice daily 24 hours, transitioned to 40 mg PO twice daily with potassium 20 mEq daily on 09/22 -Received 40 mg IV 1 in the emergency department -Furosemide held 09/23 given ESTELLA -Furosemide IV 60 mg twice daily reinitiated 09/24 -Dialysis initiated 09/27 for continued fluid overload Bilateral lower extremity Dopplers negative for DVT Chest x-ray with cardiomegaly and indicative of a positive fluid balance (12) Sleep apnea Code(s): G47.30 - Sleep apnea, unspecified Status: Acute Plan: Of note, we suspect patient has sleep apnea given history reported and elevated pulmonary arterial pressure on echocardiogram. CPAP was ordered for patient to trial but he has refused thus far. Patient will require further discussion and workup of this as an outpatient. (13) Nutrition, metabolism, and development symptoms Code(s): R63.8 - Other symptoms and signs concerning food and fluid intake Status: Acute Plan: FEN: - Gentle PO hydration given ESTELLA - Caution if considering IVF given fluid overload, IVF not indicated at this time - Correct electrolytes as needed - Low-salt, heart healthy diet and fluid restriction to 2 L PPX: - Lovenox renal dosing <Meaghan Galloway - 10/01/17 09:15> - Assessment and Plan The exam, history, and the medical decision-making described in the above note were completed with the assistance of the resident physician. I reviewed and agree with the findings presented. I attest that I had a [id number] encounter with the patient on the same day, and personally performed and documented my assessment and findings in the medical record. Unsure if he will need long-term dialysis versus short-term. Appreciate help of nephrology especially in consideration of whether he needs a renal biopsy. <Ute Marin - 10/01/17 12:34> Patient is a 56-year-old male with a history of asthma, depression and anxiety, gout, hypertension and recent surgical repair of the left ankle and left hip who presented to the ED with progressive shortness of breath and lower extremity edema. Chest x-ray showing cardiomegaly with mild positive fluid balance. Initial ACS workup is negative. Patient also noted to have likely cellulitis in the bilateral lower extremities. Received vancomycin x1 in the ED. Admitted to inpatient for suspected new onset CHF, fluid overload management, cellulitis treatment. New onset ESTELLA 09/23 to workup and manage, nephrology consulted. <Meaghan Galloway - 10/01/17 09:28> Discharge Planning: Unclear discharge at this time. Pending fluid management, kidney failure management, and discharge planning. Home health PT recommended per PT evaluation. <Meaghan Galloway - 10/01/17 09:28> <Meaghan Galloway - Last Filed: 10/01/17 09:15> (2) Edema Qualifiers: Edema type: generalized Qualified Code(s): R60.1 - Generalized edema (6) Hypertension Qualifiers: Hypertension type: essential hypertension Qualified Code(s): I10 - Essential (primary) hypertension (10) Cellulitis Qualifiers: Site of cellulitis: extremity Site of cellulitis of extremity: lower extremity Laterality: unspecified laterality Qualified Code(s): L03.119 - Cellulitis of unspecified part of limb <Ute Marin M - Last Filed: 10/01/17 12:34> (2) Edema Qualifiers: Edema type: generalized Qualified Code(s): R60.1 - Generalized edema (6) Hypertension Qualifiers: Hypertension type: essential hypertension Qualified Code(s): I10 - Essential (primary) hypertension (10) Cellulitis Qualifiers: Site of cellulitis: extremity Site of cellulitis of extremity: lower extremity Laterality: unspecified laterality Qualified Code(s): L03.119 - Cellulitis of unspecified part of limb <Meaghan Galloway L - Last Filed: 10/01/17 09:15> (2) Edema Qualifiers: Edema type: generalized Qualified Code(s): R60.1 - Generalized edema (6) Hypertension Qualifiers: Hypertension type: essential hypertension Qualified Code(s): I10 - Essential (primary) hypertension (10) Cellulitis Qualifiers: Site of cellulitis: extremity Site of cellulitis of extremity: lower extremity Laterality: unspecified laterality Qualified Code(s): L03.119 - Cellulitis of unspecified part of limb <Ute Marin M - Last Filed: 10/01/17 12:34> (2) Edema Qualifiers: Edema type: generalized Qualified Code(s): R60.1 - Generalized edema (6) Hypertension Qualifiers: Hypertension type: essential hypertension Qualified Code(s): I10 - Essential (primary) hypertension (10) Cellulitis Qualifiers: Site of cellulitis: extremity Site of cellulitis of extremity: lower extremity Laterality: unspecified laterality Qualified Code(s): L03.119 - Cellulitis of unspecified part of limb
[2017-10-01] MEDS: Sertraline 50 MG Tablet PO SCH (09:31)
[2017-10-01] MEDS: Calcium Acetate 667 MG Capsule PO SCH ×3 (09:31→18:28)
[2017-10-01] MEDS: Allopurinol 100 MG Tablet PO SCH (09:32)
[2017-10-01] MEDS: Enoxaparin Inj 30 MG/0.3 ML Syringe SQ SCH (09:32)
[2017-10-01] MEDS: Metoprolol Tartrate 25 MG Tablet PO SCH ×2 (12:08→20:07)
--- NOTE | 2017-10-01 13:09 | P.PNNP ---
Subjective Interval history: Pt feeling better. No complaints at the present. <Verna Cisneros R - Last Filed: 10/01/17 13:03> Physical Exam Vital signs: Vital Signs 09/30/17 15:51 09/30/17 16:00 09/30/17 20:00 Temperature 97.5 F L 97.9 F Pulse Rate 65 74 77 Respiratory Rate 18 16 Blood Pressure 94/70 L 107/53 L Pulse Oximetry 92 L 99 10/01/17 00:00 10/01/17 04:00 10/01/17 08:00 Temperature 97.7 F 97.9 F Pulse Rate 70 71 73 Respiratory Rate 18 22 Blood Pressure 112/56 L 104/55 L Pulse Oximetry 98 94 L Intake & Output 09/30/17 10/01/17 10/01/17 18:59 06:59 18:59 Intake Total 720 / 720 Output Total 4300 / 4300 Balance -3580 / -3580 Intake: Oral 720 / 720 Output: Urine 300 / 300 Hemodialysis Amount 4000 / 4000 Other: # Bowel Movements 1 - Constitutional no acute distress - Routine HEENT Exam Head: Present: normocephalic - Routine Neck Exam Present: supple - Routine Respiratory Exam Present: decreased breath sounds, diminished air movement - Routine Cardiovascular Exam Present: RRR, S1, S2 - Routine Extremities Exam Present: edema (continued generalized edema) - Routine Neurological Exam Present: alert, oriented X3 <Verna Cisneros - Last Filed: 10/01/17 13:03> Vital signs: Vital Signs 09/30/17 15:51 09/30/17 16:00 09/30/17 20:00 Temperature 97.5 F L 97.9 F Pulse Rate 65 74 77 Respiratory Rate 18 16 Blood Pressure 94/70 L 107/53 L Pulse Oximetry 92 L 99 10/01/17 00:00 10/01/17 04:00 10/01/17 08:00 Temperature 97.7 F 97.9 F Pulse Rate 70 71 73 Respiratory Rate 18 22 Blood Pressure 112/56 L 104/55 L Pulse Oximetry 98 94 L 10/01/17 12:00 Temperature 97.4 F L Pulse Rate 72 Respiratory Rate 22 Blood Pressure 112/58 L Pulse Oximetry 96 Intake & Output 09/30/17 10/01/17 10/01/17 18:59 06:59 18:59 Intake Total 720 / 720 Output Total 4300 / 4300 Balance -3580 / -3580 Intake: Oral 720 / 720 Output: Urine 300 / 300 Hemodialysis Amount 4000 / 4000 Other: # Bowel Movements 1 <Liz Perry - Last Filed: 10/01/17 13:53> Assessment and Plan - Assessment (1) Acute renal insufficiency Code(s): N28.9 - Disorder of kidney and ureter, unspecified Status: Acute Plan: Suspect acute renal insufficiency possibly superimposed on intrinsic renal disease secondary to vancomycin nephrotoxicity. Hemodialysis 10/02/17 for additional fluid removal. If no signs of improvement in renal function consideration be given to a kidney biopsy possibly towards the end of this week by goal presently to improve his volume status. Still with significant fluid retention despite IV furosemide and dialysis. Reiterated the importance of being compliant with his fluid restriction today. Medications should be adjusted for the patient's estimated GFR if clinically indicated. Avoid agents with significant potential for nephrotoxicity possible including NSAIDs for analgesia, iodine contrast agents. Gadolinium is contraindicated if the GFR is below 30. (2) Edema Code(s): R60.9 - Edema, unspecified Status: Acute Qualifiers: Edema type: generalized Qualified Code(s): R60.1 - Generalized edema Plan: Likely related to renal failure. HD tomorrow for ultrafiltration. (3) Congestive heart failure (CHF) Code(s): I50.9 - Heart failure, unspecified Status: Acute Qualifiers: Heart failure type: combined systolic and diastolic (4) Hyperkalemia Code(s): E87.5 - Hyperkalemia Status: Resolved Plan: Resolved with HD. (5) Hyperphosphatemia Code(s): E83.39 - Other disorders of phosphorus metabolism Status: Acute Plan: Secondary to renal failure. PhosLo ordered with meals. <Verna Cisneros - Last Filed: 10/01/17 13:03> - Assessment (1) Acute renal insufficiency Code(s): N28.9 - Disorder of kidney and ureter, unspecified Status: Acute (2) Edema Code(s): R60.9 - Edema, unspecified Status: Acute Qualifiers: Edema type: generalized Qualified Code(s): R60.1 - Generalized edema (3) Congestive heart failure (CHF) Code(s): I50.9 - Heart failure, unspecified Status: Acute Qualifiers: Heart failure type: combined systolic and diastolic (4) Hyperkalemia Code(s): E87.5 - Hyperkalemia Status: Resolved (5) Hyperphosphatemia Code(s): E83.39 - Other disorders of phosphorus metabolism Status: Acute - Attending Attestation The exam, history, and the medical decision-making described in the above note were completed with the assistance of the MICHOACANO. I reviewed and agree with the findings presented. <Liz Perry - Last Filed: 10/01/17 13:53>
[2017-10-01] MEDS: Collagenase Oint 30 GM Tube TOPICAL SCH (18:29)
[2017-10-01] MEDS: traZODone 100 MG Tablet PO SCH (19:59)
[2017-10-02 07:08] LABS: Baso % (Auto) 0.6 % (0.0-2.0); Eos # (Auto) 0.2 th/mm3 (0.0-0.4); Eos % (Auto) 2.5 % (0.0-4.0); Hematocrit 32.9 % (39.0-51.0); Hemoglobin 10.3 gm/dL (13.0-17.0); Lymph # (Auto) 0.8 th/mm3 (1.0-4.8); Lymph % (Auto) 12.9 % (9.0-44.0); Mean Corpuscular HGB Conc 31.3 % (32.0-36.0); Mean Corpuscular Volume 105.3 fL (80.0-100.0); Mono # (Auto) 1.1 th/mm3 (0.0-0.9); Mono % (Auto) 17.2 % (0.0-8.0); Neut # (Auto) 4.2 th/mm3 (1.8-7.7); Neut % (Auto) 66.8 % (16.0-70.0); Platelet Count 312 th/mm3 (150-450); Red Blood Count 3.13 mil/mm3 (4.50-5.90); Red Cell Distribution Width 19.3 % (11.6-17.2); White Blood Count 6.3 th/mm3 (4.0-11.0)
[2017-10-02 07:31] LABS: Albumin 2.9 g/dL (3.4-5.0); Calcium 8.7 mg/dL (8.5-10.1); Carbon Dioxide 30.8 meq/L (21.0-32.0); Phosphorus 5.8 mg/dL (2.5-4.9); Potassium 4.1 meq/L (3.5-5.1)
[2017-10-02] MEDS: Calcium Acetate 667 MG Capsule PO SCH ×3 (08:07→18:03)
[2017-10-02] MEDS: Allopurinol 100 MG Tablet PO SCH (08:08)
[2017-10-02] MEDS: Sertraline 50 MG Tablet PO SCH (08:08)
[2017-10-02] MEDS: Collagenase Oint 30 GM Tube TOPICAL SCH (08:08)
[2017-10-02] MEDS: Enoxaparin Inj 30 MG/0.3 ML Syringe SQ SCH (09:24)
[2017-10-02] MEDS: Metoprolol Tartrate 25 MG Tablet PO SCH ×2 (09:25→22:02)
--- NOTE | 2017-10-02 11:15 | P.PNFP ---
Subjective Interval history: Patient was seen and examined this morning. He continues to feel insights manager and feels his diuresis is going well. He denies fevers, chills, nausea, vomiting, headaches, chest pain, abdominal pain, lower extremity edema. He continues to require nasal cannula for comfort and notes that his sats do decrease when they take it off. <NileshMeaghan Latanya - 10/02/17 11:15> Results - Labs Result diagrams: 10/02/17 05:48 10/02/17 05:48 <Ute Marin - 10/02/17 13:43> Abnormal lab results 10/02/17 10/02/17 Range/Units 05:48 05:48 RBC 3.13 L (4.50-5.90) mil/mm3 Hgb 10.3 L (13.0-17.0) gm/dL Hct 32.9 L (39.0-51.0) % MCV 105.3 H (80.0-100.0) fL MCHC 31.3 L (32.0-36.0) % RDW 19.3 H (11.6-17.2) % [place] % (Auto) 17.2 H (0.0-8.0) % Lymph # (Auto) 0.8 L (1.0-4.8) th/mm3 [place] # (Auto) 1.1 H (0.0-0.9) th/mm3 Sodium 133 L (136-145) meq/L Chloride 94 L (98-107) meq/L BUN 25 H (7-18) mg/dL Creatinine 3.00 H (0.60-1.30) mg/dL Estimated GFR 22 L (>89) mL/min Random Glucose 107 H (74-106) mg/dL Phosphorus 5.8 H (2.5-4.9) mg/dL Albumin 2.9 L (3.4-5.0) g/dL Short CBC 10/02/17 Range/Units 05:48 WBC 6.3 (4.0-11.0) th/mm3 Hgb 10.3 L (13.0-17.0) gm/dL Hct 32.9 L (39.0-51.0) % Plt Count 312 (150-450) th/mm3 [facility] 10/02/17 05:48 Sodium 133 L Potassium 4.1 Chloride 94 L Carbon Dioxide 30.8 BUN 25 H Creatinine 3.00 H Calcium 8.7 D Liver Function 10/02/17 Range/Units 05:48 Albumin 2.9 L (3.4-5.0) g/dL <TomasUte Belén - 10/02/17 13:43> Abnormal lab results 10/02/17 10/02/17 Range/Units 05:48 05:48 RBC 3.13 L (4.50-5.90) mil/mm3 Hgb 10.3 L (13.0-17.0) gm/dL Hct 32.9 L (39.0-51.0) % MCV 105.3 H (80.0-100.0) fL MCHC 31.3 L (32.0-36.0) % RDW 19.3 H (11.6-17.2) % [place] % (Auto) 17.2 H (0.0-8.0) % Lymph # (Auto) 0.8 L (1.0-4.8) th/mm3 [place] # (Auto) 1.1 H (0.0-0.9) th/mm3 Sodium 133 L (136-145) meq/L Chloride 94 L (98-107) meq/L BUN 25 H (7-18) mg/dL Creatinine 3.00 H (0.60-1.30) mg/dL Estimated GFR 22 L (>89) mL/min Random Glucose 107 H (74-106) mg/dL Phosphorus 5.8 H (2.5-4.9) mg/dL Albumin 2.9 L (3.4-5.0) g/dL Short CBC 10/02/17 Range/Units 05:48 WBC 6.3 (4.0-11.0) th/mm3 Hgb 10.3 L (13.0-17.0) gm/dL Hct 32.9 L (39.0-51.0) % Plt Count 312 (150-450) th/mm3 BMP 10/02/17 05:48 Sodium 133 L Potassium 4.1 Chloride 94 L Carbon Dioxide 30.8 BUN 25 H Creatinine 3.00 H Calcium 8.7 D Liver Function 10/02/17 Range/Units 05:48 Albumin 2.9 L (3.4-5.0) g/dL <Meaghan Galloway 10/02/17 11:15> Physical Exam Vital signs: Vital Signs 10/01/17 16:00 10/01/17 17:51 10/01/17 20:00 Temperature 97.0 F L 97.9 F Pulse Rate 70 75 Respiratory Rate 20 20 Blood Pressure 114/63 106/57 L Pulse Oximetry 96 96 92 L 10/02/17 00:00 10/02/17 04:00 10/02/17 08:00 Temperature 97.0 F L 97.3 F L 97.4 F L Pulse Rate 72 80 76 Respiratory Rate 20 18 16 Blood Pressure 131/65 118/54 L 122/62 Pulse Oximetry 97 96 96 10/02/17 09:52 10/02/17 12:00 Temperature 97.0 F L Pulse Rate 70 Respiratory Rate 12 Blood Pressure 104/62 Pulse Oximetry 98 97 Intake & Output 10/01/17 10/02/17 10/02/17 18:59 06:59 18:59 Intake Total 520 / 520 Output Total 400 / 400 200 / 200 Balance 120 / 120 -200 / -200 Weight 155.1 kg Intake: Oral 520 / 520 Output: Urine 400 / 400 200 / 200 Other: # Voids 1,200 Date of Last Bowel Movement 10/01/17 # Bowel Movements 1 0 <Ute Marin M - 10/02/17 13:43> Vital Signs 10/01/17 12:00 10/01/17 16:00 10/01/17 17:51 Temperature 97.4 F L 97.0 F L Pulse Rate 72 70 Respiratory Rate 22 20 Blood Pressure 112/58 L 114/63 Pulse Oximetry 96 96 96 10/01/17 20:00 10/02/17 00:00 10/02/17 04:00 Temperature 97.9 F 97.0 F L 97.3 F L Pulse Rate 75 72 80 Respiratory Rate 20 20 18 Blood Pressure 106/57 L 131/65 118/54 L Pulse Oximetry 92 L 97 96 10/02/17 08:00 10/02/17 09:52 Temperature 97.4 F L Pulse Rate 76 Respiratory Rate 16 Blood Pressure 122/62 Pulse Oximetry 96 98 Intake & Output 10/01/17 10/02/17 10/02/17 18:59 06:59 18:59 Intake Total 520 / 520 Output Total 400 / 400 200 / 200 Balance 120 / 120 -200 / -200 Weight 155.1 kg Intake: Oral 520 / 520 Output: Urine 400 / 400 200 / 200 Other: # Voids 1,200 Date of Last Bowel Movement 10/01/17 # Bowel Movements 1 0 <Meaghan Galloway - 10/02/17 11:15> Narrative: GENERAL: Patient is sleeping comfortably in no apparent distress. Awake and alert. SKIN: Warm and dry. Right chest permcath and right forearm lines inspected and permcath has loose dressing and dried blood under it. No active bleeding. HEAD: Normocephalic. EYES: No scleral icterus. No injection or drainage. NECK: Supple, trachea midline. CARDIOVASCULAR: Regular rate and rhythm without murmurs, cardiac sounds distant. RESPIRATORY: Breath sounds equal bilaterally. No accessory muscle use. Mild expiratory wheeze GASTROINTESTINAL: Abdomen soft, obese but much less fluid overload than previous exams. MUSCULOSKELETAL: No cyanosis. Left lower extremity with clean and dry dry wound dressing. Edema is 2-3+ pitting in bilateral lower extremities up to thighs and hands with no edema today <Meaghan Galloway - 10/02/17 11:15> Assessment and Plan - Assessment (1) ESTELLA (acute kidney injury) Code(s): N17.9 - Acute kidney failure, unspecified Status: Acute (2) Edema Code(s): R60.9 - Edema, unspecified Status: Acute (3) Hyperkalemia Code(s): E87.5 - Hyperkalemia Status: Resolved (4) Hyperphosphatemia Code(s): E83.39 - Other disorders of phosphorus metabolism Status: Acute (5) Abnormal liver enzymes Code(s): R74.8 - Abnormal levels of other serum enzymes Status: Acute (6) Hypertension Code(s): I10 - Essential (primary) hypertension Status: Chronic (7) History of asthma Code(s): Z87.09 - Personal history of other diseases of the respiratory system Status: Chronic (8) Depression with anxiety Code(s): F41.8 - Other specified anxiety disorders Status: Chronic (9) Gout Code(s): M10.9 - Gout, unspecified Status: Chronic (10) Cellulitis Code(s): L03.90 - Cellulitis, unspecified Status: Resolved (11) New onset of congestive heart failure Code(s): I50.9 - Heart failure, unspecified Status: Ruled-out (12) Sleep apnea Code(s): G47.30 - Sleep apnea, unspecified Status: Acute (13) Nutrition, metabolism, and development symptoms Code(s): R63.8 - Other symptoms and signs concerning food and fluid intake Status: Acute <Ute Marin - 10/02/17 13:43> (1) ESTELLA (acute kidney injury) Code(s): N17.9 - Acute kidney failure, unspecified Status: Acute Plan: Creatinine stable ~3 today. Continue to monitor. Dialysis planned to continue for fluid management. On Lasix 80 mg IV twice daily, nephrology managing Unsure if he will need long-term dialysis versus short-term. Appreciate help of nephrology especially in consideration of whether he needs a renal biopsy. Impression/Course: New finding of ESTELLA on 09/23 labs. Creatinine 0.89 on admission, 2.78 today. Etiology unclear. He did receive Lasix IV given fluid overload at time of admission. Vancomycin was given and discontinued after ESTELLA, kidney US negative, labs so far not revealing. Status-post initially gentle diuresis (750 cc bolus with 125cc/h normal saline 24 hours) discontinued on 09/24. Transitioned back to Lasix IV 09/24 as noted. Avoid nephrotoxic agents. Pharmacy noted regarding renal dosing of meds. Avoid Vancomycin administration in the future. Avoid nephrotoxic agents. Vascath placed and dialysis initiated 09/27. Status post dialysis on 09/28 with anticipated dialysis on 09/30 as well. Nephrology managing, appreciate assistance. Fluid status appears stable on exam. Monitor labs. Lasix noted to be ordered at 80 mg IV twice daily at this point with potassium stable at 4.7 today At this point suspecting ESTELLA with possible intrinsic renal disease related to Vancomycin Serology and urine studies so far unremakable PO fluid allowance to 2 L daily. Serial BMPs. Lasix IV re-initiated per nephrology on 09/24 given severe fluid overload, UOP noted to be not adequate per report (2) Edema Code(s): R60.9 - Edema, unspecified Status: Acute Plan: 4L out with dialysis on 10/01 Fluid retention notable with UOP on record inadequate, however, patient receiving dialysis Nephrology consulted, management as noted Does have net negative fluid balance per records due to dialysis Of note patient did receive lung and IVC NM scan on 09/26/17 to assess for clot burden, with negative results for VQ and NM IVC scan. (3) Hyperkalemia Code(s): E87.5 - Hyperkalemia Status: Resolved Plan: Patient with renal failure as likely contributor, to monitor. Within normal limits since 09/28 Course: Secondary to renal failure potassium chloride DC'd. Patient is s/p Kayexalate 09/26, had a loose bowel movement. Additional dose of Diuril with furosemide 09/26 for diuresis. (4) Hyperphosphatemia Code(s): E83.39 - Other disorders of phosphorus metabolism Status: Acute Plan: Secondary to renal failure. Improving. PhosLo ordered with meals per nephrology. (5) Abnormal liver enzymes Code(s): R74.8 - Abnormal levels of other serum enzymes Status: Acute Plan: Mild. Elevated AST and alkaline phosphatase on arrival, stable, continue to monitor periodically. Hepatic disease not appearing to be related to fluid overload. Impression/Course: Patient has a history of heavy alcohol use -Previously drank up to 12 beers daily for several years, reduced approximately 1 year ago -Currently endorses 4 beers per occasion, 3-4 occasions per week -No CIWA needs Liver ultrasound showing markedly large fatty liver. Hepatitis panel negative, discussed with patient (6) Hypertension Code(s): I10 - Essential (primary) hypertension Status: Chronic Plan: Patient with a known history of hypertension Normo- to hypotensive so far this hospitalization Continue home metoprolol which is 25 mg twice daily, hold for heart rate less than 60, BP less than 110/60 Metalozone initiated in hospital initially given suspicion for CHF but d/c'd given ESTELLA and no CHF ACEI considered but echo showing no evidence of heart failure however evidence of elevated pulmonary pressures (c/w history of SARA) (7) History of asthma Code(s): Z87.09 - Personal history of other diseases of the respiratory system Status: Chronic Plan: Patient with a known history of asthma Scheduling duo nebs every 4hr PRN, albuterol every 2hr PRN SOB/wheezing (8) Depression with anxiety Code(s): F41.8 - Other specified anxiety disorders Status: Chronic Plan: Patient with a known history of depression anxiety. Continue home Zoloft, trazodone. Holding Valium. (9) Gout Code(s): M10.9 - Gout, unspecified Status: Chronic Plan: Patient with a known history of gout. Continuing home allopurinol. (10) Cellulitis Code(s): L03.90 - Cellulitis, unspecified Status: Resolved Plan: Continue daily Santyl dressings per Wound care recommendations. Okay to take a bath given no active infection however, keeping Vas-Cath and peripheral access clean and dry Patient to follow up with outpt wound care upon discharge. Impression/Course: Patient presented with bilateral lower extremity edema with erythema overlying surgical site on LLE. Did not have systemic signs of infection and no longer suspicious for cellulitis, suspect related to fluid overload and/or venous insufficiency. He does have left ankle wound which wound care has been consulted and recommending daily Santyl dressings since 09/23. Will continue to monitor lower extremities, wound culture showing MRSA and Pseudomonas however wound culture was superficial and may have been reflective of skin ori. ital signs have been within normal limits without fever this hospitalization and white count within normal limits. Suspect some element of pressure ulcer given limited mobility since his ankle surgery in July 2017 (internal fixation with rods and screws throughout ankle). X-ray performed 09/20 showing intact hardware and soft tissue edema Antibiotics: Vancomycin 09/21 through 09/24, discontinued given ESTELLA and lower suspicion for cellulitis Vancomycin ordered with pharmacy consult to help with dosing (09/21-09/24) Rocephin 2 g IV daily (09/21 - 09/23) Blood cultures 2 no growth 3 days Wound culture: MRSA, Pseudomonas PT/OT consult ordered - PT currently recommending home with home health PT ESR 14, low suspicion for osteomyelitis Lactic acid 1.5 on admission Patient afebrile without leukocytosis (11) New onset of congestive heart failure Code(s): I50.9 - Heart failure, unspecified Status: Ruled-out Plan: Patient does not appear to have CHF however does have increased pulmonary pressure consistent with SARA/obesity hypoventilation syndrome. Of note the echo did not easily visualized IVC (blockage in IVC could contribute to edema). Patient is poor candidate for contrast studies at this time, will continue to monitor/workup fluid overload which is suspected to be unrelated to heart. Lipid profile is perfect, A1c is 4.7 Impression/Course: Patient grossly fluid overloaded with elevated BNP of 203 on admission. BNP is stable 191. UOP not impressive, however breathing has improved to baseline. Patient has history of obstructive sleep apnea and significant alcohol history; needs CPAP evaluation as outpatient Suspect fluid overload related to obesity hypoventilation syndrome versus IVC dysfunction versus venous/lymphatic insufficiency though the latter does not explain anasarca. Liver ultrasound showing fatty liver but otherwise unremarkable 2D echocardiogram showing EF 55-60%, elevated pulmonary pressure Cardiology consulted, appreciate recommendations, they are awaiting echo result before further recommendation. Metolazone initiated this hospitalization but d/ c'd 09/23 given ESTELLA -Monitor daily weights, stable at this time -Fluid restriction to 1.5 L and low-salt diet, add protein shakes -Troponins negative 3 -Discontinue telemetry today, unremarkable -Supplemental oxygen as needed -Patient is normo- to hypotensive this hospitalization Diuresis: Furosemide 40 mg IV twice daily 24 hours, transitioned to 40 mg PO twice daily with potassium 20 mEq daily on 09/22 -Received 40 mg IV 1 in the emergency department -Furosemide held 09/23 given ESTELLA -Furosemide IV 60 mg twice daily reinitiated 09/24 -Dialysis initiated 09/27 for continued fluid overload Bilateral lower extremity Dopplers negative for DVT Chest x-ray with cardiomegaly and indicative of a positive fluid balance (12) Sleep apnea Code(s): G47.30 - Sleep apnea, unspecified Status: Acute Plan: Home O2 walk test ordered for discharge planning given continues to require oxygen while inpt Of note, we suspect patient has sleep apnea given history reported and elevated pulmonary arterial pressure on echocardiogram. CPAP was ordered for patient to trial but he has refused thus far. Patient will require further discussion and workup of this as an outpatient. (13) Nutrition, metabolism, and development symptoms Code(s): R63.8 - Other symptoms and signs concerning food and fluid intake Status: Acute Plan: FEN: - Gentle PO hydration given ESTELLA - Caution if considering IVF given fluid overload, IVF not indicated at this time - Correct electrolytes as needed - Low-salt, heart healthy diet and fluid restriction to 2 L PPX: - Lovenox renal dosing <Meaghan Galloway - 10/02/17 11:07> - Assessment and Plan Patient is a 56-year-old male with a history of asthma, depression and anxiety, gout, hypertension and recent surgical repair of the left ankle and left hip who presented to the ED with progressive shortness of breath and lower extremity edema. Chest x-ray showing cardiomegaly with mild positive fluid balance. Initial ACS workup is negative. Patient also noted to have likely cellulitis in the bilateral lower extremities. Received vancomycin x1 in the ED. Admitted to inpatient for suspected new onset CHF, fluid overload management, cellulitis treatment. New onset ESTELLA 09/23 to workup and manage, nephrology consulted. <Meaghan Galloway - 10/02/17 11:15> Discharge Planning: Unclear discharge at this time. Pending fluid management, kidney failure management, and discharge planning. Home health PT recommended per PT evaluation. <Meaghan Galloway - 10/02/17 11:15> - Attending Attestation The exam, history, and the medical decision-making described in the above note were completed with the assistance of the resident physician. I reviewed and agree with the findings presented. I attest that I had a [id number] encounter with the patient on the same day, and personally performed and documented my assessment and findings in the medical record. I observed him sleeping today and he does meet the criteria for sleep apnea. However despite urging him multiple times he does not use his CPAP. He may very well benefit from oxygen as he does have pulmonary hypertension. Also with his sleep apnea at times his O2 sats have been low especially when he is probably sleeping but they are fine normally when he is awake. <Ute Marin - 10/02/17 13:43> <Meaghan Galloway - Last Filed: 10/02/17 11:07> (2) Edema Qualifiers: Edema type: generalized Qualified Code(s): R60.1 - Generalized edema (6) Hypertension Qualifiers: Hypertension type: essential hypertension Qualified Code(s): I10 - Essential (primary) hypertension (10) Cellulitis Qualifiers: Site of cellulitis: extremity Site of cellulitis of extremity: lower extremity Laterality: unspecified laterality Qualified Code(s): L03.119 - Cellulitis of unspecified part of limb <Ute Marin M - Last Filed: 10/02/17 13:43> (2) Edema Qualifiers: Edema type: generalized Qualified Code(s): R60.1 - Generalized edema (6) Hypertension Qualifiers: Hypertension type: essential hypertension Qualified Code(s): I10 - Essential (primary) hypertension (10) Cellulitis Qualifiers: Site of cellulitis: extremity Site of cellulitis of extremity: lower extremity Laterality: unspecified laterality Qualified Code(s): L03.119 - Cellulitis of unspecified part of limb <Meaghan Galloway L - Last Filed: 10/02/17 11:07> (2) Edema Qualifiers: Edema type: generalized Qualified Code(s): R60.1 - Generalized edema (6) Hypertension Qualifiers: Hypertension type: essential hypertension Qualified Code(s): I10 - Essential (primary) hypertension (10) Cellulitis Qualifiers: Site of cellulitis: extremity Site of cellulitis of extremity: lower extremity Laterality: unspecified laterality Qualified Code(s): L03.119 - Cellulitis of unspecified part of limb <Ute Marin - Last Filed: 10/02/17 13:43> (2) Edema Qualifiers: Edema type: generalized Qualified Code(s): R60.1 - Generalized edema (6) Hypertension Qualifiers: Hypertension type: essential hypertension Qualified Code(s): I10 - Essential (primary) hypertension (10) Cellulitis Qualifiers: Site of cellulitis: extremity Site of cellulitis of extremity: lower extremity Laterality: unspecified laterality Qualified Code(s): L03.119 - Cellulitis of unspecified part of limb
--- NOTE | 2017-10-02 17:45 | P.PNNP ---
Subjective Interval history: This patient is a 56-year-old male with a history of hypertension, gout as well as asthma and I suspect sleep apnea. Patient denies any previous knowledge of renal insufficiency. On presentation to the hospital he was complaining of increasing edema and shortness of breath. Chest x-ray apparently did show some signs of interstitial edema. Echocardiogram showed slightly reduced EF of 55-60%. Creatinine on presentation 0.8 on the seventh of this month subsequently deteriorating progressively 3.52. Patient was on vancomycin as well as furosemide both of which have since apparently been discontinued. Patient denies using NSAIDs at home. No history of alecia diabetes mellitus, collagen vascular disease or viral hepatitis. Patient was seen during dialysis today. Tolerating treatment well however the Vas-Cath is having marginal blood flow. Physical Exam Vital signs: Vital Signs 10/01/17 17:51 10/01/17 20:00 10/02/17 00:00 Temperature 97.9 F 97.0 F L Pulse Rate 75 72 Respiratory Rate 20 20 Blood Pressure 106/57 L 131/65 Pulse Oximetry 96 92 L 97 10/02/17 04:00 10/02/17 08:00 10/02/17 09:52 Temperature 97.3 F L 97.4 F L Pulse Rate 80 82 Respiratory Rate 18 16 Blood Pressure 118/54 L 122/62 Pulse Oximetry 96 96 98 10/02/17 12:00 10/02/17 16:00 10/02/17 17:32 Temperature 97.0 F L Pulse Rate 73 83 Respiratory Rate 12 Blood Pressure 104/62 Pulse Oximetry 97 97 Intake & Output 10/01/17 10/02/17 10/02/17 18:59 06:59 18:59 Intake Total 520 / 520 Output Total 400 / 400 200 / 200 4400 / 4400 Balance 120 / 120 -200 / -200 -4400 / -4400 Weight 155.1 kg Intake: Oral 520 / 520 Output: Urine 400 / 400 200 / 200 400 / 400 Hemodialysis Amount 4000 / 4000 Other: # Voids 1,200 1 Date of Last Bowel Movement 10/01/17 # Bowel Movements 1 0 Narrative: GENERAL: Patient seen during dialysis today. No verbal complaints. SKIN: Warm and dry. HEAD: Normocephalic. EYES: No scleral icterus. No injection or drainage. NECK: Supple, trachea midline. No JVD or lymphadenopathy. CARDIOVASCULAR: Regular rate and rhythm without murmurs, gallops, or rubs. RESPIRATORY: Breath sounds equal bilaterally. No accessory muscle use. GASTROINTESTINAL: Abdomen soft, non-tender, nondistended. MUSCULOSKELETAL: No cyanosis, patient still with marked peripheral edema 2-3+ involving limbs. 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 Patient still appears dialysis dependent with marked fluid retention and marginal response to parenteral diuretics. I discussed with the patient indications for, alternatives to and risks associated with kidney biopsy including risk of hemorrhage, need for blood transfusion, loss of kidney as well as and the benefits of proceeding and patient agrees to proceed with a kidney biopsy. Will try to have it performed tomorrow. In view of persistent fluid retention we will plan for dialysis tomorrow also. Patient was counseled regarding the need to restrict all fluids. He indicated to me that he was following his fluid restriction. Medications should be adjusted for the patient's estimated GFR if clinically indicated. Avoid agents with significant potential for nephrotoxicity possible including NSAIDs for analgesia, iodine contrast agents. Gadolinium is contraindicated if the GFR is below 30. (2) Edema Code(s): R60.9 - Edema, unspecified Status: Acute Qualifiers: Edema type: generalized Qualified Code(s): R60.1 - Generalized edema Plan: Likely related to renal failure. HD tomorrow for ultrafiltration. (3) Congestive heart failure (CHF) Code(s): I50.9 - Heart failure, unspecified Status: Acute Qualifiers: Heart failure type: combined systolic and diastolic (4) Hyperphosphatemia Code(s): E83.39 - Other disorders of phosphorus metabolism Status: Acute Plan: Secondary to renal failure. PhosLo ordered with meals.
[2017-10-02] MEDS: traZODone 100 MG Tablet PO SCH (22:02)
[2017-10-03 08:20] LABS: Albumin 2.9 g/dL (3.4-5.0); Calcium 8.7 mg/dL (8.5-10.1); Carbon Dioxide 32.8 meq/L (21.0-32.0); Potassium 4.2 meq/L (3.5-5.1)
--- NOTE | 2017-10-03 10:23 | P.PNFP ---
Subjective Interval history: Patient was seen and examined this morning. He states he feels better but is hoping to have oxygen at home whenever he is discharged. He understands he is due to possibly have renal biopsy today and will definitely have dialysis. He is currently n.p.o. for possible procedure. He denies fevers, chills, chest pain, shortness of breath (when wearing nasal cannula). He notes that the pain medication helps with his pain <NileshMeaghan L - 10/03/17 10:23> Results - Labs Result diagrams: 10/05/17 12:54 10/05/17 05:46 <Ute Marin M - 10/05/17 16:40> Abnormal lab results 10/05/17 10/05/17 10/05/17 Range/Units 05:40 05:46 11:33 RBC 1.86 L (4.50-5.90) mil/mm3 Hgb 6.2 L* D (13.0-17.0) gm/dL Hct 19.5 L* (39.0-51.0) % MCV 104.9 H (80.0-100.0) fL MCHC 31.6 L (32.0-36.0) % RDW 18.8 H (11.6-17.2) % Seg Neuts % (Manual) 74 H (16-70) % Lymphocytes % (Manual) 7 L (9-44) % Monocytes % (Manual) 12 H (0-8) % Abs Neuts (Manual) 8.0 H (1.8-7.7) th/mm3 Chloride 97 L (98-107) meq/L BUN 23 H (7-18) mg/dL Creatinine 2.88 H (0.60-1.30) mg/dL Estimated GFR 23 L (>89) mL/min Iron 25 L (65-175) mcg/dL % Saturation 8.9 L (20-50) % AST 14 L (15-37) U/L Total Protein 6.3 L (6.4-8.2) g/dL Albumin 2.7 L (3.4-5.0) g/dL MTS Gel Crossmatch See Detail 10/05/17 Range/Units 12:54 RBC (4.50-5.90) mil/mm3 Hgb 6.5 L* (13.0-17.0) gm/dL Hct 20.5 L* (39.0-51.0) % MCV (80.0-100.0) fL MCHC (32.0-36.0) % RDW (11.6-17.2) % Seg Neuts % (Manual) (16-70) % Lymphocytes % (Manual) (9-44) % Monocytes % (Manual) (0-8) % Abs Neuts (Manual) (1.8-7.7) th/mm3 Chloride (98-107) meq/L BUN (7-18) mg/dL Creatinine (0.60-1.30) mg/dL Estimated GFR (>89) mL/min Iron (65-175) mcg/dL % Saturation (20-50) % AST (15-37) U/L Total Protein (6.4-8.2) g/dL Albumin (3.4-5.0) g/dL MTS Gel Crossmatch Short CBC 10/05/17 10/05/17 Range/Units 05:40 12:54 WBC 10.4 (4.0-11.0) th/mm3 Hgb 6.2 L* D 6.5 L* (13.0-17.0) gm/dL Hct 19.5 L* 20.5 L* (39.0-51.0) % Plt Count 305 (150-450) th/mm3 BMP 10/05/17 05:46 Sodium 137 Potassium 4.5 Chloride 97 L Carbon Dioxide 31.9 BUN 23 H Creatinine 2.88 H Calcium 8.7 Liver Function 10/05/17 Range/Units 05:46 Total Bilirubin 0.3 (0.2-1.0) mg/dL AST 14 L (15-37) U/L ALT 16 (12-78) U/L Alkaline Phosphatase 86 (45-117) U/L Albumin 2.7 L (3.4-5.0) g/dL <Ute Marin - 10/05/17 16:40> Abnormal lab results 10/03/17 Range/Units 06:58 Chloride 97 L (98-107) meq/L Carbon Dioxide 32.8 H (21.0-32.0) meq/L BUN 20 H (7-18) mg/dL Creatinine 2.55 H (0.60-1.30) mg/dL Estimated GFR 26 L (>89) mL/min Phosphorus 5.0 H (2.5-4.9) mg/dL Albumin 2.9 L (3.4-5.0) g/dL BMP 10/03/17 06:58 Sodium 137 Potassium 4.2 Chloride 97 L Carbon Dioxide 32.8 H BUN 20 H Creatinine 2.55 H Calcium 8.7 Liver Function 10/03/17 Range/Units 06:58 Albumin 2.9 L (3.4-5.0) g/dL <Meaghan Galloway L - 10/03/17 10:23> Physical Exam Vital signs: Vital Signs 10/04/17 18:10 10/04/17 19:20 10/04/17 20:00 Temperature 97.2 F L Pulse Rate 73 Respiratory Rate 20 18 20 Blood Pressure 100/53 L Pulse Oximetry 93 L 10/04/17 20:52 10/04/17 23:55 10/05/17 00:00 Temperature 98.2 F Pulse Rate 78 78 Respiratory Rate 20 Blood Pressure 107/51 L Pulse Oximetry 95 97 10/05/17 04:00 10/05/17 04:25 10/05/17 06:07 Temperature 98.4 F Pulse Rate 80 79 Respiratory Rate 20 14 Blood Pressure 111/53 L Pulse Oximetry 97 10/05/17 07:43 10/05/17 08:00 10/05/17 10:37 Temperature 98.1 F Pulse Rate 84 Respiratory Rate 16 20 18 Blood Pressure 112/56 L Pulse Oximetry 94 L 10/05/17 11:07 10/05/17 12:00 10/05/17 13:56 Temperature 98.2 F Pulse Rate 72 Respiratory Rate 18 20 18 Blood Pressure 93/50 L Pulse Oximetry 97 10/05/17 14:46 10/05/17 15:09 10/05/17 15:26 Temperature 98.5 F 98.5 F 98.2 F Pulse Rate 73 76 74 Respiratory Rate 20 18 18 Blood Pressure 94/42 L 87/51 L 104/50 L Pulse Oximetry Intake & Output 10/04/17 10/05/17 10/05/17 18:59 06:59 18:59 Intake Total 240 / 240 100 / 100 800 / 800 Output Total 300 / 300 Balance -60 / -60 100 / 100 800 / 800 Weight 148.9 kg Intake: Oral 240 / 240 100 / 100 Intake (Blood Product) Amt 800 / 800 Rbc As-3 Leukoreduced Unit 400 / 400 [id number] Rbc As-3 Leukoreduced Unit 400 / 400 [id number] Output: Urine 300 / 300 Stool 0 / 0 Other: # Voids 300 Date of Last Bowel Movement 10/03/17 10/04/17 # Bowel Movements 0 <Ute Marin M - 10/05/17 16:40> Vital Signs 10/02/17 12:00 10/02/17 16:00 10/02/17 17:32 Temperature 97.0 F L Pulse Rate 74 83 Respiratory Rate 12 Blood Pressure 104/62 Pulse Oximetry 97 97 10/02/17 17:57 10/02/17 19:15 10/02/17 20:00 Temperature 98.1 F 98.8 F Pulse Rate 81 83 Respiratory Rate 12 16 Blood Pressure 103/55 L 111/56 L Pulse Oximetry 100 95 10/02/17 22:03 10/02/17 23:45 10/03/17 00:00 Temperature 97.9 F Pulse Rate 95 H Respiratory Rate 20 20 Blood Pressure 136/59 L Pulse Oximetry 80 L 94 L 10/03/17 04:00 Temperature 97.5 F L Pulse Rate 78 Respiratory Rate 18 Blood Pressure 99/53 L Pulse Oximetry 95 Intake & Output 10/02/17 10/03/17 10/03/17 18:59 06:59 18:59 Output Total 4600 / 4600 Balance -4600 / -4600 Weight 151.3 kg Output: Urine 600 / 600 Hemodialysis Amount 4000 / 4000 Other: # Voids 1 <NileshMeaghan L - 10/03/17 10:23> Narrative: GENERAL: Patient is awake and alert SKIN: Warm and dry. Right chest permcath and right forearm lines inspected again today with noted clean dressing. The right chest has healing bruise. HEAD: Normocephalic. EYES: No scleral icterus. No injection or drainage. NECK: Supple, trachea midline. CARDIOVASCULAR: Regular rate and rhythm without murmurs, cardiac sounds distant. RESPIRATORY: Breath sounds equal bilaterally. No accessory muscle use. Mild expiratory wheeze GASTROINTESTINAL: Abdomen soft, obese but much less fluid overload than previous exams. MUSCULOSKELETAL: No cyanosis. Left lower extremity with clean and dry dry wound dressing. Edema is 3+ pitting in bilateral lower extremities up to thighs <Meaghan Galloway - 10/03/17 10:23> Assessment and Plan - Assessment (1) ESTELLA (acute kidney injury) Code(s): N17.9 - Acute kidney failure, unspecified Status: Acute Plan: Creatinine 2.55 most recently, improved. Continue to monitor. Dialysis planned to continue for fluid management. Possible renal biopsy today, pt is NPO. On Lasix 80 mg IV twice daily, nephrology managing Unsure if he will need long-term dialysis versus short-term. Appreciate nephrology management of patient's care Impression/Course: New finding of ESTELLA on 09/23 labs. Creatinine 0.89 on admission, 2.78 today. Etiology unclear. He did receive Lasix IV given fluid overload at time of admission. Vancomycin was given and discontinued after ESTELLA, kidney US negative, labs so far not revealing. Status-post initially gentle diuresis (750 cc bolus with 125cc/h normal saline 24 hours) discontinued on 09/24. Transitioned back to Lasix IV 09/24 as noted. Avoid nephrotoxic agents. Pharmacy noted regarding renal dosing of meds. Avoid Vancomycin administration in the future. Avoid nephrotoxic agents. Vascath placed and dialysis initiated 09/27. Status post dialysis on 09/28 with anticipated dialysis on 09/30 as well. Nephrology managing, appreciate assistance. Fluid status appears stable on exam. Monitor labs. Lasix noted to be ordered at 80 mg IV twice daily at this point with potassium stable at 4.7 today At this point suspecting ESTELLA with possible intrinsic renal disease related to Vancomycin Serology and urine studies so far unremakable PO fluid allowance to 2 L daily. Serial BMPs. Lasix IV re-initiated per nephrology on 09/24 given severe fluid overload, UOP noted to be not adequate per report (2) Edema Code(s): R60.9 - Edema, unspecified Status: Acute Plan: 4L out with dialysis on 10/02 Fluid retention notable with UOP on record inadequate, however, patient receiving dialysis Nephrology consulted, management as noted Does have net negative fluid balance per records due to dialysis Of note patient did receive lung and IVC NM scan on 09/26/17 to assess for clot burden, with negative results for VQ and NM IVC scan. (3) Hyperkalemia Code(s): E87.5 - Hyperkalemia Status: Resolved Plan: Patient with renal failure as likely contributor, to monitor. Within normal limits since 09/28 Course: Secondary to renal failure potassium chloride DC'd. Patient is s/p Kayexalate 09/26, had a loose bowel movement. Additional dose of Diuril with furosemide 09/26 for diuresis. (4) Hyperphosphatemia Code(s): E83.39 - Other disorders of phosphorus metabolism Status: Acute Plan: Secondary to renal failure. Improving. PhosLo ordered with meals per nephrology. (5) Abnormal liver enzymes Code(s): R74.8 - Abnormal levels of other serum enzymes Status: Acute Plan: Mild. Elevated AST and alkaline phosphatase on arrival, stable, continue to monitor periodically. Hepatic disease not appearing to be related to fluid overload. Impression/Course: Patient has a history of heavy alcohol use -Previously drank up to 12 beers daily for several years, reduced approximately 1 year ago -Currently endorses 4 beers per occasion, 3-4 occasions per week -No CIWA needs Liver ultrasound showing markedly large fatty liver. Hepatitis panel negative, discussed with patient (6) Hypertension Code(s): I10 - Essential (primary) hypertension Status: Chronic Plan: Patient with a known history of hypertension Normo- to hypotensive so far this hospitalization Continue home metoprolol which is 25 mg twice daily, hold for heart rate less than 60, BP less than 110/60 Metalozone initiated in hospital initially given suspicion for CHF but d/c'd given ESTELLA and no CHF ACEI considered but echo showing no evidence of heart failure however evidence of elevated pulmonary pressures (c/w history of SARA) (7) History of asthma Code(s): Z87.09 - Personal history of other diseases of the respiratory system Status: Chronic Plan: Patient with a known history of asthma Scheduling duo nebs every 4hr PRN, albuterol every 2hr PRN SOB/wheezing (8) Depression with anxiety Code(s): F41.8 - Other specified anxiety disorders Status: Chronic Plan: Patient with a known history of depression anxiety. Continue home Zoloft, trazodone. Holding Valium. (9) Gout Code(s): M10.9 - Gout, unspecified Status: Chronic Plan: Patient with a known history of gout. Continuing home allopurinol. (10) Open wound of left lower extremity Code(s): S81.802A - Unspecified open wound, left lower leg, initial encounter Status: Acute Plan: Continue daily Santyl dressings per Wound care recommendations. Okay to take a bath given no active infection however, keeping Vas-Cath and peripheral access clean and dry Patient to follow up with outpt wound care upon discharge. Impression/Course: Patient presented with bilateral lower extremity edema with erythema overlying surgical site on LLE. Did not have systemic signs of infection and no longer suspicious for cellulitis, suspect related to fluid overload and/or venous insufficiency. He does have left ankle wound which wound care has been consulted and recommending daily Santyl dressings since 09/23. Will continue to monitor lower extremities, wound culture showing MRSA and Pseudomonas however wound culture was superficial and may have been reflective of skin ori. ital signs have been within normal limits without fever this hospitalization and white count within normal limits. Suspect some element of pressure ulcer given limited mobility since his ankle surgery in July 2017 (internal fixation with rods and screws throughout ankle). X-ray performed 09/20 showing intact hardware and soft tissue edema Antibiotics: Vancomycin 09/21 through 09/24, discontinued given ESTELLA and lower suspicion for cellulitis Vancomycin ordered with pharmacy consult to help with dosing (09/21-09/24) Rocephin 2 g IV daily (09/21 - 09/23) Blood cultures 2 no growth 3 days Wound culture: MRSA, Pseudomonas PT/OT consult ordered - PT currently recommending home with home health PT ESR 14, low suspicion for osteomyelitis Lactic acid 1.5 on admission Patient afebrile without leukocytosis (11) New onset of congestive heart failure Code(s): I50.9 - Heart failure, unspecified Status: Ruled-out Plan: Patient does not appear to have CHF however does have increased pulmonary pressure consistent with SARA/obesity hypoventilation syndrome. Of note the echo did not easily visualized IVC (blockage in IVC could contribute to edema). Patient is poor candidate for contrast studies at this time, will continue to monitor/workup fluid overload which is suspected to be unrelated to heart. Lipid profile is perfect, A1c is 4.7 Impression/Course: Patient grossly fluid overloaded with elevated BNP of 203 on admission. BNP is stable 191. UOP not impressive, however breathing has improved to baseline. Patient has history of obstructive sleep apnea and significant alcohol history; needs CPAP evaluation as outpatient Suspect fluid overload related to obesity hypoventilation syndrome versus IVC dysfunction versus venous/lymphatic insufficiency though the latter does not explain anasarca. Liver ultrasound showing fatty liver but otherwise unremarkable 2D echocardiogram showing EF 55-60%, elevated pulmonary pressure Cardiology consulted, appreciate recommendations, they are awaiting echo result before further recommendation. Metolazone initiated this hospitalization but d/ c'd 09/23 given ESTELLA -Monitor daily weights, stable at this time -Fluid restriction to 1.5 L and low-salt diet, add protein shakes -Troponins negative 3 -Discontinue telemetry today, unremarkable -Supplemental oxygen as needed -Patient is normo- to hypotensive this hospitalization Diuresis: Furosemide 40 mg IV twice daily 24 hours, transitioned to 40 mg PO twice daily with potassium 20 mEq daily on 09/22 -Received 40 mg IV 1 in the emergency department -Furosemide held 09/23 given ESTELLA -Furosemide IV 60 mg twice daily reinitiated 09/24 -Dialysis initiated 09/27 for continued fluid overload Bilateral lower extremity Dopplers negative for DVT Chest x-ray with cardiomegaly and indicative of a positive fluid balance (12) Sleep apnea Code(s): G47.30 - Sleep apnea, unspecified Status: Acute Plan: Home O2 walk test ordered for discharge planning given continues to require oxygen while inpt Of note, we suspect patient has sleep apnea given history reported and elevated pulmonary arterial pressure on echocardiogram. CPAP was ordered for patient to trial but he has refused thus far. Patient will require further discussion and workup of this as an outpatient. (13) Anemia Code(s): D64.9 - Anemia, unspecified Status: Acute Plan: Globin noted to be suggestive of chronic macrocytic disease, stable but will monitor. (14) Nutrition, metabolism, and development symptoms Code(s): R63.8 - Other symptoms and signs concerning food and fluid intake Status: Acute Plan: FEN: - Gentle PO hydration given ESTELLA - Caution if considering IVF given fluid overload, IVF not indicated at this time - Correct electrolytes as needed - Low-salt, heart healthy diet and fluid restriction to 2 L PPX: - Lovenox renal dosing <Meaghan Galloway - 10/03/17 10:09> (1) Anemia Code(s): D64.9 - Anemia, unspecified Status: Acute (2) ESTELLA (acute kidney injury) Code(s): N17.9 - Acute kidney failure, unspecified Status: Acute (3) Edema Code(s): R60.9 - Edema, unspecified Status: Acute (4) Hyperphosphatemia Code(s): E83.39 - Other disorders of phosphorus metabolism Status: Resolved (5) Hypertension Code(s): I10 - Essential (primary) hypertension Status: Chronic (6) History of asthma Code(s): Z87.09 - Personal history of other diseases of the respiratory system Status: Chronic (7) Depression with anxiety Code(s): F41.8 - Other specified anxiety disorders Status: Chronic (8) Gout Code(s): M10.9 - Gout, unspecified Status: Chronic (9) Open wound of left lower extremity Code(s): S81.802A - Unspecified open wound, left lower leg, initial encounter Status: Acute (10) Sleep apnea Code(s): G47.30 - Sleep apnea, unspecified Status: Acute (11) Nutrition, metabolism, and development symptoms Code(s): R63.8 - Other symptoms and signs concerning food and fluid intake Status: Acute <Ute Marin - 10/05/17 16:40> - Assessment and Plan Patient is a 56-year-old male with a history of asthma, depression and anxiety, gout, hypertension and recent surgical repair of the left ankle and left hip who presented to the ED with progressive shortness of breath and lower extremity edema. Chest x-ray showing cardiomegaly with mild positive fluid balance. Initial ACS workup is negative. Patient also noted to have likely cellulitis in the bilateral lower extremities. Received vancomycin x1 in the ED. Admitted to inpatient for suspected new onset CHF, fluid overload management, cellulitis treatment. New onset ESTELLA 09/23 to workup and manage, nephrology consulted. <Meaghan Galloway - 10/03/17 10:23> Discharge Planning: Unclear discharge at this time. Pending fluid management, kidney failure management, and discharge planning. Home health PT recommended per PT evaluation. Patient will require wound care as outpatient. <Meaghan Galloway - 10/03/17 10:23> - Attending Attestation The exam, history, and the medical decision-making described in the above note were completed with the assistance of the resident physician. I reviewed and agree with the findings presented. I attest that I had a [id number] encounter with the patient on the same day, and personally performed and documented my assessment and findings in the medical record. he will have a biopsy to help determine why he developed renal failure as it still is not clear <Ute Marin - 10/05/17 16:40> <Meaghan Galloway - Last Filed: 10/03/17 10:09> (2) Edema Qualifiers: Edema type: generalized Qualified Code(s): R60.1 - Generalized edema (6) Hypertension Qualifiers: Hypertension type: essential hypertension Qualified Code(s): I10 - Essential (primary) hypertension (13) Anemia Qualifiers: Anemia type: unspecified type Qualified Code(s): D64.9 - Anemia, unspecified <Ute Marin M - Last Filed: 10/05/17 16:40> (1) Anemia Qualifiers: Anemia type: unspecified type Qualified Code(s): D64.9 - Anemia, unspecified (3) Edema Qualifiers: Edema type: generalized Qualified Code(s): R60.1 - Generalized edema (5) Hypertension Qualifiers: Hypertension type: essential hypertension Qualified Code(s): I10 - Essential (primary) hypertension <Meaghan Galloway - Last Filed: 10/03/17 10:09> (2) Edema Qualifiers: Edema type: generalized Qualified Code(s): R60.1 - Generalized edema (6) Hypertension Qualifiers: Hypertension type: essential hypertension Qualified Code(s): I10 - Essential (primary) hypertension (13) Anemia Qualifiers: Anemia type: unspecified type Qualified Code(s): D64.9 - Anemia, unspecified <Ute Marin - Last Filed: 10/05/17 16:40> (1) Anemia Qualifiers: Anemia type: unspecified type Qualified Code(s): D64.9 - Anemia, unspecified (3) Edema Qualifiers: Edema type: generalized Qualified Code(s): R60.1 - Generalized edema (5) Hypertension Qualifiers: Hypertension type: essential hypertension Qualified Code(s): I10 - Essential (primary) hypertension
[2017-10-03] MEDS ORDERED: fentaNYL Citrate Inj 100 MCG/2 ML Ampul ONE (14:33)
--- NOTE | 2017-10-03 15:16 | P.RAD ---
Post CT Procedure Prog Note - Procedure Information Procedure Date: 10/03/17 Supervising Radiologist: Luis Manuel Vidal MD Estimated blood loss (mL): 0 Anesthesia: Conscious Sedation - Plan of Activity Patient to Unit: ROPU Patient condition: Good See PACS Report for procedural detail/treatment.
[2017-10-03 16:15] LABS: Baso % (Auto) 0.5 % (0.0-2.0); Eos # (Auto) 0.1 th/mm3 (0.0-0.4); Eos % (Auto) 1.8 % (0.0-4.0); Hematocrit 34.8 % (39.0-51.0); Hemoglobin 10.7 gm/dL (13.0-17.0); Lymph # (Auto) 0.6 th/mm3 (1.0-4.8); Lymph % (Auto) 9.7 % (9.0-44.0); Mean Corpuscular Hemoglobin 32.8 pg (27.0-34.0); Mean Corpuscular Volume 106.3 fL (80.0-100.0); Mean Platelet Volume 7.9 fL (7.0-11.0); Mono % (Auto) 15.2 % (0.0-8.0); Neut # (Auto) 4.7 th/mm3 (1.8-7.7); Neut % (Auto) 72.8 % (16.0-70.0); Platelet Count 325 th/mm3 (150-450); Red Blood Count 3.27 mil/mm3 (4.50-5.90); Red Cell Distribution Width 19.9 % (11.6-17.2); White Blood Count 6.5 th/mm3 (4.0-11.0)
[2017-10-03 16:17] LABS: Mean Corpuscular HGB Conc 30.9 % (32.0-36.0)
[2017-10-03] MEDS: Metoprolol Tartrate 25 MG Tablet PO SCH ×4 (16:37→20:02)
[2017-10-03] MEDS: Calcium Acetate 667 MG Capsule PO SCH ×2 (16:38→18:23)
[2017-10-03] MEDS: Allopurinol 100 MG Tablet PO SCH (16:47)
[2017-10-03] MEDS: Sertraline 50 MG Tablet PO SCH (16:47)
--- NOTE | 2017-10-03 16:49 | P.PNNP ---
Subjective Interval history: Patient seen post kidney biopsy. Complaining of some discomfort at biopsy site but otherwise in no distress. Physical Exam Vital signs: Vital Signs 10/02/17 17:32 10/02/17 17:57 10/02/17 19:15 Temperature 98.1 F Pulse Rate 81 Respiratory Rate 12 Blood Pressure 103/55 L Pulse Oximetry 97 100 95 10/02/17 20:00 10/02/17 22:03 10/02/17 23:45 Temperature 98.8 F Pulse Rate 83 Respiratory Rate 16 20 Blood Pressure 111/56 L Pulse Oximetry 80 L 10/03/17 00:00 10/03/17 04:00 10/03/17 08:00 Temperature 97.9 F 97.5 F L 97.2 F L Pulse Rate 95 H 78 85 Respiratory Rate 20 18 20 Blood Pressure 136/59 L 99/53 L 142/69 H Pulse Oximetry 94 L 95 92 L 10/03/17 14:00 10/03/17 14:12 10/03/17 15:30 Temperature 97.6 F Pulse Rate 79 Respiratory Rate 20 20 Blood Pressure 110/64 Pulse Oximetry 95 97 10/03/17 16:27 Temperature Pulse Rate 72 Respiratory Rate 18 Blood Pressure 115/63 Pulse Oximetry 98 Intake & Output 10/02/17 10/03/17 10/03/17 18:59 06:59 18:59 Output Total 4600 / 4600 4000 / 4000 Balance -4600 / -4600 -4000 / -4000 Weight 151.3 kg Output: Urine 600 / 600 Hemodialysis Amount 4000 / 4000 4000 / 4000 Other: # Voids 1 Date of Last Bowel Movement 10/01/17 Narrative: GENERAL: Patient is awake and alert SKIN: Warm and dry. Right chest Vas-Cath in place. HEAD: Normocephalic. EYES: No scleral icterus. No injection or drainage. NECK: Supple, trachea midline. CARDIOVASCULAR: Regular rate and rhythm without murmurs, cardiac sounds distant. RESPIRATORY: Breath sounds equal bilaterally. No accessory muscle use. Mild expiratory wheeze GASTROINTESTINAL: Abdomen soft, obese but much less fluid overload than previous exams. MUSCULOSKELETAL: No cyanosis. Left lower extremity with clean and dry dry wound dressing. Edema is 2+ pitting in bilateral lower extremities. 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 Patient still appears dialysis dependent with fluid retention and marginal response to parenteral diuretics. Unlikely preliminary renal biopsy result will be available tomorrow. We may not hear anything until next week Saturday as discussed with the patient. I will will convert patient to p.o. torsemide. Next hemodialysis tentatively Saturday. May need to convert Vas-Cath to PermCath if still dialysis dependent Saturday. Medications should be adjusted for the patient's estimated GFR if clinically indicated. Avoid agents with significant potential for nephrotoxicity possible including NSAIDs for analgesia, iodine contrast agents. Gadolinium is contraindicated if the GFR is below 30. (2) Edema Code(s): R60.9 - Edema, unspecified Status: Acute Qualifiers: Edema type: generalized Qualified Code(s): R60.1 - Generalized edema (3) Congestive heart failure (CHF) Code(s): I50.9 - Heart failure, unspecified Status: Acute Qualifiers: Heart failure type: combined systolic and diastolic (4) Hyperphosphatemia Code(s): E83.39 - Other disorders of phosphorus metabolism Status: Acute Plan: Secondary to renal failure. PhosLo ordered with meals.
[2017-10-03] MEDS: Collagenase Oint 30 GM Tube TOPICAL SCH (16:50)
--- NOTE | 2017-10-03 17:16 | CT ---
EXAM DATE: 10/03/2017 3:30 PM EDT AGE/SEX: 56 years / Male INDICATIONS: Acute renal failure CLINICAL DATA: This is the patient's initial encounter. Patient reports that signs and symptoms have been present for 1 day and indicates a pain score of 0/10. MEDICAL/SURGICAL HISTORY: Asthma. Hypertension. Umbilical hernia repair. COMPARISON: [facility] [place], KIDNEY/RENAL/BLADDER, 09/23/2017. . SEDATION TIME (min): BIOPSY SITE: Left renal MEDICATION(S): 1 MG midazolam (Versed) IV 50 MCG fentanyl (Sublimaze) IV DEVICE(S): 18 gauge Temno core biopsy needle 17 gauge Introducer Five . . PROCEDURE: CT guided Left renal biopsy Prior to the procedure informed consent was obtained. Any appropriate prior imaging studies were rev iewed. Using automated exposure control and adjustment of the mA and/or kV according to patient size, radiat ion dose was kept as low as reasonably achievable to obtain optimal diagnostic quality images. DICOM format image data is available electronically for review and comparison. The site was prepped in a sterile fashion. Full sterile technique was used, including cap, mask, darío rile gloves and gown and a large sterile sheet. Hand hygiene and 2% chlorhexidine and/or betadine/al cohol prep was utilized per protocol for cutaneous antisepsis. The skin and subcutaneous tissues wer e infiltrated with local anesthetic solution. With CT guidance the previously identified target was localized. Biopsy was performed using the presc ribed needle as above. Adequate hemostasis was obtained with compression at the puncture site. Follow-up CT scan reveals no significant hemorrhage. The patient tolerated the procedure well and there were no complications. The patient was returned to the Radiology Outpatient Unit in stable condition. CONCLUSION: 1. Uncomplicated CT guided left [place] renal biopsy. Electronically signed by: Luis Manuel Vidal MD 10/03/2017 5:15 PM EDT
[2017-10-03] MEDS: Torsemide 20 MG Tablet PO SCH (18:23)
[2017-10-03] MEDS: traZODone 100 MG Tablet PO SCH (20:00)
[2017-10-03 20:50] LABS: Baso % (Auto) 0.2 % (0.0-2.0); Eos # (Auto) 0.1 th/mm3 (0.0-0.4); Eos % (Auto) 1.3 % (0.0-4.0); Hematocrit 29.1 % (39.0-51.0); Lymph # (Auto) 0.5 th/mm3 (1.0-4.8); Lymph % (Auto) 6.2 % (9.0-44.0); Mean Corpuscular Hemoglobin 33.4 pg (27.0-34.0); Mean Corpuscular Volume 107.7 fL (80.0-100.0); Mean Platelet Volume 7.7 fL (7.0-11.0); Mono # (Auto) 0.9 th/mm3 (0.0-0.9); Mono % (Auto) 10.3 % (0.0-8.0); Neut # (Auto) 7.2 th/mm3 (1.8-7.7); Platelet Count 317 th/mm3 (150-450); Red Blood Count 2.71 mil/mm3 (4.50-5.90); Red Cell Distribution Width 19.1 % (11.6-17.2); White Blood Count 8.8 th/mm3 (4.0-11.0)
[2017-10-04 08:46] LABS: Baso % (Auto) 0.3 % (0.0-2.0); Eos # (Auto) 0.1 th/mm3 (0.0-0.4); Eos % (Auto) 0.6 % (0.0-4.0); Hematocrit 26.6 % (39.0-51.0); Hemoglobin 8.3 gm/dL (13.0-17.0); Lymph # (Auto) 0.6 th/mm3 (1.0-4.8); Lymph % (Auto) 6.1 % (9.0-44.0); Mean Corpuscular HGB Conc 31.4 % (32.0-36.0); Mean Corpuscular Hemoglobin 33.2 pg (27.0-34.0); Mean Corpuscular Volume 105.6 fL (80.0-100.0); Mean Platelet Volume 7.7 fL (7.0-11.0); Mono # (Auto) 1.2 th/mm3 (0.0-0.9); Mono % (Auto) 11.7 % (0.0-8.0); Neut # (Auto) 8.3 th/mm3 (1.8-7.7); Neut % (Auto) 81.3 % (16.0-70.0); Platelet Count 404 th/mm3 (150-450); Red Blood Count 2.52 mil/mm3 (4.50-5.90); Red Cell Distribution Width 19.4 % (11.6-17.2); White Blood Count 10.3 th/mm3 (4.0-11.0)
[2017-10-04] MEDS: Sertraline 50 MG Tablet PO SCH (09:02)
[2017-10-04] MEDS: Allopurinol 100 MG Tablet PO SCH (09:02)
[2017-10-04] MEDS: Metoprolol Tartrate 25 MG Tablet PO SCH ×2 (09:02→22:14)
[2017-10-04] MEDS: Calcium Acetate 667 MG Capsule PO SCH ×3 (09:02→18:10)
[2017-10-04] MEDS: Torsemide 20 MG Tablet PO SCH (09:03)
[2017-10-04 09:04] LABS: Albumin 2.9 g/dL (3.4-5.0); Calcium 8.7 mg/dL (8.5-10.1); Carbon Dioxide 32.9 meq/L (21.0-32.0); Potassium 4.4 meq/L (3.5-5.1)
[2017-10-04 09:05] LABS: Phosphorus 4.7 mg/dL (2.5-4.9)
[2017-10-04] MEDS: Enoxaparin Inj 30 MG/0.3 ML Syringe SQ SCH (09:06)
--- NOTE | 2017-10-04 09:08 | P.PNFP ---
Subjective Interval history: Patient was seen and examined this morning. He states he has been in some GI discomfort since dialysis amenable to Pepto-Bismol. He is denying diarrhea and last bowel movement was normal in form and within the last 48 hours. He otherwise states he feels the same with no significant decrease in fluid status. Awaiting O2 walk test. Status post dialysis and renal biopsy yesterday. <Meaghan Galloway Latanya - 10/04/17 09:26> Results - Labs Result diagrams: 10/05/17 12:54 10/05/17 05:46 <Ute Marin - 10/05/17 16:41> Abnormal lab results 10/05/17 10/05/17 10/05/17 Range/Units 05:40 05:46 11:33 RBC 1.86 L (4.50-5.90) mil/mm3 Hgb 6.2 L* D (13.0-17.0) gm/dL Hct 19.5 L* (39.0-51.0) % MCV 104.9 H (80.0-100.0) fL MCHC 31.6 L (32.0-36.0) % RDW 18.8 H (11.6-17.2) % Seg Neuts % (Manual) 74 H (16-70) % Lymphocytes % (Manual) 7 L (9-44) % Monocytes % (Manual) 12 H (0-8) % Abs Neuts (Manual) 8.0 H (1.8-7.7) th/mm3 Chloride 97 L (98-107) meq/L BUN 23 H (7-18) mg/dL Creatinine 2.88 H (0.60-1.30) mg/dL Estimated GFR 23 L (>89) mL/min Iron 25 L (65-175) mcg/dL % Saturation 8.9 L (20-50) % AST 14 L (15-37) U/L Total Protein 6.3 L (6.4-8.2) g/dL Albumin 2.7 L (3.4-5.0) g/dL MTS Gel Crossmatch See Detail 10/05/17 Range/Units 12:54 RBC (4.50-5.90) mil/mm3 Hgb 6.5 L* (13.0-17.0) gm/dL Hct 20.5 L* (39.0-51.0) % MCV (80.0-100.0) fL MCHC (32.0-36.0) % RDW (11.6-17.2) % Seg Neuts % (Manual) (16-70) % Lymphocytes % (Manual) (9-44) % Monocytes % (Manual) (0-8) % Abs Neuts (Manual) (1.8-7.7) th/mm3 Chloride (98-107) meq/L BUN (7-18) mg/dL Creatinine (0.60-1.30) mg/dL Estimated GFR (>89) mL/min Iron (65-175) mcg/dL % Saturation (20-50) % AST (15-37) U/L Total Protein (6.4-8.2) g/dL Albumin (3.4-5.0) g/dL MTS Gel Crossmatch Short CBC 10/05/17 10/05/17 Range/Units 05:40 12:54 WBC 10.4 (4.0-11.0) th/mm3 Hgb 6.2 L* D 6.5 L* (13.0-17.0) gm/dL Hct 19.5 L* 20.5 L* (39.0-51.0) % Plt Count 305 (150-450) th/mm3 [facility] 10/05/17 05:46 Sodium 137 Potassium 4.5 Chloride 97 L Carbon Dioxide 31.9 BUN 23 H Creatinine 2.88 H Calcium 8.7 Liver Function 10/05/17 Range/Units 05:46 Total Bilirubin 0.3 (0.2-1.0) mg/dL AST 14 L (15-37) U/L ALT 16 (12-78) U/L Alkaline Phosphatase 86 (45-117) U/L Albumin 2.7 L (3.4-5.0) g/dL <Ute Marin - 10/05/17 16:41> Abnormal lab results 10/03/17 10/03/17 10/04/17 Range/Units 15:45 19:30 07:56 RBC 3.27 L 2.71 L 2.52 L (4.50-5.90) mil/mm3 Hgb 10.7 L 9.0 L 8.3 L (13.0-17.0) gm/dL Hct 34.8 L 29.1 L 26.6 L (39.0-51.0) % MCV 106.3 H 107.7 H 105.6 H (80.0-100.0) fL MCHC 30.9 L 31.0 L 31.4 L (32.0-36.0) % RDW 19.9 H 19.1 H 19.4 H (11.6-17.2) % Neut % (Auto) 72.8 H 82.0 H 81.3 H (16.0-70.0) % Lymph % (Auto) 6.2 L 6.1 L (9.0-44.0) % [place] % (Auto) 15.2 H 10.3 H 11.7 H (0.0-8.0) % Neut # (Auto) 8.3 H (1.8-7.7) th/mm3 Lymph # (Auto) 0.6 L 0.5 L 0.6 L (1.0-4.8) th/mm3 [place] # (Auto) 1.0 H 1.2 H (0.0-0.9) th/mm3 Short CBC 10/03/17 10/03/17 10/04/17 Range/Units 15:45 19:30 07:56 WBC 6.5 8.8 10.3 (4.0-11.0) th/mm3 Hgb 10.7 L 9.0 L 8.3 L (13.0-17.0) gm/dL Hct 34.8 L 29.1 L 26.6 L (39.0-51.0) % Plt Count 325 317 404 (150-450) th/mm3 <Meaghan Galloway - 10/04/17 09:08> - Imaging Impressions Renal Biopsy CT 10/03/17 14:40 CONCLUSION: 1. Uncomplicated CT guided left [place] renal biopsy. <Meaghan Galloway - 10/04/17 09:08> Physical Exam Vital signs: Vital Signs 10/04/17 18:10 10/04/17 19:20 10/04/17 20:00 Temperature 97.2 F L Pulse Rate 73 Respiratory Rate 20 18 20 Blood Pressure 100/53 L Pulse Oximetry 93 L 10/04/17 20:52 10/04/17 23:55 10/05/17 00:00 Temperature 98.2 F Pulse Rate 78 78 Respiratory Rate 20 Blood Pressure 107/51 L Pulse Oximetry 95 97 10/05/17 04:00 10/05/17 04:25 10/05/17 06:07 Temperature 98.4 F Pulse Rate 80 79 Respiratory Rate 20 14 Blood Pressure 111/53 L Pulse Oximetry 97 10/05/17 07:43 10/05/17 08:00 10/05/17 10:37 Temperature 98.1 F Pulse Rate 84 Respiratory Rate 16 20 18 Blood Pressure 112/56 L Pulse Oximetry 94 L 10/05/17 11:07 10/05/17 12:00 10/05/17 13:56 Temperature 98.2 F Pulse Rate 72 Respiratory Rate 18 20 18 Blood Pressure 93/50 L Pulse Oximetry 97 10/05/17 14:46 10/05/17 15:09 10/05/17 15:26 Temperature 98.5 F 98.5 F 98.2 F Pulse Rate 73 76 74 Respiratory Rate 20 18 18 Blood Pressure 94/42 L 87/51 L 104/50 L Pulse Oximetry Intake & Output 10/04/17 10/05/17 10/05/17 18:59 06:59 18:59 Intake Total 240 / 240 100 / 100 800 / 800 Output Total 300 / 300 Balance -60 / -60 100 / 100 800 / 800 Weight 148.9 kg Intake: Oral 240 / 240 100 / 100 Intake (Blood Product) Amt 800 / 800 Rbc As-3 Leukoreduced Unit 400 / 400 [id number] Rbc As-3 Leukoreduced Unit 400 / 400 [id number] Output: Urine 300 / 300 Stool 0 / 0 Other: # Voids 300 Date of Last Bowel Movement 10/03/17 10/04/17 # Bowel Movements 0 <Ute Marin M - 10/05/17 16:41> Vital Signs 10/03/17 12:00 10/03/17 14:00 10/03/17 14:12 Temperature Pulse Rate 84 Respiratory Rate 20 Blood Pressure Pulse Oximetry 95 10/03/17 15:30 10/03/17 16:00 10/03/17 16:27 Temperature 97.6 F 97.5 F L Pulse Rate 79 70 72 Respiratory Rate 20 20 18 Blood Pressure 110/64 135/86 115/63 Pulse Oximetry 97 100 98 10/03/17 16:47 10/03/17 17:20 10/03/17 20:00 Temperature 97.2 F L Pulse Rate 80 Respiratory Rate 20 20 20 Blood Pressure 138/64 Pulse Oximetry 96 10/03/17 22:21 10/04/17 00:00 10/04/17 04:00 Temperature 97.6 F 97.5 F L Pulse Rate 79 83 Respiratory Rate 20 20 Blood Pressure 114/63 100/57 L Pulse Oximetry 99 98 96 Intake & Output 10/03/17 10/04/17 10/04/17 18:59 06:59 18:59 Intake Total 0 / 0 0 / 0 Output Total 4300 / 4300 Balance -4300 / -4300 0 / 0 Weight 149.8 kg Intake: Oral 0 / 0 0 / 0 Output: Urine 300 / 300 Hemodialysis Amount 4000 / 4000 Other: # Voids 0 Date of Last Bowel Movement 10/01/17 10/03/17 # Bowel Movements 1 0 <Meaghan Galloway - 10/04/17 09:08> Narrative: GENERAL: Obese male in no apparent distress, resting comfortably. SKIN: Warm and dry. No noted erythema. HEAD: Atraumatic. Normocephalic. EYES: Pupils equal and round. No scleral icterus. No injection or drainage. ENT: No nasal bleeding or discharge. Mucous membranes pink and moist. NECK: Trachea midline. No JVD. CARDIOVASCULAR: Regular rate and rhythm. RESPIRATORY: No accessory muscle use. Clear to auscultation. Breath sounds equal bilaterally. GASTROINTESTINAL: Abdomen soft, non-tender, obese. Normal bowel sounds. Minimal truncal edema noted. MUSCULOSKELETAL: 3+ in the bilateral lower extremities to mid thigh, stable from exams. No cyanosis. Left ankle wound with clean and dry dressing noted NEUROLOGICAL: Awake and alert. No obvious cranial nerve deficits. Motor grossly within normal limits. PSYCHIATRIC: Appropriate mood and affect; insight and judgment normal. <Meaghan Galloway - 10/04/17 09:08> Assessment and Plan - Assessment (1) ESTELLA (acute kidney injury) Code(s): N17.9 - Acute kidney failure, unspecified Status: Acute Plan: Creatinine 2.11 today, continue to monitor renal function panel. Dialysis to continue for now, renal biopsy pending at this time, likely to have results on Saturday. Unsure if he will need long-term dialysis versus short-term. Patient may continue to be dialysis dependent and this would require PermCath placement prior to discharge, nephrology to continue monitoring Lasix to transition to p.o. Bumex per nephrology Appreciate nephrology management of patient's care Of note, patient has not had HIV screening which would be prudent given unknown etiology of kidney failure, will order today, patient verbally consents to this during exam. Impression/Course: New finding of ESTELLA on 09/23 labs. Creatinine 0.89 on admission, 2.74 on Day 4 of hospital stay. Etiology unclear. He did receive Lasix IV given fluid overload at time of admission. Vancomycin was given and discontinued after ESTELLA, kidney US negative, labs so far not revealing. Status-post initially gentle diuresis ( 750cc bolus with 125cc/h normal saline 24 hours) discontinued on 09/24. Transitioned back to Lasix IV 09/24 as noted. Avoid nephrotoxic agents. Pharmacy noted regarding renal dosing of meds. Avoid Vancomycin administration in the future. Avoid nephrotoxic agents. Lasix IV re-initiated per nephrology on 09/24 given severe fluid overload, UOP noted to be not adequate per report Vascath placed and dialysis initiated 09/27. Status post dialysis on 09/28 with anticipated dialysis on 09/30 as well. Nephrology managing, appreciate assistance. Lasix 80mg IV BID transitioned to Bumex 40mg PO BID on 10/03 Suspecting ESTELLA with possible intrinsic renal disease related to Vancomycin Serology and urine studies unremakable PO fluid allowance to 2 L daily. Serial BMPs. Renal biopsy 10/03, pending results (2) Edema Code(s): R60.9 - Edema, unspecified Status: Acute Plan: 4L out with dialysis on 10/03 Fluid retention notable with UOP on record inadequate, however, patient receiving dialysis Nephrology consulted, management as noted Does have net negative fluid balance per records due to dialysis Of note patient did receive lung and IVC NM scan on 09/26/17 to assess for thrombosis, with negative results for VQ and NM IVC scan. (3) Hyperkalemia Code(s): E87.5 - Hyperkalemia Status: Resolved Plan: Patient with renal failure as likely contributor, to monitor. Within normal limits since 09/28 Course: Secondary to renal failure potassium chloride DC'd. Patient is s/p Kayexalate 09/26, had a loose bowel movement. Additional dose of Diuril with furosemide 09/26 for diuresis. (4) Hyperphosphatemia Code(s): E83.39 - Other disorders of phosphorus metabolism Status: Acute Plan: Secondary to renal failure. Improving. PhosLo ordered with meals per nephrology. (5) Abnormal liver enzymes Code(s): R74.8 - Abnormal levels of other serum enzymes Status: Acute Plan: Mild. Elevated AST and alkaline phosphatase on arrival, stable, continue to monitor periodically. Hepatic disease not appearing to be related to fluid overload. Impression/Course: Patient has a history of heavy alcohol use -Previously drank up to 12 beers daily for several years, reduced approximately 1 year ago -Currently endorses 4 beers per occasion, 3-4 occasions per week -No CIWA needs Liver ultrasound showing markedly large fatty liver. Hepatitis panel negative, discussed with patient (6) Hypertension Code(s): I10 - Essential (primary) hypertension Status: Chronic Plan: Patient with a known history of hypertension Normo- to hypotensive so far this hospitalization Continue home metoprolol which is 25 mg twice daily, hold for heart rate less than 60, BP less than 110/60 Metalozone initiated in hospital initially given suspicion for CHF but d/c'd given ESTELLA and no CHF ACEI considered but echo showing no evidence of heart failure however evidence of elevated pulmonary pressures (c/w history of SARA) (7) History of asthma Code(s): Z87.09 - Personal history of other diseases of the respiratory system Status: Chronic Plan: Patient with a known history of asthma Duo nebs every 4hr PRN, albuterol every 2hr PRN SOB/wheezing Not requiring routine treatments at this time (8) Depression with anxiety Code(s): F41.8 - Other specified anxiety disorders Status: Chronic Plan: Patient with a known history of depression anxiety. Continue home Zoloft, trazodone. Holding Valium (9) Gout Code(s): M10.9 - Gout, unspecified Status: Chronic Plan: Patient with a known history of gout. Continuing home allopurinol. (10) Open wound of left lower extremity Code(s): S81.802A - Unspecified open wound, left lower leg, initial encounter Status: Acute Plan: Continue daily Santyl dressings per Wound care recommendations. Okay to take a bath given no active infection however, keeping Vas-Cath and peripheral access clean and dry Patient will need referral to outpatient wound care clinic upon discharge. Will have wound care immediately after discharge, either outpatient or home health Impression/Course: Patient presented with bilateral lower extremity edema with erythema overlying surgical site on LLE. Did not have systemic signs of infection and no longer suspicious for cellulitis, suspect related to fluid overload and/or venous insufficiency. He does have left ankle wound which wound care has been consulted and recommending daily Santyl dressings since 09/23. Will continue to monitor lower extremities, wound culture showing MRSA and Pseudomonas however wound culture was superficial and may have been reflective of skin ori. ital signs have been within normal limits without fever this hospitalization and white count within normal limits. Suspect some element of pressure ulcer given limited mobility since his ankle surgery in July 2017 (internal fixation with rods and screws throughout ankle). X-ray performed 09/20 showing intact hardware and soft tissue edema. Clinically the bilateral LEs have been stable with no significant erythema since fluid restriction and dialysis were initiated. ESR 14, low suspicion for osteomyelitis Lactic acid 1.5 on admission Patient afebrile without leukocytosis this hospitalization Antibiotics: Vancomycin 09/21 through 09/24, discontinued given ESTELLA and lower suspicion for cellulitis Vancomycin ordered with pharmacy consult to help with dosing (09/21-09/24) Rocephin 2 g IV daily (09/21 - 09/23) Blood cultures 09/20/17: no growth Wound culture 09/20/17: MRSA, Pseudomonas PT/OT consult ordered - PT currently recommending no PT at discharge (11) New onset of congestive heart failure Code(s): I50.9 - Heart failure, unspecified Status: Ruled-out Plan: RULED OUT. Patient does not appear to have CHF however does have increased pulmonary pressure consistent with SARA/obesity hypoventilation syndrome. Of note the echo did not easily visualized IVC (blockage in IVC could contribute to edema). Patient is poor candidate for contrast studies at this time, will continue to monitor/workup fluid overload which is suspected to be unrelated to heart. Lipid profile is perfect, A1c is 4.7 Impression/Course: Patient grossly fluid overloaded with elevated BNP of 203 on admission. BNP is stable 191. UOP not impressive, however breathing has improved to baseline. Patient has history of obstructive sleep apnea and significant alcohol history; needs CPAP evaluation as outpatient Suspect fluid overload related to obesity hypoventilation syndrome versus IVC dysfunction versus venous/lymphatic insufficiency though the latter does not explain anasarca. Liver ultrasound showing fatty liver but otherwise unremarkable 2D echocardiogram 09/20/17 showing EF 55-60%, elevated pulmonary pressure Cardiology consulted, appreciate recommendations. Metolazone initiated this hospitalization but d/c'd 09/23 given ESTELLA -Monitor daily weights, stable at this time -Fluid restriction to 1.5 L and low-salt diet, add protein shakes -Troponins negative 3 -Discontinue telemetry today, unremarkable -Supplemental oxygen as needed -Patient is normo- to hypotensive this hospitalization Diuresis: Furosemide 40 mg IV twice daily 24 hours, transitioned to 40 mg PO twice daily with potassium 20 mEq daily on 09/22 -Received 40 mg IV 1 in the emergency department -Furosemide held 09/23 given ESTELLA -Furosemide IV 60 mg twice daily reinitiated 09/24 -Dialysis initiated 09/27 for continued fluid overload -Furosemide increased to 80mg IV BID 09/26 then switched to Bumex 40mg PO BID Bilateral lower extremity Dopplers negative for DVT on 09/20 Chest x-ray 09/20 with cardiomegaly and indicative of a positive fluid balance (12) Sleep apnea Code(s): G47.30 - Sleep apnea, unspecified Status: Acute Plan: Home O2 walk test ordered for discharge planning given continues to require oxygen while inpt Will order home oxygen if indicated Of note, we suspect patient has sleep apnea given history reported and elevated pulmonary arterial pressure on echocardiogram. CPAP was ordered for patient to trial but he has refused thus far. Patient will require further discussion and workup of this as an outpatient. (13) Anemia Code(s): D64.9 - Anemia, unspecified Status: Acute Plan: Globin noted to be suggestive of chronic macrocytic disease, stable but will monitor. (14) Nutrition, metabolism, and development symptoms Code(s): R63.8 - Other symptoms and signs concerning food and fluid intake Status: Acute Plan: FEN: - Gentle PO hydration given ESTELLA - Caution if considering IVF given fluid overload, IVF not indicated at this time - Correct electrolytes as needed - Low-salt, heart healthy diet and fluid restriction to 2 L PPX: - Lovenox renal dosing <Meaghan Galloway - 10/04/17 09:11> (1) Anemia Code(s): D64.9 - Anemia, unspecified Status: Acute (2) ESTELLA (acute kidney injury) Code(s): N17.9 - Acute kidney failure, unspecified Status: Acute (3) Edema Code(s): R60.9 - Edema, unspecified Status: Acute (4) Hyperphosphatemia Code(s): E83.39 - Other disorders of phosphorus metabolism Status: Resolved (5) Hypertension Code(s): I10 - Essential (primary) hypertension Status: Chronic (6) History of asthma Code(s): Z87.09 - Personal history of other diseases of the respiratory system Status: Chronic (7) Depression with anxiety Code(s): F41.8 - Other specified anxiety disorders Status: Chronic (8) Gout Code(s): M10.9 - Gout, unspecified Status: Chronic (9) Open wound of left lower extremity Code(s): S81.802A - Unspecified open wound, left lower leg, initial encounter Status: Acute (10) Sleep apnea Code(s): G47.30 - Sleep apnea, unspecified Status: Acute (11) Nutrition, metabolism, and development symptoms Code(s): R63.8 - Other symptoms and signs concerning food and fluid intake Status: Acute <Ute Marin - 10/05/17 16:41> - Assessment and Plan Patient is a 56-year-old male with a history of asthma, depression and anxiety, gout, hypertension and recent surgical repair of the left ankle and left hip who presented to the ED with progressive shortness of breath and lower extremity edema. Chest x-ray showing cardiomegaly with mild positive fluid balance. Initial ACS workup is negative. Patient also noted to have likely cellulitis in the bilateral lower extremities. Received vancomycin x1 in the ED. Admitted to inpatient for suspected new onset CHF, fluid overload management, cellulitis treatment. New onset ESTELLA 09/23 to workup and manage, nephrology consulted. <Meaghan Galloway - 10/04/17 09:26> Discharge Planning: Unclear discharge at this time. Renal biopsy results anticipated 10/07. Pending fluid management, kidney failure management, and discharge planning. Home health PT initially recommended per PT evaluation, now recommending no PT. Patient will require wound care upon discharge, expected at outpatient clinic vs home health <Meaghan Galloway - 10/04/17 09:26> - Attending Attestation The exam, history, and the medical decision-making described in the above note were completed with the assistance of the resident physician. I reviewed and agree with the findings presented. I attest that I had a [id number] encounter with the patient on the same day, and personally performed and documented my assessment and findings in the medical record. <Ute Marin - 10/05/17 16:41> <Meaghan Galloway - Last Filed: 10/04/17 09:11> (2) Edema Qualifiers: Edema type: generalized Qualified Code(s): R60.1 - Generalized edema (6) Hypertension Qualifiers: Hypertension type: essential hypertension Qualified Code(s): I10 - Essential (primary) hypertension (13) Anemia Qualifiers: Anemia type: unspecified type Qualified Code(s): D64.9 - Anemia, unspecified <Ute Marin - Last Filed: 10/05/17 16:41> (1) Anemia Qualifiers: Anemia type: unspecified type Qualified Code(s): D64.9 - Anemia, unspecified (3) Edema Qualifiers: Edema type: generalized Qualified Code(s): R60.1 - Generalized edema (5) Hypertension Qualifiers: Hypertension type: essential hypertension Qualified Code(s): I10 - Essential (primary) hypertension <Meaghan Galloway - Last Filed: 10/04/17 09:11> (2) Edema Qualifiers: Edema type: generalized Qualified Code(s): R60.1 - Generalized edema (6) Hypertension Qualifiers: Hypertension type: essential hypertension Qualified Code(s): I10 - Essential (primary) hypertension (13) Anemia Qualifiers: Anemia type: unspecified type Qualified Code(s): D64.9 - Anemia, unspecified <Ute Marin - Last Filed: 10/05/17 16:41> (1) Anemia Qualifiers: Anemia type: unspecified type Qualified Code(s): D64.9 - Anemia, unspecified (3) Edema Qualifiers: Edema type: generalized Qualified Code(s): R60.1 - Generalized edema (5) Hypertension Qualifiers: Hypertension type: essential hypertension Qualified Code(s): I10 - Essential (primary) hypertension
--- NOTE | 2017-10-04 12:26 | P.PNNP ---
Subjective Interval history: s/p kidney bx 10/03 Last HD 10/03 Says that he is having significant pain in L flank today Did not sleep well last evening. <Verna Cisneros - Last Filed: 10/04/17 12:22> Physical Exam Vital signs: Vital Signs 10/03/17 14:00 10/03/17 14:12 10/03/17 15:30 Temperature 97.6 F Pulse Rate 79 Respiratory Rate 20 20 Blood Pressure 110/64 Pulse Oximetry 95 97 10/03/17 16:00 10/03/17 16:27 10/03/17 16:47 Temperature 97.5 F L Pulse Rate 70 72 Respiratory Rate 20 18 20 Blood Pressure 135/86 115/63 Pulse Oximetry 100 98 10/03/17 17:20 10/03/17 20:00 10/03/17 22:21 Temperature 97.2 F L Pulse Rate 80 Respiratory Rate 20 20 Blood Pressure 138/64 Pulse Oximetry 96 99 10/04/17 00:00 10/04/17 04:00 10/04/17 08:00 Temperature 97.6 F 97.5 F L 97.1 F L Pulse Rate 79 83 88 Respiratory Rate 20 20 20 Blood Pressure 114/63 100/57 L 113/54 L Pulse Oximetry 98 96 97 10/04/17 09:03 Temperature Pulse Rate Respiratory Rate 20 Blood Pressure Pulse Oximetry Intake & Output 10/03/17 10/04/17 10/04/17 18:59 06:59 18:59 Intake Total 0 / 0 0 / 0 Output Total 4300 / 4300 Balance -4300 / -4300 0 / 0 Weight 149.8 kg Intake: Oral 0 / 0 0 / 0 Output: Urine 300 / 300 Hemodialysis Amount 4000 / 4000 Other: # Voids 0 Date of Last Bowel Movement 10/01/17 10/03/17 10/03/17 # Bowel Movements 1 0 - Constitutional no acute distress, obese - Routine HEENT Exam Head: Present: normocephalic - Routine Respiratory Exam Present: CTA bilaterally - Routine Cardiovascular Exam Present: RRR, S1, S2 - Routine Abdominal Exam Present: soft Comments: No ecchymosis appreciated L back, flank, or abdomen - Routine Extremities Exam Present: edema (continued generalized edema/anasarca) - Routine Neurological Exam Present: alert - Detailed Neurological Exam: Coma Scale Eye Opening: To sound Verbal Response: Oriented - Routine Psychiatric Exam Present: normal affect <Verna Cisneros R - Last Filed: 10/04/17 12:22> Vital signs: Vital Signs 10/04/17 16:00 10/04/17 18:10 10/04/17 19:20 Temperature 97.3 F L Pulse Rate 71 Respiratory Rate 20 20 18 Blood Pressure 116/51 L Pulse Oximetry 94 L 10/04/17 20:00 10/04/17 20:52 10/04/17 23:55 Temperature 97.2 F L Pulse Rate 73 78 Respiratory Rate 20 Blood Pressure 100/53 L Pulse Oximetry 93 L 95 10/05/17 00:00 10/05/17 04:00 10/05/17 04:25 Temperature 98.2 F 98.4 F Pulse Rate 78 80 79 Respiratory Rate 20 20 Blood Pressure 107/51 L 111/53 L Pulse Oximetry 97 97 10/05/17 06:07 10/05/17 07:43 10/05/17 08:00 Temperature 98.1 F Pulse Rate 84 Respiratory Rate 14 16 20 Blood Pressure 112/56 L Pulse Oximetry 94 L 10/05/17 10:37 10/05/17 11:07 10/05/17 12:00 Temperature 98.2 F Pulse Rate 72 Respiratory Rate 18 18 20 Blood Pressure 93/50 L Pulse Oximetry 97 10/05/17 13:56 10/05/17 14:46 10/05/17 15:09 Temperature 98.5 F 98.5 F Pulse Rate 73 76 Respiratory Rate 18 20 18 Blood Pressure 94/42 L 87/51 L Pulse Oximetry 10/05/17 15:26 Temperature 98.2 F Pulse Rate 74 Respiratory Rate 18 Blood Pressure 104/50 L Pulse Oximetry Intake & Output 10/04/17 10/05/17 10/05/17 18:59 06:59 18:59 Intake Total 240 / 240 100 / 100 800 / 800 Output Total 300 / 300 Balance -60 / -60 100 / 100 800 / 800 Weight 148.9 kg Intake: Oral 240 / 240 100 / 100 Intake (Blood Product) Amt 800 / 800 Rbc As-3 Leukoreduced Unit 400 / 400 [id number] Rbc As-3 Leukoreduced Unit 400 / 400 [id number] Output: Urine 300 / 300 Stool 0 / 0 Other: # Voids 300 Date of Last Bowel Movement 10/03/17 10/04/17 # Bowel Movements 0 <Liz Perry - Last Filed: 10/05/17 15:30> Assessment and Plan - Assessment (1) Acute renal insufficiency Code(s): N28.9 - Disorder of kidney and ureter, unspecified Status: Acute Plan: Suspect acute renal insufficiency possibly superimposed on intrinsic renal disease secondary to vancomycin nephrotoxicity. Patient still appears dialysis dependent with fluid retention and marginal response to parenteral diuretics. s/p kidney bx 10/03. Prelim report not available yet. Next HD 10/05/17 May need to convert Vas-Cath to PermCath if still dialysis dependent Saturday. Medications should be adjusted for the patient's estimated GFR if clinically indicated. Avoid agents with significant potential for nephrotoxicity possible including NSAIDs for analgesia, iodine contrast agents. Gadolinium is contraindicated if the GFR is below 30. (2) Edema Code(s): R60.9 - Edema, unspecified Status: Acute Qualifiers: Edema type: generalized Qualified Code(s): R60.1 - Generalized edema Plan: Likely related to renal failure. HD for ultrafiltration. (3) Congestive heart failure (CHF) Code(s): I50.9 - Heart failure, unspecified Status: Acute Qualifiers: Heart failure type: combined systolic and diastolic (4) Hyperphosphatemia Code(s): E83.39 - Other disorders of phosphorus metabolism Status: Acute Plan: Secondary to renal failure. PhosLo ordered with meals. <Verna Cisneros - Last Filed: 10/04/17 12:22> - Assessment (1) Acute renal insufficiency Code(s): N28.9 - Disorder of kidney and ureter, unspecified Status: Acute (2) Edema Code(s): R60.9 - Edema, unspecified Status: Acute Qualifiers: Edema type: generalized Qualified Code(s): R60.1 - Generalized edema (3) Congestive heart failure (CHF) Code(s): I50.9 - Heart failure, unspecified Status: Acute Qualifiers: Heart failure type: combined systolic and diastolic (4) Hyperphosphatemia Code(s): E83.39 - Other disorders of phosphorus metabolism Status: Resolved - Attending Attestation The exam, history, and the medical decision-making described in the above note were completed with the assistance of the MICHOACANO. I reviewed and agree with the findings presented. <Liz Perry - Last Filed: 10/05/17 15:30>
[2017-10-04] MEDS: Collagenase Oint 30 GM Tube TOPICAL SCH (18:12)
[2017-10-04] MEDS: traZODone 100 MG Tablet PO SCH (22:12)
[2017-10-05 07:20] LABS: Mean Corpuscular HGB Conc 31.6 % (32.0-36.0); Mean Corpuscular Hemoglobin 33.1 pg (27.0-34.0); Mean Corpuscular Volume 104.9 fL (80.0-100.0); Mean Platelet Volume 7.8 fL (7.0-11.0); Platelet Count 305 th/mm3 (150-450); Red Blood Count 1.86 mil/mm3 (4.50-5.90); Red Cell Distribution Width 18.8 % (11.6-17.2); White Blood Count 10.4 th/mm3 (4.0-11.0)
[2017-10-05 07:35] LABS: Albumin 2.7 g/dL (3.4-5.0); Anion Gap 8 meq/L (5-15); Aspartate Aminotransferase 14 U/L (15-37); Blood Urea Nitrogen 23 mg/dL (7-18); Calcium 8.7 mg/dL (8.5-10.1); Carbon Dioxide 31.9 meq/L (21.0-32.0); Chloride 97 meq/L (98-107); Glomerular Filtration Rate 23 mL/min (>89); Glucose,Random 103 mg/dL (74-106); Magnesium 2.1 mg/dL (1.5-2.5); Potassium 4.5 meq/L (3.5-5.1); Sodium 137 meq/L (136-145)
[2017-10-05 07:38] LABS: % Iron Saturation 8.9 % (20-50); Alanine Aminotransferase 16 U/L (12-78); Alkaline Phosphatase 86 U/L (45-117); Ferritin 89 ng/mL (26-388); Iron 25 mcg/dL (65-175); Phosphorus 4.7 mg/dL (2.5-4.9); Total Iron Binding Capacity 281 mcg/dL (250-450); Total Protein 6.3 g/dL (6.4-8.2)
[2017-10-05 07:45] LABS: Hematocrit 19.5 % (39.0-51.0); Hemoglobin 6.2 gm/dL (13.0-17.0)
--- NOTE | 2017-10-05 09:07 | P.PNFP ---
Subjective Interval history: Patient was seen and examined this morning. He complains of intense pain in his left side and his left ankle. The pain in his left side is from the kidney biopsy that was done 2 days ago. He also complains of lightheadedness. No fever or chills, no chest pain. <EkoFariha U - 10/05/17 09:20> Results - Labs Result diagrams: 10/05/17 12:54 10/05/17 05:46 <Ute Marin - 10/05/17 16:46> Abnormal lab results 10/05/17 10/05/17 10/05/17 Range/Units 05:40 05:46 11:33 RBC 1.86 L (4.50-5.90) mil/mm3 Hgb 6.2 L* D (13.0-17.0) gm/dL Hct 19.5 L* (39.0-51.0) % MCV 104.9 H (80.0-100.0) fL MCHC 31.6 L (32.0-36.0) % RDW 18.8 H (11.6-17.2) % Seg Neuts % (Manual) 74 H (16-70) % Lymphocytes % (Manual) 7 L (9-44) % Monocytes % (Manual) 12 H (0-8) % Abs Neuts (Manual) 8.0 H (1.8-7.7) th/mm3 Chloride 97 L (98-107) meq/L BUN 23 H (7-18) mg/dL Creatinine 2.88 H (0.60-1.30) mg/dL Estimated GFR 23 L (>89) mL/min Iron 25 L (65-175) mcg/dL % Saturation 8.9 L (20-50) % AST 14 L (15-37) U/L Total Protein 6.3 L (6.4-8.2) g/dL Albumin 2.7 L (3.4-5.0) g/dL MTS Gel Crossmatch See Detail 10/05/17 Range/Units 12:54 RBC (4.50-5.90) mil/mm3 Hgb 6.5 L* (13.0-17.0) gm/dL Hct 20.5 L* (39.0-51.0) % MCV (80.0-100.0) fL MCHC (32.0-36.0) % RDW (11.6-17.2) % Seg Neuts % (Manual) (16-70) % Lymphocytes % (Manual) (9-44) % Monocytes % (Manual) (0-8) % Abs Neuts (Manual) (1.8-7.7) th/mm3 Chloride (98-107) meq/L BUN (7-18) mg/dL Creatinine (0.60-1.30) mg/dL Estimated GFR (>89) mL/min Iron (65-175) mcg/dL % Saturation (20-50) % AST (15-37) U/L Total Protein (6.4-8.2) g/dL Albumin (3.4-5.0) g/dL MTS Gel Crossmatch Short CBC 10/05/17 10/05/17 Range/Units 05:40 12:54 WBC 10.4 (4.0-11.0) th/mm3 Hgb 6.2 L* D 6.5 L* (13.0-17.0) gm/dL Hct 19.5 L* 20.5 L* (39.0-51.0) % Plt Count 305 (150-450) th/mm3 BMP 10/05/17 05:46 Sodium 137 Potassium 4.5 Chloride 97 L Carbon Dioxide 31.9 BUN 23 H Creatinine 2.88 H Calcium 8.7 Liver Function 10/05/17 Range/Units 05:46 Total Bilirubin 0.3 (0.2-1.0) mg/dL AST 14 L (15-37) U/L ALT 16 (12-78) U/L Alkaline Phosphatase 86 (45-117) U/L Albumin 2.7 L (3.4-5.0) g/dL <Ute Marin - 10/05/17 16:46> Abnormal lab results 10/05/17 10/05/17 Range/Units 05:40 05:46 RBC 1.86 L (4.50-5.90) mil/mm3 Hgb 6.2 L* D (13.0-17.0) gm/dL Hct 19.5 L* (39.0-51.0) % MCV 104.9 H (80.0-100.0) fL MCHC 31.6 L (32.0-36.0) % RDW 18.8 H (11.6-17.2) % Chloride 97 L (98-107) meq/L BUN 23 H (7-18) mg/dL Creatinine 2.88 H (0.60-1.30) mg/dL Estimated GFR 23 L (>89) mL/min Iron 25 L (65-175) mcg/dL % Saturation 8.9 L (20-50) % AST 14 L (15-37) U/L Total Protein 6.3 L (6.4-8.2) g/dL Albumin 2.7 L (3.4-5.0) g/dL Short CBC 10/05/17 Range/Units 05:40 WBC 10.4 (4.0-11.0) th/mm3 Hgb 6.2 L* D (13.0-17.0) gm/dL Hct 19.5 L* (39.0-51.0) % Plt Count 305 (150-450) th/mm3 BMP 10/05/17 05:46 Sodium 137 Potassium 4.5 Chloride 97 L Carbon Dioxide 31.9 BUN 23 H Creatinine 2.88 H Calcium 8.7 Liver Function 10/05/17 Range/Units 05:46 Total Bilirubin 0.3 (0.2-1.0) mg/dL AST 14 L (15-37) U/L ALT 16 (12-78) U/L Alkaline Phosphatase 86 (45-117) U/L Albumin 2.7 L (3.4-5.0) g/dL <Eko,Fariha U - 10/05/17 09:07> Physical Exam Vital signs: Vital Signs 10/04/17 18:10 10/04/17 19:20 10/04/17 20:00 Temperature 97.2 F L Pulse Rate 73 Respiratory Rate 20 18 20 Blood Pressure 100/53 L Pulse Oximetry 93 L 10/04/17 20:52 10/04/17 23:55 10/05/17 00:00 Temperature 98.2 F Pulse Rate 78 78 Respiratory Rate 20 Blood Pressure 107/51 L Pulse Oximetry 95 97 10/05/17 04:00 10/05/17 04:25 10/05/17 06:07 Temperature 98.4 F Pulse Rate 80 79 Respiratory Rate 20 14 Blood Pressure 111/53 L Pulse Oximetry 97 10/05/17 07:43 10/05/17 08:00 10/05/17 10:37 Temperature 98.1 F Pulse Rate 84 Respiratory Rate 16 20 18 Blood Pressure 112/56 L Pulse Oximetry 94 L 10/05/17 11:07 10/05/17 12:00 10/05/17 13:56 Temperature 98.2 F Pulse Rate 72 Respiratory Rate 18 20 18 Blood Pressure 93/50 L Pulse Oximetry 97 10/05/17 14:46 10/05/17 15:09 10/05/17 15:26 Temperature 98.5 F 98.5 F 98.2 F Pulse Rate 73 76 74 Respiratory Rate 20 18 18 Blood Pressure 94/42 L 87/51 L 104/50 L Pulse Oximetry Intake & Output 10/04/17 10/05/17 10/05/17 18:59 06:59 18:59 Intake Total 240 / 240 100 / 100 800 / 800 Output Total 300 / 300 Balance -60 / -60 100 / 100 800 / 800 Weight 148.9 kg Intake: Oral 240 / 240 100 / 100 Intake (Blood Product) Amt 800 / 800 Rbc As-3 Leukoreduced Unit 400 / 400 [id number] Rbc As-3 Leukoreduced Unit 400 / 400 [id number] Output: Urine 300 / 300 Stool 0 / 0 Other: # Voids 300 Date of Last Bowel Movement 10/03/17 10/04/17 # Bowel Movements 0 <Ute Marin M - 10/05/17 16:46> Vital Signs 10/04/17 10:12 10/04/17 12:00 10/04/17 13:39 Temperature 97.1 F L Pulse Rate 62 Respiratory Rate 20 20 20 Blood Pressure 95/51 L Pulse Oximetry 95 Pulse Oximetry [Resting on Room Air] Pulse Oximetry [Resting with Oxygen] 10/04/17 13:47 10/04/17 16:00 10/04/17 18:10 Temperature 97.3 F L Pulse Rate 71 Respiratory Rate 20 20 Blood Pressure 116/51 L Pulse Oximetry 94 L Pulse Oximetry [Resting on Room Air] 87 L Pulse Oximetry [Resting with Oxygen] 95 10/04/17 19:20 10/04/17 20:00 10/04/17 20:52 Temperature 97.2 F L Pulse Rate 73 Respiratory Rate 18 20 Blood Pressure 100/53 L Pulse Oximetry 93 L 95 Pulse Oximetry [Resting on Room Air] Pulse Oximetry [Resting with Oxygen] 10/04/17 23:55 10/05/17 00:00 10/05/17 04:00 Temperature 98.2 F 98.4 F Pulse Rate 78 78 80 Respiratory Rate 20 20 Blood Pressure 107/51 L 111/53 L Pulse Oximetry 97 97 Pulse Oximetry [Resting on Room Air] Pulse Oximetry [Resting with Oxygen] 10/05/17 04:25 10/05/17 06:07 10/05/17 07:43 Temperature Pulse Rate 79 Respiratory Rate 14 16 Blood Pressure Pulse Oximetry Pulse Oximetry [Resting on Room Air] Pulse Oximetry [Resting with Oxygen] Intake & Output 10/04/17 10/05/17 10/05/17 18:59 06:59 18:59 Intake Total 240 / 240 100 / 100 Output Total 300 / 300 Balance -60 / -60 100 / 100 Weight 148.9 kg Intake: Oral 240 / 240 100 / 100 Output: Urine 300 / 300 Stool 0 / 0 Other: # Voids 300 Date of Last Bowel Movement 10/03/17 10/04/17 # Bowel Movements 0 <Eko,Fariha U - 10/05/17 09:07> Narrative: GENERAL: Obese male in no apparent distress, lying in bed. SKIN: Warm and dry. No noted erythema. HEAD: Atraumatic. Normocephalic. EYES: Pupils equal and round. No scleral icterus. No injection or drainage. ENT: No nasal bleeding or discharge. Mucous membranes pink and moist. CARDIOVASCULAR: Regular rate and rhythm. RESPIRATORY: No accessory muscle use. Clear to auscultation. Breath sounds equal bilaterally. CHEST: 5cm area of superficial bruising on his left chest GASTROINTESTINAL: Abdomen soft, non-tender, obese. Normal bowel sounds. BACK: Exquisite tenderness to palpation in the left flank area of recent renal biopsy. Area is firm but no overt signs of hematoma, no major ecchymosis noted except around the biopsy site MUSCULOSKELETAL: 3+ in the bilateral lower extremities to mid thigh, stable from exams. No cyanosis. Left ankle wound with clean and dry dressing noted NEUROLOGICAL: Awake and alert. No obvious cranial nerve deficits. Motor grossly within normal limits. PSYCHIATRIC: Appropriate mood and affect; insight and judgment normal. <Eko,Fariha U - 10/05/17 09:59> Assessment and Plan - Assessment (1) Anemia Code(s): D64.9 - Anemia, unspecified Status: Acute (2) ESTELLA (acute kidney injury) Code(s): N17.9 - Acute kidney failure, unspecified Status: Acute (3) Edema Code(s): R60.9 - Edema, unspecified Status: Acute (4) Hyperphosphatemia Code(s): E83.39 - Other disorders of phosphorus metabolism Status: Resolved (5) Hypertension Code(s): I10 - Essential (primary) hypertension Status: Chronic (6) History of asthma Code(s): Z87.09 - Personal history of other diseases of the respiratory system Status: Chronic (7) Depression with anxiety Code(s): F41.8 - Other specified anxiety disorders Status: Chronic (8) Gout Code(s): M10.9 - Gout, unspecified Status: Chronic (9) Open wound of left lower extremity Code(s): S81.802A - Unspecified open wound, left lower leg, initial encounter Status: Acute (10) Sleep apnea Code(s): G47.30 - Sleep apnea, unspecified Status: Acute (11) Nutrition, metabolism, and development symptoms Code(s): R63.8 - Other symptoms and signs concerning food and fluid intake Status: Acute <Ute Marin Belén - 10/05/17 16:46> (1) Anemia Code(s): D64.9 - Anemia, unspecified Status: Acute Plan: -H/H dropped from 9.0/29.1 on 10/03 (day of kidney biopsy) to 6.2/19.5 today - Patient scheduled for dialysis today - will coordinate blood transfusion with nephrology (2) ESTELLA (acute kidney injury) Code(s): N17.9 - Acute kidney failure, unspecified Status: Acute Plan: Creatinine 2.88 today, increased from 2.11 on the previous day - most likely due to acute blood loss anemia Continue to monitor renal function panel. Dialysis to continue for now, renal biopsy pending at this time, likely to have results on Saturday. Unsure if he will need long-term dialysis versus short-term. Patient may continue to be dialysis dependent and this would require PermCath placement prior to discharge, nephrology to continue monitoring On PO Torsemide per nephrology Appreciate nephrology management of patient's care HIV nonreactive Impression/Course: New finding of ESTELLA on 09/23 labs. Creatinine 0.89 on admission, 2.74 on Day 4 of hospital stay. Etiology unclear. He did receive Lasix IV given fluid overload at time of admission. Vancomycin was given and discontinued after ESTELLA, kidney US negative, labs so far not revealing. Status-post initially gentle diuresis ( 750cc bolus with 125cc/h normal saline 24 hours) discontinued on 09/24. Transitioned back to Lasix IV 09/24 as noted. Avoid nephrotoxic agents. Pharmacy noted regarding renal dosing of meds. Avoid Vancomycin administration in the future. Avoid nephrotoxic agents. Lasix IV re-initiated per nephrology on 09/24 given severe fluid overload, UOP noted to be not adequate per report Vascath placed and dialysis initiated 09/27. Status post dialysis on 09/28 with anticipated dialysis on 09/30 as well. Nephrology managing, appreciate assistance. Lasix 80mg IV BID transitioned to Bumex 40mg PO BID on 10/03 Suspecting ESTELLA with possible intrinsic renal disease related to Vancomycin Serology and urine studies unremakable PO fluid allowance to 2 L daily. Serial BMPs. Renal biopsy 10/03, pending results (3) Edema Code(s): R60.9 - Edema, unspecified Status: Acute Plan: 4L out with dialysis on 10/03 Nephrology on board, management as noted Of note patient did receive lung and IVC NM scan on 09/26/17 to assess for thrombosis, with negative results for VQ and NM IVC scan. (4) Hyperphosphatemia Code(s): E83.39 - Other disorders of phosphorus metabolism Status: Resolved Plan: Secondary to renal failure. Resolved. PhosLo ordered with meals per nephrology. (5) Hypertension Code(s): I10 - Essential (primary) hypertension Status: Chronic Plan: Patient with a known history of hypertension Normo- to hypotensive so far this hospitalization Continue home metoprolol which is 25 mg twice daily, hold for heart rate less than 60, BP less than 110/60 Metalozone initiated in hospital initially given suspicion for CHF but d/c'd given ESTELLA and no CHF ACEI considered but echo showing no evidence of heart failure however evidence of elevated pulmonary pressures (c/w history of SARA) (6) History of asthma Code(s): Z87.09 - Personal history of other diseases of the respiratory system Status: Chronic Plan: Patient with a known history of asthma Duonebs every 4hr PRN, albuterol every 2hr PRN SOB/wheezing Not requiring routine treatments at this time (7) Depression with anxiety Code(s): F41.8 - Other specified anxiety disorders Status: Chronic Plan: Patient with a known history of depression anxiety. Continue home Zoloft, trazodone. Holding Valium (8) Gout Code(s): M10.9 - Gout, unspecified Status: Chronic Plan: Patient with a known history of gout. Continuing home allopurinol. (9) Open wound of left lower extremity Code(s): S81.802A - Unspecified open wound, left lower leg, initial encounter Status: Acute Plan: Continue daily Santyl dressings per Wound care recommendations. Okay to take a bath given no active infection however, keeping Vas-Cath and peripheral access clean and dry Patient will need referral to outpatient wound care clinic upon discharge. Will have wound care immediately after discharge, either outpatient or home health Impression/Course: Patient presented with bilateral lower extremity edema with erythema overlying surgical site on LLE. Did not have systemic signs of infection and no longer suspicious for cellulitis, suspect related to fluid overload and/or venous insufficiency. He does have left ankle wound which wound care has been consulted and recommending daily Santyl dressings since 09/23. Will continue to monitor lower extremities, wound culture showing MRSA and Pseudomonas however wound culture was superficial and may have been reflective of skin ori. ital signs have been within normal limits without fever this hospitalization and white count within normal limits. Suspect some element of pressure ulcer given limited mobility since his ankle surgery in July 2017 (internal fixation with rods and screws throughout ankle). X-ray performed 09/20 showing intact hardware and soft tissue edema. Clinically the bilateral LEs have been stable with no significant erythema since fluid restriction and dialysis were initiated. ESR 14, low suspicion for osteomyelitis Lactic acid 1.5 on admission Patient afebrile without leukocytosis this hospitalization Antibiotics: Vancomycin 09/21 through 09/24, discontinued given ESTELLA and lower suspicion for cellulitis Vancomycin ordered with pharmacy consult to help with dosing (09/21-09/24) Rocephin 2 g IV daily (09/21 - 09/23) Blood cultures 09/20/17: no growth Wound culture 09/20/17: MRSA, Pseudomonas PT/OT consult ordered - PT currently recommending no PT at discharge (10) Sleep apnea Code(s): G47.30 - Sleep apnea, unspecified Status: Acute Plan: Home O2 walk test ordered for discharge planning Continues to require oxygen while inpt Will order home oxygen if indicated Of note, we suspect patient has sleep apnea given history reported and elevated pulmonary arterial pressure on echocardiogram. CPAP was ordered for patient to trial but he has refused thus far. Patient will require further discussion and workup of this as an outpatient. (11) Nutrition, metabolism, and development symptoms Code(s): R63.8 - Other symptoms and signs concerning food and fluid intake Status: Acute Plan: FEN: - Gentle PO hydration given ESTELLA - Caution if considering IVF given fluid overload, IVF not indicated at this time - Correct electrolytes as needed - Low-salt, heart healthy diet and fluid restriction to 2 L PPX: - Lovenox renal dosing <Fariha Ugalde U - 10/05/17 10:05> - Assessment and Plan Patient is a 56-year-old male with a history of asthma, depression and anxiety, gout, hypertension and recent surgical repair of the left ankle and left hip who presented to the ED with progressive shortness of breath and lower extremity edema. Chest x-ray showing cardiomegaly with mild positive fluid balance. Initial ACS workup is negative. Patient also noted to have likely cellulitis in the bilateral lower extremities. Received vancomycin x1 in the ED. Admitted to inpatient for suspected new onset CHF, fluid overload management, cellulitis treatment. New onset ESTELLA 09/23 to workup and manage, nephrology consulted. <Fariha Ugalde U - 10/05/17 09:07> - Attending Attestation The exam, history, and the medical decision-making described in the above note were completed with the assistance of the resident physician. I reviewed and agree with the findings presented. I attest that I had a [id number] encounter with the patient on the same day, and personally performed and documented my assessment and findings in the medical record. he complained about pain for the first time during this hospitalization agree with doing a CT without contrast to see if he could have bleeding even retroperitoneal bleeding. He should be transferred to [facility] if he continues to bleed or is hemodynamically unstable. He gets heparin whenever he is dialyzed which could contribute to the bleeding stopped his Lovenox today. Also will give him some IV pain medicine as he is reliable. <Ute Marin Belén - 10/05/17 16:46> <Fariha Ugalde U - Last Filed: 10/05/17 10:05> (1) Anemia Qualifiers: Anemia type: unspecified type Qualified Code(s): D64.9 - Anemia, unspecified (3) Edema Qualifiers: Edema type: generalized Qualified Code(s): R60.1 - Generalized edema (5) Hypertension Qualifiers: Hypertension type: essential hypertension Qualified Code(s): I10 - Essential (primary) hypertension <Antoni Marinon M - Last Filed: 10/05/17 16:46> (1) Anemia Qualifiers: Anemia type: unspecified type Qualified Code(s): D64.9 - Anemia, unspecified (3) Edema Qualifiers: Edema type: generalized Qualified Code(s): R60.1 - Generalized edema (5) Hypertension Qualifiers: Hypertension type: essential hypertension Qualified Code(s): I10 - Essential (primary) hypertension <Fariha Ugalde U - Last Filed: 10/05/17 10:05> (1) Anemia Qualifiers: Anemia type: unspecified type Qualified Code(s): D64.9 - Anemia, unspecified (3) Edema Qualifiers: Edema type: generalized Qualified Code(s): R60.1 - Generalized edema (5) Hypertension Qualifiers: Hypertension type: essential hypertension Qualified Code(s): I10 - Essential (primary) hypertension <Ute Marin M - Last Filed: 10/05/17 16:46> (1) Anemia Qualifiers: Anemia type: unspecified type Qualified Code(s): D64.9 - Anemia, unspecified (3) Edema Qualifiers: Edema type: generalized Qualified Code(s): R60.1 - Generalized edema (5) Hypertension Qualifiers: Hypertension type: essential hypertension Qualified Code(s): I10 - Essential (primary) hypertension
[2017-10-05] MEDS: Calcium Acetate 667 MG Capsule PO SCH ×3 (10:08→18:40)
[2017-10-05] MEDS: Sertraline 50 MG Tablet PO SCH (10:08)
[2017-10-05] MEDS: Collagenase Oint 30 GM Tube TOPICAL SCH (10:10)
[2017-10-05] MEDS: Allopurinol 100 MG Tablet PO SCH (10:11)
[2017-10-05] MEDS: Metoprolol Tartrate 25 MG Tablet PO SCH ×2 (10:12→20:38)
[2017-10-05 10:34] LABS: Eosinophils 2 % (0-4); Lymphocytes 7 % (9-44); Monocytes 12 % (0-8); Platelet Estimate Normal (Normal); Platelet Morphology Normal (Normal)
[2017-10-05] MEDS ORDERED: Sodium Chlor 0.9% Inj 250 ML IV.SIG SCH (11:00)
[2017-10-05] MEDS: Enoxaparin Inj 30 MG/0.3 ML Syringe SQ SCH (11:28)
[2017-10-05] MEDS: Torsemide 20 MG Tablet PO SCH ×3 (13:34→19:04)
[2017-10-05 13:39] LABS: Hematocrit 20.5 % (39.0-51.0); Hemoglobin 6.5 gm/dL (13.0-17.0)
--- NOTE | 2017-10-05 15:33 | P.PNNP ---
Subjective Interval history: Patient was seen during hemodialysis today. Indicating to me that his back discomfort has improved since yesterday. Physical Exam Vital signs: Vital Signs 10/04/17 16:00 10/04/17 18:10 10/04/17 19:20 Temperature 97.3 F L Pulse Rate 71 Respiratory Rate 20 20 18 Blood Pressure 116/51 L Pulse Oximetry 94 L 10/04/17 20:00 10/04/17 20:52 10/04/17 23:55 Temperature 97.2 F L Pulse Rate 73 78 Respiratory Rate 20 Blood Pressure 100/53 L Pulse Oximetry 93 L 95 10/05/17 00:00 10/05/17 04:00 10/05/17 04:25 Temperature 98.2 F 98.4 F Pulse Rate 78 80 79 Respiratory Rate 20 20 Blood Pressure 107/51 L 111/53 L Pulse Oximetry 97 97 10/05/17 06:07 10/05/17 07:43 10/05/17 08:00 Temperature 98.1 F Pulse Rate 84 Respiratory Rate 14 16 20 Blood Pressure 112/56 L Pulse Oximetry 94 L 10/05/17 10:37 10/05/17 11:07 10/05/17 12:00 Temperature 98.2 F Pulse Rate 72 Respiratory Rate 18 18 20 Blood Pressure 93/50 L Pulse Oximetry 97 10/05/17 13:56 10/05/17 14:46 10/05/17 15:09 Temperature 98.5 F 98.5 F Pulse Rate 73 76 Respiratory Rate 18 20 18 Blood Pressure 94/42 L 87/51 L Pulse Oximetry 10/05/17 15:26 Temperature 98.2 F Pulse Rate 74 Respiratory Rate 18 Blood Pressure 104/50 L Pulse Oximetry Intake & Output 10/04/17 10/05/17 10/05/17 18:59 06:59 18:59 Intake Total 240 / 240 100 / 100 800 / 800 Output Total 300 / 300 Balance -60 / -60 100 / 100 800 / 800 Weight 148.9 kg Intake: Oral 240 / 240 100 / 100 Intake (Blood Product) Amt 800 / 800 Rbc As-3 Leukoreduced Unit 400 / 400 [id number] Rbc As-3 Leukoreduced Unit 400 / 400 [id number] Output: Urine 300 / 300 Stool 0 / 0 Other: # Voids 300 Date of Last Bowel Movement 10/03/17 10/04/17 # Bowel Movements 0 Narrative: GENERAL: Obese male in no apparent distress, lying in bed. SKIN: Warm and dry. CARDIOVASCULAR: Regular rate and rhythm. RESPIRATORY: No accessory muscle use. Clear to auscultation. Breath sounds equal bilaterally. CHEST: area of superficial bruising on his left chest GASTROINTESTINAL: Abdomen soft, non-tender, obese. BACK: Exquisite tenderness to palpation in the left flank area of recent renal biopsy. Area is firm but no overt signs of hematoma, no major ecchymosis noted except around the biopsy site MUSCULOSKELETAL: 3+ in the bilateral lower extremities to mid thigh, stable from exams. No cyanosis. Left ankle wound with clean and dry dressing noted NEUROLOGICAL: Awake and alert. No obvious cranial nerve deficits. Motor grossly within normal limits. PSYCHIATRIC: Appropriate mood and affect; Assessment and Plan - Assessment (1) Acute renal insufficiency Code(s): N28.9 - Disorder of kidney and ureter, unspecified Status: Acute Plan: Suspect acute renal insufficiency possibly superimposed on intrinsic renal disease secondary to vancomycin nephrotoxicity. Await final results of kidney biopsy. Noted drop in hemoglobin. Also with associated back discomfort but improving. As discussed with primary recommended discussion with radiology and subsequently a CT scan has been ordered post biopsy. Patient may have developed a perinephric hematoma. Hopefully no current active bleeding. Blood transfusion as ordered during dialysis today. Patient currently hemodynamically stable on dialysis. Repeat H&H tomorrow. Medications should be adjusted for the patient's estimated GFR if clinically indicated. Avoid agents with significant potential for nephrotoxicity possible including NSAIDs for analgesia, iodine contrast agents. Gadolinium is contraindicated if the GFR is below 30. (2) Edema Code(s): R60.9 - Edema, unspecified Status: Acute Qualifiers: Edema type: generalized Qualified Code(s): R60.1 - Generalized edema Plan: Likely related to renal failure. HD for ultrafiltration. (3) Congestive heart failure (CHF) Code(s): I50.9 - Heart failure, unspecified Status: Acute Qualifiers: Heart failure type: combined systolic and diastolic (4) Hyperphosphatemia Code(s): E83.39 - Other disorders of phosphorus metabolism Status: Resolved Plan: Secondary to renal failure. PhosLo ordered with meals.
[2017-10-05 18:59] LABS: Hematocrit 24.5 % (39.0-51.0); Hemoglobin 7.9 gm/dL (13.0-17.0)
[2017-10-05] MEDS: traZODone 100 MG Tablet PO SCH (20:38)
--- NOTE | 2017-10-05 21:17 | CT ---
EXAM DATE: 10/05/2017 9:05 PM EDT AGE/SEX: 56 years / Male INDICATIONS: Left flank pain. Evaluate for hematoma. CLINICAL DATA: This is the patient's initial encounter. Patient reports that signs and symptoms have been present for 2 days and indicates a pain score of 5/10. MEDICAL/SURGICAL HISTORY: Cardiovascular disease. Hypertension. Asthma. Renal failure . Her connor repair RADIATION DOSE: 27.01 CTDI (mGy) ; Patient body habitus COMPARISON: [facility] – [place], [place] BIOPSY RENAL LEFT, 10/03/2017. . TECHNIQUE: Multiple contiguous axial images were obtained through the abdomen. Images were obtained using multiple row detector helical technique. Using automated exposure control and adjustment of the mA and/or kV according to patient size, radiation dose was kept as low as reasonably achievable to o btain optimal diagnostic quality images. DICOM format image data is available electronically for rev iew and comparison. FINDINGS: Lower Lungs: There are small bilateral pleural effusions left greater than right. There is mild conso lidation in the lung bases. The heart size is enlarged and there is a small amount of pericardial flu id noted. Liver: The liver has a homogeneous density without space-occupying lesion. There is no dilation of th e biliary tree. There is mild hepatic steatosis. The gallbladder is unremarkable. Spleen: Homogeneous density without enlargement. Pancreas: Unremarkable without mass or calcification. Kidneys: The right kidney is normal in size, shape and attenuation value. The left kidney is now enl arged with a high density hematoma involving the posterior portion of the kidney measuring up to at l east 7 x 4 mm. Hemorrhage extends into the inferior perirenal space and this measures up to approxima tely 9 cm in greatest caudocranial dimension by 5.4 cm in transverse diameter. There is additional he morrhage along the perirenal fascia extending down into the pelvis. Adrenal Glands: Unremarkable. Aorta: The aorta and proximal iliac vessels are grossly unremarkable without aneurysmal dilation. Bowel/Mesentery: The bowel loops are grossly unremarkable. The cecum and sigmoid colon have a normal configuration. Abdominal Wall: Intact. Retroperitoneum: No evidence of adenopathy in the retrocrural, para-aortic, or deep pelvic regions. Bladder: Contours are smooth. Reproductive Organs: No abnormal masses or calcifications seen. Inguinal: The inguinal region is unremarkable without evidence of adenopathy. Bony Structures: There is abnormal lucency and possible destructive change involving the left latera l sacrum. There is an adjacent low-density fluid collection measuring up to approximately 5.8 x 3.2 c m in diameter. Anasarca is present. 1. High density left renal hematoma with additional hemorrhage and hematoma in the perirenal space. 2. Abnormal lucency and possible destructive change involving the lateral left sacrum. There is an a djacent low fluid collection. The differential diagnosis include recent surgical change. If no recent instrumentation was performed this is concern for destructive process such as osteomyelitis or possi ble tumor. 3. Small bilateral pleural effusions and mild consolidation in the posterior lung bases. 4. Anasarca. 5. Cardiomegaly and small pericardial effusion. Electronically signed by: Young Barber MD 10/05/2017 9:16 PM EDT
[2017-10-05 23:47] LABS: Hematocrit 24.2 % (39.0-51.0); Hemoglobin 7.8 gm/dL (13.0-17.0)
[2017-10-06 05:41] LABS: Hematocrit 23.8 % (39.0-51.0); Hemoglobin 7.7 gm/dL (13.0-17.0)
[2017-10-06] MEDS: Torsemide 20 MG Tablet PO SCH ×2 (08:52→17:17)
[2017-10-06] MEDS: Collagenase Oint 30 GM Tube TOPICAL SCH (08:53)
[2017-10-06] MEDS: Calcium Acetate 667 MG Capsule PO SCH ×3 (08:53→17:17)
[2017-10-06] MEDS: Sertraline 50 MG Tablet PO SCH (08:53)
[2017-10-06] MEDS: Allopurinol 100 MG Tablet PO SCH (08:53)
[2017-10-06] MEDS: Metoprolol Tartrate 25 MG Tablet PO SCH (08:54)
--- NOTE | 2017-10-06 09:03 | P.PNFP ---
Subjective Interval history: Patient states that he is in a lot of pain this morning although slightly better than yesterday. He is unaware that he has morphine IV available for breakthrough. He denies fever or chills but continues to have abdominal pain and numbness in his feet. He is still dependent on oxygen. The results of his CT scan which showed a perinephric hematoma was discussed with him in detail. He is aware that we are watching his blood counts round the clock and he may need another blood transfusion and/or IR procedure to stop the bleeding. He had questions about if he is going to because he would like to set his house in order and spend some time with his three sons if possible. <Fariha Ugalde U - 10/06/17 09:41> Results - Labs Result diagrams: 10/10/17 09:19 10/10/17 09:19 <TomasUte M - 10/10/17 14:07> Abnormal lab results 10/10/17 10/10/17 Range/Units 09:19 09:19 RBC 2.82 L (4.50-5.90) mil/mm3 Hgb 9.1 L (13.0-17.0) gm/dL Hct 28.3 L (39.0-51.0) % MCV 100.4 H (80.0-100.0) fL RDW 20.1 H (11.6-17.2) % Rowan % (Auto) 16.9 H (0.0-8.0) % Lymph # (Auto) 0.9 L (1.0-4.8) th/mm3 Rowan # (Auto) 1.3 H (0.0-0.9) th/mm3 Carbon Dioxide 35.3 H (21.0-32.0) meq/L BUN 28 H (7-18) mg/dL Creatinine 1.65 H (0.60-1.30) mg/dL Estimated GFR 44 L (>89) mL/min Albumin 2.7 L (3.4-5.0) g/dL Short CBC 10/10/17 Range/Units 09:19 WBC 7.6 (4.0-11.0) th/mm3 Hgb 9.1 L (13.0-17.0) gm/dL Hct 28.3 L (39.0-51.0) % Plt Count 323 (150-450) th/mm3 BMP 10/10/17 09:19 Sodium 138 Potassium 3.6 Chloride 98 Carbon Dioxide 35.3 H BUN 28 H Creatinine 1.65 H Calcium 8.6 Liver Function 10/10/17 Range/Units 09:19 Albumin 2.7 L (3.4-5.0) g/dL <Ute Marin M - 10/10/17 14:07> Abnormal lab results 10/05/17 10/05/17 10/05/17 Range/Units 05:40 11:33 12:54 Hgb 6.5 L* (13.0-17.0) gm/dL Hct 20.5 L* (39.0-51.0) % Seg Neuts % (Manual) 74 H (16-70) % Lymphocytes % (Manual) 7 L (9-44) % Monocytes % (Manual) 12 H (0-8) % Abs Neuts (Manual) 8.0 H (1.8-7.7) th/mm3 MTS Gel Crossmatch See Detail 10/05/17 10/05/17 10/06/17 Range/Units 18:30 22:55 05:22 Hgb 7.9 L 7.8 L 7.7 L (13.0-17.0) gm/dL Hct 24.5 L 24.2 L 23.8 L (39.0-51.0) % Seg Neuts % (Manual) (16-70) % Lymphocytes % (Manual) (9-44) % Monocytes % (Manual) (0-8) % Abs Neuts (Manual) (1.8-7.7) th/mm3 MTS Gel Crossmatch Short CBC 10/05/17 10/05/17 10/05/17 Range/Units 12:54 18:30 22:55 Hgb 6.5 L* 7.9 L 7.8 L (13.0-17.0) gm/dL Hct 20.5 L* 24.5 L 24.2 L (39.0-51.0) % 10/06/17 Range/Units 05:22 Hgb 7.7 L (13.0-17.0) gm/dL Hct 23.8 L (39.0-51.0) % <Fariha Ugalde U - 10/06/17 09:03> - Imaging Impressions Abdomen/Pelvis CT 10/05/17 00:00 CONCLUSION: Central Venous Line 10/08/17 00:00 CONCLUSION: <TomasUte montoya Belén - 10/10/17 14:07> Impressions Abdomen/Pelvis CT 10/05/17 00:00 CONCLUSION: 1. High density left renal hematoma with additional hemorrhage and hematoma in the perirenal space. 2. Abnormal lucency and possible destructive change involving the lateral left sacrum. There is an adjacent low fluid collection. The differential diagnosis include recent surgical change. If no recent instrumentation was performed this is concern for destructive process such as osteomyelitis or possible tumor. 3. Small bilateral pleural effusions and mild consolidation in the posterior lung bases. 4. Anasarca. 5. Cardiomegaly and small pericardial effusion. <EkoFariha U - 10/06/17 09:41> Physical Exam Vital signs: Vital Signs 10/09/17 16:00 10/09/17 20:00 10/09/17 21:41 Temperature 98.0 F 98.6 F Pulse Rate 88 96 H Respiratory Rate 20 20 8 L Blood Pressure 130/60 120/60 Pulse Oximetry 95 95 10/10/17 00:00 10/10/17 04:00 10/10/17 08:10 Temperature 98.1 F 97.7 F Pulse Rate 97 H 100 H Respiratory Rate 18 18 Blood Pressure 121/58 L 136/74 Pulse Oximetry 95 92 L 96 Intake & Output 10/09/17 10/10/17 10/10/17 18:59 06:59 18:59 Intake Total 480 / 480 300 / 300 Output Total 2300 / 2300 1100 / 1100 2300 / 2300 Balance -1820 / -1820 -800 / -800 -2300 / -2300 Weight 150.1 kg Intake: Oral 480 / 480 300 / 300 Output: Urine 2300 / 2300 1100 / 1100 300 / 300 Hemodialysis Amount 1999 / 1999 Other: # Voids 1 Date of Last Bowel Movement 10/07/17 10/09/17 # Bowel Movements 1 <TomasAntoniUte M - 10/10/17 14:07> Vital Signs 10/05/17 10:37 10/05/17 11:07 10/05/17 11:37 Temperature Pulse Rate 71 Respiratory Rate 18 18 Blood Pressure Pulse Oximetry 10/05/17 12:00 10/05/17 13:56 10/05/17 14:26 Temperature 98.2 F Pulse Rate 72 Respiratory Rate 20 18 18 Blood Pressure 93/50 L Pulse Oximetry 97 10/05/17 14:46 10/05/17 15:09 10/05/17 15:26 Temperature 98.5 F 98.5 F 98.2 F Pulse Rate 73 76 74 Respiratory Rate 20 18 18 Blood Pressure 94/42 L 87/51 L 104/50 L Pulse Oximetry 10/05/17 18:41 10/05/17 20:00 10/06/17 00:00 Temperature 97.4 F L 97.9 F Pulse Rate 75 77 Respiratory Rate 18 17 17 Blood Pressure 110/59 L 89/50 L Pulse Oximetry 92 L 96 10/06/17 04:00 10/06/17 07:43 10/06/17 08:00 Temperature 97.9 F 98.1 F Pulse Rate 67 71 Respiratory Rate 18 16 20 Blood Pressure 109/55 L 112/57 L Pulse Oximetry 97 96 Intake & Output 10/05/17 10/06/17 10/06/17 18:59 06:59 18:59 Intake Total 800 / 800 221 / 221 Output Total 4100 / 4100 200 / 200 Balance -3300 / -3300 Weight 151.1 kg Intake: Oral 221 / 221 Intake (Blood Product) Amt 800 / 800 Rbc As-3 Leukoreduced Unit 400 / 400 [id number] Rbc As-3 Leukoreduced Unit 400 / 400 [id number] Output: Urine 600 / 600 200 / 200 Hemodialysis Amount 3500 / 3500 Other: Date of Last Bowel Movement 10/04/17 <Fariha Ugalde U - 10/06/17 09:03> Narrative: Narrative: GENERAL: Obese male in no apparent distress, sitting up in bed. SKIN: Warm and dry. HEAD: Atraumatic. Normocephalic. EYES: Pupils equal and round. No scleral icterus. No injection or drainage. ENT: No nasal bleeding or discharge. Mucous membranes pink and moist. CARDIOVASCULAR: Regular rate and rhythm. RESPIRATORY: No accessory muscle use. Clear to auscultation. Breath sounds equal bilaterally. CHEST: 5cm area of superficial bruising on his left chest GASTROINTESTINAL: Abdomen soft, obese. Normal bowel sounds. BACK: Exquisite tenderness to palpation in the left flank area of recent renal biopsy. MUSCULOSKELETAL: 3+ in the bilateral lower extremities to mid thigh, stable from exams. No cyanosis. Left ankle wound with clean and dry dressing noted NEUROLOGICAL: Awake and alert. No obvious cranial nerve deficits. Motor grossly within normal limits. PSYCHIATRIC: Appropriate mood and affect; insight and judgment normal. <PanfilooFariha - 10/06/17 09:41> Assessment and Plan - Assessment (1) ESTELLA (acute kidney injury) Code(s): N17.9 - Acute kidney failure, unspecified Status: Acute (2) Traumatic perinephric hematoma of left kidney Code(s): S37.092A - Other injury of left kidney, initial encounter Status: Acute (3) Anemia Code(s): D64.9 - Anemia, unspecified Status: Acute (4) Anasarca Code(s): R60.1 - Generalized edema Status: Acute (5) Hyperphosphatemia Code(s): E83.39 - Other disorders of phosphorus metabolism Status: Resolved (6) Hypertension Code(s): I10 - Essential (primary) hypertension Status: Chronic (7) History of asthma Code(s): Z87.09 - Personal history of other diseases of the respiratory system Status: Chronic (8) Depression with anxiety Code(s): F41.8 - Other specified anxiety disorders Status: Chronic (9) Gout Code(s): M10.9 - Gout, unspecified Status: Chronic (10) Open wound of left lower extremity Code(s): S81.802A - Unspecified open wound, left lower leg, initial encounter Status: Acute (11) Sleep apnea Code(s): G47.30 - Sleep apnea, unspecified Status: Acute (12) Nutrition, metabolism, and development symptoms Code(s): R63.8 - Other symptoms and signs concerning food and fluid intake Status: Acute <Ute Marin - 10/10/17 14:07> (1) Traumatic perinephric hematoma of left kidney Code(s): S37.092A - Other injury of left kidney, initial encounter Status: Acute Plan: -Noncontrast CT of abdomen/pelvis shows high density left renal hematoma with additional hemorrhage and hematoma in the perirenal space -Senior covering resident discussed case last night with radiologist and interventional radiologist who determined the hematoma to be contained at this time and asked to monitor his vitals and H/H and call them if he decompensates or requires another blood transfusion -Alto PO prn for pain and morphine IV for breakthrough pain (2) Anemia Code(s): D64.9 - Anemia, unspecified Status: Acute Plan: -H/H 7.9/24.5 post-transfusion, an increase from 6.2/19.5 on the previous morning - Currently 7.7/23.8 at 5:22 am this morning -Continue monitoring Q6h -Transfuse at Hemoglobin of 7 -Will call radiologist if need for transfusion and/or decompensation (3) ESTELLA (acute kidney injury) Code(s): N17.9 - Acute kidney failure, unspecified Status: Acute Plan: Creatinine level is still pending this am - he had dialysis on the previous day Continue to monitor renal function panel. Dialysis to continue for now, renal biopsy pending at this time, likely to have results on Saturday. Unsure if he will need long-term dialysis versus short-term. Patient may continue to be dialysis dependent and this would require PermCath placement prior to discharge, nephrology to continue monitoring On PO Torsemide per nephrology Appreciate nephrology management of patient's care Impression/Course: Suspecting ESTELLA with possible intrinsic renal disease related to Vancomycin Serology and urine studies unremakable PO fluid allowance to 2 L daily. Serial BMPs. Renal biopsy 10/03, pending results (4) Anasarca Code(s): R60.1 - Generalized edema Status: Acute Plan: -Whole body edema with pleural and pericardial effusions, etiology unsure, pending renal biopsy results -~3.3L out with dialysis on 10/05 - Nephrology on board, management as noted (5) Hyperphosphatemia Code(s): E83.39 - Other disorders of phosphorus metabolism Status: Resolved Plan: Secondary to renal failure. Resolved. PhosLo ordered with meals per nephrology. (6) Hypertension Code(s): I10 - Essential (primary) hypertension Status: Chronic Plan: Patient with a known history of hypertension Blood pressure has been in the low 100's to 110's over the past 24 hours with one SBP of 89 noted Hold home Metoprolol due to risk for severe hypotension in the setting of an acute bleed (7) History of asthma Code(s): Z87.09 - Personal history of other diseases of the respiratory system Status: Chronic Plan: Patient with a known history of asthma Duonebs every 4hr PRN, albuterol every 2hr PRN SOB/wheezing Not requiring routine treatments at this time (8) Depression with anxiety Code(s): F41.8 - Other specified anxiety disorders Status: Chronic Plan: Patient with a known history of depression anxiety. Continue home Zoloft, trazodone. Holding Valium (9) Gout Code(s): M10.9 - Gout, unspecified Status: Chronic Plan: Patient with a known history of gout. Continue home allopurinol. (10) Open wound of left lower extremity Code(s): S81.802A - Unspecified open wound, left lower leg, initial encounter Status: Acute Plan: Continue daily Santyl dressings per wound care recommendations. Okay to take a bath given no active infection however, keeping Vas-Cath and peripheral access clean and dry Patient will need referral to outpatient wound care clinic upon discharge. Will have wound care immediately after discharge, either outpatient or home health Impression/Course: Patient presented with bilateral lower extremity edema with erythema overlying surgical site on LLE. Did not have systemic signs of infection and no longer suspicious for cellulitis, suspect related to fluid overload and/or venous insufficiency. He does have left ankle wound which wound care has been consulted and recommending daily Santyl dressings since 09/23. Will continue to monitor lower extremities, wound culture showing MRSA and Pseudomonas however wound culture was superficial and may have been reflective of skin ori. ital signs have been within normal limits without fever this hospitalization and white count within normal limits. Suspect some element of pressure ulcer given limited mobility since his ankle surgery in July 2017 (internal fixation with rods and screws throughout ankle). X-ray performed 09/20 showing intact hardware and soft tissue edema. Clinically the bilateral LEs have been stable with no significant erythema since fluid restriction and dialysis were initiated. ESR 14, low suspicion for osteomyelitis Lactic acid 1.5 on admission Patient afebrile without leukocytosis this hospitalization Antibiotics: Vancomycin 09/21 through 09/24, discontinued given ESTELLA and lower suspicion for cellulitis Vancomycin ordered with pharmacy consult to help with dosing (09/21-09/24) Rocephin 2 g IV daily (09/21 - 09/23) Blood cultures 09/20/17: no growth Wound culture 09/20/17: MRSA, Pseudomonas PT/OT consult ordered - PT currently recommending no PT at discharge (11) Sleep apnea Code(s): G47.30 - Sleep apnea, unspecified Status: Acute Plan: Home O2 walk test ordered for discharge planning Continues to require oxygen while inpt Will order home oxygen if indicated Of note, we suspect patient has sleep apnea given history reported and elevated pulmonary arterial pressure on echocardiogram. Patient will require further discussion and workup of this as an outpatient. (12) Nutrition, metabolism, and development symptoms Code(s): R63.8 - Other symptoms and signs concerning food and fluid intake Status: Acute Plan: FEN: - Gentle PO hydration given ESTELLA - Correct electrolytes as needed - Low-salt, heart healthy diet and fluid restriction to 2 L PPX: -Holding Lovenox due to acute perinephric bleed <Fariha Ugalde U - 10/06/17 09:17> - Attending Attestation The exam, history, and the medical decision-making described in the above note were completed with the assistance of the resident physician. I reviewed and agree with the findings presented. I attest that I had a [id number]-[id number] encounter with the patient on the same day, and personally performed and documented my assessment and findings in the medical record. his renal failure is still a bit of a mystery. he had anasarca before his renal failure and his kidneys did not show that meds specifically damaged them. <Ute Marin - 10/10/17 14:07> <Fariha Ugalde U - Last Filed: 10/06/17 09:17> (2) Anemia Qualifiers: Anemia type: unspecified type Qualified Code(s): D64.9 - Anemia, unspecified (6) Hypertension Qualifiers: Hypertension type: essential hypertension Qualified Code(s): I10 - Essential (primary) hypertension <TomasUte dolan M - Last Filed: 10/10/17 14:07> (3) Anemia Qualifiers: Anemia type: unspecified type Qualified Code(s): D64.9 - Anemia, unspecified (6) Hypertension Qualifiers: Hypertension type: essential hypertension Qualified Code(s): I10 - Essential (primary) hypertension <PanfilodionicioFariha U - Last Filed: 10/06/17 09:17> (2) Anemia Qualifiers: Anemia type: unspecified type Qualified Code(s): D64.9 - Anemia, unspecified (6) Hypertension Qualifiers: Hypertension type: essential hypertension Qualified Code(s): I10 - Essential (primary) hypertension <[place] GarlandAntoniUte M - Last Filed: 10/10/17 14:07> (3) Anemia Qualifiers: Anemia type: unspecified type Qualified Code(s): D64.9 - Anemia, unspecified (6) Hypertension Qualifiers: Hypertension type: essential hypertension Qualified Code(s): I10 - Essential (primary) hypertension
[2017-10-06] MEDS: Morphine Inj 4 MG/ML Vial IV.PUSH PRN ×3 (09:58→18:59)
[2017-10-06 12:34] LABS: Hematocrit 24.5 % (39.0-51.0); Hemoglobin 8.1 gm/dL (13.0-17.0); Mean Corpuscular Hemoglobin 32.9 pg (27.0-34.0); Mean Corpuscular Volume 99.7 fL (80.0-100.0); Mean Platelet Volume 7.7 fL (7.0-11.0); Platelet Count 288 th/mm3 (150-450); Red Blood Count 2.46 mil/mm3 (4.50-5.90); Red Cell Distribution Width 21.4 % (11.6-17.2); White Blood Count 10.5 th/mm3 (4.0-11.0)
[2017-10-06 12:58] LABS: Calcium 8.6 mg/dL (8.5-10.1); Carbon Dioxide 32.2 meq/L (21.0-32.0); Potassium 4.2 meq/L (3.5-5.1)
--- NOTE | 2017-10-06 17:02 | P.PNNP ---
Subjective Interval history: Patient lying in bed. Not in respiratory distress. No verbal complaints. Physical Exam Vital signs: Vital Signs 10/05/17 18:41 10/05/17 20:00 10/06/17 00:00 Temperature 97.4 F L 97.9 F Pulse Rate 75 77 Respiratory Rate 18 17 17 Blood Pressure 110/59 L 89/50 L Pulse Oximetry 92 L 96 10/06/17 04:00 10/06/17 07:43 10/06/17 08:00 Temperature 97.9 F 98.1 F Pulse Rate 67 72 Respiratory Rate 18 16 20 Blood Pressure 109/55 L 112/57 L Pulse Oximetry 97 96 10/06/17 10:10 10/06/17 12:00 Temperature 97.5 F L Pulse Rate 72 Respiratory Rate 20 Blood Pressure 110/59 L Pulse Oximetry 92 L 97 Intake & Output 10/05/17 10/06/17 10/06/17 18:59 06:59 18:59 Intake Total 800 / 800 221 / 221 600 / 600 Output Total 4100 / 4100 200 / 200 Balance -3300 / -3300 600 / 600 Weight 151.1 kg Intake: Oral 221 / 221 600 / 600 Intake (Blood Product) Amt 800 / 800 Rbc As-3 Leukoreduced Unit 400 / 400 [id number] Rbc As-3 Leukoreduced Unit 400 / 400 [id number] Output: Urine 600 / 600 200 / 200 Hemodialysis Amount 3500 / 3500 Other: Date of Last Bowel Movement 10/04/17 Narrative: GENERAL: Middle-aged obese male lying in bed not in respiratory distress. SKIN: Warm and dry. HEAD: Normocephalic. EYES: No scleral icterus. No injection or drainage. NECK: Supple, trachea midline. No JVD or lymphadenopathy. CARDIOVASCULAR: Regular rate and rhythm without murmurs, gallops, or rubs. RESPIRATORY: Breath sounds equal bilaterally. No accessory muscle use. GASTROINTESTINAL: Abdomen soft, non-tender, nondistended. MUSCULOSKELETAL: No cyanosis, still with 2-3+ pitting edema extending from his feet all the way into his dependent torso. Assessment and Plan - Assessment (1) Acute renal insufficiency Code(s): N28.9 - Disorder of kidney and ureter, unspecified Status: Acute Plan: Despite significant ultrafiltration with hemodialysis patient still has marked edema. I reiterated to him the importance of following his fluid restriction We will do dialysis daily until we make significant headway with his fluid retention. Based on his renal indices and poor response to diuretics dialytic support most likely will be required for significant period of time. Await results of kidney biopsy. If the patient does appear to have an ATN it may be some time before renal recovery occurs if at all as discussed with him. We will plan for conversion of Vas-Cath to PermCath probably Saturday. Subsequently make arrangements for outpatient dialysis if required with monitoring of renal status as an outpatient. This was discussed with him. Medications should be adjusted for the patient's estimated GFR if clinically indicated. Avoid agents with significant potential for nephrotoxicity possible including NSAIDs for analgesia, iodine contrast agents. Gadolinium is contraindicated if the GFR is below 30. (2) Perinephric hematoma Code(s): S37.019A - Minor contusion of unspecified kidney, initial encounter Status: Acute Plan: Left kidney 7 x 4 cm status post kidney biopsy. Vital signs and hemoglobin currently stable posttransfusion. Discussed with hematology in a.m. regarding possible need for follow-up imaging studies. The above was discussed with the patient. (3) Edema Code(s): R60.9 - Edema, unspecified Status: Acute Qualifiers: Edema type: generalized Qualified Code(s): R60.1 - Generalized edema Plan: Still with poor response to diuretic therapy. (4) Congestive heart failure (CHF) Code(s): I50.9 - Heart failure, unspecified Status: Acute Qualifiers: Heart failure type: combined systolic and diastolic (5) Hyperphosphatemia Code(s): E83.39 - Other disorders of phosphorus metabolism Status: Resolved Plan: Secondary to renal failure. PhosLo ordered with meals.
[2017-10-06 18:10] LABS: Hematocrit 26.6 % (39.0-51.0); Hemoglobin 8.6 gm/dL (13.0-17.0)
[2017-10-06] MEDS: traZODone 100 MG Tablet PO SCH (21:36)
[2017-10-07 05:35] LABS: Baso % (Auto) 0.5 % (0.0-2.0); Eos % (Auto) 0.3 % (0.0-4.0); Hematocrit 26.1 % (39.0-51.0); Hemoglobin 8.5 gm/dL (13.0-17.0); Lymph # (Auto) 0.7 th/mm3 (1.0-4.8); Lymph % (Auto) 7.5 % (9.0-44.0); Mean Corpuscular HGB Conc 32.4 % (32.0-36.0); Mean Corpuscular Hemoglobin 33.1 pg (27.0-34.0); Mean Platelet Volume 7.7 fL (7.0-11.0); Mono # (Auto) 1.2 th/mm3 (0.0-0.9); Mono % (Auto) 13.1 % (0.0-8.0); Neut # (Auto) 7.1 th/mm3 (1.8-7.7); Neut % (Auto) 78.6 % (16.0-70.0); Platelet Count 288 th/mm3 (150-450); Red Blood Count 2.55 mil/mm3 (4.50-5.90); Red Cell Distribution Width 21.4 % (11.6-17.2)
[2017-10-07 05:48] LABS: Calcium 8.8 mg/dL (8.5-10.1); Carbon Dioxide 30.5 meq/L (21.0-32.0); Potassium 4.4 meq/L (3.5-5.1)
[2017-10-07] MEDS: Morphine Inj 4 MG/ML Vial IV.PUSH PRN ×3 (07:18→21:11)
[2017-10-07] MEDS: Calcium Acetate 667 MG Capsule PO SCH ×3 (08:18→17:01)
[2017-10-07] MEDS: Sertraline 50 MG Tablet PO SCH (08:19)
[2017-10-07] MEDS: Allopurinol 100 MG Tablet PO SCH (08:19)
--- NOTE | 2017-10-07 08:19 | P.PNFP ---
Subjective Interval history: No acute events overnight. Afebrile, vital signs within normal limits. The patient's only concern today again is of asking whether his current medical conditions may lead to morbidity. He otherwise denies complaints. Denies fevers or chills, chest pain, dyspnea, cough. He states he thinks his anasarca is slightly improved from yesterday particularly of his upper extremities. Denies specific issues with his mood. Reports he believes his urine output was better yesterday. <Yann Kerr - 10/07/17 11:58> Results - Labs Result diagrams: 10/07/17 04:45 10/07/17 04:45 <Frederick Arora - 10/07/17 13:03> Abnormal lab results 10/06/17 10/07/17 10/07/17 Range/Units 17:25 04:45 04:45 RBC 2.55 L (4.50-5.90) mil/mm3 Hgb 8.6 L 8.5 L (13.0-17.0) gm/dL Hct 26.6 L 26.1 L (39.0-51.0) % MCV 102.0 H (80.0-100.0) fL RDW 21.4 H (11.6-17.2) % Neut % (Auto) 78.6 H (16.0-70.0) % Lymph % (Auto) 7.5 L (9.0-44.0) % [place] % (Auto) 13.1 H (0.0-8.0) % Lymph # (Auto) 0.7 L (1.0-4.8) th/mm3 [place] # (Auto) 1.2 H (0.0-0.9) th/mm3 Sodium 131 L (136-145) meq/L Chloride 95 L (98-107) meq/L BUN 34 H (7-18) mg/dL Creatinine 3.20 H (0.60-1.30) mg/dL Estimated GFR 20 L (>89) mL/min Random Glucose 117 H (74-106) mg/dL Short CBC 10/06/17 10/07/17 Range/Units 17:25 04:45 WBC 9.0 (4.0-11.0) th/mm3 Hgb 8.6 L 8.5 L (13.0-17.0) gm/dL Hct 26.6 L 26.1 L (39.0-51.0) % Plt Count 288 (150-450) th/mm3 BMP 10/07/17 04:45 Sodium 131 L Potassium 4.4 Chloride 95 L Carbon Dioxide 30.5 BUN 34 H Creatinine 3.20 H Calcium 8.8 <AroraFrederick - 10/07/17 13:03> Abnormal lab results 10/06/17 10/06/17 10/06/17 Range/Units 12:10 12:10 17:25 RBC 2.46 L (4.50-5.90) mil/mm3 Hgb 8.1 L 8.6 L (13.0-17.0) gm/dL Hct 24.5 L 26.6 L (39.0-51.0) % MCV (80.0-100.0) fL RDW 21.4 H D (11.6-17.2) % Neut % (Auto) (16.0-70.0) % Lymph % (Auto) (9.0-44.0) % [place] % (Auto) (0.0-8.0) % Lymph # (Auto) (1.0-4.8) th/mm3 [place] # (Auto) (0.0-0.9) th/mm3 Sodium 134 L (136-145) meq/L Chloride 95 L (98-107) meq/L Carbon Dioxide 32.2 H (21.0-32.0) meq/L BUN 26 H (7-18) mg/dL Creatinine 2.87 H (0.60-1.30) mg/dL Estimated GFR 23 L (>89) mL/min Random Glucose 108 H (74-106) mg/dL 10/07/17 10/07/17 Range/Units 04:45 04:45 RBC 2.55 L (4.50-5.90) mil/mm3 Hgb 8.5 L (13.0-17.0) gm/dL Hct 26.1 L (39.0-51.0) % MCV 102.0 H (80.0-100.0) fL RDW 21.4 H (11.6-17.2) % Neut % (Auto) 78.6 H (16.0-70.0) % Lymph % (Auto) 7.5 L (9.0-44.0) % [place] % (Auto) 13.1 H (0.0-8.0) % Lymph # (Auto) 0.7 L (1.0-4.8) th/mm3 [place] # (Auto) 1.2 H (0.0-0.9) th/mm3 Sodium 131 L (136-145) meq/L Chloride 95 L (98-107) meq/L Carbon Dioxide (21.0-32.0) meq/L BUN 34 H (7-18) mg/dL Creatinine 3.20 H (0.60-1.30) mg/dL Estimated GFR 20 L (>89) mL/min Random Glucose 117 H (74-106) mg/dL Short CBC 10/06/17 10/06/17 10/07/17 Range/Units 12:10 17:25 04:45 WBC 10.5 9.0 (4.0-11.0) th/mm3 Hgb 8.1 L 8.6 L 8.5 L (13.0-17.0) gm/dL Hct 24.5 L 26.6 L 26.1 L (39.0-51.0) % Plt Count 288 288 (150-450) th/mm3 [facility] 10/06/17 10/07/17 12:10 04:45 Sodium 134 L 131 L Potassium 4.2 4.4 Chloride 95 L 95 L Carbon Dioxide 32.2 H 30.5 BUN 26 H 34 H Creatinine 2.87 H 3.20 H Calcium 8.6 8.8 <Yann Kerr - 10/07/17 08:19> Physical Exam Vital signs: Vital Signs 10/06/17 16:00 10/06/17 17:27 10/06/17 20:00 Temperature 97.8 F 97.7 F Pulse Rate 73 80 Respiratory Rate 20 19 Blood Pressure 116/56 L 117/59 L Pulse Oximetry 96 96 95 10/06/17 20:05 10/07/17 00:00 10/07/17 03:57 Temperature 97.1 F L Pulse Rate 77 83 Respiratory Rate 20 14 Blood Pressure 114/58 L Pulse Oximetry 93 L 10/07/17 04:00 10/07/17 08:50 10/07/17 09:25 Temperature 97.5 F L 97.4 F L Pulse Rate 71 83 Respiratory Rate 20 18 20 Blood Pressure 121/58 L 104/55 L Pulse Oximetry 90 L 94 L 10/07/17 10:21 Temperature Pulse Rate 81 Respiratory Rate Blood Pressure Pulse Oximetry Intake & Output 10/06/17 10/07/17 10/07/17 18:59 06:59 18:59 Intake Total 600 / 600 221 / 221 Output Total 400 / 400 Balance 600 / 600 -179 / -179 - Weight 151.6 kg Intake: Oral 600 / 600 221 / 221 Output: Urine 400 / 400 Other: Date of Last Bowel Movement 10/06/17 <Frederick Arora - 10/07/17 13:03> Vital Signs 10/06/17 10:10 10/06/17 12:00 10/06/17 16:00 Temperature 97.5 F L 97.8 F Pulse Rate 69 73 Respiratory Rate 20 20 Blood Pressure 110/59 L 116/56 L Pulse Oximetry 92 L 97 96 10/06/17 17:27 10/06/17 20:00 10/06/17 20:05 Temperature 97.7 F Pulse Rate 80 77 Respiratory Rate 19 Blood Pressure 117/59 L Pulse Oximetry 96 95 10/07/17 00:00 10/07/17 03:57 10/07/17 04:00 Temperature 97.1 F L 97.5 F L Pulse Rate 83 71 Respiratory Rate 20 14 20 Blood Pressure 114/58 L 121/58 L Pulse Oximetry 93 L 90 L Intake & Output 10/06/17 10/07/17 10/07/17 18:59 06:59 18:59 Intake Total 600 / 600 221 / 221 Output Total 400 / 400 Balance 600 / 600 -179 / -179 Weight 151.6 kg Intake: Oral 600 / 600 221 / 221 Output: Urine 400 / 400 Other: Date of Last Bowel Movement 10/06/17 <Yann Kerr - 10/07/17 11:58> Narrative: GENERAL: Obese male in no apparent distress, sitting up in bed. SKIN: Warm and dry. HEAD: Atraumatic. Normocephalic. EYES: EOMI. No scleral icterus. No injection or drainage. ENT: No nasal bleeding or discharge. Mucous membranes pink and moist. CARDIOVASCULAR: Regular rate and rhythm. RESPIRATORY: No accessory muscle use. Clear to auscultation. Breath sounds equal bilaterally. CHEST: 5cm area of superficial bruising on his left chest GASTROINTESTINAL: Abdomen soft, obese. Normal bowel sounds. BACK: tenderness to palpation in the left flank area of recent renal biopsy. MUSCULOSKELETAL: 3+ in the bilateral lower extremities to mid thigh. No cyanosis. Left ankle wound with clean and dry dressing noted NEUROLOGICAL: Awake and alert. No obvious cranial nerve deficits. Motor grossly within normal limits. PSYCHIATRIC: Appropriate mood and affect; insight and judgment normal. <Dennise Kerrsh - 10/07/17 11:58> Assessment and Plan - Assessment (1) Traumatic perinephric hematoma of left kidney Code(s): S37.092A - Other injury of left kidney, initial encounter Status: Acute Plan: -Noncontrast CT of abdomen/pelvis shows high density left renal hematoma with additional hemorrhage and hematoma in the perirenal space -Senior covering resident discussed case with radiologist and interventional radiologist who determined the hematoma to be contained at this time and asked to monitor his vitals and H/H and call them if he decompensates or requires another blood transfusion -[place] PO prn for pain and morphine IV for breakthrough pain (2) Anemia Code(s): D64.9 - Anemia, unspecified Status: Acute Plan: -Hgb remaining stable - Will continue to monitor daily -Transfuse at Hemoglobin of 7 -Will call radiologist if need for transfusion and/or decompensation (3) ESTELLA (acute kidney injury) Code(s): N17.9 - Acute kidney failure, unspecified Status: Acute Plan: Continue to monitor renal function panel. Dialysis to continue for now, renal biopsy pending at this time, likely to have results on Saturday. Unsure if he will need long-term dialysis versus short-term. Patient may continue to be dialysis dependent and this would require PermCath placement prior to discharge, nephrology to continue monitoring. Consider placement and patient to continue dialysis as an outpatient On PO Torsemide per nephrology Appreciate nephrology management of patient's care Impression/Course: Suspecting ESTELLA with possible intrinsic renal disease related to Vancomycin Serology and urine studies unremarkable PO fluid allowance to 2 L daily. Serial BMPs. Renal biopsy 10/03, pending results (4) Anasarca Code(s): R60.1 - Generalized edema Status: Acute Plan: -Whole body edema with pleural and pericardial effusions, etiology unsure, pending renal biopsy results -~3.3L out with dialysis on 10/05, patient to dialysis today - Nephrology on board, management as noted (5) Hyperphosphatemia Code(s): E83.39 - Other disorders of phosphorus metabolism Status: Resolved Plan: Secondary to renal failure. Resolved. PhosLo ordered with meals per nephrology. (6) Hypertension Code(s): I10 - Essential (primary) hypertension Status: Chronic Plan: Patient with a known history of hypertension Blood pressure has been in the low 100's to 110's over the past 24 hours with one SBP of 89 noted Hold home Metoprolol due to risk for severe hypotension in the setting of an acute bleed (7) History of asthma Code(s): Z87.09 - Personal history of other diseases of the respiratory system Status: Chronic Plan: Patient with a known history of asthma Duonebs every 4hr PRN, albuterol every 2hr PRN SOB/wheezing Not requiring routine treatments at this time (8) Depression with anxiety Code(s): F41.8 - Other specified anxiety disorders Status: Chronic Plan: Patient with a known history of depression anxiety. Continue home Zoloft, trazodone. Holding Valium (9) Gout Code(s): M10.9 - Gout, unspecified Status: Chronic Plan: Patient with a known history of gout. Continue home allopurinol. (10) Open wound of left lower extremity Code(s): S81.802A - Unspecified open wound, left lower leg, initial encounter Status: Acute Plan: Continue daily Santyl dressings per wound care recommendations. Okay to take a bath given no active infection however, keeping Vas-Cath and peripheral access clean and dry Patient will need referral to outpatient wound care clinic upon discharge. Will have wound care immediately after discharge, either outpatient or home health Impression/Course: Patient presented with bilateral lower extremity edema with erythema overlying surgical site on LLE. Did not have systemic signs of infection and no longer suspicious for cellulitis, suspect related to fluid overload and/or venous insufficiency. He does have left ankle wound which wound care has been consulted and recommending daily Santyl dressings since 09/23. Will continue to monitor lower extremities, wound culture showing MRSA and Pseudomonas however wound culture was superficial and may have been reflective of skin ori. ital signs have been within normal limits without fever this hospitalization and white count within normal limits. Suspect some element of pressure ulcer given limited mobility since his ankle surgery in July 2017 (internal fixation with rods and screws throughout ankle). X-ray performed 09/20 showing intact hardware and soft tissue edema. Clinically the bilateral LEs have been stable with no significant erythema since fluid restriction and dialysis were initiated. ESR 14, low suspicion for osteomyelitis Lactic acid 1.5 on admission Patient afebrile without leukocytosis this hospitalization Antibiotics: Vancomycin 09/21 through 09/24, discontinued given ESTELLA and lower suspicion for cellulitis Vancomycin ordered with pharmacy consult to help with dosing (09/21-09/24) Rocephin 2 g IV daily (09/21 - 09/23) Blood cultures 09/20/17: no growth Wound culture 09/20/17: MRSA, Pseudomonas PT/OT consult ordered - PT currently recommending no PT at discharge (11) Sleep apnea Code(s): G47.30 - Sleep apnea, unspecified Status: Acute Plan: Home O2 walk test ordered for discharge planning Continues to require oxygen while inpt Will order home oxygen if indicated Of note, we suspect patient has sleep apnea given history reported and elevated pulmonary arterial pressure on echocardiogram. Patient will require further discussion and workup of this as an outpatient. (12) Nutrition, metabolism, and development symptoms Code(s): R63.8 - Other symptoms and signs concerning food and fluid intake Status: Acute Plan: FEN: - Gentle PO hydration given ESTELLA - Correct electrolytes as needed - Low-salt, heart healthy diet and fluid restriction to 2 L PPX: -Holding Lovenox due to acute perinephric bleed <Yann Kerr - 10/07/17 11:49> - Assessment and Plan Patient is a 56-year-old male with a history of asthma, depression and anxiety, gout, hypertension and recent surgical repair of the left ankle and left hip who presented to the ED with progressive shortness of breath and lower extremity edema. Chest x-ray showing cardiomegaly with mild positive fluid balance. Initial ACS workup is negative. Patient also noted to have likely cellulitis in the bilateral lower extremities. Received vancomycin x1 in the ED. Admitted to inpatient for suspected new onset CHF, fluid overload management, cellulitis treatment. New onset ESTELLA 09/23 to workup and manage, nephrology consulted. <Yann Kerr - 10/07/17 08:19> - Attending Attestation See the residents documentation for details. I saw and evaluated the patient regarding the arteaga portions of this evaluation and agree with the residents findings and plans as written. Parts of this note were created using [employer] recognition software program. While efforts were made to correct any mistakes made by this software, some mistakes, errors, and omissions may remain in the final note that were not caught when the note was originally created. Plan of care was discussed and agreed upon with the patient as specifically documented in the above note. An opportunity to ask questions with explanation was provided. Patient voiced understanding on all information reviewed and discussed. <Frederick Arora - 10/07/17 13:03> <Yann Kerr - Last Filed: 10/07/17 11:49> (2) Anemia Qualifiers: Anemia type: unspecified type Qualified Code(s): D64.9 - Anemia, unspecified (6) Hypertension Qualifiers: Hypertension type: essential hypertension Qualified Code(s): I10 - Essential (primary) hypertension <Yann Kerr - Last Filed: 10/07/17 11:49> (2) Anemia Qualifiers: Anemia type: unspecified type Qualified Code(s): D64.9 - Anemia, unspecified (6) Hypertension Qualifiers: Hypertension type: essential hypertension Qualified Code(s): I10 - Essential (primary) hypertension
[2017-10-07] MEDS: Torsemide 20 MG Tablet PO SCH ×2 (08:22→17:02)
--- NOTE | 2017-10-07 12:23 | P.PNNP ---
Subjective Interval history: Pt seen during HD today and seems to be tolerating well. Back pain still present, but improving. Hgb stable. <Verna Cisneros R - Last Filed: 10/07/17 12:19> Physical Exam Vital signs: Vital Signs 10/06/17 16:00 10/06/17 17:27 10/06/17 20:00 Temperature 97.8 F 97.7 F Pulse Rate 73 80 Respiratory Rate 20 19 Blood Pressure 116/56 L 117/59 L Pulse Oximetry 96 96 95 10/06/17 20:05 10/07/17 00:00 10/07/17 03:57 Temperature 97.1 F L Pulse Rate 77 83 Respiratory Rate 20 14 Blood Pressure 114/58 L Pulse Oximetry 93 L 10/07/17 04:00 10/07/17 08:50 10/07/17 09:25 Temperature 97.5 F L 97.4 F L Pulse Rate 71 83 Respiratory Rate 20 18 20 Blood Pressure 121/58 L 104/55 L Pulse Oximetry 90 L 94 L 10/07/17 10:21 Temperature Pulse Rate 81 Respiratory Rate Blood Pressure Pulse Oximetry Intake & Output 10/06/17 10/07/17 10/07/17 18:59 06:59 18:59 Intake Total 600 / 600 221 / 221 Output Total 400 / 400 25 / 25 Balance 600 / 600 -179 / -179 -25 / -25 Weight 151.6 kg Intake: Oral 600 / 600 221 / 221 Output: Urine 400 / 400 / Other: Date of Last Bowel Movement 10/06/17 - Constitutional no acute distress - Routine HEENT Exam Head: Present: normocephalic - Routine Neck Exam Present: supple - Routine Respiratory Exam Present: decreased breath sounds, distant breath sounds, diminished air movement - Routine Cardiovascular Exam Present: RRR, S1, S2 - Routine Abdominal Exam Present: soft - Routine Extremities Exam Present: edema (Continued generalized anasarca) - Routine Neurological Exam Present: alert, oriented X3 - Routine Psychiatric Exam Present: normal affect <Verna Cisneros - Last Filed: 10/07/17 12:19> Vital signs: Vital Signs 10/08/17 18:15 10/08/17 20:00 10/09/17 00:00 Temperature 98.4 F 98.5 F Pulse Rate 95 H 95 H Respiratory Rate 8 L 20 20 Blood Pressure 111/62 123/71 Pulse Oximetry 95 95 10/09/17 00:47 10/09/17 04:00 10/09/17 05:33 Temperature 98.0 F Pulse Rate 93 H Respiratory Rate 8 L 20 8 L Blood Pressure 117/59 L Pulse Oximetry 94 L 10/09/17 08:00 10/09/17 12:00 Temperature 98.0 F 98.6 F Pulse Rate 85 92 H Respiratory Rate 20 20 Blood Pressure 119/57 L 120/57 L Pulse Oximetry 95 96 Intake & Output 10/08/17 10/09/17 10/09/17 18:59 06:59 18:59 Intake Total 360 / 360 750 / 750 Output Total 225 / 225 450 / 450 Balance 135 / 135 300 / 300 Weight 149.6 kg Intake: Oral 360 / 360 750 / 750 Output: Urine 225 / 225 450 / 450 Other: Date of Last Bowel Movement 10/07/17 # Bowel Movements 0 <Liz Perry - Last Filed: 10/09/17 16:18> Assessment and Plan - Assessment (1) Acute renal insufficiency Code(s): N28.9 - Disorder of kidney and ureter, unspecified Status: Acute Plan: Seen duting HD today. Discussed again the importance of fluid restrictions. Will continue daily HD for the present to help with volume status. Awaiting finalization of biopsy pathology. Will plan for conversion of hemodialysis catheter tomorrow from VasCath to PermCath. Although he may recover in the future, it is likely going to be a prolonged process. Will discuss his case with outpatient HD community mental health social worker. If possible, may be able to be set up as an acute patient, but this is to be determined. Medications should be adjusted for the patient's estimated GFR if clinically indicated. Avoid agents with significant potential for nephrotoxicity possible including NSAIDs for analgesia, iodine contrast agents. Gadolinium is contraindicated if the GFR is below 30. (2) Perinephric hematoma Code(s): S37.019A - Minor contusion of unspecified kidney, initial encounter Status: Acute Plan: Hgb stable. Will monitor and consider repeat imaging should Hgb drop again. Primary team has discussed this with IR. (3) Edema Code(s): R60.9 - Edema, unspecified Status: Acute Qualifiers: Edema type: generalized Qualified Code(s): R60.1 - Generalized edema Plan: Still with poor response to diuretic therapy. Continue with daily HD for the present for ultrafiltration. (4) Congestive heart failure (CHF) Code(s): I50.9 - Heart failure, unspecified Status: Acute Qualifiers: Heart failure type: combined systolic and diastolic (5) Hyperphosphatemia Code(s): E83.39 - Other disorders of phosphorus metabolism Status: Resolved Plan: Secondary to renal failure. PhosLo ordered with meals. <Verna Cisneros - Last Filed: 10/07/17 12:19> - Assessment (1) Acute renal insufficiency Code(s): N28.9 - Disorder of kidney and ureter, unspecified Status: Acute (2) Perinephric hematoma Code(s): S37.019A - Minor contusion of unspecified kidney, initial encounter Status: Acute (3) Edema Code(s): R60.9 - Edema, unspecified Status: Acute Qualifiers: Edema type: generalized Qualified Code(s): R60.1 - Generalized edema (4) Congestive heart failure (CHF) Code(s): I50.9 - Heart failure, unspecified Status: Acute Qualifiers: Heart failure type: combined systolic and diastolic (5) Hyperphosphatemia Code(s): E83.39 - Other disorders of phosphorus metabolism Status: Resolved (6) Anemia Code(s): D64.9 - Anemia, unspecified Status: Acute - Attending Attestation The exam, history, and the medical decision-making described in the above note were completed with the assistance of the MICHOACANO. I reviewed and agree with the findings presented. <Liz Perry - Last Filed: 10/09/17 16:18>
[2017-10-07] MEDS: Collagenase Oint 30 GM Tube TOPICAL SCH (14:31)
[2017-10-07] MEDS: traZODone 100 MG Tablet PO SCH (21:10)
[2017-10-08 05:10] LABS: Baso % (Auto) 0.3 % (0.0-2.0); Eos # (Auto) 0.1 th/mm3 (0.0-0.4); Eos % (Auto) 1.4 % (0.0-4.0); Hematocrit 23.8 % (39.0-51.0); Hemoglobin 7.7 gm/dL (13.0-17.0); Lymph # (Auto) 0.9 th/mm3 (1.0-4.8); Lymph % (Auto) 11.6 % (9.0-44.0); Mean Corpuscular HGB Conc 32.3 % (32.0-36.0); Mean Corpuscular Hemoglobin 32.7 pg (27.0-34.0); Mean Corpuscular Volume 101.3 fL (80.0-100.0); Mean Platelet Volume 7.6 fL (7.0-11.0); Mono # (Auto) 1.1 th/mm3 (0.0-0.9); Mono % (Auto) 14.6 % (0.0-8.0); Neut # (Auto) 5.4 th/mm3 (1.8-7.7); Neut % (Auto) 72.1 % (16.0-70.0); Platelet Count 272 th/mm3 (150-450); Red Blood Count 2.35 mil/mm3 (4.50-5.90); Red Cell Distribution Width 20.6 % (11.6-17.2); White Blood Count 7.5 th/mm3 (4.0-11.0)
[2017-10-08 05:35] LABS: Albumin 2.6 g/dL (3.4-5.0); Calcium 8.3 mg/dL (8.5-10.1); Carbon Dioxide 32.8 meq/L (21.0-32.0); Phosphorus 4.1 mg/dL (2.5-4.9); Potassium 4.1 meq/L (3.5-5.1)
[2017-10-08] MEDS: Torsemide 20 MG Tablet PO SCH ×2 (09:00→18:22)
[2017-10-08] MEDS: Calcium Acetate 667 MG Capsule PO SCH ×3 (09:00→18:22)
--- NOTE | 2017-10-08 09:42 | P.PNFP ---
Subjective Interval history: No acute events overnight. Patient seen and examined during dialysis this morning. Patient reported no specific complaints. Had questions regarding if his kidney biopsy resulted as well as his renal function. 175 cc UOP noted. -4L HD yesterday. Weight down 1.3 kg. Patient specifically denied fevers or chills, chest pain, dyspnea. Endorsed dull persistent left flank pain at site of renal biopsy. <Yann Kerr - 10/08/17 09:42> Results - Labs Result diagrams: 10/10/17 09:19 10/10/17 09:19 <Frederick Arora - 10/10/17 11:52> Abnormal lab results 10/10/17 10/10/17 Range/Units 09:19 09:19 RBC 2.82 L (4.50-5.90) mil/mm3 Hgb 9.1 L (13.0-17.0) gm/dL Hct 28.3 L (39.0-51.0) % MCV 100.4 H (80.0-100.0) fL RDW 20.1 H (11.6-17.2) % [place] % (Auto) 16.9 H (0.0-8.0) % Lymph # (Auto) 0.9 L (1.0-4.8) th/mm3 [place] # (Auto) 1.3 H (0.0-0.9) th/mm3 Carbon Dioxide 35.3 H (21.0-32.0) meq/L BUN 28 H (7-18) mg/dL Creatinine 1.65 H (0.60-1.30) mg/dL Estimated GFR 44 L (>89) mL/min Albumin 2.7 L (3.4-5.0) g/dL Short CBC 10/10/17 Range/Units 09:19 WBC 7.6 (4.0-11.0) th/mm3 Hgb 9.1 L (13.0-17.0) gm/dL Hct 28.3 L (39.0-51.0) % Plt Count 323 (150-450) th/mm3 BMP 10/10/17 09:19 Sodium 138 Potassium 3.6 Chloride 98 Carbon Dioxide 35.3 H BUN 28 H Creatinine 1.65 H Calcium 8.6 Liver Function 10/10/17 Range/Units 09:19 Albumin 2.7 L (3.4-5.0) g/dL <Frederick Arora - 10/10/17 11:52> Abnormal lab results 10/08/17 10/08/17 Range/Units 04:30 04:30 RBC 2.35 L (4.50-5.90) mil/mm3 Hgb 7.7 L (13.0-17.0) gm/dL Hct 23.8 L (39.0-51.0) % MCV 101.3 H (80.0-100.0) fL RDW 20.6 H (11.6-17.2) % Neut % (Auto) 72.1 H (16.0-70.0) % [place] % (Auto) 14.6 H (0.0-8.0) % Lymph # (Auto) 0.9 L (1.0-4.8) th/mm3 [place] # (Auto) 1.1 H (0.0-0.9) th/mm3 Carbon Dioxide 32.8 H (21.0-32.0) meq/L BUN 28 H (7-18) mg/dL Creatinine 2.57 H (0.60-1.30) mg/dL Estimated GFR 26 L (>89) mL/min Calcium 8.3 L (8.5-10.1) mg/dL Albumin 2.6 L (3.4-5.0) g/dL Short CBC 10/08/17 Range/Units 04:30 WBC 7.5 (4.0-11.0) th/mm3 Hgb 7.7 L (13.0-17.0) gm/dL Hct 23.8 L (39.0-51.0) % Plt Count 272 (150-450) th/mm3 BMP 10/08/17 04:30 Sodium 137 Potassium 4.1 Chloride 98 Carbon Dioxide 32.8 H BUN 28 H Creatinine 2.57 H Calcium 8.3 L Liver Function 10/08/17 Range/Units 04:30 Albumin 2.6 L (3.4-5.0) g/dL <Yann Kerr - 10/08/17 09:42> - Imaging Impressions Abdomen/Pelvis CT 10/05/17 00:00 CONCLUSION: Central Venous Line 10/08/17 00:00 CONCLUSION: <Frederick Arora - 10/10/17 11:52> Physical Exam Vital signs: Vital Signs 10/09/17 12:00 10/09/17 16:00 10/09/17 20:00 Temperature 98.6 F 98.0 F 98.6 F Pulse Rate 92 H 88 96 H Respiratory Rate 20 20 20 Blood Pressure 120/57 L 130/60 120/60 Pulse Oximetry 96 95 95 10/09/17 21:41 10/10/17 00:00 10/10/17 04:00 Temperature 98.1 F 97.7 F Pulse Rate 97 H 100 H Respiratory Rate 8 L 18 18 Blood Pressure 121/58 L 136/74 Pulse Oximetry 95 92 L 10/10/17 08:10 Temperature Pulse Rate Respiratory Rate Blood Pressure Pulse Oximetry 96 Intake & Output 10/09/17 10/10/17 10/10/17 18:59 06:59 18:59 Intake Total 480 / 480 300 / 300 Output Total 2300 / 2300 1100 / 1100 Balance -1820 / -1820 -800 / -800 Weight 150.1 kg Intake: Oral 480 / 480 300 / 300 Output: Urine 2300 / 2300 1100 / 1100 Other: Date of Last Bowel Movement 10/07/17 10/09/17 # Bowel Movements 1 <Frederick Arora - 10/10/17 11:52> Vital Signs 10/07/17 10:21 10/07/17 17:41 10/07/17 20:00 Temperature 98.8 F 98.7 F Pulse Rate 81 87 87 Respiratory Rate 18 20 Blood Pressure 103/50 L 114/53 L Pulse Oximetry 99 96 10/08/17 00:00 10/08/17 04:00 Temperature 98.3 F 98.4 F Pulse Rate 94 H 73 Respiratory Rate 20 20 Blood Pressure 113/56 L 106/58 L Pulse Oximetry 96 98 Intake & Output 10/07/17 10/08/17 10/08/17 18:59 06:59 18:59 Intake Total 100 / 100 Output Total 4075 / 4075 100 / 100 Balance -4075 / -4075 0 / 0 Weight 150.3 kg Intake: Oral 100 / 100 Output: Urine 75 / 75 100 / 100 Hemodialysis Amount 4000 / 4000 Other: # Voids 1 Date of Last Bowel Movement 10/07/17 <Yann Kerr - 10/08/17 09:42> Narrative: GENERAL: Obese male in no apparent distress, lying in bed. SKIN: Warm and dry. HEAD: Atraumatic. Normocephalic. EYES: EOMI. No scleral icterus. No injection or drainage. ENT: No nasal bleeding or discharge. Mucous membranes pink and moist. CARDIOVASCULAR: Regular rate and rhythm. RESPIRATORY: No accessory muscle use. Clear to auscultation. Breath sounds equal bilaterally. CHEST: 5cm area of superficial bruising on his left chest GASTROINTESTINAL: Abdomen soft, obese. Normal bowel sounds. BACK: tenderness to palpation in the left flank area of recent renal biopsy. MUSCULOSKELETAL: 3+ in the bilateral lower extremities to mid thigh, appears unchanged from prior exam of 10/07. No cyanosis. Left ankle wound with clean and dry dressing noted NEUROLOGICAL: Awake and alert. No obvious cranial nerve deficits. Motor grossly within normal limits. PSYCHIATRIC: Appropriate mood and affect; insight and judgment normal. <Yann Kerr - 10/08/17 09:42> Assessment and Plan - Assessment (1) ESTELLA (acute kidney injury) Code(s): N17.9 - Acute kidney failure, unspecified Status: Acute Plan: Continue to monitor renal function panel, Cr noted to be improving Dialysis to continue for now, renal biopsy pending at this time. Unsure if he will need long-term dialysis versus short-term. Patient may continue to be dialysis dependent and this would require PermCath placement prior to discharge , planning for placement 10/08. On PO Torsemide per nephrology Appreciate nephrology management of patient's care Impression/Course: Suspecting ESTELLA with possible intrinsic renal disease related to Vancomycin Serology and urine studies unremarkable PO fluid allowance to 2 L daily. Daily BMPs. Renal biopsy 10/03, pending results (2) Traumatic perinephric hematoma of left kidney Code(s): S37.092A - Other injury of left kidney, initial encounter Status: Acute Plan: -Noncontrast CT of abdomen/pelvis shows high density left renal hematoma with additional hemorrhage and hematoma in the perirenal space -Senior covering resident discussed case with radiologist and interventional radiologist who determined the hematoma to be contained at this time and asked to monitor his vitals and H/H and call them if he decompensates or requires another blood transfusion -Chloride PO prn for pain and morphine IV for breakthrough pain - Hgb 7.7, from 8.5, vitals stable, will continue to monitor (3) Anemia Code(s): D64.9 - Anemia, unspecified Status: Acute Plan: -Hgb as above - Will continue to monitor daily -Transfuse at Hemoglobin of 7 -Will call radiologist if need for transfusion and/or decompensation (4) Anasarca Code(s): R60.1 - Generalized edema Status: Acute Plan: -Whole body edema with pleural and pericardial effusions, etiology unclear, pending renal biopsy results - Nephrology on board, management as noted (5) Hyperphosphatemia Code(s): E83.39 - Other disorders of phosphorus metabolism Status: Resolved Plan: Secondary to renal failure. Resolved. PhosLo ordered with meals per nephrology. (6) Hypertension Code(s): I10 - Essential (primary) hypertension Status: Chronic Plan: Patient with a known history of hypertension Blood pressures ranging 100s-110s/50s past 24 hours Hold home Metoprolol due to risk for severe hypotension in the setting of an acute bleed (7) History of asthma Code(s): Z87.09 - Personal history of other diseases of the respiratory system Status: Chronic Plan: Patient with a known history of asthma Duonebs every 4hr PRN, albuterol every 2hr PRN SOB/wheezing Not requiring routine treatments at this time (8) Depression with anxiety Code(s): F41.8 - Other specified anxiety disorders Status: Chronic Plan: Patient with a known history of depression anxiety. Continue home Zoloft, trazodone. Holding Valium (9) Gout Code(s): M10.9 - Gout, unspecified Status: Chronic Plan: Patient with a known history of gout. Continue home allopurinol. (10) Open wound of left lower extremity Code(s): S81.802A - Unspecified open wound, left lower leg, initial encounter Status: Acute Plan: Continue daily Santyl dressings per wound care recommendations. Okay to take a bath given no active infection however, keeping Vas-Cath and peripheral access clean and dry Patient will need referral to outpatient wound care clinic upon discharge. Will have wound care immediately after discharge, either outpatient or home health Impression/Course: Patient presented with bilateral lower extremity edema with erythema overlying surgical site on LLE. Did not have systemic signs of infection and no longer suspicious for cellulitis, suspect related to fluid overload and/or venous insufficiency. He does have left ankle wound which wound care has been consulted and recommending daily Santyl dressings since 09/23. Will continue to monitor lower extremities, wound culture showing MRSA and Pseudomonas however wound culture was superficial and may have been reflective of skin ori. ital signs have been within normal limits without fever this hospitalization and white count within normal limits. Suspect some element of pressure ulcer given limited mobility since his ankle surgery in July 2017 (internal fixation with rods and screws throughout ankle). X-ray performed 09/20 showing intact hardware and soft tissue edema. Clinically the bilateral LEs have been stable with no significant erythema since fluid restriction and dialysis were initiated. ESR 14, low suspicion for osteomyelitis Lactic acid 1.5 on admission Patient afebrile without leukocytosis this hospitalization Antibiotics: Vancomycin 09/21 through 09/24, discontinued given ESTELLA and lower suspicion for cellulitis Vancomycin ordered with pharmacy consult to help with dosing (09/21-09/24) Rocephin 2 g IV daily (09/21 - 09/23) Blood cultures 09/20/17: no growth Wound culture 09/20/17: MRSA, Pseudomonas PT/OT consult ordered - PT currently recommending no PT at discharge (11) Sleep apnea Code(s): G47.30 - Sleep apnea, unspecified Status: Acute Plan: Home O2 walk test ordered for discharge planning Continues to require oxygen while inpt Will order home oxygen if indicated Of note, we suspect patient has sleep apnea given history reported and elevated pulmonary arterial pressure on echocardiogram. Patient will require further discussion and workup of this as an outpatient. (12) Nutrition, metabolism, and development symptoms Code(s): R63.8 - Other symptoms and signs concerning food and fluid intake Status: Acute Plan: FEN: - Gentle PO hydration given ESTELLA - Correct electrolytes as needed - Low-salt, heart healthy diet and fluid restriction to 2 L PPX: -Holding Lovenox due to perinephric bleed <Yann Kerr - 10/08/17 09:29> - Assessment and Plan The patient is a 56-year-old man with past medical history significant for hypertension, depression and anxiety, asthma, gout, recent surgical repair of his left ankle and left hip who presented to the ED on 09/20 with progressive shortness of breath and lower extremity edema. The patient was initially started on vancomycin for suspected cellulitis of his bilateral lower extremities. He was noted to have new onset acute kidney injury on 09/23 which has been unresolved and of unclear etiology. Suspect may be related to vancomycin nephrotoxicity. He has since been started on hemodialysis per nephrology since 09/27 due to persistent anasarca and marked lower extremity edema despite attempts at diuresis. Patient underwent a renal biopsy on 10/03 of which results are still pending. <Yann Kerr - 10/08/17 09:42> - Attending Attestation See the residents documentation for details. I saw and evaluated the patient regarding the arteaga portions of this evaluation and agree with the residents findings and plans as written. Parts of this note were created using [employer] voice recognition software program. While efforts were made to correct any mistakes made by this software, some mistakes, errors, and omissions may remain in the final note that were not caught when the note was originally created. Plan of care was discussed and agreed upon with the patient as specifically documented in the above note. An opportunity to ask questions with explanation was provided. Patient voiced understanding on all information reviewed and discussed. <Frederick Arora - 10/10/17 11:52> <Yann Kerr - Last Filed: 10/08/17 09:29> (3) Anemia Qualifiers: Anemia type: unspecified type Qualified Code(s): D64.9 - Anemia, unspecified (6) Hypertension Qualifiers: Hypertension type: essential hypertension Qualified Code(s): I10 - Essential (primary) hypertension <Yann Kerr - Last Filed: 10/08/17 09:29> (3) Anemia Qualifiers: Anemia type: unspecified type Qualified Code(s): D64.9 - Anemia, unspecified (6) Hypertension Qualifiers: Hypertension type: essential hypertension Qualified Code(s): I10 - Essential (primary) hypertension
--- NOTE | 2017-10-08 12:08 | P.PNNP ---
Subjective Interval history: Pt seen during HD today. 2nd session in a row. Catheter with some issues, but will getting PermCath this afternoon. Back pain improving. <Verna Cisneros - Last Filed: 10/08/17 12:04> Physical Exam Vital signs: Vital Signs 10/07/17 17:41 10/07/17 20:00 10/08/17 00:00 Temperature 98.8 F 98.7 F 98.3 F Pulse Rate 87 87 94 H Respiratory Rate 18 20 20 Blood Pressure 103/50 L 114/53 L 113/56 L Pulse Oximetry 99 96 96 10/08/17 04:00 10/08/17 08:00 10/08/17 08:35 Temperature 98.4 F 97.7 F Pulse Rate 73 82 Respiratory Rate 20 18 Blood Pressure 106/58 L 111/50 L Pulse Oximetry 98 94 L 95 Intake & Output 10/07/17 10/08/17 10/08/17 18:59 06:59 18:59 Intake Total 100 / 100 Output Total 4075 / 4075 100 / 100 Balance -4075 / -4075 0 / 0 Weight 150.3 kg Intake: Oral 100 / 100 Output: Urine 75 / 75 100 / 100 Hemodialysis Amount 4000 / 4000 Other: # Voids 1 Date of Last Bowel Movement 10/07/17 - Constitutional no acute distress - Routine HEENT Exam Head: Present: normocephalic - Routine Respiratory Exam Present: decreased breath sounds, distant breath sounds, diminished air movement - Routine Cardiovascular Exam Present: RRR, S1, S2 - Routine Extremities Exam Present: edema (continued generalized edema) - Routine Neurological Exam Present: alert - Routine Psychiatric Exam Present: normal affect, normal thought process <Verna Cisneros - Last Filed: 10/08/17 12:04> Vital signs: Vital Signs 10/08/17 18:15 10/08/17 20:00 10/09/17 00:00 Temperature 98.4 F 98.5 F Pulse Rate 95 H 95 H Respiratory Rate 8 L 20 20 Blood Pressure 111/62 123/71 Pulse Oximetry 95 95 10/09/17 00:47 10/09/17 04:00 10/09/17 05:33 Temperature 98.0 F Pulse Rate 93 H Respiratory Rate 8 L 20 8 L Blood Pressure 117/59 L Pulse Oximetry 94 L 10/09/17 08:00 10/09/17 12:00 Temperature 98.0 F 98.6 F Pulse Rate 85 92 H Respiratory Rate 20 20 Blood Pressure 119/57 L 120/57 L Pulse Oximetry 95 96 Intake & Output 10/08/17 10/09/17 10/09/17 18:59 06:59 18:59 Intake Total 360 / 360 750 / 750 Output Total 225 / 225 450 / 450 Balance 135 / 135 300 / 300 Weight 149.6 kg Intake: Oral 360 / 360 750 / 750 Output: Urine 225 / 225 450 / 450 Other: Date of Last Bowel Movement 10/07/17 # Bowel Movements 0 <Liz Perry - Last Filed: 10/09/17 16:18> Assessment and Plan - Assessment (1) Acute renal insufficiency Code(s): N28.9 - Disorder of kidney and ureter, unspecified Status: Acute Plan: Seen during HD today. UF 4L 10/07 but drank upwards of 3L. Ongoing counselling regarding fluid restrictions. PermCath to be placed today with tentative HD again tomorrow. Awaiting finalization of biopsy pathology. Medications should be adjusted for the patient's estimated GFR if clinically indicated. Avoid agents with significant potential for nephrotoxicity possible including NSAIDs for analgesia, iodine contrast agents. Gadolinium is contraindicated if the GFR is below 30. (2) Perinephric hematoma Code(s): S37.019A - Minor contusion of unspecified kidney, initial encounter Status: Acute Plan: Hgb dropped slightly, but may be dilutional. Repeat in the AM. Will monitor and consider repeat imaging should Hgb drop again. Primary team has discussed this with IR. (3) Edema Code(s): R60.9 - Edema, unspecified Status: Acute Qualifiers: Edema type: generalized Qualified Code(s): R60.1 - Generalized edema Plan: Still with poor response to diuretic therapy. Continue with daily HD for the present for ultrafiltration. (4) Congestive heart failure (CHF) Code(s): I50.9 - Heart failure, unspecified Status: Acute Qualifiers: Heart failure type: combined systolic and diastolic (5) Hyperphosphatemia Code(s): E83.39 - Other disorders of phosphorus metabolism Status: Resolved Plan: Secondary to renal failure. PhosLo ordered with meals. (6) Anemia Code(s): D64.9 - Anemia, unspecified Status: Acute Plan: Continue to monitor. Check Fe levels in the AM Epogen with HD Potentially some dilutional factor given significant edema <Verna Cisneros - Last Filed: 10/08/17 12:04> - Assessment (1) Acute renal insufficiency Code(s): N28.9 - Disorder of kidney and ureter, unspecified Status: Acute (2) Perinephric hematoma Code(s): S37.019A - Minor contusion of unspecified kidney, initial encounter Status: Acute (3) Edema Code(s): R60.9 - Edema, unspecified Status: Acute Qualifiers: Edema type: generalized Qualified Code(s): R60.1 - Generalized edema (4) Congestive heart failure (CHF) Code(s): I50.9 - Heart failure, unspecified Status: Acute Qualifiers: Heart failure type: combined systolic and diastolic (5) Hyperphosphatemia Code(s): E83.39 - Other disorders of phosphorus metabolism Status: Resolved (6) Anemia Code(s): D64.9 - Anemia, unspecified Status: Acute - Attending Attestation The exam, history, and the medical decision-making described in the above note were completed with the assistance of the MICHOACANO. I reviewed and agree with the findings presented. <Liz Perry - Last Filed: 10/09/17 16:18>
[2017-10-08] MEDS ORDERED: fentaNYL Citrate Inj 250 MCG/5 ML Ampul ONE (13:36)
[2017-10-08] MEDS ORDERED: Sodium Chlor 0.9% Inj 250 ML ONE (13:37)
[2017-10-08] MEDS ORDERED: *Heparin 10,000 UNITS/10 ML Vial Periprocedural ONLY ONE (13:53)
[2017-10-08] MEDS ORDERED: Lidocaine 1%/Epinephrine 1:100,000 Inj 20 ML Vial ONE (13:54)
[2017-10-08] MEDS ORDERED: ceFAZolin 2 GM Premix Inj 2 GM/50 ML PIGGYBACK IV.SIG SCH (14:15)
[2017-10-08] MEDS ORDERED: Vancomycin Inj 1,000 MG in Sodium Chlor 0.9% Inj 250 ML IV.SIG SCH (14:15)
--- NOTE | 2017-10-08 14:28 | P.RAD ---
Post Procedure Progress Note - Pre Procedure Diagnosis (1) New onset of congestive heart failure - Post Procedure Diagnosis (1) New onset of congestive heart failure - Procedure Information Supervising Radiologist: Gregory Flores MD - Plan of Activity Patient to Unit: Nursing Unit Patient Condition: Good See PACS Report for procedural detail/treatment. [facility] Radiology Procedures right Internal Jugular Hemodialysis Catheter Tunneled Placement Device: dual lumen (23 cm)
--- NOTE | 2017-10-08 15:31 | IR ---
EXAM DATE: 10/08/2017 2:57 PM EDT AGE/SEX: 56 years / Male INDICATIONS: Patient with exciting vas cath to be exchanged for a perm a cath. CLINICAL DATA: This is the patient's subsequent encounter. Patient reports that signs and symptoms h ave been present for 1 week and indicates a pain score of 2/10. MEDICAL/SURGICAL HISTORY: Hypertension. Diabetes. Congestive heart failure. abnormal liver e nzymes, asthma, gout , depression with anxiety. Inguinal hernia repair. vas cath, ankle repair. COMPARISON: No prior exams available for comparison. FLUORO TIME (min): 0.9 IMAGE SERIES: 2 ACCESS SITE: SEDATION TIME (min): 30 MEDICATION(S): 4mg midazolam (Versed) IV 200 mcg fentanyl (Sublimaze) IV Prophylactic antibiotics were administered with appropriate pre-procedure timing. DEVICE(S): 23 cm johnson cath . . PROCEDURE : 1. Fluoroscopically-guided venipuncture. 2. PermaCath placement. 3. Conscious sedation with continuous EKG and oximetry monitoring. The risks, benefits and alternatives to the procedure were explained and verbal and written consent w as obtained. The site was prepped in sterile fashion. Full sterile technique was used, including ca p, mask, sterile gloves and gown and a large sterile sheet. Hand hygiene and 2% chlorhexidine Betadi ne was utilized per protocol for cutaneous antisepsis with appropriate dry time for site. The skin a nd subcutaneous tissues were infiltrated with local anesthetic solution. Utilizing fluoroscopic guidance a dermatotomy was created over the prescribed vein. A micropuncture set was used to access the targeted vein and serial dilatation was performed to accept the prescribed length Johnson catheter. A subcutaneous tunnel was created in a retrograde fashion the Johnson cathet er was pulled through the tunnel. The catheter was flushed and assembled and locked with heparin. T he catheter was sutured in place. Conscious sedation was performed with the prescribed dosages and duration as above in the presence of an independent trained radiology nurse to assist in the monitoring of the patient. EKG and oximetry remained stable throughout the procedure. The patient tolerated the procedure well and there were n o complications. The patient was sent to post anesthesia recovery in stable condition. 1. Uncomplicated PermaCath placement as above. Electronically signed by: Gregory Flores MD 10/08/2017 3:30 PM EDT
[2017-10-08] MEDS: Collagenase Oint 30 GM Tube TOPICAL SCH (16:20)
[2017-10-08] MEDS: Allopurinol 100 MG Tablet PO SCH (16:20)
[2017-10-08] MEDS: Sertraline 50 MG Tablet PO SCH (16:20)
[2017-10-08] MEDS: Morphine Inj 4 MG/ML Vial IV.PUSH PRN ×2 (18:22→22:34)
[2017-10-08] MEDS: traZODone 100 MG Tablet PO SCH (22:34)
[2017-10-09] MEDS: Morphine Inj 4 MG/ML Vial IV.PUSH PRN ×6 (03:47→23:38)
--- NOTE | 2017-10-09 08:48 | P.PNFP ---
Subjective Interval history: No acute events overnight. Afebrile, vital signs stable. Patient seen and examined this morning. Patient refused to proceed to dialysis this morning stating he was in dialysis and had his permcath placed yesterday which took up most of his day; he states his granddaughter is visiting today and he would like to see her and would not be able to while in dialysis. Also reports he was only able to eat one meal yesterday. He otherwise denies specific complaints or concerns. Still awaiting renal biopsy results. 675 cc UOP noted. BPs stable. Patient specifically denies fevers or chills, chest pain, dyspnea. States his left flank pain is stable in nature. Denies dizziness or lightheadedness. <Yann Kerr - 10/09/17 11:11> Results - Labs Result diagrams: 10/10/17 09:19 10/10/17 09:19 <Frederick Arora - 10/10/17 12:04> Abnormal lab results 10/10/17 10/10/17 Range/Units 09:19 09:19 RBC 2.82 L (4.50-5.90) mil/mm3 Hgb 9.1 L (13.0-17.0) gm/dL Hct 28.3 L (39.0-51.0) % MCV 100.4 H (80.0-100.0) fL RDW 20.1 H (11.6-17.2) % [place] % (Auto) 16.9 H (0.0-8.0) % Lymph # (Auto) 0.9 L (1.0-4.8) th/mm3 [place] # (Auto) 1.3 H (0.0-0.9) th/mm3 Carbon Dioxide 35.3 H (21.0-32.0) meq/L BUN 28 H (7-18) mg/dL Creatinine 1.65 H (0.60-1.30) mg/dL Estimated GFR 44 L (>89) mL/min Albumin 2.7 L (3.4-5.0) g/dL Short CBC 10/10/17 Range/Units 09:19 WBC 7.6 (4.0-11.0) th/mm3 Hgb 9.1 L (13.0-17.0) gm/dL Hct 28.3 L (39.0-51.0) % Plt Count 323 (150-450) th/mm3 BMP 10/10/17 09:19 Sodium 138 Potassium 3.6 Chloride 98 Carbon Dioxide 35.3 H BUN 28 H Creatinine 1.65 H Calcium 8.6 Liver Function 10/10/17 Range/Units 09:19 Albumin 2.7 L (3.4-5.0) g/dL <Frederick Arora - 10/10/17 12:04> - Imaging Impressions Abdomen/Pelvis CT 10/05/17 00:00 CONCLUSION: Central Venous Line 10/08/17 00:00 CONCLUSION: <Frederick Arora - 10/10/17 12:04> Impressions Central Venous Line 10/08/17 00:00 CONCLUSION: 1. Uncomplicated PermaCath placement as above. <Yann Kerr - 10/09/17 08:48> Physical Exam Vital signs: Vital Signs 10/09/17 12:00 10/09/17 16:00 10/09/17 20:00 Temperature 98.6 F 98.0 F 98.6 F Pulse Rate 92 H 88 96 H Respiratory Rate 20 20 20 Blood Pressure 120/57 L 130/60 120/60 Pulse Oximetry 96 95 95 10/09/17 21:41 10/10/17 00:00 10/10/17 04:00 Temperature 98.1 F 97.7 F Pulse Rate 97 H 100 H Respiratory Rate 8 L 18 18 Blood Pressure 121/58 L 136/74 Pulse Oximetry 95 92 L 10/10/17 08:10 Temperature Pulse Rate Respiratory Rate Blood Pressure Pulse Oximetry 96 Intake & Output 10/09/17 10/10/17 10/10/17 18:59 06:59 18:59 Intake Total 480 / 480 300 / 300 Output Total 2300 / 2300 1100 / 1100 Balance -1820 / -1820 -800 / -800 Weight 150.1 kg Intake: Oral 480 / 480 300 / 300 Output: Urine 2300 / 2300 1100 / 1100 Other: Date of Last Bowel Movement 10/07/17 10/09/17 # Bowel Movements 1 <Frederick Arora - 10/10/17 12:04> Vital Signs 10/08/17 12:00 10/08/17 14:35 10/08/17 14:50 Temperature 98.3 F Pulse Rate 80 80 90 Respiratory Rate 16 18 Blood Pressure 138/67 133/65 Pulse Oximetry 96 96 10/08/17 15:20 10/08/17 16:00 10/08/17 18:15 Temperature 97.5 F L Pulse Rate 88 89 Respiratory Rate 18 18 8 L Blood Pressure 125/63 105/55 L Pulse Oximetry 98 97 10/08/17 20:00 10/09/17 00:00 10/09/17 00:47 Temperature 98.4 F 98.5 F Pulse Rate 95 H 95 H Respiratory Rate 20 20 8 L Blood Pressure 111/62 123/71 Pulse Oximetry 95 95 10/09/17 04:00 10/09/17 05:33 Temperature 98.0 F Pulse Rate 93 H Respiratory Rate 20 8 L Blood Pressure 117/59 L Pulse Oximetry 94 L Intake & Output 10/08/17 10/09/17 10/09/17 18:59 06:59 18:59 Intake Total 360 / 360 750 / 750 Output Total 225 / 225 450 / 450 Balance 135 / 135 300 / 300 Weight 149.6 kg Intake: Oral 360 / 360 750 / 750 Output: Urine 225 / 225 450 / 450 Other: # Bowel Movements 0 <Dennise Kerrsh - 10/09/17 08:48> Narrative: GENERAL: Obese male in no apparent distress, lying in bed. SKIN: Warm and dry. HEAD: Atraumatic. Normocephalic. EYES: EOMI. No scleral icterus. No injection or drainage. ENT: No nasal bleeding or discharge. Mucous membranes pink and moist. CARDIOVASCULAR: Regular rate and rhythm. RESPIRATORY: No accessory muscle use. Clear to auscultation. Breath sounds equal bilaterally. CHEST: 5cm area of superficial bruising on his left chest GASTROINTESTINAL: Abdomen soft, obese. Normal bowel sounds. BACK: tenderness to palpation in the left flank area of recent renal biopsy. MUSCULOSKELETAL: 3+ in the bilateral lower extremities to patella, improved from prior examination on 10/08. No cyanosis. Left ankle wound with clean and dry dressing noted NEUROLOGICAL: Awake and alert. No obvious cranial nerve deficits. Motor grossly within normal limits. PSYCHIATRIC: Appropriate mood and affect; insight and judgment normal. <Dennise Kerrsh - 10/09/17 11:11> Assessment and Plan - Assessment (1) ESTELLA (acute kidney injury) Code(s): N17.9 - Acute kidney failure, unspecified Status: Acute Plan: Continue to monitor renal function panel, Cr noted to be improving Dialysis to continue for now, patient refused 10/09, renal biopsy pending at this time. Unsure if he will need long-term dialysis versus short-term. PermCath placed 10/08. On PO Torsemide per nephrology Appreciate nephrology management of patient's care Impression/Course: Suspecting ESTELLA with possible intrinsic renal disease related to Vancomycin Serology and urine studies unremarkable PO fluid allowance to 2 L daily. Daily BMPs. Renal biopsy 10/03, pending results (2) Traumatic perinephric hematoma of left kidney Code(s): S37.092A - Other injury of left kidney, initial encounter Status: Acute Plan: -Noncontrast CT of abdomen/pelvis shows high density left renal hematoma with additional hemorrhage and hematoma in the perirenal space -Discussed case with radiologist and interventional radiologist who determined the hematoma to be contained at this time and asked to monitor his vitals and H/ H and call them if he decompensates or requires another blood transfusion -[place] PO prn for pain and morphine IV for breakthrough pain - Hgb and vitals stable at this time, will continue to monitor (3) Anemia Code(s): D64.9 - Anemia, unspecified Status: Acute Plan: -Hgb as above - Will continue to monitor daily -Transfuse at Hemoglobin of 7 -Will call radiologist if need for transfusion and/or decompensation (4) Anasarca Code(s): R60.1 - Generalized edema Status: Acute Plan: -Whole body edema with pleural and pericardial effusions, etiology unclear, pending renal biopsy results - Nephrology on board, management as noted (5) Hyperphosphatemia Code(s): E83.39 - Other disorders of phosphorus metabolism Status: Resolved Plan: Secondary to renal failure. Resolved. PhosLo ordered with meals per nephrology. (6) Hypertension Code(s): I10 - Essential (primary) hypertension Status: Chronic Plan: Patient with a known history of hypertension Blood pressures ranging 100s-110s/50s past 24 hours Hold home Metoprolol due to risk for severe hypotension in the setting of an acute bleed (7) History of asthma Code(s): Z87.09 - Personal history of other diseases of the respiratory system Status: Chronic Plan: Patient with a known history of asthma Duonebs every 4hr PRN, albuterol every 2hr PRN SOB/wheezing Not requiring routine treatments at this time (8) Depression with anxiety Code(s): F41.8 - Other specified anxiety disorders Status: Chronic Plan: Patient with a known history of depression anxiety. Continue home Zoloft, trazodone. Holding Valium (9) Gout Code(s): M10.9 - Gout, unspecified Status: Chronic Plan: Patient with a known history of gout. Continue home allopurinol. (10) Open wound of left lower extremity Code(s): S81.802A - Unspecified open wound, left lower leg, initial encounter Status: Acute Plan: Continue daily Santyl dressings per wound care recommendations. Okay to take a bath given no active infection however, keeping Vas-Cath and peripheral access clean and dry Patient will need referral to outpatient wound care clinic upon discharge. Will have wound care immediately after discharge, either outpatient or home health Impression/Course: Patient presented with bilateral lower extremity edema with erythema overlying surgical site on LLE. Did not have systemic signs of infection and no longer suspicious for cellulitis, suspect related to fluid overload and/or venous insufficiency. He does have left ankle wound which wound care has been consulted and recommending daily Santyl dressings since 09/23. Will continue to monitor lower extremities, wound culture showing MRSA and Pseudomonas however wound culture was superficial and may have been reflective of skin ori. ital signs have been within normal limits without fever this hospitalization and white count within normal limits. Suspect some element of pressure ulcer given limited mobility since his ankle surgery in July 2017 (internal fixation with rods and screws throughout ankle). X-ray performed 09/20 showing intact hardware and soft tissue edema. Clinically the bilateral LEs have been stable with no significant erythema since fluid restriction and dialysis were initiated. ESR 14, low suspicion for osteomyelitis Lactic acid 1.5 on admission Patient afebrile without leukocytosis this hospitalization Antibiotics: Vancomycin 09/21 through 09/24, discontinued given ESTELLA and lower suspicion for cellulitis Vancomycin ordered with pharmacy consult to help with dosing (09/21-09/24) Rocephin 2 g IV daily (09/21 - 09/23) Blood cultures 09/20/17: no growth Wound culture 09/20/17: MRSA, Pseudomonas PT/OT consult ordered - PT currently recommending no PT at discharge (11) Sleep apnea Code(s): G47.30 - Sleep apnea, unspecified Status: Acute Plan: Home O2 walk test ordered for discharge planning Continues to require oxygen while inpt Will order home oxygen if indicated Of note, we suspect patient has sleep apnea given history reported and elevated pulmonary arterial pressure on echocardiogram. Patient will require further discussion and workup of this as an outpatient. (12) Nutrition, metabolism, and development symptoms Code(s): R63.8 - Other symptoms and signs concerning food and fluid intake Status: Acute Plan: FEN: - Gentle PO hydration given ESTELLA - Correct electrolytes as needed - Low-salt, heart healthy diet and fluid restriction to 2 L PPX: -Holding Lovenox due to perinephric bleed <Yann Kerr - 10/09/17 10:55> - Assessment and Plan The patient is a 56-year-old man with past medical history significant for hypertension, depression and anxiety, asthma, gout, recent surgical repair of his left ankle and left hip who presented to the ED on 09/20 with progressive shortness of breath and lower extremity edema. The patient was initially started on vancomycin for suspected cellulitis of his bilateral lower extremities. He was noted to have new onset acute kidney injury on 09/23 which has been unresolved and of unclear etiology. Suspect may be related to vancomycin nephrotoxicity. He has since been started on hemodialysis per nephrology since 09/27 due to persistent anasarca and marked lower extremity edema despite attempts at diuresis. Patient underwent a renal biopsy on 10/03 of which results are still pending. <Yann Kerr - 10/09/17 11:11> - Attending Attestation Patient did not go to dialysis today, even after several communications with him about the importance of going to dialysis. And also seems that he is consuming more liquid than he should be. I noted that 1 of his friends brought him some pao ho. I discussed with him at length about decreasing his fluid intake, and also the fact that he needs to continue going to dialysis. I discussed this with the nursing staff. We will continue to closely monitor ins and out. He needs to start going to dialysis again. During discussion with him he stated the understanding of the importance of his current dialysis, and the outcome that he will have an his renal function in the future. See the residents documentation for details. I saw and evaluated the patient regarding the arteaga portions of this evaluation and agree with the residents findings and plans as written. Parts of this note were created using [employer] voice recognition software program. While efforts were made to correct any mistakes made by this software, some mistakes, errors, and omissions may remain in the final note that were not caught when the note was originally created. Plan of care was discussed and agreed upon with the patient as specifically documented in the above note. An opportunity to ask questions with explanation was provided. Patient voiced understanding on all information reviewed and discussed. <Frederick Arora - 10/10/17 12:04> <Yann Kerr - Last Filed: 10/09/17 10:55> (3) Anemia Qualifiers: Anemia type: unspecified type Qualified Code(s): D64.9 - Anemia, unspecified (6) Hypertension Qualifiers: Hypertension type: essential hypertension Qualified Code(s): I10 - Essential (primary) hypertension <Yann Kerr - Last Filed: 10/09/17 10:55> (3) Anemia Qualifiers: Anemia type: unspecified type Qualified Code(s): D64.9 - Anemia, unspecified (6) Hypertension Qualifiers: Hypertension type: essential hypertension Qualified Code(s): I10 - Essential (primary) hypertension
[2017-10-09] MEDS: Torsemide 20 MG Tablet PO SCH (09:41)
[2017-10-09] MEDS: Calcium Acetate 667 MG Capsule PO SCH ×3 (09:41→17:28)
[2017-10-09] MEDS: Allopurinol 100 MG Tablet PO SCH (09:41)
[2017-10-09] MEDS: Sertraline 50 MG Tablet PO SCH (09:41)
[2017-10-09] MEDS: Collagenase Oint 30 GM Tube TOPICAL SCH (09:42)
[2017-10-09 10:10] LABS: Hematocrit 25.1 % (39.0-51.0); Hemoglobin 8.1 gm/dL (13.0-17.0); Mean Corpuscular HGB Conc 32.4 % (32.0-36.0); Mean Corpuscular Hemoglobin 32.5 pg (27.0-34.0); Mean Corpuscular Volume 100.3 fL (80.0-100.0); Mean Platelet Volume 7.7 fL (7.0-11.0); Platelet Count 286 th/mm3 (150-450); Red Cell Distribution Width 20.2 % (11.6-17.2); White Blood Count 7.1 th/mm3 (4.0-11.0)
[2017-10-09 11:04] LABS: Calcium 8.5 mg/dL (8.5-10.1); Carbon Dioxide 33.8 meq/L (21.0-32.0); Potassium 3.7 meq/L (3.5-5.1)
--- NOTE | 2017-10-09 16:45 | CT ---
ADDENDUM THIS REPORT INCLUDES AN ADDENDUM AND SUPERSEDES PREVIOUS REPORTS FOR THIS EXAM. The left renal hematoma is subcapsular in location. In the body the report there is a typographic error. The measurement of the hematoma should read 7 x 4 cm not millimeters. Electronically signed by: Young Barber MD 10/05/2017 10:07 PM EDT Addendum Dictated By: Young Barber MD EXAM DATE: 10/05/2017 9:05 PM EDT AGE/SEX: 56 years / Male INDICATIONS: Left flank pain. Evaluate for hematoma. CLINICAL DATA: This is the patient's initial encounter. Patient reports that signs and symptoms have been present for 2 days and indicates a pain score of 5/ 10. MEDICAL/SURGICAL HISTORY: Cardiovascular disease. Hypertension. Asthma. Renal failure . Hernia repair RADIATION DOSE: 27.01 CTDI (mGy) ; Patient body habitus COMPARISON: [facility] [place], CT BIOPSY RENAL LEFT, 10/03/2017. . TECHNIQUE: Multiple contiguous axial images were obtained through the abdomen. Images were obtained using multiple row detector helical technique. Using automated exposure control and adjustment of the mA and/or kV according to patient size, radiation dose was kept as low as reasonably achievable to obtain optimal diagnostic quality images. DICOM format image data is available electronically for review and comparison. FINDINGS: Lower Lungs: There are small bilateral pleural effusions left greater than right. There is mild consolidation in the lung bases. The heart size is enlarged and there is a small amount of pericardial fluid noted. Liver: The liver has a homogeneous density without space-occupying lesion. There is no dilation of the biliary tree. There is mild hepatic steatosis. The gallbladder is unremarkable. Spleen: Homogeneous density without enlargement. Pancreas: Unremarkable without mass or calcification. Kidneys: The right kidney is normal in size, shape and attenuation value. The left kidney is now enlarged with a high density hematoma involving the posterior portion of the kidney measuring up to at least 7 x 4 mm. Hemorrhage extends into the inferior perirenal space and this measures up to approximately 9 cm in greatest caudocranial dimension by 5.4 cm in transverse diameter. There is additional hemorrhage along the perirenal fascia extending down into the pelvis. Adrenal Glands: Unremarkable. Aorta: The aorta and proximal iliac vessels are grossly unremarkable without aneurysmal dilation. Bowel/Mesentery: The bowel loops are grossly unremarkable. The cecum and sigmoid colon have a normal configuration. Abdominal Wall: Intact. Retroperitoneum: No evidence of adenopathy in the retrocrural, para-aortic, or deep pelvic regions. Bladder: Contours are smooth. Reproductive Organs: No abnormal masses or calcifications seen. Inguinal: The inguinal region is unremarkable without evidence of adenopathy. Bony Structures: There is abnormal lucency and possible destructive change involving the left lateral sacrum. There is an adjacent low-density fluid collection measuring up to approximately 5.8 x 3.2 cm in diameter. Anasarca is present. 1. High density left renal hematoma with additional hemorrhage and hematoma in the perirenal space. 2. Abnormal lucency and possible destructive change involving the lateral left sacrum. There is an adjacent low fluid collection. The differential diagnosis include recent surgical change. If no recent instrumentation was performed this is concern for destructive process such as osteomyelitis or possible tumor. 3. Small bilateral pleural effusions and mild consolidation in the posterior lung bases. 4. Anasarca. 5. Cardiomegaly and small pericardial effusion. Electronically signed by: Young Barber MD 10/05/2017 9:16 PM EDT [facility]
--- NOTE | 2017-10-09 16:55 | P.PNNP ---
Subjective Interval history: Pt s/p RIJ PermCath placement 10/08. Refused HD this AM as he was tired. Feels that UOP is improving. Physical Exam Vital signs: Vital Signs 10/08/17 18:15 10/08/17 20:00 10/09/17 00:00 Temperature 98.4 F 98.5 F Pulse Rate 95 H 95 H Respiratory Rate 8 L 20 20 Blood Pressure 111/62 123/71 Pulse Oximetry 95 95 10/09/17 00:47 10/09/17 04:00 10/09/17 05:33 Temperature 98.0 F Pulse Rate 93 H Respiratory Rate 8 L 20 8 L Blood Pressure 117/59 L Pulse Oximetry 94 L 10/09/17 08:00 10/09/17 12:00 Temperature 98.0 F 98.6 F Pulse Rate 85 92 H Respiratory Rate 20 20 Blood Pressure 119/57 L 120/57 L Pulse Oximetry 95 96 Intake & Output 10/08/17 10/09/17 10/09/17 18:59 06:59 18:59 Intake Total 360 / 360 750 / 750 Output Total 225 / 225 450 / 450 Balance 135 / 135 300 / 300 Weight 149.6 kg Intake: Oral 360 / 360 750 / 750 Output: Urine 225 / 225 450 / 450 Other: Date of Last Bowel Movement 10/07/17 # Bowel Movements 0 - Constitutional no acute distress, obese - Routine HEENT Exam Head: Present: normocephalic - Routine Neck Exam Present: supple - Routine Respiratory Exam Present: CTA bilaterally - Routine Cardiovascular Exam Present: RRR, S1, S2 - Routine Abdominal Exam Present: soft - Routine Extremities Exam Present: edema (generalized) - Routine Skin Exam Present: intact - Routine Neurological Exam Present: alert, oriented X3 - Routine Psychiatric Exam Present: normal affect Assessment and Plan - Assessment (1) Acute renal insufficiency Code(s): N28.9 - Disorder of kidney and ureter, unspecified Status: Acute Plan: s/p PermCath placement 10/08 Refused HD today. Will plan on HD again tomorrow and likely Saturday for additional fluid removal. Will hold po Torsemide tonight and give dose of IV Lasix to see if UOP is truly improving. Discussed pathology report from kidney bx----evidence of ATN with severe arteriosclerosis. We are still hopeful that renal recovery will be made, but will likely have ongoing renal impairment. Continue fluid restrictions. Medications should be adjusted for the patient's estimated GFR if clinically indicated. Avoid agents with significant potential for nephrotoxicity possible including NSAIDs for analgesia, iodine contrast agents. Gadolinium is contraindicated if the GFR is below 30. (2) Perinephric hematoma Code(s): S37.019A - Minor contusion of unspecified kidney, initial encounter Status: Acute Plan: Hgb improved. (3) Edema Code(s): R60.9 - Edema, unspecified Status: Acute Qualifiers: Edema type: generalized Qualified Code(s): R60.1 - Generalized edema Plan: IV Lasix tonight with HD for for ultrafiltration. (4) Congestive heart failure (CHF) Code(s): I50.9 - Heart failure, unspecified Status: Acute Qualifiers: Heart failure type: combined systolic and diastolic (5) Hyperphosphatemia Code(s): E83.39 - Other disorders of phosphorus metabolism Status: Resolved Plan: Secondary to renal failure. PhosLo ordered with meals. (6) Anemia Code(s): D64.9 - Anemia, unspecified Status: Acute Plan: Continue Epogen with HD
[2017-10-09] MEDS: traZODone 100 MG Tablet PO SCH (23:37)
--- NOTE | 2017-10-10 09:31 | P.PNFP ---
Subjective Interval history: No acute events overnight. Afebrile, vital signs stable. Patient seen and examined this morning. Patient reports no specific complaints or concerns. Reports improved urine output yesterday. 3400 cc UOP noted. Specifically denies fevers or chills, chest pain, dyspnea, cough, worsening pain. <Dennise Kerrsh - 10/10/17 10:22> Results - Labs Result diagrams: 10/10/17 09:19 10/10/17 09:19 <Frederick Arora - 10/10/17 12:38> Abnormal lab results 10/10/17 10/10/17 Range/Units 09:19 09:19 RBC 2.82 L (4.50-5.90) mil/mm3 Hgb 9.1 L (13.0-17.0) gm/dL Hct 28.3 L (39.0-51.0) % MCV 100.4 H (80.0-100.0) fL RDW 20.1 H (11.6-17.2) % Gem % (Auto) 16.9 H (0.0-8.0) % Lymph # (Auto) 0.9 L (1.0-4.8) th/mm3 Gem # (Auto) 1.3 H (0.0-0.9) th/mm3 Carbon Dioxide 35.3 H (21.0-32.0) meq/L BUN 28 H (7-18) mg/dL Creatinine 1.65 H (0.60-1.30) mg/dL Estimated GFR 44 L (>89) mL/min Albumin 2.7 L (3.4-5.0) g/dL Short CBC 10/10/17 Range/Units 09:19 WBC 7.6 (4.0-11.0) th/mm3 Hgb 9.1 L (13.0-17.0) gm/dL Hct 28.3 L (39.0-51.0) % Plt Count 323 (150-450) th/mm3 BMP 10/10/17 09:19 Sodium 138 Potassium 3.6 Chloride 98 Carbon Dioxide 35.3 H BUN 28 H Creatinine 1.65 H Calcium 8.6 Liver Function 10/10/17 Range/Units 09:19 Albumin 2.7 L (3.4-5.0) g/dL <Frederick Arora - 10/10/17 12:38> Abnormal lab results 10/09/17 10/09/17 Range/Units 08:50 08:50 RBC 2.50 L (4.50-5.90) mil/mm3 Hgb 8.1 L (13.0-17.0) gm/dL Hct 25.1 L (39.0-51.0) % MCV 100.3 H (80.0-100.0) fL RDW 20.2 H (11.6-17.2) % Carbon Dioxide 33.8 H (21.0-32.0) meq/L BUN 24 H (7-18) mg/dL Creatinine 1.78 H (0.60-1.30) mg/dL Estimated GFR 40 L (>89) mL/min Short CBC 10/09/17 Range/Units 08:50 WBC 7.1 (4.0-11.0) th/mm3 Hgb 8.1 L (13.0-17.0) gm/dL Hct 25.1 L (39.0-51.0) % Plt Count 286 (150-450) th/mm3 BMP 10/09/17 08:50 Sodium 138 Potassium 3.7 Chloride 99 Carbon Dioxide 33.8 H BUN 24 H Creatinine 1.78 H Calcium 8.5 <Yann Kerr - 10/10/17 09:31> - Imaging Impressions Abdomen/Pelvis CT 10/05/17 00:00 CONCLUSION: Central Venous Line 10/08/17 00:00 CONCLUSION: <Frederick Arora - 10/10/17 12:38> Impressions Abdomen/Pelvis CT 10/05/17 00:00 CONCLUSION: Central Venous Line 10/08/17 00:00 CONCLUSION: <Yann Kerr - 10/10/17 09:31> Physical Exam Vital signs: Vital Signs 10/09/17 16:00 10/09/17 20:00 10/09/17 21:41 Temperature 98.0 F 98.6 F Pulse Rate 88 96 H Respiratory Rate 20 20 8 L Blood Pressure 130/60 120/60 Pulse Oximetry 95 95 10/10/17 00:00 10/10/17 04:00 10/10/17 08:10 Temperature 98.1 F 97.7 F Pulse Rate 97 H 100 H Respiratory Rate 18 18 Blood Pressure 121/58 L 136/74 Pulse Oximetry 95 92 L 96 Intake & Output 10/09/17 10/10/17 10/10/17 18:59 06:59 18:59 Intake Total 480 / 480 300 / 300 Output Total 2300 / 2300 1100 / 1100 Balance -1820 / -1820 -800 / -800 Weight 150.1 kg Intake: Oral 480 / 480 300 / 300 Output: Urine 2300 / 2300 1100 / 1100 Other: Date of Last Bowel Movement 10/07/17 10/09/17 # Bowel Movements 1 <Frederick Arora - 10/10/17 12:38> Vital Signs 10/09/17 12:00 10/09/17 16:00 10/09/17 20:00 Temperature 98.6 F 98.0 F 98.6 F Pulse Rate 92 H 88 96 H Respiratory Rate 20 20 20 Blood Pressure 120/57 L 130/60 120/60 Pulse Oximetry 96 95 95 10/09/17 21:41 10/10/17 00:00 10/10/17 04:00 Temperature 98.1 F 97.7 F Pulse Rate 97 H 100 H Respiratory Rate 8 L 18 18 Blood Pressure 121/58 L 136/74 Pulse Oximetry 95 92 L Intake & Output 10/09/17 10/10/17 10/10/17 18:59 06:59 18:59 Intake Total 480 / 480 300 / 300 Output Total 2300 / 2300 1100 / 1100 Balance -1820 / -1820 -800 / -800 Weight 150.1 kg Intake: Oral 480 / 480 300 / 300 Output: Urine 2300 / 2300 1100 / 1100 Other: Date of Last Bowel Movement 10/07/17 10/09/17 # Bowel Movements 1 <Yann Kerr - 10/10/17 09:31> Narrative: GENERAL: Obese male in no apparent distress, lying in bed. SKIN: Warm and dry. HEAD: Atraumatic. Normocephalic. EYES: EOMI. No scleral icterus. No injection or drainage. ENT: No nasal bleeding or discharge. Mucous membranes pink and moist. CARDIOVASCULAR: Regular rate and rhythm. RESPIRATORY: No accessory muscle use. Clear to auscultation. Breath sounds equal bilaterally. CHEST: 5cm area of superficial bruising on his left chest GASTROINTESTINAL: Abdomen soft, obese. Normal bowel sounds. BACK: tenderness to palpation in the left flank area of recent renal biopsy, tenderness improving from prior examination. MUSCULOSKELETAL: 3+ in the bilateral lower extremities to patella, continuing to improve from prior examination from 10/09 AM. No cyanosis. Left ankle wound with clean and dry dressing noted NEUROLOGICAL: Awake and alert. No obvious cranial nerve deficits. Motor grossly within normal limits. PSYCHIATRIC: Appropriate mood and affect; insight and judgment normal. <Yann Kerr - 10/10/17 10:22> Assessment and Plan - Assessment (1) ESTELLA (acute kidney injury) Code(s): N17.9 - Acute kidney failure, unspecified Status: Acute Plan: Continue to monitor renal function panel, Cr noted to be improving, will follow results today Dialysis to continue for now, patient refused 10/09, nephrology planning for dialysis today and possibly tomorrow for further fluid removal. PermCath placed 10/08. On PO Torsemide per nephrology, patient given Lasix 40 mg IV x1 yesterday PM to assess diuresis Renal biopsy showing ATN with severe arteriosclerosis Appreciate nephrology management of patient's care Impression/Course: Suspecting ESTELLA with possible intrinsic renal disease related to Vancomycin Serology and urine studies unremarkable PO fluid allowance to 2 L daily. Daily BMPs. (2) Traumatic perinephric hematoma of left kidney Code(s): S37.092A - Other injury of left kidney, initial encounter Status: Acute Plan: -Noncontrast CT of abdomen/pelvis shows high density left renal hematoma with additional hemorrhage and hematoma in the perirenal space -Discussed case with radiologist and interventional radiologist who determined the hematoma to be contained at this time and asked to monitor his vitals and H/ H and call them if he decompensates or requires another blood transfusion -Apex PO prn for pain and morphine IV for breakthrough pain - Hgb and vitals stable at this time, will continue to monitor (3) Anemia Code(s): D64.9 - Anemia, unspecified Status: Acute Plan: -Hgb as above, stable - Will continue to monitor daily -Transfuse at Hemoglobin of 7 -Will call radiologist if need for transfusion and/or decompensation (4) Anasarca Code(s): R60.1 - Generalized edema Status: Acute Plan: -Whole body edema with pleural and pericardial effusions, etiology unclear - Nephrology on board, management as noted (5) Hyperphosphatemia Code(s): E83.39 - Other disorders of phosphorus metabolism Status: Resolved Plan: Secondary to renal failure. Resolved. PhosLo ordered with meals per nephrology. (6) Hypertension Code(s): I10 - Essential (primary) hypertension Status: Chronic Plan: Patient with a known history of hypertension Blood pressures ranging 100s-110s/50s past 24 hours Hold home Metoprolol due to risk for severe hypotension in the setting of an acute bleed (7) History of asthma Code(s): Z87.09 - Personal history of other diseases of the respiratory system Status: Chronic Plan: Patient with a known history of asthma Duonebs every 4hr PRN, albuterol every 2hr PRN SOB/wheezing Not requiring routine treatments at this time (8) Depression with anxiety Code(s): F41.8 - Other specified anxiety disorders Status: Chronic Plan: Patient with a known history of depression anxiety. Continue home Zoloft, trazodone. Holding Valium (9) Gout Code(s): M10.9 - Gout, unspecified Status: Chronic Plan: Patient with a known history of gout. Continue home allopurinol. (10) Open wound of left lower extremity Code(s): S81.802A - Unspecified open wound, left lower leg, initial encounter Status: Acute Plan: Continue daily Santyl dressings per wound care recommendations. Okay to take a bath given no active infection however, keeping Vas-Cath and peripheral access clean and dry Patient will need referral to outpatient wound care clinic upon discharge. Will have wound care immediately after discharge, either outpatient or home health Impression/Course: Patient presented with bilateral lower extremity edema with erythema overlying surgical site on LLE. Did not have systemic signs of infection and no longer suspicious for cellulitis, suspect related to fluid overload and/or venous insufficiency. He does have left ankle wound which wound care has been consulted and recommending daily Santyl dressings since 09/23. Will continue to monitor lower extremities, wound culture showing MRSA and Pseudomonas however wound culture was superficial and may have been reflective of skin ori. ital signs have been within normal limits without fever this hospitalization and white count within normal limits. Suspect some element of pressure ulcer given limited mobility since his ankle surgery in July 2017 (internal fixation with rods and screws throughout ankle). X-ray performed 09/20 showing intact hardware and soft tissue edema. Clinically the bilateral LEs have been stable with no significant erythema since fluid restriction and dialysis were initiated. ESR 14, low suspicion for osteomyelitis Lactic acid 1.5 on admission Patient afebrile without leukocytosis this hospitalization Antibiotics: Vancomycin 09/21 through 09/24, discontinued given ESTELLA and lower suspicion for cellulitis Vancomycin ordered with pharmacy consult to help with dosing (09/21-09/24) Rocephin 2 g IV daily (09/21 - 09/23) Blood cultures 09/20/17: no growth Wound culture 09/20/17: MRSA, Pseudomonas PT/OT consult ordered - PT currently recommending no PT at discharge (11) Sleep apnea Code(s): G47.30 - Sleep apnea, unspecified Status: Acute Plan: Home O2 walk test ordered for discharge planning Continues to require oxygen while inpt Will order home oxygen if indicated Of note, we suspect patient has sleep apnea given history reported and elevated pulmonary arterial pressure on echocardiogram. Patient will require further discussion and workup of this as an outpatient. (12) Nutrition, metabolism, and development symptoms Code(s): R63.8 - Other symptoms and signs concerning food and fluid intake Status: Acute Plan: FEN: - Gentle PO hydration given ESTELLA - Correct electrolytes as needed - Low-salt, heart healthy diet and fluid restriction to 2 L PPX: -Holding Lovenox due to perinephric bleed <Yann Kerr - 10/10/17 10:16> - Assessment and Plan The patient is a 56-year-old man with past medical history significant for hypertension, depression and anxiety, asthma, gout, recent surgical repair of his left ankle and left hip who presented to the ED on 09/20 with progressive shortness of breath and lower extremity edema. The patient was initially started on vancomycin for suspected cellulitis of his bilateral lower extremities. He was noted to have new onset acute kidney injury on 09/23 which has been unresolved and of unclear etiology. Suspect may be related to vancomycin nephrotoxicity. He has since been started on hemodialysis per nephrology since 09/27 due to persistent anasarca and marked lower extremity edema despite attempts at diuresis. Patient underwent a renal biopsy on 10/03 of which results are still pending. <Yann Kerr - 10/10/17 09:31> - Attending Attestation See the residents documentation for details. I saw and evaluated the patient regarding the arteaga portions of this evaluation and agree with the residents findings and plans as written. Parts of this note were created using [employer] voice recognition software program. While efforts were made to correct any mistakes made by this software, some mistakes, errors, and omissions may remain in the final note that were not caught when the note was originally created. Plan of care was discussed and agreed upon with the patient as specifically documented in the above note. An opportunity to ask questions with explanation was provided. Patient voiced understanding on all information reviewed and discussed. <Frederick Arora - 10/10/17 12:38> <Yann Kerr - Last Filed: 10/10/17 10:16> (3) Anemia Qualifiers: Anemia type: unspecified type Qualified Code(s): D64.9 - Anemia, unspecified (6) Hypertension Qualifiers: Hypertension type: essential hypertension Qualified Code(s): I10 - Essential (primary) hypertension <Yann Kerr - Last Filed: 10/10/17 10:16> (3) Anemia Qualifiers: Anemia type: unspecified type Qualified Code(s): D64.9 - Anemia, unspecified (6) Hypertension Qualifiers: Hypertension type: essential hypertension Qualified Code(s): I10 - Essential (primary) hypertension
[2017-10-10] MEDS: Calcium Acetate 667 MG Capsule PO SCH ×2 (09:35→13:53)
[2017-10-10] MEDS: Morphine Inj 4 MG/ML Vial IV.PUSH PRN ×3 (09:35→21:01)
[2017-10-10] MEDS: Allopurinol 100 MG Tablet PO SCH (09:35)
[2017-10-10] MEDS: Sertraline 50 MG Tablet PO SCH (09:35)
[2017-10-10 09:43] LABS: Baso % (Auto) 0.5 % (0.0-2.0); Eos # (Auto) 0.2 th/mm3 (0.0-0.4); Eos % (Auto) 2.2 % (0.0-4.0); Hematocrit 28.3 % (39.0-51.0); Hemoglobin 9.1 gm/dL (13.0-17.0); Lymph # (Auto) 0.9 th/mm3 (1.0-4.8); Lymph % (Auto) 12.4 % (9.0-44.0); Mean Corpuscular HGB Conc 32.1 % (32.0-36.0); Mean Corpuscular Hemoglobin 32.2 pg (27.0-34.0); Mean Corpuscular Volume 100.4 fL (80.0-100.0); Mean Platelet Volume 7.1 fL (7.0-11.0); Mono # (Auto) 1.3 th/mm3 (0.0-0.9); Mono % (Auto) 16.9 % (0.0-8.0); Neut # (Auto) 5.2 th/mm3 (1.8-7.7); Platelet Count 323 th/mm3 (150-450); Red Blood Count 2.82 mil/mm3 (4.50-5.90); Red Cell Distribution Width 20.1 % (11.6-17.2); White Blood Count 7.6 th/mm3 (4.0-11.0)
[2017-10-10 10:20] LABS: Albumin 2.7 g/dL (3.4-5.0); Calcium 8.6 mg/dL (8.5-10.1); Carbon Dioxide 35.3 meq/L (21.0-32.0); Phosphorus 3.9 mg/dL (2.5-4.9); Potassium 3.6 meq/L (3.5-5.1)
[2017-10-10] MEDS: Collagenase Oint 30 GM Tube TOPICAL SCH (16:30)
[2017-10-10] MEDS ORDERED: Chlorothiazide Inj 500 MG Vial IV.PUSH ONE (16:54)
--- NOTE | 2017-10-10 17:01 | P.PNNP ---
Subjective Interval history: Patient lying in bed. No verbal complaints currently. Physical Exam Vital signs: Vital Signs 10/09/17 20:00 10/09/17 21:41 10/10/17 00:00 Temperature 98.6 F 98.1 F Pulse Rate 96 H 97 H Respiratory Rate 20 8 L 18 Blood Pressure 120/60 121/58 L Pulse Oximetry 95 95 10/10/17 04:00 10/10/17 08:00 10/10/17 08:10 Temperature 97.7 F Pulse Rate 100 H 83 Respiratory Rate 18 Blood Pressure 136/74 Pulse Oximetry 92 L 96 Intake & Output 10/09/17 10/10/17 10/10/17 18:59 06:59 18:59 Intake Total 480 / 480 300 / 300 Output Total 2300 / 2300 1100 / 1100 2300 / 2300 Balance -1820 / -1820 -800 / -800 -2300 / -2300 Weight 150.1 kg Intake: Oral 480 / 480 300 / 300 Output: Urine 2300 / 2300 1100 / 1100 300 / 300 Hemodialysis Amount 1999 Other: # Voids 1 Date of Last Bowel Movement 10/07/17 10/09/17 10/09/17 # Bowel Movements 1 Narrative: GENERAL: Obese. Not in respiratory distress. SKIN: Warm and dry. HEAD: Normocephalic. EYES: No scleral icterus. No injection or drainage. NECK: Supple, trachea midline. No JVD or lymphadenopathy. CARDIOVASCULAR: Regular rate and rhythm without murmurs, gallops, or rubs. RESPIRATORY: Breath sounds equal bilaterally. No accessory muscle use. GASTROINTESTINAL: Abdomen soft, non-tender, nondistended. MUSCULOSKELETAL: No cyanosis, 2+ pitting edema lower extremities pitting. Assessment and Plan - Assessment (1) Acute renal insufficiency Code(s): N28.9 - Disorder of kidney and ureter, unspecified Status: Acute Plan: s/p PermCath placement 10/08 Patient's urine output appears to be improving significantly at this time. His creatinine level is also trending downward. I believe that the patient is in the recovery phase of ATN. Hopefully this will be his last dialysis session today. If significant evidence of renal recovery continues will need hemodialysis PermCath removed by radiology. 1 dose of Diuril in addition to bumetanide to further improve his edema. I also indicated to the patient that in addition to acute kidney injury the biopsy did show evidence of severe arteriolosclerosis. I discussed with the patient the importance of follow-up with his primary care in regard to adequate blood pressure management, lipid management as well as weight loss. I believe that the finding of arterial sclerosis on his biopsy given his relatively young age does put him at significant risk for development of cardiovascular disease in the future as discussed with him. Medications should be adjusted for the patient's estimated GFR if clinically indicated. Avoid agents with significant potential for nephrotoxicity possible including NSAIDs for analgesia, iodine contrast agents. Gadolinium is contraindicated if the GFR is below 30. (2) Perinephric hematoma Code(s): S37.019A - Minor contusion of unspecified kidney, initial encounter Status: Acute Plan: Hgb improved. (3) Edema Code(s): R60.9 - Edema, unspecified Status: Acute Qualifiers: Edema type: generalized Qualified Code(s): R60.1 - Generalized edema Plan: As above. (4) Congestive heart failure (CHF) Code(s): I50.9 - Heart failure, unspecified Status: Acute Qualifiers: Heart failure type: combined systolic and diastolic (5) Hyperphosphatemia Code(s): E83.39 - Other disorders of phosphorus metabolism Status: Resolved Plan: Repeat phosphate level tomorrow. With renal recovery the patient may not require PhosLo. (6) Anemia Code(s): D64.9 - Anemia, unspecified Status: Acute
[2017-10-10] MEDS: Senna/Docusate Sodium 8.6/50 MG Tablet PO SCH (21:00)
[2017-10-10] MEDS: traZODone 100 MG Tablet PO SCH (22:50)
[2017-10-11] MEDS: Morphine Inj 4 MG/ML Vial IV.PUSH PRN ×5 (01:24→20:20)
[2017-10-11 07:39] LABS: Hematocrit 25.3 % (39.0-51.0); Hemoglobin 8.1 gm/dL (13.0-17.0); Mean Corpuscular HGB Conc 32.1 % (32.0-36.0); Mean Corpuscular Hemoglobin 31.9 pg (27.0-34.0); Mean Corpuscular Volume 99.2 fL (80.0-100.0); Mean Platelet Volume 7.6 fL (7.0-11.0); Platelet Count 305 th/mm3 (150-450); Red Blood Count 2.55 mil/mm3 (4.50-5.90); Red Cell Distribution Width 20.2 % (11.6-17.2); White Blood Count 7.2 th/mm3 (4.0-11.0)
[2017-10-11 08:18] LABS: Albumin 2.4 g/dL (3.4-5.0); Calcium 8.6 mg/dL (8.5-10.1); Carbon Dioxide 34.2 meq/L (21.0-32.0); Phosphorus 3.3 mg/dL (2.5-4.9); Potassium 3.5 meq/L (3.5-5.1)
[2017-10-11] MEDS: Sertraline 50 MG Tablet PO SCH (09:07)
[2017-10-11] MEDS: Senna/Docusate Sodium 8.6/50 MG Tablet PO SCH ×2 (09:07→20:20)
[2017-10-11] MEDS: Calcium Acetate 667 MG Capsule PO SCH (09:08)
[2017-10-11] MEDS: Collagenase Oint 30 GM Tube TOPICAL SCH (09:08)
--- NOTE | 2017-10-11 09:27 | P.PNFP ---
Subjective Interval history: No acute events overnight. Afebrile, vitals stable. Patient reports no specific complaints or concerns this morning. 2L removed during HD yesterday; 1650 cc UOP noted. Patient specifically denies fevers or chills, CP , dyspnea, cough, worsening pain. Low back pain is stable, endorses dull aching pain. <ShamarYann regalado - 10/11/17 10:01> Results - Labs Result diagrams: 10/11/17 06:41 10/11/17 06:41 <Frederick Arora - 10/11/17 15:44> Abnormal lab results 10/11/17 10/11/17 Range/Units 06:41 06:41 RBC 2.55 L (4.50-5.90) mil/mm3 Hgb 8.1 L (13.0-17.0) gm/dL Hct 25.3 L (39.0-51.0) % RDW 20.2 H (11.6-17.2) % Chloride 97 L (98-107) meq/L Carbon Dioxide 34.2 H (21.0-32.0) meq/L BUN 28 H (7-18) mg/dL Creatinine 1.38 H (0.60-1.30) mg/dL Estimated GFR 54 L (>89) mL/min Albumin 2.4 L (3.4-5.0) g/dL Short CBC 10/11/17 Range/Units 06:41 WBC 7.2 (4.0-11.0) th/mm3 Hgb 8.1 L (13.0-17.0) gm/dL Hct 25.3 L (39.0-51.0) % Plt Count 305 (150-450) th/mm3 BMP 10/11/17 06:41 Sodium 138 Potassium 3.5 Chloride 97 L Carbon Dioxide 34.2 H BUN 28 H Creatinine 1.38 H Calcium 8.6 Liver Function 10/11/17 Range/Units 06:41 Albumin 2.4 L (3.4-5.0) g/dL <Frederick Arora - 10/11/17 15:44> Abnormal lab results 10/10/17 10/10/17 10/11/17 Range/Units 09:19 09:19 06:41 RBC 2.82 L (4.50-5.90) mil/mm3 Hgb 9.1 L (13.0-17.0) gm/dL Hct 28.3 L (39.0-51.0) % MCV 100.4 H (80.0-100.0) fL RDW 20.1 H (11.6-17.2) % [place] % (Auto) 16.9 H (0.0-8.0) % Lymph # (Auto) 0.9 L (1.0-4.8) th/mm3 [place] # (Auto) 1.3 H (0.0-0.9) th/mm3 Chloride 97 L (98-107) meq/L Carbon Dioxide 35.3 H 34.2 H (21.0-32.0) meq/L BUN 28 H 28 H (7-18) mg/dL Creatinine 1.65 H 1.38 H (0.60-1.30) mg/dL Estimated GFR 44 L 54 L (>89) mL/min Albumin 2.7 L 2.4 L (3.4-5.0) g/dL 10/11/17 Range/Units 06:41 RBC 2.55 L (4.50-5.90) mil/mm3 Hgb 8.1 L (13.0-17.0) gm/dL Hct 25.3 L (39.0-51.0) % MCV (80.0-100.0) fL RDW 20.2 H (11.6-17.2) % [place] % (Auto) (0.0-8.0) % Lymph # (Auto) (1.0-4.8) th/mm3 [place] # (Auto) (0.0-0.9) th/mm3 Chloride (98-107) meq/L Carbon Dioxide (21.0-32.0) meq/L BUN (7-18) mg/dL Creatinine (0.60-1.30) mg/dL Estimated GFR (>89) mL/min Albumin (3.4-5.0) g/dL Short CBC 10/10/17 10/11/17 Range/Units 09:19 06:41 WBC 7.6 7.2 (4.0-11.0) th/mm3 Hgb 9.1 L 8.1 L (13.0-17.0) gm/dL Hct 28.3 L 25.3 L (39.0-51.0) % Plt Count 323 305 (150-450) th/mm3 BMP 10/10/17 10/11/17 09:19 06:41 Sodium 138 138 Potassium 3.6 3.5 Chloride 98 97 L Carbon Dioxide 35.3 H 34.2 H BUN 28 H 28 H Creatinine 1.65 H 1.38 H Calcium 8.6 8.6 Liver Function 10/10/17 10/11/17 Range/Units 09:19 06:41 Albumin 2.7 L 2.4 L (3.4-5.0) g/dL <Yann Kerr - 10/11/17 09:27> Physical Exam Vital signs: Vital Signs 10/10/17 16:00 10/10/17 20:00 10/11/17 00:00 Temperature 99.7 F H 98.0 F 97.9 F Pulse Rate 97 H 96 H 87 Respiratory Rate 18 19 18 Blood Pressure 128/60 128/58 L 129/65 Pulse Oximetry 97 96 97 10/11/17 04:00 10/11/17 07:39 10/11/17 08:00 Temperature 97.5 F L 97.9 F Pulse Rate 87 92 H Respiratory Rate 19 16 20 Blood Pressure 142/61 H 135/58 L Pulse Oximetry 95 95 10/11/17 11:18 10/11/17 12:00 Temperature 98.3 F Pulse Rate 86 Respiratory Rate 20 Blood Pressure 125/62 Pulse Oximetry 95 95 Intake & Output 10/10/17 10/11/17 10/11/17 18:59 06:59 18:59 Intake Total 840 / 840 221 / 221 Output Total 3000 / 3000 650 / 650 Balance -2160 / -2160 -429 / -429 Weight 148.2 kg Intake: Oral 840 / 840 221 / 221 Output: Urine 1000 / 1000 650 / 650 Hemodialysis Amount 1999 Other: # Voids 1 Date of Last Bowel Movement 10/10/17 10/10/17 # Bowel Movements 1 <Frederick Arora - 10/11/17 15:44> Vital Signs 10/10/17 16:00 10/10/17 20:00 10/11/17 00:00 Temperature 99.7 F H 98.0 F 97.9 F Pulse Rate 97 H 96 H 87 Respiratory Rate 18 19 18 Blood Pressure 128/60 128/58 L 129/65 Pulse Oximetry 97 96 97 10/11/17 04:00 10/11/17 07:39 Temperature 97.5 F L Pulse Rate 87 Respiratory Rate 19 16 Blood Pressure 142/61 H Pulse Oximetry 95 Intake & Output 10/10/17 10/11/17 10/11/17 18:59 06:59 18:59 Intake Total 840 / 840 221 / 221 Output Total 3000 / 3000 650 / 650 Balance -2160 / -2160 -429 / -429 Weight 148.2 kg Intake: Oral 840 / 840 221 / 221 Output: Urine 1000 / 1000 650 / 650 Hemodialysis Amount 1999 Other: # Voids 1 Date of Last Bowel Movement 10/10/17 10/10/17 # Bowel Movements 1 <Yann Kerr - 10/11/17 09:27> Narrative: GENERAL: Obese male in no apparent distress, lying in bed. SKIN: Warm and dry. HEAD: Atraumatic. Normocephalic. EYES: EOMI. No scleral icterus. No injection or drainage. ENT: No nasal bleeding or discharge. Mucous membranes pink and moist. CARDIOVASCULAR: Regular rate and rhythm. RESPIRATORY: No accessory muscle use. Clear to auscultation. Breath sounds equal bilaterally. CHEST: 5cm area of superficial bruising on his left chest GASTROINTESTINAL: Abdomen soft, obese. Normal bowel sounds. BACK: mild tenderness to palpation in the left flank area of recent renal biopsy MUSCULOSKELETAL: 2+ in the bilateral lower extremities to patella. No cyanosis. Left ankle wound with clean and dry dressing noted NEUROLOGICAL: Awake and alert. No obvious cranial nerve deficits. Motor grossly within normal limits. PSYCHIATRIC: Appropriate mood and affect; insight and judgment normal. <Yann Kerr - 10/11/17 10:01> Assessment and Plan - Assessment (1) ESTELLA (acute kidney injury) Code(s): N17.9 - Acute kidney failure, unspecified Status: Acute Plan: Continue to monitor renal function panel, Cr noted to be improving Dialysis to continue for now PermCath placed 10/08. Consider removal per nephrology recommendations if renal function normalizes and remains stable On PO Torsemide bid per nephrology Renal biopsy showing ATN with severe arteriosclerosis Appreciate nephrology management of patient's care Suspecting ESTELLA with possible intrinsic renal disease related to Vancomycin Serology and urine studies unremarkable PO fluid allowance to 2 L daily. Daily BMPs. (2) Traumatic perinephric hematoma of left kidney Code(s): S37.092A - Other injury of left kidney, initial encounter Status: Acute Plan: -Noncontrast CT of abdomen/pelvis shows high density left renal hematoma with additional hemorrhage and hematoma in the perirenal space -Discussed case with radiologist and interventional radiologist who determined the hematoma to be contained at this time and asked to monitor his vitals and H/ H and call them if he decompensates or requires another blood transfusion -[place] PO prn for pain and morphine IV for breakthrough pain - Hgb and vitals stable at this time, will continue to monitor (3) Anemia Code(s): D64.9 - Anemia, unspecified Status: Acute Plan: -Hgb as above, stable - Will continue to monitor daily -Transfuse at Hemoglobin of 7 -Will call radiologist if need for transfusion and/or decompensation (4) Anasarca Code(s): R60.1 - Generalized edema Status: Acute Plan: - Whole body edema with pleural and pericardial effusions, etiology unclear - Nephrology on board, management as noted (5) Hyperphosphatemia Code(s): E83.39 - Other disorders of phosphorus metabolism Status: Resolved Plan: Secondary to renal failure. Resolved. PhosLo ordered with meals per nephrology. Consider discontinuation if phosphorous remains normal (6) Hypertension Code(s): I10 - Essential (primary) hypertension Status: Chronic Plan: Patient with a known history of hypertension Blood pressures controlled Hold home Metoprolol due to risk for severe hypotension in the setting of an acute bleed (7) History of asthma Code(s): Z87.09 - Personal history of other diseases of the respiratory system Status: Chronic Plan: Patient with a known history of asthma Duonebs every 4hr PRN, albuterol every 2hr PRN SOB/wheezing Not requiring routine treatments at this time (8) Depression with anxiety Code(s): F41.8 - Other specified anxiety disorders Status: Chronic Plan: Patient with a known history of depression anxiety. Continue home Zoloft, trazodone. Holding Valium (9) Gout Code(s): M10.9 - Gout, unspecified Status: Chronic Plan: Patient with a known history of gout. Holding allopurinol at this time to be cautious given current renal function (10) Open wound of left lower extremity Code(s): S81.802A - Unspecified open wound, left lower leg, initial encounter Status: Acute Plan: Continue daily Santyl dressings per wound care recommendations. Okay to take a bath given no active infection however, keeping Vas-Cath and peripheral access clean and dry Patient will need referral to outpatient wound care clinic upon discharge. Will have wound care immediately after discharge, either outpatient or home health Impression/Course: Patient presented with bilateral lower extremity edema with erythema overlying surgical site on LLE. Did not have systemic signs of infection and no longer suspicious for cellulitis, suspect related to fluid overload and/or venous insufficiency. He does have left ankle wound which wound care has been consulted and recommending daily Santyl dressings since 09/23. Will continue to monitor lower extremities, wound culture showing MRSA and Pseudomonas however wound culture was superficial and may have been reflective of skin ori. ital signs have been within normal limits without fever this hospitalization and white count within normal limits. Suspect some element of pressure ulcer given limited mobility since his ankle surgery in July 2017 (internal fixation with rods and screws throughout ankle). X-ray performed 09/20 showing intact hardware and soft tissue edema. Clinically the bilateral LEs have been stable with no significant erythema since fluid restriction and dialysis were initiated. ESR 14, low suspicion for osteomyelitis Lactic acid 1.5 on admission Patient afebrile without leukocytosis this hospitalization Antibiotic history: Vancomycin 09/21 through 09/24, discontinued given ESTELLA and lower suspicion for cellulitis Vancomycin ordered with pharmacy consult to help with dosing (09/21-09/24) Rocephin 2 g IV daily (09/21 - 09/23) Blood cultures 09/20/17: no growth Wound culture 09/20/17: MRSA, Pseudomonas ID consulted, appreciate recommendations PT/OT consult ordered - PT currently recommending no PT at discharge (11) Sleep apnea Code(s): G47.30 - Sleep apnea, unspecified Status: Acute Plan: Home O2 walk test ordered for discharge planning Continues to require oxygen while inpt Will order home oxygen if indicated Of note, we suspect patient has sleep apnea given history reported and elevated pulmonary arterial pressure on echocardiogram. Patient will require further discussion and workup of this as an outpatient. (12) Nutrition, metabolism, and development symptoms Code(s): R63.8 - Other symptoms and signs concerning food and fluid intake Status: Acute Plan: FEN: - Gentle PO hydration given ESTELLA - Correct electrolytes as needed - Low-salt, heart healthy diet and fluid restriction to 2 L PPX: -Holding Lovenox due to perinephric bleed <ShamarteresitaangelaYann - 10/11/17 09:55> - Assessment and Plan The patient is a 56-year-old man with past medical history significant for hypertension, depression and anxiety, asthma, gout, recent surgical repair of his left ankle and left hip who presented to the ED on 09/20 with progressive shortness of breath and lower extremity edema. The patient was initially started on vancomycin for suspected cellulitis of his bilateral lower extremities. He was noted to have new onset acute kidney injury on 09/23 which has been unresolved and of unclear etiology. Suspect may be related to vancomycin nephrotoxicity. He has since been started on hemodialysis per nephrology since 09/27 due to persistent anasarca and marked lower extremity edema despite attempts at diuresis. Patient underwent a renal biopsy on 10/03 of which results are still pending. <Yann Kerr - 10/11/17 09:27> - Attending Attestation See the residents documentation for details. I saw and evaluated the patient regarding the arteaga portions of this evaluation and agree with the residents findings and plans as written. Parts of this note were created using [employer] voice recognition software program. While efforts were made to correct any mistakes made by this software, some mistakes, errors, and omissions may remain in the final note that were not caught when the note was originally created. Plan of care was discussed and agreed upon with the patient as specifically documented in the above note. An opportunity to ask questions with explanation was provided. Patient voiced understanding on all information reviewed and discussed. <Frederick Arora - 10/11/17 15:44> <Dennise Kerrsh - Last Filed: 10/11/17 09:55> (3) Anemia Qualifiers: Anemia type: unspecified type Qualified Code(s): D64.9 - Anemia, unspecified (6) Hypertension Qualifiers: Hypertension type: essential hypertension Qualified Code(s): I10 - Essential (primary) hypertension <Dennise Kerrsh - Last Filed: 10/11/17 09:55> (3) Anemia Qualifiers: Anemia type: unspecified type Qualified Code(s): D64.9 - Anemia, unspecified (6) Hypertension Qualifiers: Hypertension type: essential hypertension Qualified Code(s): I10 - Essential (primary) hypertension
[2017-10-11] MEDS: Torsemide 20 MG Tablet PO SCH (09:57)
--- NOTE | 2017-10-11 10:10 | P.PNNP ---
Subjective Interval history: Pt seen laying in bed Awake, alert, in NAD. Still reporting good UOP Physical Exam Vital signs: Vital Signs 10/10/17 16:00 10/10/17 20:00 10/11/17 00:00 Temperature 99.7 F H 98.0 F 97.9 F Pulse Rate 97 H 96 H 87 Respiratory Rate 18 19 18 Blood Pressure 128/60 128/58 L 129/65 Pulse Oximetry 97 96 97 10/11/17 04:00 10/11/17 07:39 10/11/17 08:00 Temperature 97.5 F L 97.9 F Pulse Rate 87 92 H Respiratory Rate 19 16 20 Blood Pressure 142/61 H 135/58 L Pulse Oximetry 95 95 Intake & Output 10/10/17 10/11/17 10/11/17 18:59 06:59 18:59 Intake Total 840 / 840 221 / 221 Output Total 3000 / 3000 650 / 650 Balance -2160 / -2160 -429 / -429 Weight 148.2 kg Intake: Oral 840 / 840 221 / 221 Output: Urine 1000 / 1000 650 / 650 Hemodialysis Amount 1999 Other: # Voids 1 Date of Last Bowel Movement 10/10/17 10/10/17 # Bowel Movements 1 - Constitutional no acute distress - Routine HEENT Exam Head: Present: normocephalic - Routine Neck Exam Present: supple - Routine Respiratory Exam Present: distant breath sounds, diminished air movement - Routine Cardiovascular Exam Present: RRR, S1, S2 - Routine Abdominal Exam Present: soft - Routine Extremities Exam Present: edema (2+ pitting edema BLE 1+ in thighs---improving) - Routine Skin Exam Present: intact - Routine Neurological Exam Present: alert, oriented X3 - Routine Psychiatric Exam Present: normal affect Assessment and Plan - Assessment (1) Acute renal insufficiency Code(s): N28.9 - Disorder of kidney and ureter, unspecified Status: Acute Plan: s/p PermCath placement 10/08 UOP good SCr improving. Will continue IV diuresis for the present. Hopefully renal functions continue to improve and HD can be discontinued. Will monitor thru the weekend. If improving by Saturday, will have PermCath removed. Medications should be adjusted for the patient's estimated GFR if clinically indicated. Avoid agents with significant potential for nephrotoxicity possible including NSAIDs for analgesia, iodine contrast agents. Gadolinium is contraindicated if the GFR is below 30. (2) Perinephric hematoma Code(s): S37.019A - Minor contusion of unspecified kidney, initial encounter Status: Acute Plan: Hgb improved. Resolving (3) Congestive heart failure (CHF) Code(s): I50.9 - Heart failure, unspecified Status: Acute Qualifiers: Heart failure type: combined systolic and diastolic (4) Hyperphosphatemia Code(s): E83.39 - Other disorders of phosphorus metabolism Status: Resolved Plan: PO4 within acceptable range 2/2 to renal recovery. Will D/C PhosLo and monitor. (5) Anemia Code(s): D64.9 - Anemia, unspecified Status: Acute Plan: Continue to monitor. Hopefully will continue to improve with renal recovery. May still need Epo and/or Fe if not.
--- NOTE | 2017-10-11 18:27 | P.PNADD ---
Addendum to Inpatient Note Additional information: Pt seen and examined earlier today Full note to follow
--- NOTE | 2017-10-11 18:27 | P.CONID ---
History of Present Illness Service: ID Consult date: 10/11/17 Requesting Physician: Yann Kerr Reason for Consult: Lt ankle infx Primary Care Provider: Young Mahmood MD, R3 Chief Complaint: Swelling and redness in legs History of Present Illness: This is a delaeyd entry Pt was seen yday . 56 yo male with morbid obesity and remote Lt ankle fracture resulted in pathological fracture s/p repair with iliac crest graft and hardware in July @ He apparently experiencieng pain swelling and delayed healing in his ankle as well as reportedly drainage Pt has multiple med problems and at presentation c/o SOB and BLE edema His ankkle lesion was cultured and it gew MRSA and PSAE He was diagnosed with cellulitis he was started on abx (including vancomycin) He developped ARF and underwent kidney bx complicated by retroperitoneal bleeding He was started on broad spectrum abx and developped ATN and ARF requiring HD He started to make urine and today he made 2500cc No fever NO leukocytosis No longer on abx He had CT abd/pel froilan and it showed fluid collection @ donor site Pt denies any pain @ that area Review of Systems All other systems reviewed negative except as stated in HPI PMFSH - History History Provided By: Patient - Medical History Medical History: Medical History (Last Reviewed 12/08/17 @ 20:05 by Funmilayo Pineda MD) Anxiety Asthma Borderline diabetes Depressed Gout Hypertension Left wrist fracture Neuropathy Seasonal allergies Sleep apnea - Surgical History Surgical History: Surgical History (Last Reviewed 12/08/17 @ 20:05 by Funmilayo Pineda MD) H/O umbilical hernia repair - Family History Family History: Family History (Last Reviewed 12/08/17 @ 20:05 by Funmilayo Pineda MD) Other Family history of acute myocardial infarction Family history of diabetes mellitus Family history of lung cancer Family history of renal disease - Social History I have reviewed the patient's Social History: Yes - Tobacco History Second Hand Smoke Exposure: No Tobacco Use In Past 30 Days: Yes Smoking Status: Current every day smoker Tobacco Type: Cigarettes - Alcohol History How Often Do You Have a Drink Containing Alcohol: 2 to 4 times a month - Substance Use History Substance History: Past History - Substance Use Type Marijuana Status: Active Route Used: By Mouth Reason for Use: Calm Down - Travel History Recent Travel Out of the Country Within the Last 8 Weeks: No - Immunization History Tetanus Immunization: <5 Years Hx Influenza Vaccine This Season: Yes Medications and Allergies Active Medications: Active Medications Acetaminophen (Tylenol) 650 mg PO Q6HR PRN PRN Reason: PAIN SCALE 1 TO 2 Last Admin: 10/02/17 16:01 Dose: 650 mg Acetaminophen (Tylenol) 650 mg PO UNSCH PRN PRN Reason: SEE LABEL COMMENTS Hydrocodone Bitart/Acetaminophen ([place] 10/325) 1 tab PO Q4H PRN PRN Reason: PAIN SCALE 6 TO 10 Last Admin: 10/11/17 17:52 Dose: 1 tab Hydrocodone Bitart/Acetaminophen ([place] 5/325) 1 tab PO Q4H PRN PRN Reason: PAIN SCALE 3 TO 5 Albuterol (Albuterol Neb (Prn)) 2.5 mg NEB Q2HR NEB PRN PRN Reason: SHORTNESS OF BREATH Albuterol (Duoneb Neb (Prn)) 1 ampul NEB Q4HR NEB PRN PRN Reason: SHORTNESS OF BREATH/WHEEZING Last Admin: 09/23/17 11:03 Dose: 1 ampul Clonidine HCl (Catapres) 0.1 mg PO UNSCH PRN PRN Reason: SEE LABEL COMMENTS Collagenase (Santyl Oint) 1 applicatio TOPICAL DAILY [facility] Last Admin: 10/11/17 09:08 Dose: 1 applicatio Diphenhydramine HCl (Benadryl) 25 mg PO UNSCH PRN PRN Reason: SEE LABEL COMMENTS Diphenhydramine HCl (Benadryl) 25 mg PO Q4H PRN PRN Reason: SEE LABEL COMMENTS Enoxaparin Sodium (Lovenox Inj) 30 mg SQ DAILY [facility] Last Admin: 10/05/17 11:28 Dose: Not Given Ergocalciferol (Vitamind2) 50,000 unit PO Q7D [facility] Last Admin: 10/10/17 13:53 Dose: 50,000 unit Furosemide (Lasix Inj) 40 mg IV.PUSH DAILY [facility] Last Admin: 10/11/17 11:19 Dose: 40 mg Gelatin (Gelfoam 12 Mm/7 Mm Topical) 1 foam TOPICAL UNSCH PRN PRN Reason: help stop bleeding from site Gentamicin Sulfate (Gentamicin Inj) 20 mg OTHER WITH DIALYSIS PRN PRN Reason: Dwell Gentamycin Lock Last Admin: 10/10/17 12:18 Dose: 20 mg Heparin Sodium (Porcine) (Heparin Central Flush) 0 unit IV.FLUSH DAILY PRN PRN Reason: SEE DOSE INSTRUCTIONS Heparin Sodium (Porcine) (Heparin Inj) 8,000 units IV.FLUSH WITH DIALYSIS PRN PRN Reason: for machine prime Last Admin: 10/02/17 17:13 Dose: 8,000 units Heparin Sodium (Porcine) (Heparin Inj) 0 units OTHER WITH DIALYSIS PRN PRN Reason: Dwell Heparin to Fill Catheter Last Admin: 10/10/17 12:18 Dose: 2,600 units Vancomycin HCl 1,000 mg/ (Sodium Chloride) 250 mls @ 250 mls/hr IV.SIG [employer]OR [employer] [facility] Stop: 10/12/17 14:14 Cefazolin Sodium/Dextrose (Ancef 2 Gm Premix Inj) 2 gm in 50 mls @ 100 mls/hr IV.SIG [employer] [facility] Stop: 10/12/17 14:14 Sodium Chloride (Ns Inj) 1,000 mls @ 0 mls/hr OTHER .Q0M PRN PRN Reason: for prime and rinse back Sodium Chloride (Ns Inj) 1,000 mls @ 200 mls/hr OTHER .Q5H PRN PRN Reason: for dialyzer flush PRN Sodium Chloride (Ns Inj) 1,000 mls @ 0 mls/hr IV.CONT .Q0M PRN PRN Reason: hypotension / volume replace Albumin Human (Flexbumin 25% Inj) 100 mls @ 60 mls/hr IV.SIG WITH DIALYSIS PRN PRN Reason: hypotension / volume replace Mannitol (Mannitol Inj) 12.5 gm IV.PUSH UNSCH PRN PRN Reason: hypotension / volume replace Metoprolol Tartrate (Lopressor) 25 mg PO BID [facility] Last Admin: 10/06/17 08:54 Dose: Not Given Morphine Sulfate (Morphine Inj) 4 mg IV.PUSH Q3H PRN PRN Reason: BREAKTHROUGH PAIN Last Admin: 10/11/17 15:10 Dose: 4 mg Naloxone HCl (Narcan Inj) 0.4 mg IV.PUSH UNSCH PRN PRN Reason: SEE LABEL COMMENTS Nitroglycerin (Nitrostat Sl) 0.4 mg SL Q5M PRN PRN Reason: CHEST PAIN Ondansetron HCl (Zofran Odt) 4 mg PO UNSCH PRN PRN Reason: WITH DIALYSIS Last Admin: 10/02/17 16:01 Dose: 4 mg Potassium Chloride (K-Dur) 20 meq PO DAILY [facility] Last Admin: 10/11/17 11:18 Dose: 20 meq Senna/Docusate Sodium (Tasha-Colace) 1 tab PO BID [facility] Last Admin: 10/11/17 09:07 Dose: 1 tab Sertraline HCl (Zoloft) 150 mg PO DAILY [facility] Last Admin: 10/11/17 09:07 Dose: 150 mg Sodium Chloride (Ns Flush) 2 ml IV.FLUSH BID [facility] Last Admin: 10/11/17 09:08 Dose: 2 ml Sodium Chloride (Ns Flush) 2 ml IV.FLUSH UNSCH PRN PRN Reason: FLUSH AFTER USING IV ACCESS Last Admin: 10/11/17 01:27 Dose: 2 ml Sodium Chloride (Ns Flush) 0 ml IV.FLUSH PRN PRN PRN Reason: SEE DOSE INSTRUCTIONS Sodium Chloride (Ns Flush) 5 ml IV.FLUSH UNSCH PRN PRN Reason: flush each lumen during HD Torsemide (Demadex) 40 mg PO BID@0900,1800 [facility] Last Admin: 10/11/17 09:57 Dose: 40 mg Trazodone HCl (Desyrel) 100 mg PO HS [facility] Last Admin: 10/10/17 22:50 Dose: 100 mg Allergies Allergy/AdvReac Type Severity Reaction Status Date / Time naproxen Allergy Intermediate Rash Verified 09/20/17 16:24 Home Medications Medication Instructions Recorded Confirmed Type ketoconazole 1 applic TOPICAL BID 09/20/17 09/20/17 History Exam Vital signs: Vital Signs 10/10/17 20:00 10/11/17 00:00 10/11/17 04:00 Temperature 98.0 F 97.9 F 97.5 F L Pulse Rate 96 H 87 87 Respiratory Rate 19 18 19 Blood Pressure 128/58 L 129/65 142/61 H Pulse Oximetry 96 97 95 10/11/17 07:39 10/11/17 08:00 10/11/17 11:18 Temperature 97.9 F Pulse Rate 92 H Respiratory Rate 16 20 Blood Pressure 135/58 L Pulse Oximetry 95 95 10/11/17 12:00 Temperature 98.3 F Pulse Rate 86 Respiratory Rate 20 Blood Pressure 125/62 Pulse Oximetry 95 Intake & Output 07/26/18 07/27/18 07/27/18 18:59 06:59 18:59 Intake Total 840 / 840 221 / 221 Output Total 3000 / 3000 650 / 650 Balance -2160 / -2160 -429 / -429 Weight 148.2 kg Intake: Oral 840 / 840 221 / 221 Output: Urine 1000 / 1000 650 / 650 Hemodialysis Amount 1999 Other: # Voids 1 Date of Last Bowel Movement 10/10/17 10/10/17 # Bowel Movements 1 - Constitutional no acute distress, morbidly obese - Routine HEENT Exam Head: Present: normocephalic, atraumatic Eye: Present: EOMI, PERRL ENT: Present: mucous membranes moist, oropharynx clear - Routine Neck Exam Present: supple, full ROM - Routine Respiratory Exam Present: decreased breath sounds, CTA bilaterally - Routine Cardiovascular Exam Present: RRR, S1, S2 Comments: distant HS well perfused perifery - Routine Abdominal Exam Present: soft, normoactive bowel sounds Comments: no organomegaly no masses - Routine Extremities Exam Present: edema Comments: no cyanosis, clubbing + BLE edema + L ankle with unhealed wound over surgical site no exposed bone + small amount of odorless drainage - Routine Skin Exam Present: scars (L iliac area well healed and nnon tender) - Routine Neurological Exam Present: alert, oriented X3, moving all extremities, vision grossly intact, hearing grossly intact, normal speech - Routine Psychiatric Exam Present: normal affect, cooperative Results - Labs CBC & Chem 7: 10/18/17 06:33 10/18/17 06:33 Labs: Laboratory Results - last 24 hr 10/11/17 10/11/17 06:41 06:41 WBC 7.2 RBC 2.55 L Hgb 8.1 L Hct 25.3 L MCV 99.2 MCH 31.9 MCHC 32.1 RDW 20.2 H Plt Count 305 MPV 7.6 Sodium 138 Potassium 3.5 Chloride 97 L Carbon Dioxide 34.2 H Anion Gap 7 BUN 28 H Creatinine 1.38 H Estimated GFR 54 L Random Glucose 93 Calcium 8.6 Phosphorus 3.3 Albumin 2.4 L - Imaging Ankle X-Ray 09/20/17 14:40 CONCLUSION: No acute fracture or joint dislocation. Chest X-Ray 09/20/17 14:40 CONCLUSION: 1. Cardiomegaly with mild positive fluid balance. Hip X-Ray 09/20/17 14:40 CONCLUSION: No acute fracture or joint dislocation. Venous Doppler Study 09/20/17 14:42 CONCLUSION: 1. No evidence of DVT. Liver Ultrasound 09/21/17 00:00 CONCLUSION: 1. Enlarged fatty liver measuring 23.4 cm in length. Contracted gallbladder. No biliary ductal dilatation. Abdomen/Bladder Ultrasound 09/23/17 00:00 CONCLUSION: Unremarkable ultrasound examination of the kidneys. Central Venous Line 09/25/17 00:00 CONCLUSION: 1. Uncomplicated line placement as above. Chest X-Ray 09/25/17 00:00 CONCLUSION: Cardiomegaly. No acute pulmonary disease. Pulmonary Perfusion Imaging 09/25/17 00:00 CONCLUSION: 1. Low probability ventilation perfusion lung scan. Venogram Nuclear Medicine 09/25/17 15:10 CONCLUSION: Widely patent inferior vena cava Catheter Placement 09/27/17 10:34 CONCLUSION: 1. Uncomplicated line placement as above. Renal Biopsy CT 10/03/17 14:40 CONCLUSION: 1. Uncomplicated CT guided left [place] renal biopsy. Abdomen/Pelvis CT 10/05/17 00:00 CONCLUSION: Central Venous Line 10/08/17 00:00 CONCLUSION: Assessment and Plan - Plan L ankle wound ? infected ? undeliysing deep infection L ankle remote fracture ? non unoon sp iliac crest graft and harware repair ARF Retroperitoneal bleding Multiple medical problems Chronic venostasis in the settings of morbid obesity Gallium scan will follow
[2017-10-11] MEDS: traZODone 100 MG Tablet PO SCH (22:24)
[2017-10-12] MEDS: Morphine Inj 4 MG/ML Vial IV.PUSH PRN ×6 (01:05→21:00)
[2017-10-12 07:30] LABS: Baso % (Auto) 0.7 % (0.0-2.0); Eos # (Auto) 0.2 th/mm3 (0.0-0.4); Eos % (Auto) 3.4 % (0.0-4.0); Hematocrit 24.5 % (39.0-51.0); Hemoglobin 8.1 gm/dL (13.0-17.0); Lymph # (Auto) 0.9 th/mm3 (1.0-4.8); Lymph % (Auto) 15.3 % (9.0-44.0); Mean Corpuscular HGB Conc 33.2 % (32.0-36.0); Mean Corpuscular Hemoglobin 32.7 pg (27.0-34.0); Mean Corpuscular Volume 98.5 fL (80.0-100.0); Mean Platelet Volume 7.3 fL (7.0-11.0); Mono % (Auto) 16.5 % (0.0-8.0); Neut # (Auto) 3.9 th/mm3 (1.8-7.7); Neut % (Auto) 64.1 % (16.0-70.0); Platelet Count 320 th/mm3 (150-450); Red Blood Count 2.49 mil/mm3 (4.50-5.90); Red Cell Distribution Width 19.4 % (11.6-17.2); White Blood Count 6.1 th/mm3 (4.0-11.0)
[2017-10-12 07:52] LABS: Albumin 2.4 g/dL (3.4-5.0); Calcium 8.4 mg/dL (8.5-10.1); Carbon Dioxide 36.6 meq/L (21.0-32.0); Potassium 3.4 meq/L (3.5-5.1)
[2017-10-12 07:57] LABS: Phosphorus 4.7 mg/dL (2.5-4.9)
[2017-10-12 07:59] LABS: % Iron Saturation 8.8 % (20-50)
--- NOTE | 2017-10-12 09:10 | P.PNFP ---
Subjective Interval history: Afebrile and vital signs stable overnight. Discussed plan of care with patient. Patient expressed understanding. Patient also complaining of back pain, both from where they took bone from his back to put in his ankle and from the kidney biopsy site. Discussed kidney biopsy results and possible etiologies. Patient reports that his left lower extremity wound is improving. We discussed his oxygen requirement. <Young Mahmood - 10/12/17 09:10> Results - Labs Result diagrams: 10/13/17 07:52 10/13/17 07:57 <Frederick Arora - 10/13/17 12:32> Abnormal lab results 10/13/17 10/13/17 Range/Units 07:52 07:57 RBC 2.62 L (4.50-5.90) mil/mm3 Hgb 8.4 L (13.0-17.0) gm/dL Hct 25.8 L (39.0-51.0) % RDW 19.4 H (11.6-17.2) % Potassium 3.3 L (3.5-5.1) meq/L Chloride 94 L (98-107) meq/L Carbon Dioxide 37.5 H (21.0-32.0) meq/L BUN 36 H (7-18) mg/dL Creatinine 1.43 H (0.60-1.30) mg/dL Estimated GFR 52 L (>89) mL/min Iron 25 L (65-175) mcg/dL % Saturation 8.9 L (20-50) % Short CBC 10/13/17 Range/Units 07:52 WBC 6.1 (4.0-11.0) th/mm3 Hgb 8.4 L (13.0-17.0) gm/dL Hct 25.8 L (39.0-51.0) % Plt Count 336 (150-450) th/mm3 BMP 10/13/17 07:57 Sodium 138 Potassium 3.3 L Chloride 94 L Carbon Dioxide 37.5 H BUN 36 H Creatinine 1.43 H Calcium 8.6 <Frederick Arora - 10/13/17 12:32> Abnormal lab results 10/12/17 10/12/17 Range/Units 06:23 06:23 RBC 2.49 L (4.50-5.90) mil/mm3 Hgb 8.1 L (13.0-17.0) gm/dL Hct 24.5 L (39.0-51.0) % RDW 19.4 H (11.6-17.2) % [place] % (Auto) 16.5 H (0.0-8.0) % Lymph # (Auto) 0.9 L (1.0-4.8) th/mm3 [place] # (Auto) 1.0 H (0.0-0.9) th/mm3 Potassium 3.4 L (3.5-5.1) meq/L Chloride 96 L (98-107) meq/L Carbon Dioxide 36.6 H (21.0-32.0) meq/L BUN 32 H (7-18) mg/dL Creatinine 1.56 H (0.60-1.30) mg/dL Estimated GFR 47 L (>89) mL/min Calcium 8.4 L (8.5-10.1) mg/dL Iron 22 L (65-175) mcg/dL % Saturation 8.8 L (20-50) % Albumin 2.4 L (3.4-5.0) g/dL Short CBC 10/12/17 Range/Units 06:23 WBC 6.1 (4.0-11.0) th/mm3 Hgb 8.1 L (13.0-17.0) gm/dL Hct 24.5 L (39.0-51.0) % Plt Count 320 (150-450) th/mm3 BMP 10/12/17 06:23 Sodium 138 Potassium 3.4 L Chloride 96 L Carbon Dioxide 36.6 H BUN 32 H Creatinine 1.56 H Calcium 8.4 L Liver Function 10/12/17 Range/Units 06:23 Albumin 2.4 L (3.4-5.0) g/dL <Young Mahmood - 10/12/17 09:10> Physical Exam Vital signs: Vital Signs 10/12/17 16:00 10/12/17 16:25 10/12/17 18:21 Temperature 98.1 F Pulse Rate 80 86 Respiratory Rate 20 20 Blood Pressure 126/61 Pulse Oximetry 95 10/12/17 20:00 10/12/17 22:18 10/12/17 22:45 Temperature 97.9 F Pulse Rate 90 Respiratory Rate 18 20 Blood Pressure 147/66 H Pulse Oximetry 93 L 95 10/13/17 00:00 10/13/17 04:00 10/13/17 08:00 Temperature 98.1 F 97.7 F Pulse Rate 88 88 83 Respiratory Rate 20 20 Blood Pressure 124/78 117/58 L Pulse Oximetry 93 L 94 L Intake & Output 10/12/17 10/13/17 10/13/17 18:59 06:59 18:59 Intake Total 400 / 400 0 / 0 Output Total 1550 / 1550 Balance 400 / 400 -1550 / -1550 Weight 148.3 kg Intake: Oral 400 / 400 0 / 0 Output: Urine 1550 / 1550 Urine/Stool Mix 0 / 0 Other: Date of Last Bowel Movement 10/12/17 10/12/17 <Frederick Arora - 10/13/17 12:32> Vital Signs 10/11/17 11:18 10/11/17 12:00 10/11/17 16:00 Temperature 98.3 F 98 F Pulse Rate 86 96 H Respiratory Rate 20 20 Blood Pressure 125/62 124/64 Pulse Oximetry 95 95 95 10/11/17 20:00 10/12/17 00:00 10/12/17 04:00 Temperature 97.8 F 97.7 F 97.9 F Pulse Rate 85 88 86 Respiratory Rate 20 18 19 Blood Pressure 127/58 L 134/61 124/61 Pulse Oximetry 95 95 94 L Intake & Output 10/10/17 10/11/17 10/12/17 10/13/17 06:59 06:59 06:59 06:59 Intake Total 780 / 780 1061 / 1061 840 / 840 Output Total 3400 / 3400 3650 / 3650 2500 / 2500 Balance -2620 / -2620 -2589 / -2589 -1660 / -1660 Weight 150.1 kg 148.2 kg 147.4 kg <Young Mahmood - 10/12/17 09:10> Narrative: GENERAL: Obese male in no apparent distress, lying in bed. SKIN: Warm and dry. HEAD: Atraumatic. Normocephalic. EYES: EOMI. No scleral icterus. No injection or drainage. ENT: No nasal bleeding or discharge. Mucous membranes pink and moist. CARDIOVASCULAR: Regular rate and rhythm. RESPIRATORY: No accessory muscle use. Clear to auscultation. Breath sounds equal bilaterally. CHEST: 5cm area of superficial bruising on his left chest GASTROINTESTINAL: Abdomen soft, obese. Normal bowel sounds. BACK: mild tenderness to palpation in the left flank area of recent renal biopsy MUSCULOSKELETAL: 2+ pitting edema in the bilateral lower extremities to knees bilaterally. There is tense edema in his lateral thighs up to his hips. No cyanosis. Left ankle wound with dressing clean, dry, intact. Undressed wound. Wound is over the left Achilles tendon. Measures 4 cm long by 1 cm at its widest point. Appears to be healing well. NEUROLOGICAL: Awake and alert. No obvious cranial nerve deficits. Motor grossly within normal limits. PSYCHIATRIC: Appropriate mood and affect; insight and judgment normal. <Young Mahmood - 10/12/17 09:10> Assessment and Plan - Assessment (1) ESTELLA (acute kidney injury) Code(s): N17.9 - Acute kidney failure, unspecified Status: Acute Plan: Continue to monitor renal function panel, Cr noted to be improving PermCath placed 10/08. Hopefully renal functions continue to improve and HD can be discontinued. Will monitor thru the weekend. If improving by Saturday, will have PermCath removed, per nephrology. Will continue IV diuresis with furosemide 40 mg IV daily and PO Torsemide bid per nephrology Renal biopsy showing acute tubular injury, global glomerulosclerosis, severe arteriosclerosis Appreciate nephrology management of patient's care. Will avoid nephrotoxins. Suspecting ESTELLA with possible intrinsic renal disease related to Vancomycin Serology and urine studies unremarkable PO fluid allowance to 2 L daily. Daily BMPs. (2) Traumatic perinephric hematoma of left kidney Code(s): S37.092A - Other injury of left kidney, initial encounter Status: Acute Plan: -Noncontrast CT of abdomen/pelvis shows high density left renal hematoma with additional hemorrhage and hematoma in the perirenal space -Dr. Shields Discussed case with radiologist and interventional radiologist who determined the hematoma to be contained at this time and asked to monitor his vitals and H/H and call them if he decompensates or requires another blood transfusion -[place] PO prn for pain and morphine IV for breakthrough pain - Hgb and vitals stable at this time, will continue to monitor (3) Open wound of left lower extremity Code(s): S81.802A - Unspecified open wound, left lower leg, initial encounter Status: Resolved Plan: Continue daily Santyl dressings per wound care recommendations. Okay to take a bath given no active infection however, keeping Vas-Cath and peripheral access clean and dry Patient will need referral to outpatient wound care clinic upon discharge. Will have wound care immediately after discharge, either outpatient or home health Impression/Course: Patient presented with bilateral lower extremity edema with erythema overlying surgical site on LLE. Did not have systemic signs of infection and no longer suspicious for cellulitis, suspect related to fluid overload and/or venous insufficiency. He does have left ankle wound which wound care has been consulted and recommending daily Santyl dressings since 09/23. Will continue to monitor lower extremities, wound culture showing MRSA and Pseudomonas however wound culture was superficial and may have been reflective of skin ori. Vital signs have been within normal limits without fever this hospitalization and white count within normal limits. Suspect some element of pressure ulcer given limited mobility since his ankle surgery in July 2017 (internal fixation with rods and screws throughout ankle). X-ray performed 09/20 showing intact hardware and soft tissue edema. Clinically the bilateral LEs have been stable with no significant erythema since fluid restriction and dialysis were initiated. ESR 14, low suspicion for osteomyelitis Lactic acid 1.5 on admission Patient afebrile without leukocytosis this hospitalization Antibiotic history: Vancomycin 09/21 through 09/24, discontinued given ESTELLA and lower suspicion for cellulitis Vancomycin ordered with pharmacy consult to help with dosing (09/21-09/24) Rocephin 2 g IV daily (09/21 - 09/23) Blood cultures 09/20/17: no growth Wound culture 09/20/17: MRSA, Pseudomonas ID consulted, appreciate recommendations PT/OT consult ordered - PT currently recommending no PT at discharge (4) Sleep apnea Code(s): G47.30 - Sleep apnea, unspecified Status: Acute Plan: Home O2 walk test ordered for discharge planning Continues to require oxygen while inpt Will order home oxygen if indicated Of note, we suspect patient has sleep apnea given history reported and elevated pulmonary arterial pressure on echocardiogram. Patient will require further discussion and workup of this as an outpatient. (5) Anemia Code(s): D64.9 - Anemia, unspecified Status: Acute Plan: -Hgb as above, stable - Will continue to monitor daily -Transfuse at Hemoglobin of 7 -Will call radiologist if need for transfusion and/or decompensation -Ordered folate, B12, iron studies for tomorrow (6) Anasarca Code(s): R60.1 - Generalized edema Status: Acute Plan: - Whole body edema with pleural and pericardial effusions, etiology unclear - Nephrology on board, management with diuresis as noted above (7) Hyperphosphatemia Code(s): E83.39 - Other disorders of phosphorus metabolism Status: Resolved Plan: Secondary to renal failure. Resolved. PO4 within acceptable range 2/2 to renal recovery. D/C PhosLo and monitor. (8) Hypertension Code(s): I10 - Essential (primary) hypertension Status: Chronic Plan: Patient with a known history of hypertension Blood pressures controlled Hold home Metoprolol due to risk for severe hypotension in the setting of an acute bleed (9) History of asthma Code(s): Z87.09 - Personal history of other diseases of the respiratory system Status: Chronic Plan: Patient with a known history of asthma Duonebs every 4hr PRN, albuterol every 2hr PRN SOB/wheezing Not requiring routine treatments at this time (10) Depression with anxiety Code(s): F41.8 - Other specified anxiety disorders Status: Chronic Plan: Patient with a known history of depression anxiety. Continue home Zoloft, trazodone. Holding Valium (11) Gout Code(s): M10.9 - Gout, unspecified Status: Chronic Plan: Patient with a known history of gout. Holding allopurinol at this time to be cautious given current renal function (12) Nutrition, metabolism, and development symptoms Code(s): R63.8 - Other symptoms and signs concerning food and fluid intake Status: Acute Plan: FEN: - Gentle PO hydration given ESTELLA - Correct electrolytes as needed - Low-salt, heart healthy diet and fluid restriction to 2 L PPX: -Holding Lovenox due to perinephric bleed <ElaYoung mckee A - 10/12/17 09:10> - Assessment and Plan The patient is a 56-year-old man with past medical history significant for hypertension, depression and anxiety, asthma, gout, recent surgical repair of his left ankle and left hip who presented to the ED on 09/20 with progressive shortness of breath and lower extremity edema. The patient was initially started on vancomycin for suspected cellulitis of his bilateral lower extremities. He was noted to have new onset acute kidney injury on 09/23 which has been unresolved and of unclear etiology. Suspect may be related to vancomycin nephrotoxicity. He has since been started on hemodialysis per nephrology since 09/27 due to persistent anasarca and marked lower extremity edema despite attempts at diuresis. Patient underwent a renal biopsy on 10/03 of which results are still pending. <Young Mahmood - 10/12/17 09:10> - Attending Attestation See the residents documentation for details. I saw and evaluated the patient regarding the arteaga portions of this evaluation and agree with the residents findings and plans as written. Parts of this note were created using [employer] voice recognition software program. While efforts were made to correct any mistakes made by this software, some mistakes, errors, and omissions may remain in the final note that were not caught when the note was originally created. Plan of care was discussed and agreed upon with the patient as specifically documented in the above note. An opportunity to ask questions with explanation was provided. Patient voiced understanding on all information reviewed and discussed. Spoke to the patient about having imaging of his back, but will hold off on this time. He describes the pain is more chronic. He denies any issues with urination, defecation, or saddle paresthesias. It seems that the pain medicine is doing well for him. His back pain has been improving. I spoke with the patient at length about decreasing his fluid intake. It seems that he is been drinking more than he is supposed to. Also apparently he has had some people bringing him fluids from the outside. I discussed with him and the nursing care at length about keeping him on a strict fluid restriction. Patient stated understanding. Also seems that he is been chewing tobacco at bedside. Discussed with him about cessation of that. Spoke about a nicotine patch, which he did not want. <Frederick Arora - 10/13/17 12:32> <Young Mahmood - Last Filed: 10/12/17 09:10> (5) Anemia Qualifiers: Anemia type: unspecified type Qualified Code(s): D64.9 - Anemia, unspecified (8) Hypertension Qualifiers: Hypertension type: essential hypertension Qualified Code(s): I10 - Essential (primary) hypertension <Young Mahmood A - Last Filed: 10/12/17 09:10> (5) Anemia Qualifiers: Anemia type: unspecified type Qualified Code(s): D64.9 - Anemia, unspecified (8) Hypertension Qualifiers: Hypertension type: essential hypertension Qualified Code(s): I10 - Essential (primary) hypertension
[2017-10-12] MEDS: Sertraline 50 MG Tablet PO SCH (09:24)
[2017-10-12] MEDS: Senna/Docusate Sodium 8.6/50 MG Tablet PO SCH ×2 (09:25→21:00)
[2017-10-12] MEDS: Collagenase Oint 30 GM Tube TOPICAL SCH (09:29)
[2017-10-12] MEDS ORDERED: Chlorothiazide Inj 500 MG Vial IV.PUSH ONE (15:55)
--- NOTE | 2017-10-12 15:59 | P.PNNP ---
Subjective Interval history: Patient resting comfortably. No verbal complaints. Physical Exam Vital signs: Vital Signs 10/11/17 16:00 10/11/17 20:00 10/12/17 00:00 Temperature 98 F 97.8 F 97.7 F Pulse Rate 96 H 85 88 Respiratory Rate 20 20 18 Blood Pressure 124/64 127/58 L 134/61 Pulse Oximetry 95 95 95 10/12/17 04:00 10/12/17 07:55 10/12/17 09:23 Temperature 97.9 F Pulse Rate 86 79 Respiratory Rate 19 20 Blood Pressure 124/61 Pulse Oximetry 94 L 10/12/17 11:37 Temperature Pulse Rate 88 Respiratory Rate Blood Pressure Pulse Oximetry Intake & Output 10/11/17 10/12/17 10/12/17 18:59 06:59 18:59 Intake Total 840 / 840 Output Total 1700 / 1700 800 / 800 Balance -860 / -860 -800 / -800 Weight 147.4 kg Intake: Oral 840 / 840 Output: Urine 1700 / 1700 800 / 800 Other: Date of Last Bowel Movement 10/10/17 10/10/17 Narrative: GENERAL: Middle-aged obese male lying in bed not in respiratory distress. SKIN: Warm and dry. HEAD: Normocephalic. EYES: No scleral icterus. No injection or drainage. NECK: Supple, trachea midline. No JVD or lymphadenopathy. CARDIOVASCULAR: Regular rate and rhythm without murmurs, gallops, or rubs. RESPIRATORY: Breath sounds equal bilaterally. No accessory muscle use. GASTROINTESTINAL: Abdomen soft, non-tender, nondistended. MUSCULOSKELETAL: No cyanosis, 2-3+ pitting edema legs. 2+ pitting edema thighs. Assessment and Plan - Assessment (1) Acute renal insufficiency Code(s): N28.9 - Disorder of kidney and ureter, unspecified Status: Acute Plan: s/p PermCath placement 10/08 Fairly good urine output however the patient still has significant fluid retention. Patient's noncompliance with fluid restriction I suspect is contributing to difficulty in eliminating same. He was counseled again regarding need for fluid restriction. We will continue with parenteral furosemide over the weekend with 1 dose of Diuril. If renal indices are relatively stable or improved and urine output remains good will consider removing the PermCath this coming Saturday in preparation for discharge. Medications should be adjusted for the patient's estimated GFR if clinically indicated. Avoid agents with significant potential for nephrotoxicity possible including NSAIDs for analgesia, iodine contrast agents. Gadolinium is contraindicated if the GFR is below 30. (2) Perinephric hematoma Code(s): S37.019A - Minor contusion of unspecified kidney, initial encounter Status: Acute Plan: Hgb improved. Resolving (3) Congestive heart failure (CHF) Code(s): I50.9 - Heart failure, unspecified Status: Acute Qualifiers: Heart failure type: combined systolic and diastolic (4) Hyperphosphatemia Code(s): E83.39 - Other disorders of phosphorus metabolism Status: Resolved Plan: PO4 within acceptable range 2/2 to renal recovery. Will D/C PhosLo and monitor. (5) Anemia Code(s): D64.9 - Anemia, unspecified Status: Acute Plan: Continue to monitor. Hopefully will continue to improve with renal recovery. May still need Epo and/or Fe if not.
[2017-10-12] MEDS: traZODone 100 MG Tablet PO SCH (21:00)
[2017-10-13] MEDS: Morphine Inj 4 MG/ML Vial IV.PUSH PRN ×4 (01:35→21:06)
[2017-10-13] MEDS: Collagenase Oint 30 GM Tube TOPICAL SCH (08:11)
[2017-10-13] MEDS: Sertraline 50 MG Tablet PO SCH (08:11)
[2017-10-13] MEDS: Senna/Docusate Sodium 8.6/50 MG Tablet PO SCH ×2 (08:11→22:52)
--- NOTE | 2017-10-13 08:43 | P.PNFP ---
Subjective Interval history: Afebrile and vital signs stable overnight. Urine output stable overnight. Patient denies any complaints except for ankle pain and back pain from his ankle surgery with bone taken from his back and renal biopsy. Discussed plan of care with patient. Emphasized the need for fluid restriction as part of his treatment plan. Discussed the need to transition him from IV to p.o. pain medication. Patient expressed understanding and consent. <Young Mahmood - 10/13/17 08:43> Results - Labs Result diagrams: 10/13/17 07:52 10/13/17 07:57 <Frederick Arora - 10/13/17 12:34> Abnormal lab results 10/13/17 10/13/17 Range/Units 07:52 07:57 RBC 2.62 L (4.50-5.90) mil/mm3 Hgb 8.4 L (13.0-17.0) gm/dL Hct 25.8 L (39.0-51.0) % RDW 19.4 H (11.6-17.2) % Potassium 3.3 L (3.5-5.1) meq/L Chloride 94 L (98-107) meq/L Carbon Dioxide 37.5 H (21.0-32.0) meq/L BUN 36 H (7-18) mg/dL Creatinine 1.43 H (0.60-1.30) mg/dL Estimated GFR 52 L (>89) mL/min Iron 25 L (65-175) mcg/dL % Saturation 8.9 L (20-50) % Short CBC 10/13/17 Range/Units 07:52 WBC 6.1 (4.0-11.0) th/mm3 Hgb 8.4 L (13.0-17.0) gm/dL Hct 25.8 L (39.0-51.0) % Plt Count 336 (150-450) th/mm3 BMP 10/13/17 07:57 Sodium 138 Potassium 3.3 L Chloride 94 L Carbon Dioxide 37.5 H BUN 36 H Creatinine 1.43 H Calcium 8.6 <Frederick Arora - 10/13/17 12:34> Laboratory Results - last 48 hr 10/12/17 10/12/17 06:23 06:23 WBC 6.1 RBC 2.49 L Hgb 8.1 L Hct 24.5 L MCV 98.5 MCH 32.7 MCHC 33.2 RDW 19.4 H Plt Count 320 MPV 7.3 Neut % (Auto) 64.1 Lymph % (Auto) 15.3 [place] % (Auto) 16.5 H Eos % (Auto) 3.4 Baso % (Auto) 0.7 Neut # (Auto) 3.9 Lymph # (Auto) 0.9 L [place] # (Auto) 1.0 H Eos # (Auto) 0.2 Baso # (Auto) 0.0 WBC Differential . Differential Comment Auto diff final Sodium 138 Potassium 3.4 L Chloride 96 L Carbon Dioxide 36.6 H Anion Gap 5 BUN 32 H Creatinine 1.56 H Estimated GFR 47 L Random Glucose 99 Calcium 8.4 L Phosphorus 4.7 D Iron 22 L TIBC 251 % Saturation 8.8 L Ferritin 167 Albumin 2.4 L <Young Mahmood - 10/13/17 08:43> Physical Exam Vital signs: Vital Signs 10/12/17 16:00 10/12/17 16:25 10/12/17 18:21 Temperature 98.1 F Pulse Rate 80 86 Respiratory Rate 20 20 Blood Pressure 126/61 Pulse Oximetry 95 10/12/17 20:00 10/12/17 22:18 10/12/17 22:45 Temperature 97.9 F Pulse Rate 90 Respiratory Rate 18 20 Blood Pressure 147/66 H Pulse Oximetry 93 L 95 10/13/17 00:00 10/13/17 04:00 10/13/17 08:00 Temperature 98.1 F 97.7 F Pulse Rate 88 88 83 Respiratory Rate 20 20 Blood Pressure 124/78 117/58 L Pulse Oximetry 93 L 94 L Intake & Output 10/12/17 10/13/17 10/13/17 18:59 06:59 18:59 Intake Total 400 / 400 0 / 0 Output Total 1550 / 1550 Balance 400 / 400 -1550 / -1550 Weight 148.3 kg Intake: Oral 400 / 400 0 / 0 Output: Urine 1550 / 1550 Urine/Stool Mix 0 / 0 Other: Date of Last Bowel Movement 10/12/17 10/12/17 <Frederick Arora - 10/13/17 12:34> Vital Signs 10/12/17 09:23 10/12/17 11:37 10/12/17 16:00 Temperature Pulse Rate 88 80 Respiratory Rate 20 Blood Pressure Pulse Oximetry 10/12/17 16:25 10/12/17 18:21 10/12/17 20:00 Temperature 98.1 F 97.9 F Pulse Rate 86 90 Respiratory Rate 20 20 18 Blood Pressure 126/61 147/66 H Pulse Oximetry 95 93 L 10/12/17 22:18 10/12/17 22:45 10/13/17 00:00 Temperature 98.1 F Pulse Rate 88 Respiratory Rate 20 20 Blood Pressure 124/78 Pulse Oximetry 95 93 L 10/13/17 04:00 Temperature 97.7 F Pulse Rate 88 Respiratory Rate 20 Blood Pressure 117/58 L Pulse Oximetry 94 L Intake & Output 10/12/17 10/13/17 10/13/17 18:59 06:59 18:59 Intake Total 400 / 400 0 / 0 Output Total 1550 / 1550 Balance 400 / 400 -1550 / -1550 Weight 148.3 kg Intake: Oral 400 / 400 0 / 0 Output: Urine 1550 / 1550 Urine/Stool Mix 0 / 0 Other: Date of Last Bowel Movement 10/12/17 <Young Mahmood - 10/13/17 08:43> Narrative: GENERAL: Middle-aged obese male lying in bed not in respiratory distress. SKIN: Warm and dry. HEAD: Atraumatic. Normocephalic. EYES: EOMI. No scleral icterus. No injection or drainage. ENT: No nasal bleeding or discharge. Mucous membranes pink and moist. CARDIOVASCULAR: Regular rate and rhythm. RESPIRATORY: No accessory muscle use. Clear to auscultation. Breath sounds equal bilaterally. GASTROINTESTINAL: Abdomen soft, obese. Normal bowel sounds. BACK: There is a Band-Aid where he had renal biopsy and a long, well-healing surgical scar over left lower back where they took bone from his iliac crest for his ankle reconstruction MUSCULOSKELETAL: No cyanosis, 2-3+ pitting edema legs. 2+ pitting edema thighs. No cyanosis. Left ankle wound with clean and dry dressing noted. No calf tenderness to palpation bilaterally. NEUROLOGICAL: Awake and alert. No obvious cranial nerve deficits. Motor grossly within normal limits. PSYCHIATRIC: Appropriate mood and affect; insight and judgment normal. <Young Mahmood 10/13/17 08:43> Assessment and Plan - Assessment (1) ESTELLA (acute kidney injury) Code(s): N17.9 - Acute kidney failure, unspecified Status: Acute Plan: Continue to monitor renal function panel, Cr noted to be improving PermCath placed 10/08. Hopefully renal functions continue to improve and HD can be discontinued. Will monitor thru the weekend. If improving by Saturday, will have PermCath removed in preparation for discharge, per nephrology. Will continue IV diuresis with furosemide 40 mg IV daily over the weekend with 1 dose of Diuril. Continue fluid restriction. Emphasized the need for fluid restriction as part of his treatment plan. Renal biopsy showed acute tubular injury, global glomerulosclerosis, severe arteriosclerosis. Appreciate nephrology management of patient's care. Will avoid nephrotoxins. Suspecting ESTELLA with possible intrinsic renal disease related to Vancomycin Serology and urine studies unremarkable PO fluid allowance to 2 L daily. Daily BMPs. (2) Traumatic perinephric hematoma of left kidney Code(s): S37.092A - Other injury of left kidney, initial encounter Status: Acute Plan: -Noncontrast CT of abdomen/pelvis shows high density left renal hematoma with additional hemorrhage and hematoma in the perirenal space -Dr. Shields Discussed case with radiologist and interventional radiologist who determined the hematoma to be contained at this time and asked to monitor his vitals and H/H and call them if he decompensates or requires another blood transfusion -[place] PO prn for pain and Percocet p.o. as needed for breakthrough pain -Hgb and vitals stable at this time, will continue to monitor (3) Open wound of left lower extremity Code(s): S81.802A - Unspecified open wound, left lower leg, initial encounter Status: Resolved Plan: Continue daily Santyl dressings per wound care recommendations. Okay to take a bath given no active infection however, keeping Vas-Cath and peripheral access clean and dry Patient will need referral to outpatient wound care clinic upon discharge. Will have wound care immediately after discharge, either outpatient or home health Impression/Course: Patient presented with bilateral lower extremity edema with erythema overlying surgical site on LLE. Did not have systemic signs of infection and no longer suspicious for cellulitis, suspect related to fluid overload and/or venous insufficiency. He does have left ankle wound which wound care has been consulted and recommending daily Santyl dressings since 09/23. Will continue to monitor lower extremities, wound culture showing MRSA and Pseudomonas however wound culture was superficial and may have been reflective of skin ori. Vital signs have been within normal limits without fever this hospitalization and white count within normal limits. Suspect some element of pressure ulcer given limited mobility since his ankle surgery in July 2017 (internal fixation with rods and screws throughout ankle). X-ray performed 09/20 showing intact hardware and soft tissue edema. Clinically the bilateral LEs have been stable with no significant erythema since fluid restriction and dialysis were initiated. ESR 14, low suspicion for osteomyelitis Lactic acid 1.5 on admission Patient afebrile without leukocytosis this hospitalization Antibiotic history: Vancomycin 09/21 through 09/24, discontinued given ESTELLA and lower suspicion for cellulitis Vancomycin ordered with pharmacy consult to help with dosing (09/21-09/24) Rocephin 2 g IV daily (09/21 - 09/23) Blood cultures 09/20/17: no growth Wound culture 09/20/17: MRSA, Pseudomonas ID consulted, appreciate recommendations PT/OT consult ordered - PT currently recommending no PT at discharge (4) Sleep apnea Code(s): G47.30 - Sleep apnea, unspecified Status: Acute Plan: Home O2 walk test ordered for discharge planning Continues to require oxygen while inpt Will order home oxygen if indicated Of note, we suspect patient has sleep apnea given history reported and elevated pulmonary arterial pressure on echocardiogram. Patient will require further discussion and workup of this as an outpatient. (5) Anemia Code(s): D64.9 - Anemia, unspecified Status: Acute Plan: -Hgb as above, stable -Will continue to monitor daily -Transfuse at Hemoglobin of 7 -Will call radiologist if need for transfusion and/or decompensation -Ordered folate, B12, iron studies for today -May still need Epo and/or Fe, per nephro (6) Anasarca Code(s): R60.1 - Generalized edema Status: Acute Plan: - Whole body edema with pleural and pericardial effusions, etiology unclear, likely from kidney dysfunction - Nephrology on board, management with diuresis as noted above (7) Hyperphosphatemia Code(s): E83.39 - Other disorders of phosphorus metabolism Status: Resolved Plan: Secondary to renal failure. Resolved. PO4 within acceptable range 2/2 to renal recovery. D/C PhosLo and monitor. (8) Hypertension Code(s): I10 - Essential (primary) hypertension Status: Chronic Plan: Patient with a known history of hypertension Blood pressures controlled Hold home Metoprolol due to risk for severe hypotension in the setting of an acute bleed (9) History of asthma Code(s): Z87.09 - Personal history of other diseases of the respiratory system Status: Chronic Plan: Patient with a known history of asthma. Duonebs every 4hr PRN, albuterol every 2hr PRN SOB/wheezing Not requiring routine treatments at this time. However, he is requiring oxygen by nasal cannula. Thus, planning on home oxygen walk test prior to discharge. (10) Depression with anxiety Code(s): F41.8 - Other specified anxiety disorders Status: Chronic Plan: Patient with a known history of depression anxiety. Continue home Zoloft, trazodone. Holding Valium (11) Gout Code(s): M10.9 - Gout, unspecified Status: Chronic Plan: Patient with a known history of gout. Holding allopurinol at this time to be cautious given current renal function (12) Nutrition, metabolism, and development symptoms Code(s): R63.8 - Other symptoms and signs concerning food and fluid intake Status: Acute Plan: FEN: - Gentle PO hydration given ESTELLA - Correct electrolytes as needed - Low-salt, heart healthy diet and fluid restriction to 2 L PPX: -Holding Lovenox due to perinephric bleed <Young Mahmood - 10/13/17 08:31> - Assessment and Plan The patient is a 56-year-old man with past medical history significant for hypertension, depression and anxiety, asthma, gout, recent surgical repair of his left ankle and left hip who presented to the ED on 09/20 with progressive shortness of breath and lower extremity edema. The patient was initially started on vancomycin for suspected cellulitis of his bilateral lower extremities. He was noted to have new onset acute kidney injury on 09/23 which has been unresolved and of unclear etiology. Suspect may be related to vancomycin nephrotoxicity. He has since been started on hemodialysis per nephrology since 09/27 due to persistent anasarca and marked lower extremity edema despite attempts at diuresis. Patient underwent a renal biopsy on 10/03. Renal biopsy showed acute tubular injury, global glomerulosclerosis, severe arteriosclerosis. Nephrology consulted and helping guide management. <Young Mahmood - 10/13/17 08:43> - Attending Attestation See the residents documentation for details. I saw and evaluated the patient regarding the arteaga portions of this evaluation and agree with the residents findings and plans as written. Parts of this note were created using [employer] voice recognition software program. While efforts were made to correct any mistakes made by this software, some mistakes, errors, and omissions may remain in the final note that were not caught when the note was originally created. Plan of care was discussed and agreed upon with the patient as specifically documented in the above note. An opportunity to ask questions with explanation was provided. Patient voiced understanding on all information reviewed and discussed. <Frederick Arora - 10/13/17 12:34> <Young Mahmood - Last Filed: 10/13/17 08:31> (5) Anemia Qualifiers: Anemia type: unspecified type Qualified Code(s): D64.9 - Anemia, unspecified (8) Hypertension Qualifiers: Hypertension type: essential hypertension Qualified Code(s): I10 - Essential (primary) hypertension <Young Mahmood - Last Filed: 10/13/17 08:31> (5) Anemia Qualifiers: Anemia type: unspecified type Qualified Code(s): D64.9 - Anemia, unspecified (8) Hypertension Qualifiers: Hypertension type: essential hypertension Qualified Code(s): I10 - Essential (primary) hypertension
[2017-10-13] MEDS ORDERED: oxyCODONE/Acetaminophen 10/325 Tablet PO PRN (09:00)
[2017-10-13 09:34] LABS: Hematocrit 25.8 % (39.0-51.0); Hemoglobin 8.4 gm/dL (13.0-17.0); Mean Corpuscular HGB Conc 32.6 % (32.0-36.0); Mean Corpuscular Hemoglobin 32.1 pg (27.0-34.0); Mean Corpuscular Volume 98.5 fL (80.0-100.0); Mean Platelet Volume 7.5 fL (7.0-11.0); Platelet Count 336 th/mm3 (150-450); Red Blood Count 2.62 mil/mm3 (4.50-5.90); Red Cell Distribution Width 19.4 % (11.6-17.2); White Blood Count 6.1 th/mm3 (4.0-11.0)
[2017-10-13 10:00] LABS: Calcium 8.6 mg/dL (8.5-10.1); Carbon Dioxide 37.5 meq/L (21.0-32.0); Potassium 3.3 meq/L (3.5-5.1)
[2017-10-13 10:30] LABS: % Iron Saturation 8.9 % (20-50); Folate 8.3 ng/mL (3.1-17.5)
[2017-10-13] MEDS: traZODone 100 MG Tablet PO SCH (22:52)
[2017-10-14] MEDS: Morphine Inj 4 MG/ML Vial IV.PUSH PRN ×5 (02:27→22:36)
--- NOTE | 2017-10-14 08:33 | P.PNFP ---
Subjective Interval history: No acute events overnight, remains afebrile vital signs stable. Patient seen and examined this morning prior to nm bone scan. Patient denies specific complaints or concerns. States he has tried to limit his fluid intake. Reports his back and ankle pain are stable in nature. Denies fevers or chills, CP, dyspnea, cough, abdominal pain. No issues voiding; 2350 cc UOP noted. <Yann Kerr - 10/14/17 09:05> Results - Labs Result diagrams: 10/18/17 06:33 10/18/17 06:33 <Frederick Arora - 10/18/17 14:03> Abnormal lab results 10/17/17 10/18/17 10/18/17 Range/Units 15:47 06:33 06:33 RBC 2.90 L (4.50-5.90) mil/mm3 Hgb 9.1 L (13.0-17.0) gm/dL Hct 28.3 L (39.0-51.0) % RDW 18.7 H (11.6-17.2) % Sodium 134 L 134 L (136-145) meq/L Potassium 3.4 L 3.0 L (3.5-5.1) meq/L Chloride 87 L 85 L (98-107) meq/L Carbon Dioxide 41.5 H 42.8 H (21.0-32.0) meq/L BUN 36 H 40 H (7-18) mg/dL Creatinine 1.52 H 1.56 H (0.60-1.30) mg/dL Estimated GFR 48 L 47 L (>89) mL/min Random Glucose 118 H (74-106) mg/dL Calcium 8.4 L (8.5-10.1) mg/dL Albumin 2.7 L 2.9 L (3.4-5.0) g/dL Short CBC 10/18/17 Range/Units 06:33 WBC 5.6 (4.0-11.0) th/mm3 Hgb 9.1 L (13.0-17.0) gm/dL Hct 28.3 L (39.0-51.0) % Plt Count 405 (150-450) th/mm3 BMP 10/17/17 10/18/17 15:47 06:33 Sodium 134 L 134 L Potassium 3.4 L 3.0 L Chloride 87 L 85 L Carbon Dioxide 41.5 H 42.8 H BUN 36 H 40 H Creatinine 1.52 H 1.56 H Calcium 8.4 L 8.5 Liver Function 10/17/17 10/18/17 Range/Units 15:47 06:33 Albumin 2.7 L 2.9 L (3.4-5.0) g/dL <Frederick Arora - 10/18/17 14:03> Abnormal lab results 10/13/17 10/13/17 Range/Units 07:52 07:57 RBC 2.62 L (4.50-5.90) mil/mm3 Hgb 8.4 L (13.0-17.0) gm/dL Hct 25.8 L (39.0-51.0) % RDW 19.4 H (11.6-17.2) % Potassium 3.3 L (3.5-5.1) meq/L Chloride 94 L (98-107) meq/L Carbon Dioxide 37.5 H (21.0-32.0) meq/L BUN 36 H (7-18) mg/dL Creatinine 1.43 H (0.60-1.30) mg/dL Estimated GFR 52 L (>89) mL/min Iron 25 L (65-175) mcg/dL % Saturation 8.9 L (20-50) % Short CBC 10/13/17 Range/Units 07:52 WBC 6.1 (4.0-11.0) th/mm3 Hgb 8.4 L (13.0-17.0) gm/dL Hct 25.8 L (39.0-51.0) % Plt Count 336 (150-450) th/mm3 BMP 10/13/17 07:57 Sodium 138 Potassium 3.3 L Chloride 94 L Carbon Dioxide 37.5 H BUN 36 H Creatinine 1.43 H Calcium 8.6 <Yann Kerr - 10/14/17 08:33> - Imaging Impressions SPECT-Abscess Localization NM 10/15/17 00:00 CONCLUSION: 1. No evidence of osteomyelitis. <Frederick Arora - 10/18/17 14:03> Physical Exam Vital signs: Vital Signs 10/17/17 14:22 10/17/17 16:00 10/17/17 17:40 Temperature 97.0 F L Pulse Rate 85 85 Respiratory Rate 18 Blood Pressure 122/86 Pulse Oximetry 98 95 10/17/17 19:54 10/17/17 20:00 10/17/17 22:06 Temperature 98.1 F Pulse Rate 92 H Respiratory Rate 9 L 20 9 L Blood Pressure 114/71 Pulse Oximetry 97 10/18/17 00:00 10/18/17 04:00 10/18/17 08:00 Temperature 97.3 F L 97.3 F L 98.3 F Pulse Rate 79 80 80 Respiratory Rate 20 20 20 Blood Pressure 119/63 119/60 112/58 L Pulse Oximetry 91 L 96 95 10/18/17 10:52 Temperature Pulse Rate Respiratory Rate Blood Pressure Pulse Oximetry 96 Intake & Output 10/17/17 10/18/17 10/18/17 18:59 06:59 18:59 Intake Total 1096 / 1096 720 / 720 Output Total 1400 / 1400 1250 / 1250 Balance -304 / -304 -530 / -530 Weight 142.2 kg Intake: Oral 1096 / 1096 720 / 720 Output: Urine 1400 / 1400 1250 / 1250 Other: Date of Last Bowel Movement 10/17/17 10/17/17 # Bowel Movements 1 0 <Frederick Arora - 10/18/17 14:03> Vital Signs 10/13/17 12:00 10/13/17 16:00 10/13/17 17:38 Temperature 97.4 F L 97.9 F Pulse Rate 84 114 H Respiratory Rate 18 18 Blood Pressure 122/68 128/55 L Pulse Oximetry 95 94 L Pulse Oximetry [Resting on Room Air] 76 L Pulse Oximetry [Resting with Oxygen] 97 10/13/17 20:00 10/14/17 00:00 10/14/17 04:00 Temperature 98.2 F 98.1 F Pulse Rate 89 81 81 Respiratory Rate 20 20 Blood Pressure 132/57 L 140/62 Pulse Oximetry 96 95 Pulse Oximetry [Resting on Room Air] Pulse Oximetry [Resting with Oxygen] Intake & Output 10/13/17 10/14/17 10/14/17 18:59 06:59 18:59 Intake Total 400 / 400 610 / 610 Output Total 1000 / 1000 1350 / 1350 Balance -600 / -600 -740 / -740 Weight 148.9 kg Intake: Oral 400 / 400 610 / 610 Output: Urine 1000 / 1000 1350 / 1350 Other: Date of Last Bowel Movement 10/12/17 10/13/17 # Bowel Movements 1 <Yann Kerr - 10/14/17 08:33> Narrative: GENERAL: Middle-aged obese male lying in bed in NAD. SKIN: Warm and dry. HEAD: Atraumatic. Normocephalic. EYES: EOMI. No scleral icterus. No injection or drainage. ENT: No nasal bleeding or discharge. Mucous membranes pink and moist. CARDIOVASCULAR: Regular rate and rhythm. RESPIRATORY: No accessory muscle use. Clear to auscultation. Breath sounds equal bilaterally. GASTROINTESTINAL: Abdomen soft, obese, nt. Normal bowel sounds. BACK: There is a Band-Aid where he had renal biopsy and a long, well-healing surgical scar over left lower back where they took bone from his iliac crest for his ankle reconstruction MUSCULOSKELETAL: No cyanosis, 2+ pitting edema up to proximal pre-tibias bilaterally. No cyanosis. Left ankle wound with clean and dry dressing noted. No calf tenderness to palpation bilaterally. NEUROLOGICAL: Awake and alert. No obvious cranial nerve deficits. Motor grossly within normal limits. PSYCHIATRIC: Appropriate mood and affect; insight and judgment normal. <Yann Kerr - 10/14/17 09:05> Assessment and Plan - Assessment (1) Open wound of left lower extremity Code(s): S81.802A - Unspecified open wound, left lower leg, initial encounter Status: Resolved Plan: Continue daily Santyl dressings per wound care recommendations. Okay to take a bath given no active infection however, keeping Vas-Cath and peripheral access clean and dry Patient will need referral to outpatient wound care clinic upon discharge. Will have wound care immediately after discharge, either outpatient or home health Impression/Course: Patient presented with bilateral lower extremity edema with erythema overlying surgical site on LLE. Did not have systemic signs of infection and no longer suspicious for cellulitis, suspect related to fluid overload and/or venous insufficiency. He does have left ankle wound which wound care has been consulted and recommending daily Santyl dressings since 09/23. Will continue to monitor lower extremities, wound culture showing MRSA and Pseudomonas however wound culture was superficial and may have been reflective of skin ori. Vital signs have been within normal limits without fever this hospitalization and white count within normal limits. Suspect some element of pressure ulcer given limited mobility since his ankle surgery in July 2017 (internal fixation with rods and screws throughout ankle). X-ray performed 09/20 showing intact hardware and soft tissue edema. Clinically the bilateral LEs have been stable with no significant erythema since fluid restriction and dialysis were initiated. ESR 14, low suspicion for osteomyelitis Lactic acid 1.5 on admission Patient afebrile without leukocytosis this hospitalization Antibiotic history: Vancomycin 09/21 through 09/24, discontinued given ESTELLA and lower suspicion for cellulitis Vancomycin ordered with pharmacy consult to help with dosing (09/21-09/24) Rocephin 2 g IV daily (09/21 - 09/23) Blood cultures 09/20/17: no growth Wound culture 09/20/17: MRSA, Pseudomonas ID consulted - Will follow gallium scan and recommendations PT/OT consult ordered - PT currently recommending no PT at discharge (2) ESTELLA (acute kidney injury) Code(s): N17.9 - Acute kidney failure, unspecified Status: Acute Plan: Continue to monitor renal function panel, Cr noted to be improving PermCath placed 10/08. If renal functions continue to improve or is stable, nephrology to consider discontinuation of HD Will have PermCath removed if renal fx stable in preparation for discharge, per nephrology. Will continue IV diuresis with furosemide 60 mg IV bid Continue fluid restriction. Emphasized the need for fluid restriction as part of his treatment plan. Renal biopsy showed acute tubular injury, global glomerulosclerosis, severe arteriosclerosis. Appreciate nephrology management of patient's care. Will avoid nephrotoxins. Suspecting ESTELLA with possible intrinsic renal disease related to Vancomycin Serology and urine studies unremarkable PO fluid allowance to 2 L daily. Daily BMPs. (3) Traumatic perinephric hematoma of left kidney Code(s): S37.092A - Other injury of left kidney, initial encounter Status: Acute Plan: -Noncontrast CT of abdomen/pelvis shows high density left renal hematoma with additional hemorrhage and hematoma in the perirenal space -Case discussed with radiologist and interventional radiologist who determined the hematoma to be contained at this time and asked to monitor his vitals and H/ H and call them if he decompensates or requires another blood transfusion -Schofield PO prn for pain and Percocet p.o. as needed for breakthrough pain -Hgb and vitals stable at this time, will continue to monitor (4) Sleep apnea Code(s): G47.30 - Sleep apnea, unspecified Status: Acute Plan: Home O2 walk test ordered for discharge planning Continues to require oxygen while inpt Will order home oxygen if indicated Of note, we suspect patient has sleep apnea given history reported and elevated pulmonary arterial pressure on echocardiogram. Patient will require further discussion and workup of this as an outpatient. (5) Anemia Code(s): D64.9 - Anemia, unspecified Status: Acute Plan: -Hgb as above, stable -Will continue to monitor daily -Transfuse at Hemoglobin of 7 -Will call radiologist if need for transfusion and/or decompensation -Ordered folate, B12, iron studies for today -May still need Epo and/or Fe, per nephro (6) Anasarca Code(s): R60.1 - Generalized edema Status: Acute Plan: - Whole body edema with pleural and pericardial effusions, etiology unclear, likely from kidney dysfunction - Nephrology on board, management with diuresis as noted above (7) Hyperphosphatemia Code(s): E83.39 - Other disorders of phosphorus metabolism Status: Resolved Plan: Secondary to renal failure. Resolved. PO4 within acceptable range 2/2 to renal recovery. D/C PhosLo and monitor. (8) Hypertension Code(s): I10 - Essential (primary) hypertension Status: Chronic Plan: Patient with a known history of hypertension Blood pressures controlled Hold home Metoprolol due to risk for severe hypotension in the setting of an acute bleed (9) Hypokalemia (10) History of asthma Code(s): Z87.09 - Personal history of other diseases of the respiratory system Status: Chronic Plan: Patient with a known history of asthma. Duonebs every 4hr PRN, albuterol every 2hr PRN SOB/wheezing Not requiring routine treatments at this time. However, he is requiring oxygen by nasal cannula. Thus, planning on home oxygen walk test prior to discharge. (11) Depression with anxiety Code(s): F41.8 - Other specified anxiety disorders Status: Chronic Plan: Patient with a known history of depression anxiety. Continue home Zoloft, trazodone. Holding Valium (12) Gout Code(s): M10.9 - Gout, unspecified Status: Chronic Plan: Patient with a known history of gout. Holding allopurinol at this time to be cautious given current renal function (13) Nutrition, metabolism, and development symptoms Code(s): R63.8 - Other symptoms and signs concerning food and fluid intake Status: Acute Plan: FEN: - Gentle PO hydration given ESTELLA - Correct electrolytes as needed - Low-salt, heart healthy diet and fluid restriction to 2 L DVT ppx: Holding Lovenox due to perinephric bleed <Dennise Kerrsh - 10/14/17 08:54> - Assessment and Plan The patient is a 56-year-old man with past medical history significant for hypertension, depression and anxiety, asthma, gout, recent surgical repair of his left ankle and left hip who presented to the ED on 09/20 with progressive shortness of breath and lower extremity edema. The patient was initially started on vancomycin for suspected cellulitis of his bilateral lower extremities. He was noted to have new onset acute kidney injury on 09/23 which is thought to be related to vancomycin toxicity, renal function has since been improving. He has since been started on hemodialysis per nephrology since 09/27 due to persistent anasarca and marked lower extremity edema. Patient underwent a renal biopsy on 10/03, showing acute tubular injury, global glomerulosclerosis , severe arteriosclerosis. Infectious disease has been consulted for evaluation of left ankle lesion growing MRSA and PSAE overlying a remote ankle fracture, awaiting results of gallium scan. <ChrisYann olvera - 10/14/17 09:05> - Attending Attestation See the residents documentation for details. I saw and evaluated the patient regarding the arteaga portions of this evaluation and agree with the residents findings and plans as written. Parts of this note were created using [employer] voice recognition software program. While efforts were made to correct any mistakes made by this software, some mistakes, errors, and omissions may remain in the final note that were not caught when the note was originally created. Plan of care was discussed and agreed upon with the patient as specifically documented in the above note. An opportunity to ask questions with explanation was provided. Patient voiced understanding on all information reviewed and discussed. Spoke to the patient about his need to follow-up with nephrology, and his current kidney status. Patient is determined to go home today. He states he does not want to stay in the hospital any longer. Discuss his care with neurosurgery, whom believes these fractures are chronic. He will follow-up with neurosurgery. Discussed about the red flags of low back pain. Discussed with the patient about the importance of following up with a specialist, and staying away from any NSAIDs. <Frederick Arora - 10/18/17 14:03> <Yann Kerr - Last Filed: 10/14/17 08:54> (5) Anemia Qualifiers: Anemia type: unspecified type Qualified Code(s): D64.9 - Anemia, unspecified (8) Hypertension Qualifiers: Hypertension type: essential hypertension Qualified Code(s): I10 - Essential (primary) hypertension <Yann Kerr - Last Filed: 10/14/17 08:54> (5) Anemia Qualifiers: Anemia type: unspecified type Qualified Code(s): D64.9 - Anemia, unspecified (8) Hypertension Qualifiers: Hypertension type: essential hypertension Qualified Code(s): I10 - Essential (primary) hypertension
[2017-10-14] MEDS: Sertraline 50 MG Tablet PO SCH (08:41)
[2017-10-14] MEDS: Senna/Docusate Sodium 8.6/50 MG Tablet PO SCH ×2 (08:42→20:36)
[2017-10-14] MEDS: Collagenase Oint 30 GM Tube TOPICAL SCH (08:42)
--- NOTE | 2017-10-14 09:45 | P.PNNP ---
Subjective Interval history: Attempted to see patient, but off floor for gallium scan. No labs drawn this AM. Will order BMP for this afternoon. Tentative removal of PermCath if renal functions have continued to improve. Physical Exam Vital signs: Vital Signs 10/13/17 12:00 10/13/17 16:00 10/13/17 17:38 Temperature 97.4 F L 97.9 F Pulse Rate 84 114 H Respiratory Rate 18 18 Blood Pressure 122/68 128/55 L Pulse Oximetry 95 94 L Pulse Oximetry [Resting on Room Air] 76 L Pulse Oximetry [Resting with Oxygen] 97 10/13/17 20:00 10/14/17 00:00 10/14/17 04:00 Temperature 98.2 F 98.1 F Pulse Rate 89 81 81 Respiratory Rate 20 20 Blood Pressure 132/57 L 140/62 Pulse Oximetry 96 95 Pulse Oximetry [Resting on Room Air] Pulse Oximetry [Resting with Oxygen] 10/14/17 08:00 Temperature 97.7 F Pulse Rate 79 Respiratory Rate 17 Blood Pressure 122/69 Pulse Oximetry 95 Pulse Oximetry [Resting on Room Air] Pulse Oximetry [Resting with Oxygen] Intake & Output 10/13/17 10/14/17 10/14/17 18:59 06:59 18:59 Intake Total 400 / 400 610 / 610 Output Total 1000 / 1000 1350 / 1350 Balance -600 / -600 -740 / -740 Weight 148.9 kg Intake: Oral 400 / 400 610 / 610 Output: Urine 1000 / 1000 1350 / 1350 Other: Date of Last Bowel Movement 10/12/17 10/13/17 # Bowel Movements 1 Assessment and Plan - Assessment (1) Acute renal insufficiency Code(s): N28.9 - Disorder of kidney and ureter, unspecified Status: Acute Plan: As mentioned in HPI, pt not seen today as he was having gallium scan. Labs reviewed and showed stable renal function and good UOP. OK to remove PermCath today. Discussed with Dr. Kerr via telephone. Medications should be adjusted for the patient's estimated GFR if clinically indicated. Avoid agents with significant potential for nephrotoxicity possible including NSAIDs for analgesia, iodine contrast agents. Gadolinium is contraindicated if the GFR is below 30. (2) Perinephric hematoma Code(s): S37.019A - Minor contusion of unspecified kidney, initial encounter Status: Acute (3) Congestive heart failure (CHF) Code(s): I50.9 - Heart failure, unspecified Status: Acute Qualifiers: Heart failure type: combined systolic and diastolic (4) Hyperphosphatemia Code(s): E83.39 - Other disorders of phosphorus metabolism Status: Resolved (5) Anemia Code(s): D64.9 - Anemia, unspecified Status: Acute Plan: Iron stores low. If no infection, would likely benefit from Venofer infusion.
[2017-10-14 10:15] LABS: Calcium 8.7 mg/dL (8.5-10.1); Carbon Dioxide 39.9 meq/L (21.0-32.0); Potassium 3.2 meq/L (3.5-5.1)
--- NOTE | 2017-10-14 15:55 | NM ---
EXAM DATE: 10/14/2017 1:38 PM EDT AGE/SEX: 56 years / Male INDICATIONS: Left ankle fracture. CLINICAL DATA: This is the patient's initial encounter. Patient reports that signs and symptoms have been present for 1 day and indicates a pain score of 4/10. MEDICAL/SURGICAL HISTORY: Asthma. Hypertension. Diabetes mellitus type II. Inguinal hernia re pair. COMPARISON: No prior exams available for comparison. TECHNIQUE: Bone scan was performed in sagittal, axial and coronal planes. Attenuation correction was performed with computed tomography and both the attenuation correction and non-attenuation corrected data sets were reviewed. PRIOR BONE SCANS: No correlative bone scan available for comparison. DOSE: 30.2 mCi Tc99m MDP IV IMAGING: SPECT/CT imaging with fusion was performed. RADIATION DOSE: 2.66 CTDIvol(mGy) FINDINGS: There is increased blood flow and blood pool activity bilaterally corresponding to the fracture as we ll as the arthritis. Delayed images demonstrate increased uptake involving the distal tibia and fibul a on the left in this patient with previous internal fixation as well as in the calcaneus where fixat ion is also present. The remainder of the left foot is unremarkable. Examination the right foot demon strates increased activity involving the tibiotalar joint where there is severe osteoarthritis presen t. CONCLUSION: 1. Increased activity involving the feet bilaterally corresponding to the fracture on the left and a rthritis on the right. If there is concern for infection gallium scanning is recommended. Electronically signed by: Gregory Flores MD 10/14/2017 3:53 PM EDT
[2017-10-14 16:27] LABS: Albumin 2.9 g/dL (3.4-5.0); Calcium 8.8 mg/dL (8.5-10.1); Carbon Dioxide 39.5 meq/L (21.0-32.0); Phosphorus 3.6 mg/dL (2.5-4.9); Potassium 3.5 meq/L (3.5-5.1)
--- NOTE | 2017-10-14 18:56 | P.PNID ---
Subjective Remarks: afebrile off HD Antibiotics: none Allergies/Adverse Reactions: Allergies naproxen Allergy (Intermediate, Verified 09/20/17 16:24) Rash Objective Vital Signs 10/13/17 20:00 10/14/17 00:00 10/14/17 04:00 Temperature 98.2 F 98.1 F Pulse Rate 89 81 81 Respiratory Rate 20 20 Blood Pressure 132/57 L 140/62 Pulse Oximetry 96 95 10/14/17 08:00 10/14/17 12:00 10/14/17 12:16 Temperature 97.7 F 98.1 F Pulse Rate 72 88 93 H Respiratory Rate 17 17 Blood Pressure 122/69 136/71 Pulse Oximetry 95 97 10/14/17 16:00 10/14/17 16:12 Temperature 98.0 F Pulse Rate 89 81 Respiratory Rate 17 Blood Pressure 122/64 120/60 Pulse Oximetry 97 Intake & Output 10/13/17 10/14/17 10/14/17 18:59 06:59 18:59 Intake Total 400 / 400 610 / 610 720 / 720 Output Total 1000 / 1000 1350 / 1350 1020 / 1020 Balance -600 / -600 -740 / -740 -300 / -300 Weight 148.9 kg Intake: Oral 400 / 400 610 / 610 720 / 720 Output: Urine 1000 / 1000 1350 / 1350 1020 / 1020 Other: Date of Last Bowel Movement 10/12/17 10/13/17 10/14/17 # Bowel Movements 1 1 Lab - Hematology Results 10/13/17 07:52 WBC 6.1 RBC 2.62 L Hgb 8.4 L Hct 25.8 L MCV 98.5 MCH 32.1 MCHC 32.6 RDW 19.4 H Plt Count 336 MPV 7.5 Lab - Chemistry Results 10/13/17 10/14/17 10/14/17 07:57 08:33 13:52 Sodium 138 139 138 Potassium 3.3 L 3.2 L 3.5 Chloride 94 L 94 L 92 L Carbon Dioxide 37.5 H 39.9 H 39.5 H Anion Gap 7 5 7 BUN 36 H 37 H 35 H Creatinine 1.43 H 1.49 H 1.47 H Estimated GFR 52 L 49 L 50 L Random Glucose 84 82 78 Calcium 8.6 8.7 8.8 Phosphorus 3.6 Iron 25 L TIBC 281 % Saturation 8.9 L Albumin 2.9 L Vitamin B12 269 Folate 8.3 Imaging: ITS Impressions Ankle X-Ray 09/20/17 14:40 CONCLUSION: No acute fracture or joint dislocation. Hip X-Ray 09/20/17 14:40 CONCLUSION: No acute fracture or joint dislocation. Venous Doppler Study 09/20/17 14:42 CONCLUSION: 1. No evidence of DVT. Liver Ultrasound 09/21/17 00:00 CONCLUSION: 1. Enlarged fatty liver measuring 23.4 cm in length. Contracted gallbladder. No biliary ductal dilatation. Abdomen/Bladder Ultrasound 09/23/17 00:00 CONCLUSION: Unremarkable ultrasound examination of the kidneys. Chest X-Ray 09/25/17 00:00 CONCLUSION: Cardiomegaly. No acute pulmonary disease. Pulmonary Perfusion Imaging 09/25/17 00:00 CONCLUSION: 1. Low probability ventilation perfusion lung scan. Venogram Nuclear Medicine 09/25/17 15:10 CONCLUSION: Widely patent inferior vena cava Catheter Placement 09/27/17 10:34 CONCLUSION: 1. Uncomplicated line placement as above. Renal Biopsy CT 10/03/17 14:40 CONCLUSION: 1. Uncomplicated CT guided left [place] renal biopsy. Abdomen/Pelvis CT 10/05/17 00:00 CONCLUSION: Central Venous Line 10/08/17 00:00 CONCLUSION: SPECT Scan-Bone NM 10/14/17 00:00 CONCLUSION: 1. Increased activity involving the feet bilaterally corresponding to the fracture on the left and arthritis on the right. If there is concern for infection gallium scanning is recommended. Physical Exam: GENERAL: NAD morbidly obese SKIN: Warm and dry. HEAD: Atraumatic. Normocephalic. EYES: Pupils equal and round. No scleral icterus. No injection or drainage. ENT: No nasal bleeding or discharge. Mucous membranes pink and moist. NECK: Trachea midline. No JVD. CARDIOVASCULAR: Regular rate and rhythm. RESPIRATORY: No accessory muscle use. Clear to auscultation. Breath sounds equal bilaterally. GASTROINTESTINAL: Abdomen soft, non-tender, nondistended. Hepatic and splenic margins not palpable. MUSCULOSKELETAL: Extremities without clubbing, cyanosis, Prominent edema, tight 4+. incision on L ankle is nearly healed , 2 openings are covered with dry scabs + erythema on b/l LE extending to the knees No obvious deformities. NEUROLOGICAL: Awake and alert. No obvious cranial nerve deficits. Motor grossly within normal limits. Five out of 5 muscle strength in the arms and legs. Normal speech. PSYCHIATRIC: Appropriate mood and affect; insight and judgment normal. Assessment and Plan - Plan L ankle wound ? infected ? undeliysing deep infection ncreased activity involving the feet bilaterally corresponding to the fracture on the left and arthritis on the right. If there is concern for infection gallium scanning is recommended. L ankle remote fracture ? non union sp iliac crest graft and harware repair ARF, imnproving now off HD Retroperitoneal bleeding Multiple medical problems Chronic venostasis in the settings of morbid obesity awaiting Gallium scan will follow
[2017-10-14] MEDS: traZODone 100 MG Tablet PO SCH (20:35)
[2017-10-15] MEDS: Morphine Inj 4 MG/ML Vial IV.PUSH PRN ×5 (04:39→22:23)
[2017-10-15] MEDS: Sertraline 50 MG Tablet PO SCH (08:29)
[2017-10-15] MEDS: Senna/Docusate Sodium 8.6/50 MG Tablet PO SCH ×2 (08:30→20:18)
[2017-10-15] MEDS: Collagenase Oint 30 GM Tube TOPICAL SCH (08:31)
--- NOTE | 2017-10-15 08:52 | P.PNFP ---
Subjective Interval history: No acute events overnight. Remains afebrile, vital signs stable. Renal function stable. Patient continues to endorses good urine output. Denies worsening pain. No fevers or chills, CP, dyspnea, cough, abdominal pain. Endorses feeling constipated. Results of NM bone scan reviewed with the patient. <Yann Kerr - 10/15/17 09:25> Results - Labs Result diagrams: 10/18/17 06:33 10/18/17 06:33 <Frederick Arora - 10/18/17 14:06> Abnormal lab results 10/17/17 10/18/17 10/18/17 Range/Units 15:47 06:33 06:33 RBC 2.90 L (4.50-5.90) mil/mm3 Hgb 9.1 L (13.0-17.0) gm/dL Hct 28.3 L (39.0-51.0) % RDW 18.7 H (11.6-17.2) % Sodium 134 L 134 L (136-145) meq/L Potassium 3.4 L 3.0 L (3.5-5.1) meq/L Chloride 87 L 85 L (98-107) meq/L Carbon Dioxide 41.5 H 42.8 H (21.0-32.0) meq/L BUN 36 H 40 H (7-18) mg/dL Creatinine 1.52 H 1.56 H (0.60-1.30) mg/dL Estimated GFR 48 L 47 L (>89) mL/min Random Glucose 118 H (74-106) mg/dL Calcium 8.4 L (8.5-10.1) mg/dL Albumin 2.7 L 2.9 L (3.4-5.0) g/dL Short CBC 10/18/17 Range/Units 06:33 WBC 5.6 (4.0-11.0) th/mm3 Hgb 9.1 L (13.0-17.0) gm/dL Hct 28.3 L (39.0-51.0) % Plt Count 405 (150-450) th/mm3 BMP 10/17/17 10/18/17 15:47 06:33 Sodium 134 L 134 L Potassium 3.4 L 3.0 L Chloride 87 L 85 L Carbon Dioxide 41.5 H 42.8 H BUN 36 H 40 H Creatinine 1.52 H 1.56 H Calcium 8.4 L 8.5 Liver Function 10/17/17 10/18/17 Range/Units 15:47 06:33 Albumin 2.7 L 2.9 L (3.4-5.0) g/dL <Frederick Arora - 10/18/17 14:06> Abnormal lab results 10/14/17 10/14/17 Range/Units 08:33 13:52 Potassium 3.2 L (3.5-5.1) meq/L Chloride 94 L 92 L (98-107) meq/L Carbon Dioxide 39.9 H 39.5 H (21.0-32.0) meq/L BUN 37 H 35 H (7-18) mg/dL Creatinine 1.49 H 1.47 H (0.60-1.30) mg/dL Estimated GFR 49 L 50 L (>89) mL/min Albumin 2.9 L (3.4-5.0) g/dL BMP 10/14/17 10/14/17 08:33 13:52 Sodium 139 138 Potassium 3.2 L 3.5 Chloride 94 L 92 L Carbon Dioxide 39.9 H 39.5 H BUN 37 H 35 H Creatinine 1.49 H 1.47 H Calcium 8.7 8.8 Liver Function 10/14/17 Range/Units 13:52 Albumin 2.9 L (3.4-5.0) g/dL <Yann Kerr - 10/15/17 08:52> - Imaging Impressions SPECT-Abscess Localization NM 10/15/17 00:00 CONCLUSION: 1. No evidence of osteomyelitis. <Frederick Arora - 10/18/17 14:06> Impressions SPECT Scan-Bone NM 10/14/17 00:00 CONCLUSION: 1. Increased activity involving the feet bilaterally corresponding to the fracture on the left and arthritis on the right. If there is concern for infection gallium scanning is recommended. <Yann Kerr - 10/15/17 08:52> Physical Exam Vital signs: Vital Signs 10/17/17 14:22 10/17/17 16:00 10/17/17 17:40 Temperature 97.0 F L Pulse Rate 85 85 Respiratory Rate 18 Blood Pressure 122/86 Pulse Oximetry 98 95 10/17/17 19:54 10/17/17 20:00 10/17/17 22:06 Temperature 98.1 F Pulse Rate 92 H Respiratory Rate 9 L 20 9 L Blood Pressure 114/71 Pulse Oximetry 97 10/18/17 00:00 10/18/17 04:00 10/18/17 08:00 Temperature 97.3 F L 97.3 F L 98.3 F Pulse Rate 79 80 80 Respiratory Rate 20 20 20 Blood Pressure 119/63 119/60 112/58 L Pulse Oximetry 91 L 96 95 10/18/17 10:52 Temperature Pulse Rate Respiratory Rate Blood Pressure Pulse Oximetry 96 Intake & Output 10/17/17 10/18/17 10/18/17 18:59 06:59 18:59 Intake Total 1096 / 1096 720 / 720 Output Total 1400 / 1400 1250 / 1250 Balance -304 / -304 -530 / -530 Weight 142.2 kg Intake: Oral 1096 / 1096 720 / 720 Output: Urine 1400 / 1400 1250 / 1250 Other: Date of Last Bowel Movement 10/17/17 10/17/17 # Bowel Movements 1 0 <Frederick Arora - 10/18/17 14:06> Vital Signs 10/14/17 12:00 10/14/17 12:16 10/14/17 16:00 Temperature 98.1 F 98.0 F Pulse Rate 88 93 H 89 Respiratory Rate 17 17 Blood Pressure 136/71 122/64 Pulse Oximetry 97 97 10/14/17 16:12 10/14/17 20:00 10/14/17 20:35 Temperature 97.9 F Pulse Rate 81 91 H Respiratory Rate 16 16 Blood Pressure 120/60 150/84 H Pulse Oximetry 94 L 10/14/17 22:10 10/15/17 00:00 10/15/17 00:37 Temperature Pulse Rate 84 Respiratory Rate 16 16 Blood Pressure Pulse Oximetry 10/15/17 04:00 10/15/17 04:43 10/15/17 06:07 Temperature 98.1 F Pulse Rate 84 Respiratory Rate 16 16 16 Blood Pressure 123/58 L Pulse Oximetry 96 Intake & Output 10/14/17 10/15/17 10/15/17 18:59 06:59 18:59 Intake Total 720 / 720 Output Total 1020 / 1020 Balance -300 / -300 Weight 148 kg Intake: Oral 720 / 720 Output: Urine 1020 / 1020 Other: Date of Last Bowel Movement 10/14/17 10/14/17 # Bowel Movements 1 <Yann Kerr - 10/15/17 08:52> Narrative: GENERAL: Middle-aged obese male lying in bed in NAD. SKIN: Warm and dry. HEAD: Atraumatic. Normocephalic. EYES: EOMI. No scleral icterus. No injection or drainage. ENT: No nasal bleeding or discharge. Mucous membranes pink and moist. CARDIOVASCULAR: Regular rate and rhythm. RESPIRATORY: No accessory muscle use. Clear to auscultation. Breath sounds equal bilaterally. GASTROINTESTINAL: Abdomen soft, obese, nt. Normal bowel sounds. BACK: well-healing surgical scar over left lower back where bone was taken from iliac crest for his ankle reconstruction. No bruising. MUSCULOSKELETAL: No cyanosis, 2+ pitting edema up to proximal pre-tibias bilaterally continuing to improve. No cyanosis. Left ankle wound with clean and dry dressing noted. No calf tenderness to palpation bilaterally. NEUROLOGICAL: Awake and alert. No obvious cranial nerve deficits. Motor grossly within normal limits. PSYCHIATRIC: Appropriate mood and affect; insight and judgment normal. <Yann Kerr - 10/15/17 09:25> Assessment and Plan - Assessment (1) Open wound of left lower extremity Code(s): S81.802A - Unspecified open wound, left lower leg, initial encounter Status: Chronic Plan: Continue daily Santyl dressings per wound care recommendations. Patient will need referral to outpatient wound care clinic upon discharge. Will have wound care immediately after discharge, either outpatient or home health, if determined no active infection is present with gallium scanning Impression/Course: Patient presented with bilateral lower extremity edema with erythema overlying surgical site on LLE. Did not have systemic signs of infection at this time nor has during his hospitalization, suspect related to fluid overload and/or venous insufficiency. He does have left ankle wound which wound care has been consulted and recommending daily Santyl dressings since 09/23. Will continue to monitor lower extremities, wound culture showing MRSA and Pseudomonas however wound culture was superficial and may have been reflective of skin ori. Vital signs have been within normal limits without fever this hospitalization and white count within normal limits. Suspect some element of pressure ulcer given limited mobility since his ankle surgery in July 2017 (internal fixation with rods and screws throughout ankle). X-ray performed 09/20 showing intact hardware and soft tissue edema. Clinically the bilateral LEs have been stable with no significant erythema since fluid restriction and dialysis were initiated. ESR 14, low suspicion for osteomyelitis Lactic acid 1.5 on admission Patient afebrile without leukocytosis this hospitalization ID consulted for recommendations given his wound culture growing MRSA and pseudomonas - Bone scan showing increased activity involving the feet bilaterally corresponding to the fracture on the left, arthritis on the right. Gallium scan recommended for further evaluation for infection - Gallium scan ordered, awaiting results Antibiotic history: Vancomycin 09/21 through 09/24, discontinued given ESTELLA and lower suspicion for cellulitis Vancomycin ordered with pharmacy consult to help with dosing (09/21-09/24) Rocephin 2 g IV daily (09/21 - 09/23) Blood cultures 09/20/17: no growth Wound culture 09/20/17: MRSA, Pseudomonas PT/OT consult ordered - PT currently recommending no PT at discharge (2) ESTELLA (acute kidney injury) Code(s): N17.9 - Acute kidney failure, unspecified Status: Resolved Plan: Continue to monitor renal function panel, remains stable PermCath placed 10/08. Discussed with Verna Cisneros, nephrology, [place] to remove PermCath as renal function has remained stable without HD Continue IV diuresis with furosemide 60 mg IV bid, consider lowering dose and transition to PO prior to discharge Continue fluid restriction. Emphasized the need for fluid restriction as part of his treatment plan. Renal biopsy showed acute tubular injury, global glomerulosclerosis, severe arteriosclerosis. Appreciate nephrology management of patient's care. Will avoid nephrotoxins. Suspecting ESTELLA with possible intrinsic renal disease related to Vancomycin Serology and urine studies unremarkable PO fluid allowance to 2 L daily. Daily BMPs. (3) Traumatic perinephric hematoma of left kidney Code(s): S37.092A - Other injury of left kidney, initial encounter Status: Acute Plan: -Noncontrast CT of abdomen/pelvis shows high density left renal hematoma with additional hemorrhage and hematoma in the perirenal space -Case discussed with radiologist and interventional radiologist who determined the hematoma to be contained at this time and asked to monitor his vitals and H/ H and call them if he decompensates or requires another blood transfusion -[place] po prn pain, morphine prn breakthrough pain -Hgb and vitals stable at this time, will continue to monitor (4) Sleep apnea Code(s): G47.30 - Sleep apnea, unspecified Status: Acute Plan: Home O2 walk test ordered for discharge planning, patient failed walk test, will need O2 on discharge Patient has a history of reported sleep apnea and elevated pulmonary arterial pressure seen on echocardiogram. Patient will require further discussion and workup of this as an outpatient. Continue to monitor vitals and O2 sats (5) Anemia Code(s): D64.9 - Anemia, unspecified Status: Acute Plan: -Hgb stable, will continue to monitor -Transfuse at Hemoglobin of 7 -Will call radiologist if need for transfusion and/or decompensation -MCV noted to be elevated previously during hospitalization. B12 and folate within normal limits -Iron stores low, Iron panel suggesting iron def anemia vs ACD -May benefit from venofer infusions per nephrology (6) Anasarca Code(s): R60.1 - Generalized edema Status: Acute Plan: - Whole body edema with pleural and pericardial effusions, etiology unclear, likely from renal dysfunction - Nephrology on board, management with diuresis as noted above, continuing to improve (7) Hyperphosphatemia Code(s): E83.39 - Other disorders of phosphorus metabolism Status: Resolved Plan: Secondary to renal failure. Resolved. PO4 within acceptable range 2/2 to renal recovery. D/C PhosLo and monitor. (8) Hypertension Code(s): I10 - Essential (primary) hypertension Status: Chronic Plan: Patient with a known history of hypertension Blood pressures controlled Hold home Metoprolol due to risk for hypotension in the setting of an acute bleed (9) Hypokalemia (10) History of asthma Code(s): Z87.09 - Personal history of other diseases of the respiratory system Status: Chronic Plan: Patient with a known history of asthma. Duonebs every 4hr PRN, albuterol every 2hr PRN SOB/wheezing Not requiring routine treatments at this time. However, he is requiring oxygen by nasal cannula. (11) Depression with anxiety Code(s): F41.8 - Other specified anxiety disorders Status: Chronic Plan: Patient with a known history of depression and anxiety. Continue home Zoloft, trazodone. Holding home Valium (12) Gout Code(s): M10.9 - Gout, unspecified Status: Chronic Plan: Patient with a known history of gout. Holding allopurinol at this time to be cautious given current renal function (13) Nutrition, metabolism, and development symptoms Code(s): R63.8 - Other symptoms and signs concerning food and fluid intake Status: Acute Plan: FEN: - Gentle PO hydration given ESTELLA - Correct electrolytes as needed - Low-salt, heart healthy diet and fluid restriction to 2 L DVT ppx: Holding Lovenox due to perinephric bleed <ShamarteresitaangelaYann - 10/15/17 09:05> - Assessment and Plan The patient is a 56-year-old man with past medical history significant for hypertension, depression and anxiety, asthma, gout, recent surgical repair of his left ankle and left hip who presented to the ED on 09/20 with progressive shortness of breath and lower extremity edema. The patient was initially started on vancomycin for suspected cellulitis of his bilateral lower extremities. He was noted to have new onset acute kidney injury on 09/23 which is thought to be related to vancomycin toxicity, renal function has since been improving. He has since been started on hemodialysis per nephrology since 09/27 due to persistent anasarca and marked lower extremity edema. Patient underwent a renal biopsy on 10/03, showing acute tubular injury, global glomerulosclerosis , severe arteriosclerosis. Infectious disease has been consulted for evaluation of left ankle lesion growing MRSA and PSAE overlying a remote ankle fracture, awaiting results of gallium scan. <ChrisYann olvera - 10/15/17 09:25> - Attending Attestation See the residents documentation for details. I saw and evaluated the patient regarding the arteaga portions of this evaluation and agree with the residents findings and plans as written. Parts of this note were created using [employer] voice recognition software program. While efforts were made to correct any mistakes made by this software, some mistakes, errors, and omissions may remain in the final note that were not caught when the note was originally created. Plan of care was discussed and agreed upon with the patient as specifically documented in the above note. An opportunity to ask questions with explanation was provided. Patient voiced understanding on all information reviewed and discussed. It does seem that the patient continues to take in more fluid, then he is supposed to. Discussed with him about reducing drinking too much. He again had several bottles of pao ho next to his bed. We have spoken with nursing staff in the past about keeping a close eye and his ins and outs. Discussed the patient about the importance of proper fluid intake. <Frederick Arora - 10/18/17 14:06> <Yann Kerr - Last Filed: 10/15/17 09:05> (5) Anemia Qualifiers: Anemia type: unspecified type Qualified Code(s): D64.9 - Anemia, unspecified (8) Hypertension Qualifiers: Hypertension type: essential hypertension Qualified Code(s): I10 - Essential (primary) hypertension <Yann Kerr - Last Filed: 10/15/17 09:05> (5) Anemia Qualifiers: Anemia type: unspecified type Qualified Code(s): D64.9 - Anemia, unspecified (8) Hypertension Qualifiers: Hypertension type: essential hypertension Qualified Code(s): I10 - Essential (primary) hypertension
[2017-10-15 08:55] LABS: Hemoglobin 8.2 gm/dL (13.0-17.0); Mean Corpuscular HGB Conc 32.9 % (32.0-36.0); Mean Corpuscular Hemoglobin 32.2 pg (27.0-34.0); Mean Corpuscular Volume 97.7 fL (80.0-100.0); Mean Platelet Volume 7.5 fL (7.0-11.0); Platelet Count 341 th/mm3 (150-450); Red Blood Count 2.56 mil/mm3 (4.50-5.90); Red Cell Distribution Width 18.9 % (11.6-17.2)
[2017-10-15 09:04] LABS: Albumin 2.6 g/dL (3.4-5.0); Calcium 8.3 mg/dL (8.5-10.1); Carbon Dioxide 38.4 meq/L (21.0-32.0); Phosphorus 4.5 mg/dL (2.5-4.9); Potassium 3.3 meq/L (3.5-5.1)
--- NOTE | 2017-10-15 10:31 | P.PNNP ---
Subjective Interval history: Patient lying in bed. No verbal complaints. Physical Exam Vital signs: Vital Signs 10/14/17 12:00 10/14/17 12:16 10/14/17 16:00 Temperature 98.1 F 98.0 F Pulse Rate 88 93 H 89 Respiratory Rate 17 17 Blood Pressure 136/71 122/64 Pulse Oximetry 97 97 10/14/17 16:12 10/14/17 20:00 10/14/17 20:35 Temperature 97.9 F Pulse Rate 81 91 H Respiratory Rate 16 16 Blood Pressure 120/60 150/84 H Pulse Oximetry 94 L 10/14/17 22:10 10/15/17 00:00 10/15/17 00:37 Temperature Pulse Rate 84 Respiratory Rate 16 16 Blood Pressure Pulse Oximetry 10/15/17 04:00 10/15/17 04:43 10/15/17 06:07 Temperature 98.1 F Pulse Rate 84 Respiratory Rate 16 16 16 Blood Pressure 123/58 L Pulse Oximetry 96 10/15/17 08:00 10/15/17 09:54 Temperature 97.4 F L Pulse Rate 77 Respiratory Rate 20 Blood Pressure 135/63 Pulse Oximetry 92 L 95 Intake & Output 10/14/17 10/15/17 10/15/17 18:59 06:59 18:59 Intake Total 720 / 720 Output Total 1020 / 1020 Balance -300 / -300 Weight 148 kg Intake: Oral 720 / 720 Output: Urine 1020 / 1020 Other: Date of Last Bowel Movement 10/14/17 10/14/17 # Bowel Movements 1 Narrative: GENERAL: Middle-aged obese male lying in bed in [facility]. SKIN: Warm and dry. HEAD: Atraumatic. Normocephalic. EYES: EOMI. No scleral icterus. No injection or drainage. ENT: No nasal bleeding or discharge. Mucous membranes pink and moist. CARDIOVASCULAR: Regular rate and rhythm. RESPIRATORY: No accessory muscle use. Clear to auscultation. Breath sounds equal bilaterally. GASTROINTESTINAL: Abdomen soft, obese, nt. Normal bowel sounds. BACK: well-healing surgical scar over left lower back where bone was taken from iliac crest for his ankle reconstruction. No bruising. MUSCULOSKELETAL: No cyanosis, 2+ pitting edema up to proximal pre-tibias bilaterally continuing to improve. Assessment and Plan - Assessment (1) Acute renal insufficiency Code(s): N28.9 - Disorder of kidney and ureter, unspecified Status: Acute Plan: Renal indices continue to improve. Fairly good urine output but patient continues to be noncompliant with fluid restriction making management of edema difficult. Transition to p.o. diuretic therapy i.e. Demadex with metolazone. Patient was advised to avoid using NSAIDs for analgesia post discharge because of his renal insufficiency. He was also advised to see us in the office about 1 -2 weeks post discharge. We will see patient as needed at this point in time. Please call if needed. Medications should be adjusted for the patient's estimated GFR if clinically indicated. Avoid agents with significant potential for nephrotoxicity possible including NSAIDs for analgesia, iodine contrast agents. Gadolinium is contraindicated if the GFR is below 30. (2) Perinephric hematoma Code(s): S37.019A - Minor contusion of unspecified kidney, initial encounter Status: Acute Plan: Hgb improved. Resolving (3) Congestive heart failure (CHF) Code(s): I50.9 - Heart failure, unspecified Status: Acute Qualifiers: Heart failure type: combined systolic and diastolic (4) Hyperphosphatemia Code(s): E83.39 - Other disorders of phosphorus metabolism Status: Resolved Plan: PO4 within acceptable range 2/2 to renal recovery. Will D/C PhosLo and monitor. (5) Anemia Code(s): D64.9 - Anemia, unspecified Status: Acute Plan: Iron stores low. If no infection, would likely benefit from Venofer infusion.
--- NOTE | 2017-10-15 15:16 | XR ---
EXAM DATE: 10/15/2017 3:12 PM EDT AGE/SEX: 56 years / Male INDICATIONS: Lower back pain. CLINICAL DATA: This is the patient's initial encounter. Patient reports that signs and symptoms have been present for 4 - 6 months and indicates a pain score of 7/10. MEDICAL/SURGICAL HISTORY: . Asthma. Hypertension. Diabetes mellitus type II. Inguinal hernia re pair. . COMPARISON: [facility] – [place] CERVICAL [place] W/O CONTRAST, 07/20/2016. [facility] – [place] ABDOMEN & PELVIS W/O CONTRAS T, 10/05/2017. . FINDINGS: Alignment is normal. Mild anterior osteophyte formation. There are mild compression deformities of T1 1 and T12 vertebral bodies identified. Slight loss of vertebral body height at T12 is stable. Not exc lude a slight acute T11 compression deformity. CONCLUSION: Stable mild loss of height at T12, questionable T11 deformity. Electronically signed by: Rd Contreras MD 10/15/2017 3:15 PM EDT
[2017-10-15] MEDS: Torsemide 20 MG Tablet PO SCH (17:53)
[2017-10-15] MEDS: traZODone 100 MG Tablet PO SCH (20:19)
[2017-10-16 08:22] LABS: Hematocrit 25.6 % (39.0-51.0); Hemoglobin 8.2 gm/dL (13.0-17.0); Mean Corpuscular Hemoglobin 31.3 pg (27.0-34.0); Mean Corpuscular Volume 97.7 fL (80.0-100.0); Mean Platelet Volume 7.6 fL (7.0-11.0); Platelet Count 329 th/mm3 (150-450); Red Blood Count 2.62 mil/mm3 (4.50-5.90); Red Cell Distribution Width 18.9 % (11.6-17.2); White Blood Count 6.1 th/mm3 (4.0-11.0)
--- NOTE | 2017-10-16 08:40 | P.PNFP ---
Subjective Interval history: No acute events overnight. Afebrile, vitals stable. Patient seen and examined this AM. Patient has no specific complaints. Results of lumbar plain films reviewed with patient. Specifically denies fevers or chills , CP, dyspnea, cough, abdominal pain, worsening back pain, dizziness or lightheadedness. Endorses having multiple BMs yesterday after previously feeling constipated. States some UOP was not recorded as he had UOP during his BMs. Pt otherwise does not have specific concerns. <Yann Kerr - 10/16/17 09:28> Results - Labs Result diagrams: 10/18/17 06:33 10/18/17 06:33 <Frederick Arora - 10/18/17 14:07> Abnormal lab results 10/17/17 10/18/17 10/18/17 Range/Units 15:47 06:33 06:33 RBC 2.90 L (4.50-5.90) mil/mm3 Hgb 9.1 L (13.0-17.0) gm/dL Hct 28.3 L (39.0-51.0) % RDW 18.7 H (11.6-17.2) % Sodium 134 L 134 L (136-145) meq/L Potassium 3.4 L 3.0 L (3.5-5.1) meq/L Chloride 87 L 85 L (98-107) meq/L Carbon Dioxide 41.5 H 42.8 H (21.0-32.0) meq/L BUN 36 H 40 H (7-18) mg/dL Creatinine 1.52 H 1.56 H (0.60-1.30) mg/dL Estimated GFR 48 L 47 L (>89) mL/min Random Glucose 118 H (74-106) mg/dL Calcium 8.4 L (8.5-10.1) mg/dL Albumin 2.7 L 2.9 L (3.4-5.0) g/dL Short CBC 10/18/17 Range/Units 06:33 WBC 5.6 (4.0-11.0) th/mm3 Hgb 9.1 L (13.0-17.0) gm/dL Hct 28.3 L (39.0-51.0) % Plt Count 405 (150-450) th/mm3 [facility] 10/17/17 10/18/17 15:47 06:33 Sodium 134 L 134 L Potassium 3.4 L 3.0 L Chloride 87 L 85 L Carbon Dioxide 41.5 H 42.8 H BUN 36 H 40 H Creatinine 1.52 H 1.56 H Calcium 8.4 L 8.5 Liver Function 10/17/17 10/18/17 Range/Units 15:47 06:33 Albumin 2.7 L 2.9 L (3.4-5.0) g/dL <Frederick Arora - 10/18/17 14:07> Abnormal lab results 10/15/17 10/15/17 10/16/17 Range/Units 08:05 08:05 07:20 RBC 2.56 L 2.62 L (4.50-5.90) mil/mm3 Hgb 8.2 L 8.2 L (13.0-17.0) gm/dL Hct 25.0 L 25.6 L (39.0-51.0) % RDW 18.9 H 18.9 H (11.6-17.2) % Sodium 135 L (136-145) meq/L Potassium 3.3 L (3.5-5.1) meq/L Chloride 91 L (98-107) meq/L Carbon Dioxide 38.4 H (21.0-32.0) meq/L BUN 35 H (7-18) mg/dL Creatinine 1.35 H (0.60-1.30) mg/dL Estimated GFR 55 L (>89) mL/min Calcium 8.3 L (8.5-10.1) mg/dL Albumin 2.6 L (3.4-5.0) g/dL Short CBC 10/15/17 10/16/17 Range/Units 08:05 07:20 WBC 6.0 6.1 (4.0-11.0) th/mm3 Hgb 8.2 L 8.2 L (13.0-17.0) gm/dL Hct 25.0 L 25.6 L (39.0-51.0) % Plt Count 341 329 (150-450) th/mm3 BMP 10/15/17 08:05 Sodium 135 L Potassium 3.3 L Chloride 91 L Carbon Dioxide 38.4 H BUN 35 H Creatinine 1.35 H Calcium 8.3 L Liver Function 10/15/17 Range/Units 08:05 Albumin 2.6 L (3.4-5.0) g/dL <Yann Kerr - 10/16/17 08:40> - Imaging Impressions SPECT-Abscess Localization NM 10/15/17 00:00 CONCLUSION: 1. No evidence of osteomyelitis. <Frederick Arora - 10/18/17 14:07> Impressions Lumbar Spine X-Ray 10/15/17 00:00 Alignment is normal. Mild anterior osteophyte formation. There are mild compression deformities of T11 and T12 vertebral bodies identified. Slight loss of vertebral body height at T12 is stable. Not exclude a slight acute T11 compression deformity. CONCLUSION: Stable mild loss of height at T12, questionable T11 deformity. <Dennise Kerrsh - 10/16/17 08:40> Physical Exam Vital signs: Vital Signs 10/17/17 14:22 10/17/17 16:00 10/17/17 17:40 Temperature 97.0 F L Pulse Rate 85 85 Respiratory Rate 18 Blood Pressure 122/86 Pulse Oximetry 98 95 10/17/17 19:54 10/17/17 20:00 10/17/17 22:06 Temperature 98.1 F Pulse Rate 92 H Respiratory Rate 9 L 20 9 L Blood Pressure 114/71 Pulse Oximetry 97 10/18/17 00:00 10/18/17 04:00 10/18/17 08:00 Temperature 97.3 F L 97.3 F L 98.3 F Pulse Rate 79 80 80 Respiratory Rate 20 20 20 Blood Pressure 119/63 119/60 112/58 L Pulse Oximetry 91 L 96 95 10/18/17 10:52 Temperature Pulse Rate Respiratory Rate Blood Pressure Pulse Oximetry 96 Intake & Output 10/17/17 10/18/17 10/18/17 18:59 06:59 18:59 Intake Total 1096 / 1096 720 / 720 Output Total 1400 / 1400 1250 / 1250 Balance -304 / -304 -530 / -530 Weight 142.2 kg Intake: Oral 1096 / 1096 720 / 720 Output: Urine 1400 / 1400 1250 / 1250 Other: Date of Last Bowel Movement 10/17/17 10/17/17 # Bowel Movements 1 0 <Frederick Arora - 10/18/17 14:07> Vital Signs 10/15/17 09:54 10/15/17 12:00 10/15/17 16:00 Temperature 97.7 F 97.8 F Pulse Rate 84 84 Respiratory Rate 20 20 Blood Pressure 108/59 L 125/59 L Pulse Oximetry 95 97 93 L 10/15/17 20:00 10/15/17 20:18 10/15/17 22:37 Temperature 97.8 F Pulse Rate 86 Respiratory Rate 20 16 16 Blood Pressure 125/63 Pulse Oximetry 96 10/16/17 00:00 10/16/17 01:10 10/16/17 04:00 Temperature 97.8 F 97.9 F Pulse Rate 80 80 Respiratory Rate 20 16 20 Blood Pressure 125/67 130/60 Pulse Oximetry 95 95 10/16/17 06:01 Temperature Pulse Rate Respiratory Rate 16 Blood Pressure Pulse Oximetry Intake & Output 10/15/17 10/16/17 10/16/17 18:59 06:59 18:59 Intake Total 960 / 960 Output Total 800 / 800 1200 / 1200 Balance 160 / 160 -1200 / -1200 Weight 145.1 kg Intake: Oral 960 / 960 Output: Urine 800 / 800 1200 / 1200 Other: Date of Last Bowel Movement 10/14/17 10/15/17 # Bowel Movements 1 0 <Yann Kerr - 10/16/17 08:40> Narrative: GENERAL: Middle-aged obese male lying in bed in [facility]. SKIN: Warm and dry. HEAD: Atraumatic. Normocephalic. EYES: EOMI. No scleral icterus. No injection or drainage. ENT: No nasal bleeding or discharge. Mucous membranes pink and moist. CARDIOVASCULAR: Regular rate and rhythm. RESPIRATORY: No accessory muscle use. Clear to auscultation. Breath sounds equal bilaterally. GASTROINTESTINAL: Abdomen soft, obese, nt. Normal bowel sounds. BACK: well-healing surgical scar over left lower back where bone was taken from iliac crest for his ankle reconstruction. No bruising. MUSCULOSKELETAL: No cyanosis, 2+ pitting edema up to proximal pre-tibias bilaterally. No cyanosis. Left ankle wound with clean and dry dressing noted. No calf tenderness to palpation bilaterally. NEUROLOGICAL: Awake and alert. No obvious cranial nerve deficits. Motor grossly within normal limits. PSYCHIATRIC: Appropriate mood and affect; insight and judgment normal. <Yann Kerr - 10/16/17 09:28> Assessment and Plan - Assessment (1) Open wound of left lower extremity Code(s): S81.802A - Unspecified open wound, left lower leg, initial encounter Status: Chronic Plan: Continue daily Santyl dressings per wound care recommendations. Will have wound care immediately after discharge, either outpatient or home health, if determined no active infection is present with gallium scanning Impression/Course: Patient presented with bilateral lower extremity edema with erythema overlying surgical site on LLE. Did not have systemic signs of infection at this time nor has during his hospitalization, suspect related to fluid overload and/or venous insufficiency. He does have left ankle wound which wound care has been consulted and recommending daily Santyl dressings since 09/23. Will continue to monitor lower extremities, wound culture showing MRSA and Pseudomonas however wound culture was superficial and may have been reflective of skin ori. Vital signs have been within normal limits without fever this hospitalization and white count within normal limits. Suspect some element of pressure ulcer given limited mobility since his ankle surgery in July 2017 (internal fixation with rods and screws throughout ankle). X-ray performed 09/20 showing intact hardware and soft tissue edema. Clinically the bilateral LEs have been stable with no significant erythema since fluid restriction and dialysis were initiated. ESR 14, low suspicion for osteomyelitis Lactic acid 1.5 on admission Patient remains afebrile without leukocytosis this hospitalization ID consulted for recommendations given his wound culture growing MRSA and pseudomonas - Bone scan showing increased activity involving the feet bilaterally corresponding to the fracture on the left, arthritis on the right. Gallium scan recommended for further evaluation for infection - Gallium scan ordered, awaiting results, to be performed 10/17 Antibiotic history: Vancomycin 09/21 through 09/24, discontinued given ESTELLA and lower suspicion for cellulitis Vancomycin ordered with pharmacy consult to help with dosing (09/21-09/24) Rocephin 2 g IV daily (09/21 - 09/23) Blood cultures 09/20/17: no growth Wound culture 09/20/17: MRSA, Pseudomonas PT/OT consult ordered - PT currently recommending no PT at discharge (2) ESTELLA (acute kidney injury) Code(s): N17.9 - Acute kidney failure, unspecified Status: Resolved Plan: Continue to monitor renal function panel, remains stable PermCath placed 10/08. Discussed with Verna Cisneros, nephrology, OK to remove PermCath as renal function has remained stable without HD Patient transitioned to PO torsemide 40 mg bid, as well as metolazone 10 mg po mwf per nephrology for continued diuresis Continue fluid restriction. Emphasized the need for fluid restriction as part of his treatment plan. Renal biopsy showed acute tubular injury, global glomerulosclerosis, severe arteriosclerosis. Appreciate nephrology management of patient's care. Signed off at this time. Avoid nephrotoxins. Discussed with patient to avoid NSAIDs Suspecting ESTELLA with possible intrinsic renal disease related to Vancomycin Serology and urine studies unremarkable PO fluid allowance to 2 L daily. Daily BMPs. (3) Traumatic perinephric hematoma of left kidney Code(s): S37.092A - Other injury of left kidney, initial encounter Status: Acute Plan: -Noncontrast CT of abdomen/pelvis shows high density left renal hematoma with additional hemorrhage and hematoma in the perirenal space -Case discussed with radiologist and interventional radiologist who determined the hematoma to be contained at this time and asked to monitor his vitals and H/ H and call them if he decompensates or requires another blood transfusion -[place] po prn pain, morphine prn breakthrough pain -Hgb and vitals stable at this time, will continue to monitor (4) Sleep apnea Code(s): G47.30 - Sleep apnea, unspecified Status: Acute Plan: Home O2 walk test ordered for discharge planning, patient failed walk test, will need O2 on discharge Patient has a history of reported sleep apnea and elevated pulmonary arterial pressure seen on echocardiogram. Patient will require further discussion and workup of this as an outpatient. Continue to monitor vitals and O2 sats (5) Anemia Code(s): D64.9 - Anemia, unspecified Status: Acute Plan: -Hgb stable, will continue to monitor -Transfuse at Hemoglobin of 7 -Will call radiologist if need for transfusion and/or decompensation -MCV noted to be elevated previously during hospitalization. B12 and folate within normal limits -Iron stores low, Iron panel suggesting iron def anemia vs ACD -May benefit from venofer infusions per nephrology (6) Anasarca Code(s): R60.1 - Generalized edema Status: Acute Plan: - Whole body edema with pleural and pericardial effusions, etiology unclear, likely from renal dysfunction - Nephrology on board, management with diuresis as noted above, continuing to improve (7) Hyperphosphatemia Code(s): E83.39 - Other disorders of phosphorus metabolism Status: Resolved Plan: Secondary to renal failure. Resolved. PO4 within acceptable range 2/2 to renal recovery. D/C PhosLo and monitor. (8) Hypertension Code(s): I10 - Essential (primary) hypertension Status: Chronic Plan: Patient with a known history of hypertension Blood pressures controlled Hold home Metoprolol due to risk for hypotension in the setting of an acute bleed (9) Hypokalemia (10) History of asthma Code(s): Z87.09 - Personal history of other diseases of the respiratory system Status: Chronic Plan: Patient with a known history of asthma. Duonebs every 4hr PRN, albuterol every 2hr PRN SOB/wheezing Not requiring routine treatments at this time. However, he is requiring oxygen by nasal cannula. (11) Depression with anxiety Code(s): F41.8 - Other specified anxiety disorders Status: Chronic Plan: Patient with a known history of depression and anxiety. Continue home Zoloft, trazodone. Holding home Valium (12) Gout Code(s): M10.9 - Gout, unspecified Status: Chronic Plan: Patient with a known history of gout. Holding allopurinol at this time to be cautious given current renal function (13) Nutrition, metabolism, and development symptoms Code(s): R63.8 - Other symptoms and signs concerning food and fluid intake Status: Acute Plan: FEN: - Gentle PO hydration given ESTELLA - Correct electrolytes as needed - Low-salt, heart healthy diet and fluid restriction to 2 L DVT ppx: Holding Lovenox due to perinephric bleed <Yann Kerr - 10/16/17 09:20> - Assessment and Plan The patient is a 56-year-old man with past medical history significant for hypertension, depression and anxiety, asthma, gout, recent surgical repair of his left ankle and left hip who presented to the ED on 09/20 with progressive shortness of breath and lower extremity edema. The patient was initially started on vancomycin for suspected cellulitis of his bilateral lower extremities. He was noted to have new onset acute kidney injury on 09/23 which is thought to be related to vancomycin toxicity, renal function has since been improving. He has since been started on hemodialysis per nephrology since 09/27 due to persistent anasarca and marked lower extremity edema. Patient underwent a renal biopsy on 10/03, showing acute tubular injury, global glomerulosclerosis , severe arteriosclerosis. Infectious disease has been consulted for evaluation of left ankle lesion growing MRSA and PSAE overlying a remote ankle fracture, awaiting results of gallium scan. <Yann Kerr - 10/16/17 09:28> - Attending Attestation See the residents documentation for details. I saw and evaluated the patient regarding the arteaga portions of this evaluation and agree with the residents findings and plans as written. Parts of this note were created using [employer]we[employer] voice recognition software program. While efforts were made to correct any mistakes made by this software, some mistakes, errors, and omissions may remain in the final note that were not caught when the note was originally created. Plan of care was discussed and agreed upon with the patient as specifically documented in the above note. An opportunity to ask questions with explanation was provided. Patient voiced understanding on all information reviewed and discussed. <Frederick Arora - 10/18/17 14:07> <Yann Kerr - Last Filed: 10/16/17 09:20> (5) Anemia Qualifiers: Anemia type: unspecified type Qualified Code(s): D64.9 - Anemia, unspecified (8) Hypertension Qualifiers: Hypertension type: essential hypertension Qualified Code(s): I10 - Essential (primary) hypertension <Yann Kerr - Last Filed: 10/16/17 09:20> (5) Anemia Qualifiers: Anemia type: unspecified type Qualified Code(s): D64.9 - Anemia, unspecified (8) Hypertension Qualifiers: Hypertension type: essential hypertension Qualified Code(s): I10 - Essential (primary) hypertension
[2017-10-16 08:52] LABS: Albumin 2.6 g/dL (3.4-5.0); Calcium 8.1 mg/dL (8.5-10.1); Carbon Dioxide 41.1 meq/L (21.0-32.0); Phosphorus 4.2 mg/dL (2.5-4.9); Potassium 3.4 meq/L (3.5-5.1)
[2017-10-16] MEDS: Senna/Docusate Sodium 8.6/50 MG Tablet PO SCH ×2 (10:32→20:44)
[2017-10-16] MEDS: metOLazone 5 MG Tablet PO SCH (10:33)
[2017-10-16] MEDS: Collagenase Oint 30 GM Tube TOPICAL SCH (10:33)
[2017-10-16] MEDS: Sertraline 50 MG Tablet PO SCH (10:37)
[2017-10-16] MEDS: Torsemide 20 MG Tablet PO SCH ×2 (10:39→17:19)
[2017-10-16] MEDS: Morphine Inj 4 MG/ML Vial IV.PUSH PRN ×3 (12:28→20:44)
--- NOTE | 2017-10-16 14:06 | IR ---
EXAM DATE: 10/16/2017 9:33 AM EDT AGE/SEX: 56 years / Male INDICATIONS: Patient with history of acute renal disease presents with tunneled dialysis catheter in need of removal. CLINICAL DATA: This is the patient's subsequent encounter. Patient reports that signs and symptoms h ave been present for 2 weeks and indicates a pain score of 0/10. MEDICAL/SURGICAL HISTORY: Renal insufficiency. CHF, Anxiety, Asthma, borderline diabetes, Depre ssion, Gout, HTN, Left wrist fracture, Neuropathy. Umbilical hernia repair. COMPARISON: No prior exams available for comparison. IMAGE SERIES: ACCESS SITE: . . PROCEDURE: 1. PermaCath removal. The risks, benefits and alternatives to the procedure were explained and verbal and written consent w as obtained. The site was prepped in sterile fashion. Full sterile technique was used, including ca p, mask, sterile gloves and gown and a large sterile sheet. Hand hygiene and 2% chlorhexidine and/or betadine/alcohol prep was utilized per protocol for cutaneous antisepsis. The skin and subcutaneous tissues were infiltrated with local anesthetic solution. The tract was anesthetized with 1% Lidocaine using. The Permcath was dissected from the subcutaneous tissues and easily removed in one piece. Manual pressure was applied to the venotomy site until hem ostasis was obtained. Sterile dressing was applied. The patient tolerated the procedure well and there were no complications. CONCLUSION: 1. Uncomplicated Permcath removal. Electronically signed by: Gregory Flores MD 10/16/2017 2:05 PM EDT
[2017-10-16] MEDS: traZODone 100 MG Tablet PO SCH (20:44)
[2017-10-17] MEDS: Morphine Inj 4 MG/ML Vial IV.PUSH PRN ×5 (00:30→22:08)
[2017-10-17 07:44] LABS: Hematocrit 28.1 % (39.0-51.0); Mean Corpuscular HGB Conc 32.2 % (32.0-36.0); Mean Corpuscular Hemoglobin 31.5 pg (27.0-34.0); Mean Platelet Volume 7.9 fL (7.0-11.0); Platelet Count 390 th/mm3 (150-450); Red Blood Count 2.87 mil/mm3 (4.50-5.90); Red Cell Distribution Width 19.5 % (11.6-17.2); White Blood Count 5.4 th/mm3 (4.0-11.0)
[2017-10-17 08:15] LABS: Albumin 2.8 g/dL (3.4-5.0); Calcium 8.4 mg/dL (8.5-10.1); Carbon Dioxide 42.1 meq/L (21.0-32.0); Potassium 3.2 meq/L (3.5-5.1)
[2017-10-17 08:16] LABS: Phosphorus 4.7 mg/dL (2.5-4.9)
--- NOTE | 2017-10-17 08:42 | P.PNFP ---
Subjective Interval history: No acute events overnight. Remains afebrile, vitals stable. Patient has no specific complaints this morning. Denies worsening back pain; denies abdominal pain, fevers or chills, CP, dyspnea. Endorses continued good UOP. States he is still ambulating and moving about in his room with his crutches. <Dennise Kerrsh - 10/17/17 11:37> Results - Labs Result diagrams: 10/18/17 06:33 10/18/17 06:33 <Frederick Arora - 10/18/17 14:13> Abnormal lab results 10/17/17 10/18/17 10/18/17 Range/Units 15:47 06:33 06:33 RBC 2.90 L (4.50-5.90) mil/mm3 Hgb 9.1 L (13.0-17.0) gm/dL Hct 28.3 L (39.0-51.0) % RDW 18.7 H (11.6-17.2) % Sodium 134 L 134 L (136-145) meq/L Potassium 3.4 L 3.0 L (3.5-5.1) meq/L Chloride 87 L 85 L (98-107) meq/L Carbon Dioxide 41.5 H 42.8 H (21.0-32.0) meq/L BUN 36 H 40 H (7-18) mg/dL Creatinine 1.52 H 1.56 H (0.60-1.30) mg/dL Estimated GFR 48 L 47 L (>89) mL/min Random Glucose 118 H (74-106) mg/dL Calcium 8.4 L (8.5-10.1) mg/dL Albumin 2.7 L 2.9 L (3.4-5.0) g/dL Short CBC 10/18/17 Range/Units 06:33 WBC 5.6 (4.0-11.0) th/mm3 Hgb 9.1 L (13.0-17.0) gm/dL Hct 28.3 L (39.0-51.0) % Plt Count 405 (150-450) th/mm3 BMP 10/17/17 10/18/17 15:47 06:33 Sodium 134 L 134 L Potassium 3.4 L 3.0 L Chloride 87 L 85 L Carbon Dioxide 41.5 H 42.8 H BUN 36 H 40 H Creatinine 1.52 H 1.56 H Calcium 8.4 L 8.5 Liver Function 10/17/17 10/18/17 Range/Units 15:47 06:33 Albumin 2.7 L 2.9 L (3.4-5.0) g/dL <Frederick Arora - 10/18/17 14:13> Abnormal lab results 10/16/17 10/17/17 10/17/17 Range/Units 07:20 06:28 06:28 RBC 2.87 L (4.50-5.90) mil/mm3 Hgb 9.0 L (13.0-17.0) gm/dL Hct 28.1 L (39.0-51.0) % RDW 19.5 H (11.6-17.2) % Potassium 3.4 L 3.2 L (3.5-5.1) meq/L Chloride 91 L 88 L (98-107) meq/L Carbon Dioxide 41.1 H 42.1 H (21.0-32.0) meq/L BUN 35 H 38 H (7-18) mg/dL Creatinine 1.54 H (0.60-1.30) mg/dL Estimated GFR 58 L 47 L (>89) mL/min Calcium 8.1 L 8.4 L (8.5-10.1) mg/dL Albumin 2.6 L 2.8 L (3.4-5.0) g/dL Short CBC 10/17/17 Range/Units 06:28 WBC 5.4 (4.0-11.0) th/mm3 Hgb 9.0 L (13.0-17.0) gm/dL Hct 28.1 L (39.0-51.0) % Plt Count 390 (150-450) th/mm3 BMP 10/16/17 10/17/17 07:20 06:28 Sodium 137 136 Potassium 3.4 L 3.2 L Chloride 91 L 88 L Carbon Dioxide 41.1 H 42.1 H BUN 35 H 38 H Creatinine 1.30 1.54 H Calcium 8.1 L 8.4 L Liver Function 10/16/17 10/17/17 Range/Units 07:20 06:28 Albumin 2.6 L 2.8 L (3.4-5.0) g/dL <Yann Kerr - 10/17/17 08:42> - Imaging Impressions SPECT-Abscess Localization NM 10/15/17 00:00 CONCLUSION: 1. No evidence of osteomyelitis. <Frederick Arora - 10/18/17 14:13> Impressions Tube Removal 10/16/17 00:00 CONCLUSION: 1. Uncomplicated Permcath removal. <Yann Kerr - 10/17/17 08:42> Physical Exam Vital signs: Vital Signs 10/17/17 14:22 10/17/17 16:00 10/17/17 17:40 Temperature 97.0 F L Pulse Rate 85 85 Respiratory Rate 18 Blood Pressure 122/86 Pulse Oximetry 98 95 10/17/17 19:54 10/17/17 20:00 10/17/17 22:06 Temperature 98.1 F Pulse Rate 92 H Respiratory Rate 9 L 20 9 L Blood Pressure 114/71 Pulse Oximetry 97 10/18/17 00:00 10/18/17 04:00 10/18/17 08:00 Temperature 97.3 F L 97.3 F L 98.3 F Pulse Rate 79 80 80 Respiratory Rate 20 20 20 Blood Pressure 119/63 119/60 112/58 L Pulse Oximetry 91 L 96 95 10/18/17 10:52 Temperature Pulse Rate Respiratory Rate Blood Pressure Pulse Oximetry 96 Intake & Output 10/17/17 10/18/17 10/18/17 18:59 06:59 18:59 Intake Total 1096 / 1096 720 / 720 Output Total 1400 / 1400 1250 / 1250 Balance -304 / -304 -530 / -530 Weight 142.2 kg Intake: Oral 1096 / 1096 720 / 720 Output: Urine 1400 / 1400 1250 / 1250 Other: Date of Last Bowel Movement 10/17/17 10/17/17 # Bowel Movements 1 0 <Frederick Arora - 10/18/17 14:13> Vital Signs 10/16/17 12:00 10/16/17 16:00 10/16/17 16:14 Temperature 97.9 F 97.7 F Pulse Rate 82 89 Respiratory Rate 20 20 Blood Pressure 125/58 L 126/62 Pulse Oximetry 96 94 L Pulse Oximetry [Resting on Room Air] 85 L Pulse Oximetry [Resting with Oxygen] 96 10/16/17 17:28 10/16/17 20:00 10/17/17 00:00 Temperature 98.3 F 98.2 F Pulse Rate 93 H 85 Respiratory Rate 18 18 Blood Pressure 116/56 L 145/61 H Pulse Oximetry 96 97 95 Pulse Oximetry [Resting on Room Air] Pulse Oximetry [Resting with Oxygen] 10/17/17 04:00 Temperature 97.4 F L Pulse Rate 79 Respiratory Rate 18 Blood Pressure 122/59 L Pulse Oximetry 97 Pulse Oximetry [Resting on Room Air] Pulse Oximetry [Resting with Oxygen] Intake & Output 10/16/17 10/17/17 10/17/17 18:59 06:59 18:59 Intake Total 960 / 960 240 / 240 Output Total 900 / 900 1325 / 1325 Balance 60 / 60 -1085 / -1085 Weight 144.3 kg Intake: Oral 960 / 960 240 / 240 Output: Urine 900 / 900 1325 / 1325 Other: Date of Last Bowel Movement 10/15/17 10/16/17 # Bowel Movements 3 0 <Yann Kerr - 10/17/17 08:42> Narrative: GENERAL: Middle-aged obese male lying in bed in [facility]. SKIN: Warm and dry. HEAD: Atraumatic. Normocephalic. EYES: EOMI. No scleral icterus. No injection or drainage. ENT: No nasal bleeding or discharge. Mucous membranes pink and moist. CARDIOVASCULAR: Regular rate and rhythm. RESPIRATORY: No accessory muscle use. Clear to auscultation. Breath sounds equal bilaterally. GASTROINTESTINAL: Abdomen soft, obese, nt. Normal bowel sounds. BACK: well-healing surgical scar over left lower back where bone was taken from iliac crest for his ankle reconstruction. No bruising. MUSCULOSKELETAL: No cyanosis, 2+ pitting edema up to proximal pre-tibias bilaterally. No cyanosis. Left ankle wound with clean and dry dressing noted. No calf tenderness to palpation bilaterally. NEUROLOGICAL: Awake and alert. No obvious cranial nerve deficits. Motor grossly within normal limits. PSYCHIATRIC: Appropriate mood and affect; insight and judgment normal. <Yann Kerr - 10/17/17 11:37> Assessment and Plan - Assessment (1) Open wound of left lower extremity Code(s): S81.802A - Unspecified open wound, left lower leg, initial encounter Status: Chronic Plan: Continue daily Santyl dressings per wound care recommendations. Will have wound care immediately after discharge, either outpatient or home health, if determined no active infection is present with gallium scanning Impression/Course: Patient presented with bilateral lower extremity edema with erythema overlying surgical site on LLE. Did not have systemic signs of infection at this time nor has during his hospitalization, suspect related to fluid overload and/or venous insufficiency. He does have left ankle wound which wound care has been consulted and recommending daily Santyl dressings since 09/23. Will continue to monitor lower extremities, wound culture showing MRSA and Pseudomonas however wound culture was superficial and may have been reflective of skin ori. Vital signs have been within normal limits without fever this hospitalization and white count within normal limits. Suspect some element of pressure ulcer given limited mobility since his ankle surgery in July 2017 (internal fixation with rods and screws throughout ankle). X-ray performed 09/20 showing intact hardware and soft tissue edema. Clinically the bilateral LEs have been stable with no significant erythema since fluid restriction and dialysis were initiated. ESR 14, low suspicion for osteomyelitis Lactic acid 1.5 on admission Patient remains afebrile without leukocytosis this hospitalization ID consulted for recommendations given his wound culture growing MRSA and pseudomonas - Bone scan showing increased activity involving the feet bilaterally corresponding to the fracture on the left, arthritis on the right. Gallium scan recommended for further evaluation for infection - Gallium scan ordered, awaiting results, to be performed today 10/17 Antibiotic history: Vancomycin 09/21 through 09/24, discontinued given ESTELLA and lower suspicion for cellulitis Vancomycin ordered with pharmacy consult to help with dosing (09/21-09/24) Rocephin 2 g IV daily (09/21 - 09/23) Blood cultures 09/20/17: no growth Wound culture 09/20/17: MRSA, Pseudomonas PT/OT consult ordered - PT currently recommending no PT at discharge (2) ESTELLA (acute kidney injury) Code(s): N17.9 - Acute kidney failure, unspecified Status: Resolved Plan: Continue to monitor renal function panel, uptrend in creatinine noted. Will trend. Advised restriction of fluids particularly pao ho which he continues to consume daily PermCath placed 10/08. Discussed with Verna Cisneros, nephrology, [place] to remove PermCath as renal function has remained stable without HD. Removed by IR on 8/1 Patient transitioned to PO torsemide 40 mg bid, as well as metolazone 10 mg po mwf per nephrology for continued diuresis Continue fluid restriction. Emphasized the need for fluid restriction as part of his treatment plan. Renal biopsy showed acute tubular injury, global glomerulosclerosis, severe arteriosclerosis. Appreciate nephrology management of patient's care. Signed off at this time. Avoid nephrotoxins. Discussed with patient to avoid NSAIDs Suspecting ESTELLA with possible intrinsic renal disease related to Vancomycin Serology and urine studies unremarkable PO fluid allowance to 2 L daily. Daily BMPs. (3) Traumatic perinephric hematoma of left kidney Code(s): S37.092A - Other injury of left kidney, initial encounter Status: Acute Plan: -Noncontrast CT of abdomen/pelvis shows high density left renal hematoma with additional hemorrhage and hematoma in the perirenal space -Case discussed with radiologist and interventional radiologist who determined the hematoma to be contained at this time and asked to monitor his vitals and H/ H and call them if he decompensates or requires another blood transfusion -[place] po prn pain, morphine prn breakthrough pain -Hgb and vitals stable at this time, will continue to monitor (4) Sleep apnea Code(s): G47.30 - Sleep apnea, unspecified Status: Acute Plan: Home O2 walk test ordered for discharge planning, patient failed walk test, will need O2 on discharge Patient has a history of reported sleep apnea and elevated pulmonary arterial pressure seen on echocardiogram. Patient will require further discussion and workup of this as an outpatient. Continue to monitor vitals and O2 sats (5) Anemia Code(s): D64.9 - Anemia, unspecified Status: Acute Plan: -Hgb stable, will continue to monitor -Transfuse at Hemoglobin of 7 -Will call radiologist if need for transfusion and/or decompensation -MCV noted to be elevated previously during hospitalization. B12 and folate within normal limits -Iron stores low, Iron panel suggesting iron def anemia vs ACD -May benefit from venofer infusions per nephrology (6) Anasarca Code(s): R60.1 - Generalized edema Status: Acute Plan: - Whole body edema with pleural and pericardial effusions, etiology unclear, likely from renal dysfunction - Nephrology on board, management with diuresis as noted above, continuing to improve (7) Hyperphosphatemia Code(s): E83.39 - Other disorders of phosphorus metabolism Status: Resolved Plan: Secondary to renal failure. Resolved. PO4 within acceptable range 2/2 to renal recovery. D/C PhosLo and monitor. (8) Hypertension Code(s): I10 - Essential (primary) hypertension Status: Chronic Plan: Patient with a known history of hypertension Blood pressures controlled Hold home Metoprolol due to risk for hypotension in the setting of an acute bleed (9) Hypokalemia Code(s): E87.6 - Hypokalemia Status: Acute Plan: Secondary to diuresis, previously hyperkalemic during hospitalization. Will continue to monitor and replete as needed Continue KCL 20 mEq daily (10) History of asthma Code(s): Z87.09 - Personal history of other diseases of the respiratory system Status: Chronic Plan: Patient with a known history of asthma. Duonebs every 4hr PRN, albuterol every 2hr PRN SOB/wheezing Not requiring routine treatments at this time. However, he is requiring oxygen by nasal cannula. (11) Depression with anxiety Code(s): F41.8 - Other specified anxiety disorders Status: Chronic Plan: Patient with a known history of depression and anxiety. Continue home Zoloft, trazodone. Holding home Valium (12) Gout Code(s): M10.9 - Gout, unspecified Status: Chronic Plan: Patient with a known history of gout. Holding allopurinol at this time to be cautious given current renal function (13) Nutrition, metabolism, and development symptoms Code(s): R63.8 - Other symptoms and signs concerning food and fluid intake Status: Acute Plan: FEN: - Gentle PO hydration given ESTELLA - Correct electrolytes as needed - Low-salt, heart healthy diet and fluid restriction to 2 L DVT ppx: Holding Lovenox due to perinephric bleed <Dennise Kerrsh - 10/17/17 11:28> - Assessment and Plan The patient is a 56-year-old man with past medical history significant for hypertension, depression and anxiety, asthma, gout, recent surgical repair of his left ankle and left hip who presented to the ED on 09/20 with progressive shortness of breath and lower extremity edema. The patient was initially started on vancomycin for suspected cellulitis of his bilateral lower extremities. He was noted to have new onset acute kidney injury on 09/23 which is thought to be related to vancomycin toxicity, renal function has since been improving. He has since been started on hemodialysis per nephrology since 09/27 due to persistent anasarca and marked lower extremity edema. Patient underwent a renal biopsy on 10/03, showing acute tubular injury, global glomerulosclerosis , severe arteriosclerosis. Infectious disease has been consulted for evaluation of left ankle lesion growing MRSA and PSAE overlying a remote ankle fracture, awaiting results of gallium scan. <Yann Kerr - 10/17/17 08:42> - Attending Attestation See the residents documentation for details. I saw and evaluated the patient regarding the arteaga portions of this evaluation and agree with the residents findings and plans as written. Parts of this note were created using [employer] voice recognition software program. While efforts were made to correct any mistakes made by this software, some mistakes, errors, and omissions may remain in the final note that were not caught when the note was originally created. Plan of care was discussed and agreed upon with the patient as specifically documented in the above note. An opportunity to ask questions with explanation was provided. Patient voiced understanding on all information reviewed and discussed. <Frederick Arora - 10/18/17 14:13> <Yann Kerr - Last Filed: 10/17/17 11:28> (5) Anemia Qualifiers: Anemia type: unspecified type Qualified Code(s): D64.9 - Anemia, unspecified (8) Hypertension Qualifiers: Hypertension type: essential hypertension Qualified Code(s): I10 - Essential (primary) hypertension <Yann Kerr - Last Filed: 10/17/17 11:28> (5) Anemia Qualifiers: Anemia type: unspecified type Qualified Code(s): D64.9 - Anemia, unspecified (8) Hypertension Qualifiers: Hypertension type: essential hypertension Qualified Code(s): I10 - Essential (primary) hypertension
[2017-10-17] MEDS: Senna/Docusate Sodium 8.6/50 MG Tablet PO SCH ×2 (09:00→20:06)
[2017-10-17] MEDS: Sertraline 50 MG Tablet PO SCH (09:00)
[2017-10-17] MEDS: Torsemide 20 MG Tablet PO SCH ×2 (09:00→19:22)
--- NOTE | 2017-10-17 10:01 | P.DCO ---
- Home Health Nursing Order: Wound care and dressing changes (Left ankle wound) - Certification I have seen patient Donaldo Hernandez on 10/17/17. My clinical findings support the need for the requested home health care services because: Limited ability to care for self I certify that my clinical findings support that this patient is homebound because: Hx COPD - exertion dyspnea/weakness
[2017-10-17] MEDS: Collagenase Oint 30 GM Tube TOPICAL SCH (13:08)
--- NOTE | 2017-10-17 15:37 | NM ---
EXAM DATE: 10/17/2017 2:00 PM EDT AGE/SEX: 56 years / Male INDICATIONS: Left ankle wound with possible infection. CLINICAL DATA: This is the patient's initial encounter. Patient reports that signs and symptoms have been present for 4 - 6 days and indicates a pain score of 6/10. MEDICAL/SURGICAL HISTORY: Hyperparathyroidism. Asthma. Diabetes mellitus type II. Inguinal he rnia repair. Left ankle surgery. COMPARISON: [facility] [place], [place] BONE SCAN SPECT, 10/14/2017. . TECHNIQUE: SPECT/CT imaging was performed at the specified times after intravenous administration of radiogallium in sagittal, axial and coronal planes Attenuation correction was performed with comput ed tomography and both the attenuation correction and non-attenuated corrected sets were reviewed. DOSE: 6.1 mCi Gallium 67 Citrate IV SPECT IMAGIN hrs 48 hours post injection. IMAGING: SPECT/CT imaging with fusion was performed. RADIATION DOSE: 2.87 CTDIvol(mGy) FINDINGS: Visual comparison is made between the gallium scan of the bone scan as regions of activity cannot be obtained. The coronary and scan is less intense than the bone scan in the distribution is similar. Th e findings are not consistent with osteomyelitis. CONCLUSION: 1. No evidence of osteomyelitis. Electronically signed by: Gregory Flores MD 10/17/2017 3:36 PM EDT
[2017-10-17 16:47] LABS: Albumin 2.7 g/dL (3.4-5.0); Calcium 8.4 mg/dL (8.5-10.1); Carbon Dioxide 41.5 meq/L (21.0-32.0); Phosphorus 4.2 mg/dL (2.5-4.9); Potassium 3.4 meq/L (3.5-5.1)
--- NOTE | 2017-10-17 18:02 | P.PNADD ---
Addendum to Inpatient Note Additional information: no osteo on gallium. Complete tx upon dc with PO abx I f fiurther problems during or after tx follow with the surgeon mala primary team
[2017-10-17] MEDS: traZODone 100 MG Tablet PO SCH (20:06)
[2017-10-18 00:31] VITALS: RESP 20
[2017-10-18] MEDS: Morphine Inj 4 MG/ML Vial IV.PUSH PRN (04:07)
[2017-10-18 07:35] LABS: Hematocrit 28.3 % (39.0-51.0); Hemoglobin 9.1 gm/dL (13.0-17.0); Mean Corpuscular HGB Conc 32.2 % (32.0-36.0); Mean Corpuscular Hemoglobin 31.3 pg (27.0-34.0); Mean Corpuscular Volume 97.4 fL (80.0-100.0); Mean Platelet Volume 7.9 fL (7.0-11.0); Platelet Count 405 th/mm3 (150-450); Red Cell Distribution Width 18.7 % (11.6-17.2); White Blood Count 5.6 th/mm3 (4.0-11.0)
[2017-10-18 08:00] LABS: Albumin 2.9 g/dL (3.4-5.0); Calcium 8.5 mg/dL (8.5-10.1); Carbon Dioxide 42.8 meq/L (21.0-32.0); Phosphorus 4.6 mg/dL (2.5-4.9)
[2017-10-18] MEDS: Senna/Docusate Sodium 8.6/50 MG Tablet PO SCH (08:41)
[2017-10-18] MEDS: Sertraline 50 MG Tablet PO SCH (08:41)
[2017-10-18] MEDS: Torsemide 20 MG Tablet PO SCH (08:55)
--- NOTE | 2017-10-18 10:23 | P.PNFP ---
Subjective Interval history: No acute events overnight. Afebrile, vitals stable. Patient seen and examined this morning. Denies specific complaints. Endorses continued adequate urine output. Results of gallium scan discussed with patient. He denies worsening back pain or ankle pain. He states he believes his range of motion and gait has significantly improved as he has less lower extremity edema. <ShamarteresitaDennise millersh - 10/18/17 11:28> Results - Labs Result diagrams: 10/18/17 06:33 10/18/17 06:33 <Frederick Arora - 10/18/17 14:16> Abnormal lab results 10/17/17 10/18/17 10/18/17 Range/Units 15:47 06:33 06:33 RBC 2.90 L (4.50-5.90) mil/mm3 Hgb 9.1 L (13.0-17.0) gm/dL Hct 28.3 L (39.0-51.0) % RDW 18.7 H (11.6-17.2) % Sodium 134 L 134 L (136-145) meq/L Potassium 3.4 L 3.0 L (3.5-5.1) meq/L Chloride 87 L 85 L (98-107) meq/L Carbon Dioxide 41.5 H 42.8 H (21.0-32.0) meq/L BUN 36 H 40 H (7-18) mg/dL Creatinine 1.52 H 1.56 H (0.60-1.30) mg/dL Estimated GFR 48 L 47 L (>89) mL/min Random Glucose 118 H (74-106) mg/dL Calcium 8.4 L (8.5-10.1) mg/dL Albumin 2.7 L 2.9 L (3.4-5.0) g/dL Short CBC 10/18/17 Range/Units 06:33 WBC 5.6 (4.0-11.0) th/mm3 Hgb 9.1 L (13.0-17.0) gm/dL Hct 28.3 L (39.0-51.0) % Plt Count 405 (150-450) th/mm3 BMP 10/17/17 10/18/17 15:47 06:33 Sodium 134 L 134 L Potassium 3.4 L 3.0 L Chloride 87 L 85 L Carbon Dioxide 41.5 H 42.8 H BUN 36 H 40 H Creatinine 1.52 H 1.56 H Calcium 8.4 L 8.5 Liver Function 10/17/17 10/18/17 Range/Units 15:47 06:33 Albumin 2.7 L 2.9 L (3.4-5.0) g/dL <Frederick Arora - 10/18/17 14:16> Abnormal lab results 10/17/17 10/18/17 10/18/17 Range/Units 15:47 06:33 06:33 RBC 2.90 L (4.50-5.90) mil/mm3 Hgb 9.1 L (13.0-17.0) gm/dL Hct 28.3 L (39.0-51.0) % RDW 18.7 H (11.6-17.2) % Sodium 134 L 134 L (136-145) meq/L Potassium 3.4 L 3.0 L (3.5-5.1) meq/L Chloride 87 L 85 L (98-107) meq/L Carbon Dioxide 41.5 H 42.8 H (21.0-32.0) meq/L BUN 36 H 40 H (7-18) mg/dL Creatinine 1.52 H 1.56 H (0.60-1.30) mg/dL Estimated GFR 48 L 47 L (>89) mL/min Random Glucose 118 H (74-106) mg/dL Calcium 8.4 L (8.5-10.1) mg/dL Albumin 2.7 L 2.9 L (3.4-5.0) g/dL Short CBC 10/18/17 Range/Units 06:33 WBC 5.6 (4.0-11.0) th/mm3 Hgb 9.1 L (13.0-17.0) gm/dL Hct 28.3 L (39.0-51.0) % Plt Count 405 (150-450) th/mm3 BMP 10/17/17 10/18/17 15:47 06:33 Sodium 134 L 134 L Potassium 3.4 L 3.0 L Chloride 87 L 85 L Carbon Dioxide 41.5 H 42.8 H BUN 36 H 40 H Creatinine 1.52 H 1.56 H Calcium 8.4 L 8.5 Liver Function 10/17/17 10/18/17 Range/Units 15:47 06:33 Albumin 2.7 L 2.9 L (3.4-5.0) g/dL <Yann Kerr - 10/18/17 10:23> - Imaging Impressions SPECT-Abscess Localization NM 10/15/17 00:00 CONCLUSION: 1. No evidence of osteomyelitis. <Frederick Arora - 10/18/17 14:16> Impressions SPECT-Abscess Localization NM 10/15/17 00:00 CONCLUSION: 1. No evidence of osteomyelitis. <Dennise Kerrsh - 10/18/17 10:23> Physical Exam Vital signs: Vital Signs 10/17/17 14:22 10/17/17 16:00 10/17/17 17:40 Temperature 97.0 F L Pulse Rate 85 85 Respiratory Rate 18 Blood Pressure 122/86 Pulse Oximetry 98 95 10/17/17 19:54 10/17/17 20:00 10/17/17 22:06 Temperature 98.1 F Pulse Rate 92 H Respiratory Rate 9 L 20 9 L Blood Pressure 114/71 Pulse Oximetry 97 10/18/17 00:00 10/18/17 04:00 10/18/17 08:00 Temperature 97.3 F L 97.3 F L 98.3 F Pulse Rate 79 80 80 Respiratory Rate 20 20 20 Blood Pressure 119/63 119/60 112/58 L Pulse Oximetry 91 L 96 95 10/18/17 10:52 Temperature Pulse Rate Respiratory Rate Blood Pressure Pulse Oximetry 96 Intake & Output 10/17/17 10/18/17 10/18/17 18:59 06:59 18:59 Intake Total 1096 / 1096 720 / 720 Output Total 1400 / 1400 1250 / 1250 Balance -304 / -304 -530 / -530 Weight 142.2 kg Intake: Oral 1096 / 1096 720 / 720 Output: Urine 1400 / 1400 1250 / 1250 Other: Date of Last Bowel Movement 10/17/17 10/17/17 # Bowel Movements 1 0 <Frederick Arora - 10/18/17 14:16> Vital Signs 10/17/17 12:00 10/17/17 13:08 10/17/17 14:22 Temperature 97.8 F Pulse Rate 85 Respiratory Rate 18 5 L Blood Pressure 124/56 L Pulse Oximetry 95 98 08/02/18 16:00 10/17/17 17:40 10/17/17 19:54 Temperature 97.0 F L Pulse Rate 85 85 Respiratory Rate 18 9 L Blood Pressure 122/86 Pulse Oximetry 95 10/17/17 20:00 10/17/17 22:06 10/18/17 00:00 Temperature 98.1 F 97.3 F L Pulse Rate 92 H 79 Respiratory Rate 20 9 L 20 Blood Pressure 114/71 119/63 Pulse Oximetry 97 91 L 10/18/17 04:00 10/18/17 08:00 Temperature 97.3 F L 98.3 F Pulse Rate 80 81 Respiratory Rate 20 20 Blood Pressure 119/60 112/58 L Pulse Oximetry 96 95 Intake & Output 10/17/17 10/18/17 10/18/17 18:59 06:59 18:59 Intake Total 1096 / 1096 720 / 720 Output Total 1400 / 1400 1250 / 1250 Balance -304 / -304 -530 / -530 Weight 142.2 kg Intake: Oral 1096 / 1096 720 / 720 Output: Urine 1400 / 1400 1250 / 1250 Other: Date of Last Bowel Movement 10/17/17 10/17/17 # Bowel Movements 1 0 <Yann Kerr - 10/18/17 10:23> Narrative: GENERAL: Middle-aged obese male lying in bed in [facility]. SKIN: Warm and dry. HEAD: Atraumatic. Normocephalic. EYES: EOMI. No scleral icterus. No injection or drainage. ENT: No nasal bleeding or discharge. Mucous membranes pink and moist. CARDIOVASCULAR: Regular rate and rhythm. RESPIRATORY: No accessory muscle use. Clear to auscultation. Breath sounds equal bilaterally. GASTROINTESTINAL: Abdomen soft, obese, nt. Normal bowel sounds. BACK: well-healing surgical scar over left lower back where bone was taken from iliac crest for his ankle reconstruction. No bruising. MUSCULOSKELETAL: No cyanosis, 2+ pitting edema up to proximal pre-tibias bilaterally. No cyanosis. Left ankle wound with clean and dry dressing noted. No calf tenderness to palpation bilaterally. NEUROLOGICAL: Awake and alert. No obvious cranial nerve deficits. Motor grossly within normal limits. PSYCHIATRIC: Appropriate mood and affect; insight and judgment normal. <Yann Kerr - 10/18/17 11:28> Assessment and Plan - Assessment (1) Open wound of left lower extremity Code(s): S81.802A - Unspecified open wound, left lower leg, initial encounter Status: Chronic Plan: Impression/Course: Patient presented with bilateral lower extremity edema with erythema overlying surgical site on LLE. Did not have systemic signs of infection at this time nor has during his hospitalization, suspect related to fluid overload and/or venous insufficiency. He does have left ankle wound which wound care has been consulted and recommending daily Santyl dressings since 09/23. Will continue to monitor lower extremities, wound culture showing MRSA and Pseudomonas however wound culture was superficial and may have been reflective of skin ori. Vital signs have been within normal limits without fever this hospitalization and white count within normal limits. Suspect some element of pressure ulcer given limited mobility since his ankle surgery in July 2017 (internal fixation with rods and screws throughout ankle). X-ray performed 09/20 showing intact hardware and soft tissue edema. Clinically the bilateral LEs have been stable with no significant erythema since fluid restriction and dialysis were initiated. ESR 14, low suspicion for osteomyelitis Lactic acid 1.5 on admission Patient remains afebrile without leukocytosis this hospitalization Continue daily Santyl dressings per wound care recommendations. Patient to be discharged with [facility] for daily dressing changes ID consulted for recommendations given his wound culture growing MRSA and pseudomonas - Bone scan showing increased activity involving the feet bilaterally corresponding to the fracture on the left, arthritis on the right. Gallium scan recommended for further evaluation for infection - Gallium scan showing no evidence of osteomyelitis - Discussed with Dr. Pineda, infectious disease. Antibiotic history: Vancomycin 09/21 through 09/24, discontinued given ESTELLA and lower suspicion for cellulitis Vancomycin ordered with pharmacy consult to help with dosing (09/21-09/24) Rocephin 2 g IV daily (09/21 - 09/23) Blood cultures 09/20/17: no growth Wound culture 09/20/17: MRSA, Pseudomonas PT/OT consult ordered - PT currently recommending no PT at discharge (2) ESTELLA (acute kidney injury) Code(s): N17.9 - Acute kidney failure, unspecified Status: Resolved Plan: Continue to monitor renal function panel, uptrend in creatinine noted, appearing stable. Advised restriction of fluids particularly pao ho which he continues to consume daily PermCath placed 10/08. Discussed with Verna Cisneros, nephrology, OK to remove PermCath as renal function has remained stable without HD. Removed by IR on 10/16 Decreased PO torsemide to 20 mg bid, continue metolazone 10 mg po mwf per nephrology for continued diuresis Continue fluid restriction. Emphasized the need for fluid restriction as part of his treatment plan. Renal biopsy showed acute tubular injury, global glomerulosclerosis, severe arteriosclerosis. Appreciate nephrology management of patient's care. Signed off at this time. Avoid nephrotoxins. Discussed with patient to avoid NSAIDs Suspecting ESTELLA with possible intrinsic renal disease related to Vancomycin Serology and urine studies unremarkable PO fluid allowance to 2 L daily. Daily BMPs. (3) Traumatic perinephric hematoma of left kidney Code(s): S37.092A - Other injury of left kidney, initial encounter Status: Acute Plan: -Noncontrast CT of abdomen/pelvis shows high density left renal hematoma with additional hemorrhage and hematoma in the perirenal space -Case discussed with radiologist and interventional radiologist who determined the hematoma to be contained at this time and asked to monitor his vitals and H/ H and call them if he decompensates or requires another blood transfusion -[place] po prn pain, morphine prn breakthrough pain -Hgb and vitals stable at this time, will continue to monitor (4) Sleep apnea Code(s): G47.30 - Sleep apnea, unspecified Status: Acute Plan: Home O2 walk test ordered for discharge planning, patient failed walk test, will need O2 on discharge Patient has a history of reported sleep apnea and elevated pulmonary arterial pressure seen on echocardiogram. Patient will require further discussion and workup of this as an outpatient. Continue to monitor vitals and O2 sats (5) Anemia Code(s): D64.9 - Anemia, unspecified Status: Acute Plan: -Hgb stable, will continue to monitor -Transfuse at Hemoglobin of 7 -Will call radiologist if need for transfusion and/or decompensation -MCV noted to be elevated previously during hospitalization. B12 and folate within normal limits -Iron stores low, Iron panel suggesting iron def anemia vs ACD -May benefit from venofer infusions per nephrology (6) Anasarca Code(s): R60.1 - Generalized edema Status: Acute Plan: - Whole body edema with pleural and pericardial effusions, etiology unclear, likely from renal dysfunction - Nephrology on board, management with diuresis as noted above, continuing to improve (7) Hyperphosphatemia Code(s): E83.39 - Other disorders of phosphorus metabolism Status: Resolved Plan: Secondary to renal failure. Resolved. PO4 within acceptable range 2/2 to renal recovery. D/C PhosLo and monitor. (8) Hypertension Code(s): I10 - Essential (primary) hypertension Status: Chronic Plan: Patient with a known history of hypertension Blood pressures controlled Hold home Metoprolol due to risk for hypotension in the setting of an acute bleed (9) Hypokalemia Code(s): E87.6 - Hypokalemia Status: Acute Plan: Secondary to diuresis, previously hyperkalemic during hospitalization. Will continue to monitor and replete as needed Continue KCL 20 mEq daily, anticipate less hypokalemia with less aggressive diuresis (10) History of asthma Code(s): Z87.09 - Personal history of other diseases of the respiratory system Status: Chronic Plan: Patient with a known history of asthma. Duonebs every 4hr PRN, albuterol every 2hr PRN SOB/wheezing Not requiring routine treatments at this time. However, he is requiring oxygen by nasal cannula. (11) Depression with anxiety Code(s): F41.8 - Other specified anxiety disorders Status: Chronic Plan: Patient with a known history of depression and anxiety. Continue home Zoloft, trazodone. Holding home Valium (12) Gout Code(s): M10.9 - Gout, unspecified Status: Chronic Plan: Patient with a known history of gout. Holding allopurinol at this time to be cautious given current renal function (13) Nutrition, metabolism, and development symptoms Code(s): R63.8 - Other symptoms and signs concerning food and fluid intake Status: Acute Plan: FEN: - Correct electrolytes as needed - Low-salt, heart healthy diet and fluid restriction to 2 L DVT ppx: Holding Lovenox due to perinephric bleed <Yann Kerr - 10/18/17 11:28> - Assessment and Plan The patient is a 56-year-old man with past medical history significant for hypertension, depression and anxiety, asthma, gout, recent surgical repair of his left ankle and left hip who presented to the ED on 09/20 with progressive shortness of breath and lower extremity edema. The patient was initially started on vancomycin for suspected cellulitis of his bilateral lower extremities. He was noted to have new onset acute kidney injury on 09/23 which is thought to be related to vancomycin toxicity, renal function has since been improving. He has since been started on hemodialysis per nephrology since 09/27 due to persistent anasarca and marked lower extremity edema. Patient underwent a renal biopsy on 10/03, showing acute tubular injury, global glomerulosclerosis , severe arteriosclerosis. Infectious disease has been consulted for evaluation of left ankle lesion growing MRSA and PSAE overlying a remote ankle fracture. Bone scan equivocal, gallium scan for further evaluation showing no evidence of osteomyelitis. <Yann Kerr - 10/18/17 11:28> - Attending Attestation See the residents documentation for details. I saw and evaluated the patient regarding the arteaga portions of this evaluation and agree with the residents findings and plans as written. Parts of this note were created using [employer] voice recognition software program. While efforts were made to correct any mistakes made by this software, some mistakes, errors, and omissions may remain in the final note that were not caught when the note was originally created. Plan of care was discussed and agreed upon with the patient as specifically documented in the above note. An opportunity to ask questions with explanation was provided. Patient voiced understanding on all information reviewed and discussed. <Frederick Arora - 10/18/17 14:16> <Yann Kerr - Last Filed: 10/18/17 11:28> (5) Anemia Qualifiers: Anemia type: unspecified type Qualified Code(s): D64.9 - Anemia, unspecified (8) Hypertension Qualifiers: Hypertension type: essential hypertension Qualified Code(s): I10 - Essential (primary) hypertension <Yann Kerr - Last Filed: 10/18/17 11:28> (5) Anemia Qualifiers: Anemia type: unspecified type Qualified Code(s): D64.9 - Anemia, unspecified (8) Hypertension Qualifiers: Hypertension type: essential hypertension Qualified Code(s): I10 - Essential (primary) hypertension
[2017-10-18] MEDS: metOLazone 5 MG Tablet PO SCH (11:41)
[2017-10-18] MEDS: Collagenase Oint 30 GM Tube TOPICAL SCH (11:42)
--- NOTE | 2017-10-22 11:17 | P.DS ---
Date of admission: 09/20/17 17:19 Primary care physician: Young Mahmood MD, R3 Anticipated date of discharge: 10/18/17 Brief History from admission: Per HPI from admission H&P by Dr. Mcneil: 56 yo M with a PMH of HTN, Depression/ Anxiety presenting to ED with bilateral leg swelling and redness. First started a couple of weeks ago and has been gradually getting worse. Swelling started in his ankles but now feels it is as high as his upper thighs and abdomen. He has been experiencing worsening SOB over last several weeks as well. Endorses needing more pillows/sitting upright at night to help him breath. Denies any history of DC, CAD, CHF. Of note, he recently had surgery on July 25 on his L hip and L ankle. Pain in his ankle/hip have been improving. He was prescribed [place] 10 after the surgery but he ran out several days ago. Denies fever/chills, pain specific to the joint. He does state there has been some yellowing drainage from the surgical site on his L ankle. DS: Diagnosis - Discharge Diagnosis (1) Open wound of left lower extremity Status: Chronic (2) ESTELLA (acute kidney injury) Status: Resolved (3) Traumatic perinephric hematoma of left kidney Status: Resolved (4) Sleep apnea Status: Chronic (5) Anemia Status: Chronic (6) Anasarca Status: Resolved (7) Hyperphosphatemia Status: Resolved (8) Hypertension Status: Chronic (9) Hypokalemia Status: Resolved (10) History of asthma Status: Chronic (11) Depression with anxiety Status: Chronic (12) Gout Status: Chronic (13) Nutrition, metabolism, and development symptoms Status: Acute DS: Medications - Discharge Medications Prescriptions: albuterol sulfate [ProAir HFA] 2 puff INHALATION Q4H PRN #1 inhaler PRN Reason: Shortness Of Breath ergocalciferol (vitamin D2) 50,000 unit PO Q7D #4 cap hydrocodone-acetaminophen 1 tab PO Q4H PRN #15 tab PRN Reason: Pain Scale 3 To 5 metolazone 10 mg PO MOWEFR #60 tab potassium chloride 30 meq PO DAILY #90 tab sennosides-docusate sodium [Senna Plus] 1 tab PO BID #90 tab sertraline [Zoloft] 150 mg PO DAILY #30 tab torsemide 20 mg PO BID@0900,1800 #180 tab trazodone 100 mg PO HS #30 tab DS: Summary Hospital Course: The patient was started on Lasix IV for diuresis given his initial presentation of 2+ pitting lower extremity edema and anasarca, and continued on IV vancomycin as his left ankle wound was noted to have some dehiscence with possible purulent drainage. Wound and blood cultures were obtained on admission. Patient was also started at that time on Rocephin. Cardiology was consulted for suspected new onset CHF. Troponins and EKGs were trended 3 which were unremarkable for ACS. The patient had a 2D echo on 09/23 which showed his estimated EF to be in the range of 55-60%, estimated pulmonary arterial pressure of 40.4 mmHg. IV Lasix was transitioned to 40 mg p.o. twice daily. The patient developed an acute kidney injury with creatinine increasing from 0.89 on admission to 2.78 and patient having very poor urine output. Diuresis was held and the patient was given IV fluids as ESTELLA was suspected to be related to diuresis in addition to vancomycin toxicity. Vancomycin was renally dosed; wound culture showed growth of MRSA and Pseudomonas. Nephrology recommended avoiding use of vancomycin given acute renal insufficiency suspected to be superimposed on intrinsic renal disease due to vancomycin nephrotoxicity. Diuresis was continued at this time given the severity of the patient's fluid retention. The patient had a Vas-Cath placed and started dialysis on 09/27 given his marked fluid retention with poor response to IV diuresis and noted to have progressive azotemia. Patient continued dialysis almost daily initially with no improvement in his renal function. Nephrology recommended a renal biopsy given his lack of improvement which was performed on 10/03. Biopsy showed acute tubular injury, with global glomerulosclerosis and severe arterial sclerosis. Patient's renal function began to recover on 10/08 with continued improvement of his renal indices. The patient did have a PermCath placed during this hospitalization as the initial thought was the patient may require dialysis potentially long-term and as an outpatient. His renal function improved to within a normal range on 10/16. His PermCath was removed by interventional radiology. Infectious disease was consulted given his left ankle wound growing MRSA and Pseudomonas. A bone scan showed increased activity involving the feet bilaterally which corresponds to the fracture on the left, as well as arthritis on the right. Gallium scan was performed for further evaluation which showed no evidence of osteo-mild. Case was discussed with infectious disease and the patient was recommended to continue follow-up with his with the pubic surgeon as an outpatient. The patient's renal biopsy was complicated by a left perinephric hematoma measuring 7 x 4 cm. Patient's hemoglobin dropped to as low as 6.2 on 10/05 and the patient was given 2 units of packed red blood cells. Patient's hemoglobin remained stable thereafter ranging from 7.9-9.0. Patient has complaints of midline lower back pain varying from his initial pain surrounding his left-sided perinephric hematoma. Lumbar spine plain films were obtained which showed mild compression deformities of T11 and T12 vertebral bodies, could not exclude a slight acute T11 compression deformity. Neurosurgery was consulted. The case was discussed with Dr. Langston who recommended as the patient was ambulating normally without issues and without other neurological deficits to follow-up as an outpatient in 2 weeks. The patient's hemoglobin and renal indices remained stable prior to discharge as well as urine output noted to significantly improve prior to discharge. The patient was transitioned to torsemide 20 mg p.o. twice daily as well as metolazone 10 mg p.o. Saturday/Saturday/Saturday per nephrology for continued diuresis as an outpatient. The patient was ordered a follow-up renal panel within 3 days after hospital discharge and recommended to follow-up with his PCP, lineman service or work dispatcher, and neurosurgeon after hospital discharge. - Time Spent with Patient Total time spent providing and/or coordinating discharge services: Less than 30 minutes - Quality: VTE Deep Vein Thrombosis/Pulmonary Embolism Present on Admission: No Exam Narrative: GENERAL: Middle-aged obese male lying in bed in [facility]. SKIN: Warm and dry. HEAD: Atraumatic. Normocephalic. EYES: EOMI. No scleral icterus. No injection or drainage. ENT: No nasal bleeding or discharge. Mucous membranes pink and moist. CARDIOVASCULAR: Regular rate and rhythm. RESPIRATORY: No accessory muscle use. Clear to auscultation. Breath sounds equal bilaterally. GASTROINTESTINAL: Abdomen soft, obese, nt. Normal bowel sounds. BACK: well-healing surgical scar over left lower back where bone was taken from iliac crest for his ankle reconstruction. No bruising. MUSCULOSKELETAL: No cyanosis, 2+ pitting edema up to proximal pre-tibias bilaterally. No cyanosis. Left ankle wound with clean and dry dressing noted. No calf tenderness to palpation bilaterally. NEUROLOGICAL: Awake and alert. No obvious cranial nerve deficits. Motor grossly within normal limits. PSYCHIATRIC: Appropriate mood and affect; insight and judgment normal. Results Procedures completed during hospitalization: Vascath and Permcath placement and removal Renal biopsy - Impressions ITS Impressions Ankle X-Ray 09/20/17 14:40 CONCLUSION: No acute fracture or joint dislocation. Hip X-Ray 09/20/17 14:40 CONCLUSION: No acute fracture or joint dislocation. Venous Doppler Study 09/20/17 14:42 CONCLUSION: 1. No evidence of DVT. Liver Ultrasound 09/21/17 00:00 CONCLUSION: 1. Enlarged fatty liver measuring 23.4 cm in length. Contracted gallbladder. No biliary ductal dilatation. Abdomen/Bladder Ultrasound 09/23/17 00:00 CONCLUSION: Unremarkable ultrasound examination of the kidneys. Chest X-Ray 09/25/17 00:00 CONCLUSION: Cardiomegaly. No acute pulmonary disease. Pulmonary Perfusion Imaging 09/25/17 00:00 CONCLUSION: 1. Low probability ventilation perfusion lung scan. Venogram Nuclear Medicine 09/25/17 15:10 CONCLUSION: Widely patent inferior vena cava Catheter Placement 09/27/17 10:34 CONCLUSION: 1. Uncomplicated line placement as above. Renal Biopsy CT 10/03/17 14:40 CONCLUSION: 1. Uncomplicated CT guided left [place] renal biopsy. Abdomen/Pelvis CT 10/05/17 00:00 CONCLUSION: Central Venous Line 10/08/17 00:00 CONCLUSION: SPECT Scan-Bone NM 10/14/17 00:00 CONCLUSION: 1. Increased activity involving the feet bilaterally corresponding to the fracture on the left and arthritis on the right. If there is concern for infection gallium scanning is recommended. Lumbar Spine X-Ray 10/15/17 00:00 Alignment is normal. Mild anterior osteophyte formation. There are mild compression deformities of T11 and T12 vertebral bodies identified. Slight loss of vertebral body height at T12 is stable. Not exclude a slight acute T11 compression deformity. CONCLUSION: Stable mild loss of height at T12, questionable T11 deformity. SPECT-Abscess Localization NM 10/15/17 00:00 CONCLUSION: 1. No evidence of osteomyelitis. Tube Removal 10/16/17 00:00 CONCLUSION: 1. Uncomplicated Permcath removal. Discharge Plan - Discharge Disposition Patient Disposition: 06 Disch W/Home Health Service - Discharge Condition Condition: Stable - Discharge Order Discharge Orders: Discharge Order (Routine); Ordered 10/18/17 Ordered By: Yann Kerr - Discharge Details Anticipated Discharge Date: 10/18/17 - Physicians Team Primary Care Provider: Young Mahmood Attending Provider: Frederick Arora Other Providers: Himanshu Rider MD ; Liz Perry MD ; Funmilayo Pineda MD ; Adrian Langston MD
[2017-10-22 17:55] VITALS: O2SAT 96
[2017-10-22 18:03] VITALS: PULSE 86
[2017-10-22 18:12] VITALS: BP 118/63; TEMP 98.1
== END 2017-10-18 17:09 | disposition home health service (06) ==
LOC: NEPD 12:39 → NEDA 17:19 → N04 22:07
PROVIDERS: ADMIT Family Medicine; ATTEND Family Medicine